=== PATIENT | female | born 1965 | race Two or more races ===

== ENCOUNTER 2019-12-04 12:29 | Emergency (ER) | payer OTHER, SELFPAY ==
[2019-12-04 13:06] VITALS: BP 134/58; PULSE 57; RESP 18; TEMP 36.9; O2SAT 98; BMI 60.6
--- NOTE | 2019-12-04 13:18 | ED_ITS ---
HPI - Female Genitourinary General Chief complaint: Urogenital-Female Stated complaint: r side pain Time Seen by Provider: 12/04/19 17:09 Source: patient Mode of arrival: ambulatory Limitations: no limitations History of Present Illness HPI Narrative: Patient presents to ED for dysuria and right-sided flank pain f or the past 2 days. Patient states some nausea, but no vomiting. Patient denies any fever or chills. Patient denies any recent trauma to the abdomen, flank, or back area. Patient denies any hematuria. Patient denies any abdominal pain, nausea, or emesis. MD elicited complaint: dysuria and flank pain Related Data Home Medications Medication Instructions Recorded Confirmed omeprazole 20 mg capsule,delayed 20 mg PO DAILY 11/23/19 release Previous Rx's Medication Instructions Recorded docusate sodium 100 mg capsule 100 mg PO BID 30 Days #60 cap 11/23/19 plecanatide 3 mg tablet 3 mg PO DAILY 30 Days #30 tab 11/23/19 oxycodone-acetaminophen [Percocet] 1 tab PO Q6H PRN #12 tab 12/04/19 Allergies Allergy/AdvReac Type Severity Reaction Status Date / Time levofloxacin [From LEVAQUIN] Allergy Unknown DIZZINESS Unverified 11/02/19 17:43 topiramate Allergy Unknown palpitation Verified 05/24/19 00:00 s BuPROPion HCl Allergy Unknown palpitation Uncoded 05/24/19 00:00 s Phentermine HCl Allergy Unknown uncontrolled Uncoded 05/24/19 00:00 hypertension Pt states she has no known Allergy Unknown Uncoded 10/19/19 00:00 ole Review of Systems Review of Systems: Yes all other systems are reviewed and are negative Constitutional: Constitutional: Reports as per HPI and Reports no additional constitutional complaints Eyes: Eyes: Reports as per HPI and Reports no additional eye complaints ENT: Reports system reviewed and no additional complaints, except as documented and Reports as per HPI Cardiovascular: Cardiovascular: Reports as per HPI and Reports no additional cardiovascular complaints Respiratory: Respiratory: Reports as per HPI and Reports no additional respiratory complaints Gastrointestinal: Gastrointestinal: Reports as per HPI and Reports no additional gastrointestinal complaints Genitourinary: Genitourinary: Reports dysuria Comments: Positive for Right flank pain. Neurologic: Reports system reviewed and no additional complaints, except as documented and Reports as per HPI Psychiatric: Psychiatric: Reports no additional psychiatric complaints and Reports as per HPI ON LICENSE OF [facility] Past Medical History Medical History (Updated 12/04/19 @ 21:43 by SUDHEER Curran) Afib Anxiety Arthritis Asthma Depression Hepatic steatosis Surgical History H/O colonoscopy History of section History of cholecystectomy History of esophagogastroduodenoscopy (EGD) Family History Family History (Updated 11/22/19 @ 17:55 by JOCELIN Rizzo) Father CVA (cerebral vascular accident) Colon cancer CAD (coronary artery disease) Mother Cancer of unknown origin Social History Social History (Updated 11/22/19 @ 17:55 by JOCELIN Rizzo) Alcohol intake: never Smoking Status: Never smoker Smoked in Last 30 Days: No Use of substances other than those prescribed or required for medical reasons: No Advance Directives: No Advance Directives Information Provided: Yes Physical Exam Vital Signs: Vital Signs: Vital Signs Temp Pulse Resp BP Pulse Ox 12/04/19 17:40 98.6 F 61 16 145/59 H 12/04/19 15:17 98.4 F 59 16 164/70 H 100 12/04/19 13:06 98.4 F 57 18 134/58 L 98 Body Mass Index 60.6 Const: General: cooperative, healthy appearing, comfortable, no acute distress and well developed Orientation/consciousness: oriented to person, oriented to place, oriented to time and patient oriented x3 HENMT: Head: Yes normal to inspection Eyes: General: appearance normal, both eyes and all related structures Neck: Neck: Yes normal visual inspection and Yes full ROM Chest: Chest palpation & inspection: normal inspection of the chest and normal palpation of entire chest wall Resp: Effort & Inspection: normal respiratory effort and able to speak in complete sentences Cardio: Jugular venous distension: no JVD Heart sounds: S1 normal heart sound present and S2 normal heart sound present GI: Inspection: Yes normal to inspection and No abdominal wall ecchymosis Palpation (GI): Soft to palpation, not firm, nontender, no guarding and not rigid : General: Yes CVA tenderness (Right) Back/Spine/Pelvis: Back: CVA tenderness (Right) and No back tenderness Skin: General skin exam: no rashes or lesions noted Neuro: General: oriented to person, oriented to place, oriented to time, patient oriented x3, gait normal and CN's II-XI intact bilaterally Cranial nerves: Yes CN's II-XII intact bilaterally Extrem: General: Yes normal to inspection and Yes full ROM Course Course Course Narrative: patient will have basic labs including urine to check for UTI and elevated white blood cell count. Patient most likely will have a abdominal CT scan to rule out kidney stones. Reevaluation(s) Reevaluation #1: Patient labs are normal. UA negative for UTI. Patient abdominal CT scan negative for kidney stones or pyelonephritis. CT scan results states possble mild pancreatitis if patient's lipase enzyme abnormal elevated. Patient's lipase came back normal and patient does not have any epigastric tenderness/abdominal tenderness to indicate pancreatitis. Pancreatitis is not a suspicion or diagnosis. Once again patient came to ED for right-sided flank pain and dysuria Time: 21:38 Reevaluation #2: during ED visit patient stated she started described chest pain described as her usual anxiety. Patient states she is waiting too long. Patient does states history of anxiety and does take anxiety medication. But due to patient risk factors of hypertension and past medical history of atrial fibrillation patient will have 2 troponins in the ED. Patient was given Ativan now is sleeping and not in any distress. Discharge papers will be prepared is signed out to MICHAEL Gomez follow-up with troponin. Time: 09:39 MDM - Female Genitourinary MDM Narrative Medical decision making narrative: Flank pain. Abdominal CT scan negative for UTI, kidney stones, pyelonephritis. History physical exam does not indicate pancreatitis. Patient does not have any abdominal tenderness Lab Data Result diagrams: 12/04/19 15:30 12/04/19 15:30 Labs: Lab Results 12/04/19 12/04/19 12/04/19 Range/Units 15:24 15:30 15:30 WBC 8.3 (4.8-10.8) X10*3/uL RBC 4.35 (4.20-5.50) X10*6/uL Hgb 13.2 (12.0-16.0) g/dl Hct 41.5 (37-47) % MCV 95.4 (80-98) fL MCH 30.3 (27.0-33.0) pg MCHC 31.8 (31.0-35.0) g/dl RDW 13.6 (11.0-16.0) % Plt Count 203 (160-400) X10*3/uL MPV 11.7 (9.4-12.3) fL Immature Gran % (Auto) 0.4 (0.0-0.4) % Neut % (Auto) 53.7 (45-73) % Lymph % (Auto) 37.0 (20-40) % [place] % (Auto) 7.2 (2-11) % Eos % (Auto) 1.5 (0-4) % Baso % (Auto) 0.2 (0-2) % Lymph # (Auto) 3.1 (1.2-4.9) X10*3/uL [place] # (Auto) 0.6 (0.1-1.2) X10*3/uL Eos # (Auto) 0.1 (0.0-0.4) X10*3/uL Baso # (Auto) 0.0 (0.0-0.2) X10*3/uL Abs Immat Gran (auto) 0.03 (0.00-0.03) X10*3/uL Absolute Neuts (auto) 4.4 (2.0-8.3) X10*3/uL Absolute Nucleated RBC 0.000 (0.0-0.012) X10*3/uL Nucleated RBC % (auto) 0.0 (0.0-0.2) /100WBC PT 12.8 (10.8-13.0) SEC INR 1.1 (0.9-1.1) APTT 36.6 (24.1-38.0) SEC Sodium (135-145) mmol/L Potassium (3.3-5.1) mmol/l Chloride (96-108) mmol/L Carbon Dioxide (22-29) mmol/L Anion Gap (12-20) BUN (9-16) mg/dL Creatinine (0.5-1.4) mg/dL Estim Creat Clear Calc Estimated GFR Random Glucose (60-115) mg/dL Calcium (8.4-10.2) mg/dL Total Bilirubin (0.0-1.0) mg/dL AST (5-31) U/L ALT (0-31) U/L Alkaline Phosphatase (39-117) U/L Troponin I High Sens (<3.5-17.0) ng/L Total Protein (6.5-8.0) g/dL Albumin (3.5-5.0) g/dL Lipase (8-78) U/L Urine Color YELLOW Urine Appearance CLEAR Urine pH 7.0 (5.0-8.0) Ur Specific [place] 1.010 (1.005-1.025) Urine Protein NEG (NEG-TRACE) MG/DL Urine Glucose (UA) NEG (NEG) MG/DL Urine Ketones NEG (NEG) MG/DL Urine Blood NEG (NEG) Urine Nitrite NEG (NEG) Ur Leukocyte Esterase NEG (NEG) 12/04/19 12/04/19 Range/Units 15:30 18:46 WBC (4.8-10.8) X10*3/uL RBC (4.20-5.50) X10*6/uL Hgb (12.0-16.0) g/dl Hct (37-47) % MCV (80-98) fL MCH (27.0-33.0) pg MCHC (31.0-35.0) g/dl RDW (11.0-16.0) % Plt Count (160-400) X10*3/uL MPV (9.4-12.3) fL Immature Gran % (Auto) (0.0-0.4) % Neut % (Auto) (45-73) % Lymph % (Auto) (20-40) % [place] % (Auto) (2-11) % Eos % (Auto) (0-4) % Baso % (Auto) (0-2) % Lymph # (Auto) (1.2-4.9) X10*3/uL [place] # (Auto) (0.1-1.2) X10*3/uL Eos # (Auto) (0.0-0.4) X10*3/uL Baso # (Auto) (0.0-0.2) X10*3/uL Abs Immat Gran (auto) (0.00-0.03) X10*3/uL Absolute Neuts (auto) (2.0-8.3) X10*3/uL Absolute Nucleated RBC (0.0-0.012) X10*3/uL Nucleated RBC % (auto) (0.0-0.2) /100WBC PT (10.8-13.0) SEC INR (0.9-1.1) APTT (24.1-38.0) SEC Sodium 139 (135-145) mmol/L Potassium 4.1 (3.3-5.1) mmol/l Chloride 106 (96-108) mmol/L Carbon Dioxide 25 (22-29) mmol/L Anion Gap 12 (12-20) BUN 15 (9-16) mg/dL Creatinine 0.73 (0.5-1.4) mg/dL Estim Creat Clear Calc 113.1 Estimated GFR > 60 Random Glucose 82 (60-115) mg/dL Calcium 8.8 (8.4-10.2) mg/dL Total Bilirubin 0.4 (0.0-1.0) mg/dL AST 16 (5-31) U/L ALT 18 (0-31) U/L Alkaline Phosphatase 110 (39-117) U/L Troponin I High Sens < 3.5 (<3.5-17.0) ng/L Total Protein 7.7 (6.5-8.0) g/dL Albumin 4.1 (3.5-5.0) g/dL Lipase 10 (8-78) U/L Urine Color Urine Appearance Urine pH (5.0-8.0) Ur Specific [place] (1.005-1.025) Urine Protein (NEG-TRACE) MG/DL Urine Glucose (UA) (NEG) MG/DL Urine Ketones (NEG) MG/DL Urine Blood (NEG) Urine Nitrite (NEG) Ur Leukocyte Esterase (NEG) ECG Data Interpretation: sinus bradycardia, ventricular rate 58. NM interval 154. Normal EKG Discharge Plan Discharge Clinical Impression: Flank pain Patient Disposition: Home, Self-Care Instructions: Flank Pain (ED) Additional Instructions: return to the ED immediately for chest pain, shortness of breath, swelling of lower extremities, hematuria, dysuria, fever, chills, abdominal pain, nausea, vomiting, or any other concerning symptoms. Please follow-up with the PCP. Prescriptions: New oxycodone-acetaminophen [Percocet] 5-325 mg tablet 1 tab PO Q6H PRN (Reason: pain) Qty: 12 RF: 0 No Action Trulance 3 mg tablet 3 mg PO DAILY 30 Days Qty: 30 RF: 3 docusate sodium [Colace] 100 mg capsule 100 mg PO BID 30 Days Qty: 60 RF: 3 omeprazole 20 mg capsule,delayed release(DR/EC) 20 mg PO DAILY RF: 0 Referrals: Eri Feldman MD [Primary Care Provider] - 2 days (FLank pain. Abdominal CT scan negative for kidney stones. UA normal) Print Language: Mexican
[2019-12-04 15:17] VITALS: BP 164/70; PULSE 59; RESP 16; TEMP 36.9; O2SAT 100
[2019-12-04] MEDS: 0.9 % Sodium Chloride 1,000 ML 999 ML IVCONT (15:32)
--- NOTE | 2019-12-04 15:33 | PC.NURSE ---
iv inserted-difficult stick, labs drawn, patient ambulated to bathroom for urine sample, ivf started per order, currently patient watching tv, will continue to monitor.
[2019-12-04 15:38] LABS: Glucose Urine UA NEG (NEG); Leukocyte Esterase Urine NEG (NEG); Nitrite Urine NEG (NEG); Urine Blood NEG (NEG); Urine Ketones NEG (NEG); Urine Protein NEG (NEG-TRACE)
[2019-12-04 15:39] LABS: Appearance Urine CLEAR; Color Urine YELLOW
[2019-12-04 15:39] LABS: MANUAL DIFF FLAG NO
[2019-12-04 15:40] LABS: Basophils Percent Auto 0.2 % (0-2); Eosinophils Absolute Auto 0.1 X10*3/uL (0.0-0.4); Eosinophils Percent Auto 1.5 % (0-4); Hematocrit 41.5 % (37-47); Hemoglobin 13.2 g/dl (12.0-16.0); Imm Gran Abs Auto 0.03 X10*3/uL (0.00-0.03); Imm Gran Pct Auto 0.4 % (0.0-0.4); Lymphocytes Absolute Auto 3.1 X10*3/uL (1.2-4.9); Mean Corpuscular HGB Conc 31.8 g/dl (31.0-35.0); Mean Corpuscular Hemoglobin 30.3 pg (27.0-33.0); Mean Corpuscular Volume 95.4 fL (80-98); Mean Platelet Volume 11.7 fL (9.4-12.3); Monocytes Absolute Auto 0.6 X10*3/uL (0.1-1.2); Monocytes Percent Auto 7.2 % (2-11); Neutrophils Absolute Auto 4.4 X10*3/uL (2.0-8.3); Neutrophils Percent Auto 53.7 % (45-73); Platelet Count 203 X10*3/uL (160-400); Red Blood Count 4.35 X10*6/uL (4.20-5.50); Red Cell Distribution Width 13.6 % (11.0-16.0); White Blood Count 8.3 X10*3/uL (4.8-10.8)
[2019-12-04 15:48] LABS: INTERNATIONAL NORM RATIO 1.1 (0.9-1.1); Prothrombin Time 12.8 SEC (10.8-13.0)
[2019-12-04 15:51] LABS: Partial Thromboplastin Time 36.6 SEC (24.1-38.0)
[2019-12-04 16:07] LABS: Alanine Aminotransferase 18 U/L (0-31); Albumin Level 4.1 g/dL (3.5-5.0); Alkaline Phosphatase 110 U/L (39-117); Anion Gap 12 (12-20); Aspartate Amino Transferase 16 U/L (5-31); Bilirubin Total 0.4 mg/dL (0.0-1.0); Blood Urea Nitrogen 15 mg/dL (9-16); Calcium 8.8 mg/dL (8.4-10.2); Carbon Dioxide 25 mmol/L (22-29); Chloride 106 mmol/L (96-108); Creatinine Clr Calc Pharmacy 113.1; Estimated Glomerular Filt Rate > 60; Glucose Random 82 mg/dL (60-115); Potassium 4.1 mmol/l (3.3-5.1); Sodium 139 mmol/L (135-145); Total Protein 7.7 g/dL (6.5-8.0)
--- NOTE | 2019-12-04 16:10 | CT_ITS ---
EXAMINATION: CT ABDOMEN AND PELVIS WITH CONTRAST CLINICAL INFORMATION: Right-sided abdominal pain COMPARISON: Ultrasound 10/24/2018 TECHNIQUE: Multidetector volumetric images were obtained from the superior aspect of the liver through the pubic symphysis following administration 85 mL of Omnipaque 350 intravenous contrast. Sagittal and coronal reformatted images were obtained on the technologist's workstation. Oral contrast: No This CT examination was performed using dose optimization techniques as appropriate, variously including the following: *Automated exposure control *Adjustment of mA and/or kV according to patient size (this includes techniques or standardized protocols for targeted exams where dose is matched to indication/reason for exam; i.e. extremities or head) *Use of iterative reconstruction technique DLP: 1281 mGy-cm FINDINGS: LUNG BASES: The visualized lung bases are unremarkable. LIVER, GALLBLADDER, AND BILIARY TREE: There is low density along the periphery of the right lobe of liver and adjacent the fissure of the falciform ligament consistent with fatty infiltration. No concerning focal liver lesion seen. Gallbladder surgically absent. No biliary ductal dilatation. PANCREAS: There is subtle fluid and fat stranding adjacent the head of the pancreas. No mass seen. The pancreas enhances normally with no necrosis. SPLEEN: Unremarkable. ADRENAL GLANDS: Unremarkable. KIDNEYS AND URETERS: The kidneys are normal in size, shape, and attenuation. No hydronephrosis, hydroureter, or calculi seen. No perinephric stranding. BLADDER: Unremarkable. GASTROINTESTINAL TRACT: Stomach and small bowel are nondilated. Normal appendix. No evidence of colitis or diverticulitis. ABDOMINAL WALL: Small fat-containing umbilical hernia. There is a transverse lower abdominal incision suggesting prior Pfannenstiel incision. LYMPH NODES: No lymphadenopathy. Normal-sized right lower quadrant lymph nodes are present. VASCULAR: Unremarkable. PELVIC VISCERA: Normal CT appearance of the uterus and ovaries. OSSEOUS STRUCTURES: Multilevel degenerative changes. No acute or suspicious osseous abnormality. There are a few scattered nonspecific sclerotic foci for example in the right iliac bone. This was present on the prior study 08/19/2015, consistent with a benign etiology. IMPRESSION: There is a suggestion of subtle fat stranding adjacent the head of the pancreas. Mild pancreatitis could give this appearance. Consider correlation with serum enzymes. No evidence of appendicitis or colitis. No evidence of obstructive uropathy. Status post cholecystectomy with no biliary ductal dilatation.
[2019-12-04] MEDS: iohexoL 350 MG/ML 100 ML INFUS..BTL IV (16:44)
[2019-12-04 17:40] VITALS: BP 145/59; PULSE 61; RESP 16; TEMP 37
--- NOTE | 2019-12-04 17:42 | PC.NURSE ---
patient a&ox3, patient asking for something to drink, will ask provider, vss, ivf still running very slowly- provider ok'd pressure bag to help fluids run faster, will continue to monitor.
[2019-12-04 17:52] LABS: Lipase 10 U/L (8-78)
--- NOTE | 2019-12-04 18:20 | PC.NURSE ---
patient sat up in bed after requesting to use the bathroom and became tearful, called for leather lacer, pt stating she does not want the morphine- will wait for leather lacer to come to assess the situation.
--- NOTE | 2019-12-04 18:33 | ECG_ITS ---
Test Reason : chest pain Blood Pressure : / mmHG Vent. Rate : 058 BPM Atrial Rate : 058 BPM P-R Int : 154 ms QRS Dur : 084 ms QT Int : 440 ms P-R-T Axes : 014 021 038 degrees QTc Int : 431 ms Sinus bradycardia RSR' or QR pattern in V1 suggests right ventricular conduction delay Otherwise normal ECG When compared with ECG of 24-MAY-2019 09:30, No significant change was found Referred By: Thai Victoria Electronically Signed By:PATRICE VALENZUELA MD
--- NOTE | 2019-12-04 18:36 | PC.NURSE ---
patient crying, funds development director states she is having mid sternal chest pain, non radiating, provider is aware, pt also states she is having problems with anxiety, it was decided to hold morphine and treat the anxiety at this time, will medicate for anxiety when order is available.
[2019-12-04] MEDS: LORazepam 1 MG TABLET 2 MG PO (18:39)
[2019-12-04 19:21] LABS: Troponin-I High Sensitivity < 3.5 ng/L (<3.5-17.0)
[2019-12-04 20:00] VITALS: BP 128/64; PULSE 70; RESP 18; O2SAT 97
--- NOTE | 2019-12-04 20:26 | XR_ITS ---
EXAMINATION: CHEST 1 VIEW CLINICAL INFORMATION: Chest pain. COMPARISON: September 16, 2018. TECHNIQUE: An AP view of the chest is provided. FINDINGS: The cardiac silhouette is stable. The mediastinal and hilar contours are unremarkable. There are neither pleural effusions nor pneumothoraces. There are no consolidations. The osseous structures are stable. IMPRESSION: No evidence for acute disease.
[2019-12-04 22:00] VITALS: BP 126/60; PULSE 72; RESP 18; O2SAT 97
[2019-12-04 23:15] LABS: Troponin-I High Sensitivity 5.8 ng/L (<3.5-17.0)
== END 2019-12-04 23:56 | disposition home or self-care (01) ==
PROVIDERS: Physician Assistant; Emergency Provider Emergency Medicine; PCP Internal Medicine
DX: R10.9 Unspecified abdominal pain (principal); R11.0 Nausea; Z79.899 Other long term (current) drug therapy
CPT/HCPCS: 36415; 71045; 74177; 80053; 81003; 83690; 84484; 85025; 85610; 85730; 93005; 96361; 96374; 99284; J2270

== ENCOUNTER 2020-01-12 11:20 | Outpatient (REF) | payer OTHER, SELFPAY ==
--- NOTE | 2020-01-12 11:25 | MM_ITS ---
EXAMINATION: MM SCREENING DIGITAL BREAST TOMOSYNTHESIS, BILATERAL CLINICAL INFORMATION: Screening. Asymptomatic. The lifetime risk of breast cancer based on the Tyrer-Cuzick Model is 9%. COMPARISON: Mammography: 06/22/2018, 06/11/2017, 06/09/2016 TECHNIQUE: Digital breast tomosynthesis is performed in both the craniocaudal and mediolateral oblique views along with computer-aided detection (CAD). Synthesized 2D images are generated from the tomosynthesis. FINDINGS: The breasts are almost entirely fatty (ACR BI-RADS breast composition Category a). There are no significant masses, abnormal calcifications, or other abnormalities. Background stromal and fibroglandular densities are stable including the oval asymmetric density central left breast on CC view. The axilla are unremarkable. MM/MM tomosynthesis screening BI IMPRESSION: No significant changes from prior studies. ASSESSMENT: BI-RADS 2: Benign RECOMMENDATION: Routine annual mammography screening. This patient's information was entered into a reminder system with a target due date for their next mammogram.
== END 2020-01-12 11:21 | disposition home or self-care (01) ==
LOC: HO.MAMMO 11:20
PROVIDERS: PCP Internal Medicine; Visit Provider Internal Medicine
DX: Z12.31 Encounter for screening mammogram for malignant neoplasm of breast (principal)
CPT/HCPCS: 77063; 77067

== ENCOUNTER → 2020-01-18 08:58 | Outpatient (BNVA) | payer OTHER, SELFPAY | PROVIDERS: PCP Internal Medicine; Referring Provider Internal Medicine; Visit Provider Physician Assistant | DX: E66.01 Morbid (severe) obesity due to excess calories (principal) | CPT/HCPCS: 99212 ==

== ENCOUNTER 2020-01-19 08:52 | Outpatient (REF) | payer OTHER, SELFPAY ==
--- NOTE | 2020-01-19 09:00 | ECG_ITS ---
Test Reason : PAF Blood Pressure : / mmHG Vent. Rate : 063 BPM Atrial Rate : 063 BPM P-R Int : 132 ms QRS Dur : 086 ms QT Int : 416 ms P-R-T Axes : 000 015 033 degrees QTc Int : 425 ms Normal sinus rhythm Normal ECG When compared with ECG of 04-DEC-2019 19:35, No significant change was found Referred By: Mari Grande Electronically Signed By:DARIN DONAHUE MD
--- NOTE | 2020-01-19 09:17 | XR_ITS ---
EXAMINATION: XR CHEST CLINICAL INFORMATION: I48.0 - Paroxysmal atrial fibrillation COMPARISON: Chest radiographs 12/04/2019, 09/16/2018, 12/02/2016 TECHNIQUE: 2 views of the chest were obtained. FINDINGS: The heart is normal in size. There is even distribution vascularity which may suggest some mild elevated pulmonary venous pressures. There is no interstitial edema or, airspace consolidation, or effusion. The costophrenic sulci are clear. The hilar and mediastinal contours are normal. There are mild degenerative changes thoracic spine. XR/XR chest 2V IMPRESSION: 1. Heart size normal. Even distribution vascularity suggesting mild elevated pulmonary venous pressures. 2. Lungs clear. No interstitial edema, airspace consolidation, or effusion.
[2020-01-19 10:14] LABS: MANUAL DIFF FLAG NO
[2020-01-19 10:27] LABS: Basophils Percent Auto 0.3 % (0-2); Eosinophils Absolute Auto 0.1 X10*3/uL (0.0-0.4); Eosinophils Percent Auto 2.1 % (0-4); Hematocrit 39.5 % (37-47); Hemoglobin 12.6 g/dl (12.0-16.0); Imm Gran Abs Auto 0.02 X10*3/uL (0.00-0.03); Imm Gran Pct Auto 0.3 % (0.0-0.4); Lymphocytes Absolute Auto 2.4 X10*3/uL (1.2-4.9); Lymphocytes Percent Auto 41.3 % (20-40); Mean Corpuscular HGB Conc 31.9 g/dl (31.0-35.0); Mean Platelet Volume 12.3 fL (9.4-12.3); Monocytes Absolute Auto 0.5 X10*3/uL (0.1-1.2); Monocytes Percent Auto 7.7 % (2-11); Neutrophils Absolute Auto 2.8 X10*3/uL (2.0-8.3); Neutrophils Percent Auto 48.3 % (45-73); Platelet Count 180 X10*3/uL (160-400); Red Cell Distribution Width 13.6 % (11.0-16.0); White Blood Count 5.8 X10*3/uL (4.8-10.8)
[2020-01-19 10:35] LABS: Estimated Average Glucose 111 mg/dL; Hemoglobin A1c % 5.5 %
[2020-01-19 10:38] LABS: Alanine Aminotransferase 19 U/L (0-31); Albumin Level 3.9 g/dL (3.5-5.0); Alkaline Phosphatase 109 U/L (39-117); Anion Gap 13 (12-20); Aspartate Amino Transferase 15 U/L (5-31); Bilirubin Total 0.5 mg/dL (0.0-1.0); Blood Urea Nitrogen 19 mg/dL (9-16); C Reactive Protein 0.64 mg/dL (< or = 0.50); Calcium 8.5 mg/dL (8.4-10.2); Carbon Dioxide 24 mmol/L (22-29); Chloride 106 mmol/L (96-108); Cholesterol 203 mg/dL; Estimated Glomerular Filt Rate > 60; Glucose Fasting 95 mg/dL (60-99); HDL Cholesterol 48 mg/dL; Iron 51 mcg/dL (30-160); LDL Cholesterol Calculated 136 mg/dl; Percent Iron Saturation 15 % (15-50); Potassium 4.1 mmol/l (3.3-5.1); Sodium 139 mmol/L (135-145); Total Iron Binding Capacity 351 mcg/dL (228-428); Total Protein 7.4 g/dL (6.5-8.0); Triglycerides 96 mg/dL; Unsaturated Iron Binding 300 ug/dL
[2020-01-19 10:58] LABS: Ferritin 25 ng/mL (10-250); Vitamin D 25-OH Total 28.8 ng/mL (>30)
[2020-01-19 11:10] LABS: Folate 5.4 ng/mL (> or = 4.0); Vitamin B12 494 pg/mL (200-900)
[2020-01-21 14:03] LABS: PTHI 37 pg/mL (14-64)
[2020-01-22 18:42] LABS: Insulin Level Total 5.2 uIU/mL
[2020-01-23 03:07] LABS: Zinc 76 mcg/dL (60-130)
[2020-01-25 11:17] LABS: Vitamin B1 12 nmol/L (8-30)
[2020-01-25 23:23] LABS: Vitamin A 40 mcg/dL (38-98)
== END 2020-01-19 08:53 | disposition home or self-care (01) ==
LOC: HO.LAB 08:52
PROVIDERS: PCP Internal Medicine; Visit Provider Physician Assistant
DX: E66.01 Morbid (severe) obesity due to excess calories (principal); I48.0 Paroxysmal atrial fibrillation; I10 Essential (primary) hypertension; R06.02 Shortness of breath
CPT/HCPCS: 36415; 71046; 80053; 80061; 82306; 82607; 82728; 82746; 83036; 83525; 83540; 83970; 84425; 84443; 84590; 84630; 85025; 86140; 93005

== ENCOUNTER 2020-02-06 10:11 | Outpatient (REF) | payer OTHER, SELFPAY ==
[2020-02-06 11:56] LABS: Glucose Urine UA NEG (NEG); Leukocyte Esterase Urine NEG (NEG); Nitrite Urine NEG (NEG); Specific Gravity - Urine 1.015 (1.005-1.025); Urine Blood TRACE (NEG); Urine Ketones NEG (NEG); Urine Protein NEG (NEG-TRACE)
[2020-02-06 12:01] LABS: Appearance Urine CLEAR; Color Urine YELLOW
[2020-02-06 12:15] LABS: Alanine Aminotransferase 18 U/L (0-31); Albumin Level 3.9 g/dL (3.5-5.0); Alkaline Phosphatase 100 U/L (39-117); Anion Gap 12 (12-20); Aspartate Amino Transferase 19 U/L (5-31); Bilirubin Total 0.5 mg/dL (0.0-1.0); Blood Urea Nitrogen 15 mg/dL (9-16); Calcium 8.6 mg/dL (8.4-10.2); Carbon Dioxide 25 mmol/L (22-29); Chloride 107 mmol/L (96-108); Cholesterol 195 mg/dL; Estimated Glomerular Filt Rate > 60; Glucose Fasting 84 mg/dL (60-99); HDL Cholesterol 49 mg/dL; LDL Cholesterol Calculated 130 mg/dl; Sodium 140 mmol/L (135-145); Total Protein 7.4 g/dL (6.5-8.0); Triglycerides 83 mg/dL
[2020-02-06 12:26] LABS: RBC Urine 0-2 /HPF (0); Squamous Epithelial Cell Urine 1+ /LPF; WBC Urine 0-2 /HPF (0-4)
[2020-02-06 12:36] LABS: Vitamin D 25-OH Total 32.6 ng/mL (>30)
[2020-02-06 12:40] LABS: TSH reflex Free T4 1.05 mIU/mL (0.32-4.0)
[2020-02-14 22:03] LABS: Thyrotropin Receptor Antibody <1.00 IU/L (<=2.00)
== END 2020-02-06 10:12 | disposition home or self-care (01) ==
LOC: HO.LAB 10:11
PROVIDERS: Nurse Practitioner; PCP Internal Medicine; Visit Provider Internal Medicine
DX: E78.00 Pure hypercholesterolemia, unspecified (principal); E55.9 Vitamin D deficiency, unspecified
CPT/HCPCS: 36415; 80053; 80061; 81001; 81003; 82306; 83520; 84443

== ENCOUNTER → 2020-02-22 14:35 | Outpatient (BNVA) | payer OTHER, SELFPAY | PROVIDERS: PCP Internal Medicine; Visit Provider Surgery | DX: E66.01 Morbid (severe) obesity due to excess calories (principal); Z68.43 Body mass index [BMI] 50.0-59.9, adult | CPT/HCPCS: 99212 ==

== ENCOUNTER → 2020-02-27 08:16 | Outpatient (BNVA) | payer OTHER, SELFPAY | PROVIDERS: PCP Internal Medicine; Visit Provider Dietitian, Registered | DX: Z76.89 Persons encountering health services in other specified circumstances (principal) ==

== ENCOUNTER → 2020-03-05 14:03 | Outpatient (BNVA) | payer OTHER, SELFPAY | PROVIDERS: PCP Internal Medicine; Visit Provider Nurse Practitioner ==

== ENCOUNTER → 2020-03-07 14:42 | Outpatient (BNVA) | payer OTHER, SELFPAY | PROVIDERS: PCP Internal Medicine; Visit Provider Physician Assistant ==

== ENCOUNTER → 2020-03-15 14:18 | Outpatient (BNVA) | payer OTHER, SELFPAY | PROVIDERS: Visit Provider Physician Assistant | DX: E66.01 Morbid (severe) obesity due to excess calories (principal) | CPT/HCPCS: 99212 ==

== ENCOUNTER → 2020-03-19 07:40 | Outpatient (BNVA) | payer OTHER, SELFPAY | PROVIDERS: Visit Provider Dietitian, Registered ==

== ENCOUNTER → 2020-03-20 09:31 | Outpatient (BNVA) | payer OTHER, SELFPAY | PROVIDERS: Visit Provider Nurse Practitioner ==

== ENCOUNTER → 2020-03-27 12:44 | Outpatient (BNVA) | payer OTHER, SELFPAY | PROVIDERS: PCP Internal Medicine; Visit Provider Dietitian, Registered ==

== ENCOUNTER → 2020-04-11 14:00 | Outpatient (BNVA) | payer OTHER, SELFPAY | PROVIDERS: PCP Internal Medicine; Visit Provider Physician Assistant | DX: E66.01 Morbid (severe) obesity due to excess calories (principal) | CPT/HCPCS: 99212 ==

== ENCOUNTER → 2020-04-22 10:37 | Outpatient (BNVA) | payer OTHER, SELFPAY | PROVIDERS: PCP Internal Medicine; Visit Provider Internal Medicine Cardiovascular Disease | DX: Z01.810 Encounter for preprocedural cardiovascular examination (principal); I48.0 Paroxysmal atrial fibrillation | CPT/HCPCS: 93005; 99212 ==

== ENCOUNTER → 2020-04-30 12:56 | Outpatient (BNVA) | payer OTHER, SELFPAY | PROVIDERS: PCP Internal Medicine; Visit Provider Dietitian, Registered ==

== ENCOUNTER 2020-06-24 11:35 | Outpatient (REF) | payer OTHER, SELFPAY ==
[2020-06-24 12:33] LABS: MANUAL DIFF FLAG NO
[2020-06-24 12:41] LABS: Basophils Percent Auto 0.4 % (0-2); Eosinophils Absolute Auto 0.1 X10*3/uL (0.0-0.4); Eosinophils Percent Auto 1.3 % (0-4); Hematocrit 41.7 % (37-47); Hemoglobin 13.3 g/dl (12.0-16.0); Imm Gran Abs Auto 0.01 X10*3/uL (0.00-0.03); Imm Gran Pct Auto 0.2 % (0.0-0.4); Lymphocytes Absolute Auto 2.4 X10*3/uL (1.2-4.9); Lymphocytes Percent Auto 46.4 % (20-40); Mean Corpuscular HGB Conc 31.9 g/dl (31.0-35.0); Mean Corpuscular Volume 93.9 fL (80-98); Mean Platelet Volume 12.1 fL (9.4-12.3); Monocytes Absolute Auto 0.4 X10*3/uL (0.1-1.2); Monocytes Percent Auto 7.5 % (2-11); Neutrophils Absolute Auto 2.3 X10*3/uL (2.0-8.3); Neutrophils Percent Auto 44.2 % (45-73); Platelet Count 166 X10*3/uL (160-400); Red Blood Count 4.44 X10*6/uL (4.20-5.50); Red Cell Distribution Width 13.6 % (11.0-16.0); White Blood Count 5.2 X10*3/uL (4.8-10.8)
[2020-06-24 13:23] LABS: Alanine Aminotransferase 18 U/L (0-31); Albumin Level 4.1 g/dL (3.5-5.0); Alkaline Phosphatase 102 U/L (39-117); Anion Gap 13 (12-20); Aspartate Amino Transferase 17 U/L (5-31); Bilirubin Total 0.6 mg/dL (0.0-1.0); Blood Urea Nitrogen 21 mg/dL (9-16); Calcium 9.2 mg/dL (8.4-10.2); Carbon Dioxide 25 mmol/L (22-29); Chloride 105 mmol/L (96-108); Cholesterol 214 mg/dL; Estimated Glomerular Filt Rate > 60; Glucose Fasting 87 mg/dL (60-99); HDL Cholesterol 53 mg/dL; LDL Cholesterol Calculated 144 mg/dl; Potassium 4.2 mmol/L (3.3-5.1); Sodium 139 mmol/L (135-145); Total Protein 7.8 g/dL (6.5-8.0); Triglycerides 85 mg/dL
[2020-06-24 13:55] LABS: Folate 10.1 ng/mL (> or = 4.0); Vitamin B12 1069 pg/mL (200-900)
[2020-06-28 13:37] LABS: Vitamin D 25-OH, D2 <4 ng/mL; Vitamin D 25-OH, D3 27 ng/mL; Vitamin D 25-OH, Total 27 ng/mL (30-100)
== END 2020-06-24 11:36 | disposition home or self-care (01) ==
LOC: HO.LAB 11:35
PROVIDERS: PCP Internal Medicine; Visit Provider Internal Medicine
DX: E78.5 Hyperlipidemia, unspecified (principal); I10 Essential (primary) hypertension; D64.9 Anemia, unspecified; I48.0 Paroxysmal atrial fibrillation; E55.9 Vitamin D deficiency, unspecified; E53.8 Deficiency of other specified B group vitamins
CPT/HCPCS: 36415; 80053; 80061; 82306; 82607; 82746; 85025

== ENCOUNTER → 2020-06-25 14:01 | Outpatient (BNVA) | payer OTHER, SELFPAY | PROVIDERS: PCP Internal Medicine; Referring Provider Internal Medicine; Visit Provider Physician Assistant | DX: E66.01 Morbid (severe) obesity due to excess calories (principal); Z68.44 Body mass index [BMI] 60.0-69.9, adult | CPT/HCPCS: 99212 ==

== ENCOUNTER → 2020-07-10 11:23 | Outpatient (BNVA) | payer OTHER, SELFPAY | PROVIDERS: PCP Internal Medicine; Referring Provider Internal Medicine; Visit Provider Dietitian, Registered | DX: E66.9 Obesity, unspecified (principal); Z68.43 Body mass index [BMI] 50.0-59.9, adult | CPT/HCPCS: 97803 ==

== ENCOUNTER → 2020-07-11 09:05 | Outpatient (BNVA) | payer OTHER, SELFPAY | PROVIDERS: PCP Internal Medicine; Visit Provider Student in an Organized Health Care Education/Training Program | DX: M79.7 Fibromyalgia (principal) | CPT/HCPCS: 99212 ==

== ENCOUNTER → 2020-08-23 12:43 | Outpatient (BNVA) | payer OTHER, SELFPAY | PROVIDERS: PCP Internal Medicine; Referring Provider Internal Medicine; Visit Provider Surgery | DX: E66.01 Morbid (severe) obesity due to excess calories (principal); Z68.44 Body mass index [BMI] 60.0-69.9, adult | CPT/HCPCS: 99212 ==

== ENCOUNTER → 2020-09-19 08:49 | Outpatient (BNVA) | payer OTHER, SELFPAY | PROVIDERS: PCP Internal Medicine; Visit Provider Nurse Practitioner | DX: K21.9 Gastro-esophageal reflux disease without esophagitis (principal); K29.50 Unspecified chronic gastritis without bleeding; K59.04 Chronic idiopathic constipation; K64.9 Unspecified hemorrhoids; E66.01 Morbid (severe) obesity due to excess calories ==

== ENCOUNTER → 2020-10-24 15:32 | Outpatient (BNVA) | payer OTHER, SELFPAY | PROVIDERS: Referring Provider Internal Medicine; Visit Provider Nurse Practitioner | DX: K21.9 Gastro-esophageal reflux disease without esophagitis (principal); K59.04 Chronic idiopathic constipation; E66.01 Morbid (severe) obesity due to excess calories; Z98.890 Other specified postprocedural states | CPT/HCPCS: 99212 ==

== ENCOUNTER → 2020-11-18 11:19 | Outpatient (BNVA) | payer OTHER, SELFPAY | PROVIDERS: Referring Provider Internal Medicine; Visit Provider Physician Assistant Surgical | DX: E66.01 Morbid (severe) obesity due to excess calories (principal); Z68.44 Body mass index [BMI] 60.0-69.9, adult | CPT/HCPCS: 99212 ==

== ENCOUNTER 2020-12-05 13:56 | Outpatient (REF) | payer OTHER, SELFPAY ==
[2020-12-05 14:42] LABS: COVID-19 Test Negative (Negative)
== END 2020-12-05 13:57 | disposition home or self-care (01) ==
LOC: HO.LAB 13:56
PROVIDERS: PCP Internal Medicine; Visit Provider Internal Medicine
DX: Z20.822 Contact with and (suspected) exposure to COVID-19 (principal)
CPT/HCPCS: 36415; 87635; C9803

== ENCOUNTER 2020-12-23 12:41 | Outpatient (REF) | payer OTHER, SELFPAY ==
[2020-12-26 01:47] LABS: HPV mRNA E6/E7 rflx Not Detected (Not Detected)
== END 2020-12-23 12:42 | disposition home or self-care (01) ==
LOC: HO.LAB 12:41
PROVIDERS: PCP Internal Medicine; Visit Provider Obstetrics & Gynecology
DX: Z01.419 Encounter for gynecological examination (general) (routine) without abnormal findings (principal); Z11.51 Encounter for screening for human papillomavirus (HPV)
CPT/HCPCS: 87624; 88142

== ENCOUNTER → 2020-12-31 13:16 | Outpatient (BNVA) | payer OTHER, SELFPAY | PROVIDERS: Referring Provider Internal Medicine; Visit Provider Nurse Practitioner | DX: K21.9 Gastro-esophageal reflux disease without esophagitis (principal); K59.04 Chronic idiopathic constipation; K64.9 Unspecified hemorrhoids; R30.0 Dysuria; Z98.890 Other specified postprocedural states | CPT/HCPCS: 99212 ==

== ENCOUNTER 2021-01-13 10:10 | Outpatient (REF) | payer OTHER, SELFPAY ==
--- NOTE | ~2021-01-13 | MM_ITS ---
EXAMINATION: MM SCREENING DIGITAL BREAST TOMOSYNTHESIS, BILATERAL CLINICAL INFORMATION: Screening. Asymptomatic. The lifetime risk of breast cancer based on the Tyrer-Cuzick Model is 6%. COMPARISON: Mammography: 01/12/2020, 06/22/2018, 06/11/2017 TECHNIQUE: Digital breast tomosynthesis is performed in both the craniocaudal and mediolateral oblique views along with computer-aided detection (CAD). Synthesized 2D images are generated from the tomosynthesis. Additional bilateral CC views are provided. FINDINGS: The breasts are almost entirely fatty (ACR BI-RADS breast composition Category a). There are no significant masses, abnormal calcifications, or other abnormalities. Background fibroglandular stromal densities are stable. No significant changes. No developing density. MM/MM tomosynthesis screening BI IMPRESSION: No mammographic evidence of malignancy. ASSESSMENT: BI-RADS 1: Negative RECOMMENDATION: Routine annual mammography screening. This patient's information was entered into a reminder system with a target due date for their next mammogram.
== END 2021-01-13 10:11 | disposition home or self-care (01) ==
LOC: HO.MAMMO 10:10
PROVIDERS: Visit Provider Internal Medicine
DX: Z12.31 Encounter for screening mammogram for malignant neoplasm of breast (principal)
CPT/HCPCS: 77063; 77067

== ENCOUNTER 2021-01-30 09:26 | Outpatient (REF) | payer OTHER, SELFPAY ==
[2021-01-30 09:48] LABS: MANUAL DIFF FLAG NO
[2021-01-30 10:20] LABS: Basophils Percent Auto 0.3 % (0-2); Eosinophils Percent Auto 0.4 % (0-4); Hematocrit 40.1 % (37.0-47.0); Hemoglobin 12.8 g/dl (12.0-16.0); Imm Gran Abs Auto 0.02 X10*3/uL (0.00-0.03); Imm Gran Pct Auto 0.3 % (0.0-0.4); Lymphocytes Absolute Auto 2.6 X10*3/uL (1.2-4.9); Lymphocytes Percent Auto 35.6 % (20-40); Mean Corpuscular HGB Conc 31.9 g/dl (31.0-35.0); Mean Corpuscular Hemoglobin 29.9 pg (27.0-33.0); Mean Corpuscular Volume 93.7 fL (80.0-98.0); Mean Platelet Volume 12.3 fL (9.4-12.3); Monocytes Absolute Auto 0.5 X10*3/uL (0.1-1.2); Monocytes Percent Auto 6.6 % (2-11); Neutrophils Absolute Auto 4.1 x10*3/uL (2.0-8.3); Neutrophils Percent Auto 56.8 % (45-73); Platelet Count 170 X10*3/uL (160-400); Red Blood Count 4.28 X10*6/uL (4.20-5.50); Red Cell Distribution Width 13.6 % (11.0-16.0); White Blood Count 7.2 X10*3/uL (4.8-10.8)
[2021-01-30 10:23] LABS: Appearance Urine CLEAR; Color Urine YELLOW; Glucose Urine UA NEG (NEG); Leukocyte Esterase Urine NEG (NEG); Nitrite Urine NEG (NEG); Urine Blood NEG (NEG); Urine Ketones NEG (NEG); Urine Protein NEG (NEG-TRACE)
[2021-01-30 10:56] LABS: Alanine Aminotransferase 16 U/L (0-31); Alkaline Phosphatase 88 U/L (39-117); Anion Gap 13 (12-20); Aspartate Amino Transferase 16 U/L (5-31); Bilirubin Total 0.5 mg/dL (0.0-1.0); Blood Urea Nitrogen 15 mg/dL (9-16); Calcium 9.3 mg/dL (8.4-10.2); Carbon Dioxide 23 mmol/L (22-29); Chloride 108 mmol/L (96-108); Cholesterol 188 mg/dL; Estimated Glomerular Filt Rate > 60; Glucose Fasting 93 mg/dL (60-99); HDL Cholesterol 42 mg/dL; LDL Cholesterol Calculated 130 mg/dl; Sodium 140 mmol/L (135-145); Total Protein 7.6 g/dL (6.5-8.0); Triglycerides 83 mg/dL
[2021-01-30 11:18] LABS: Thyroid Stimulating Hormone 1.47 uIU/mL (0.32-4.0)
[2021-02-03 14:06] LABS: Vitamin D 25-OH, D2 <4 ng/mL; Vitamin D 25-OH, D3 36 ng/mL; Vitamin D 25-OH, Total 36 ng/mL (30-100)
== END 2021-01-30 09:27 | disposition home or self-care (01) ==
LOC: HO.LAB 09:26
PROVIDERS: Referring Provider Nurse Practitioner; Visit Provider Internal Medicine
DX: R30.0 Dysuria (principal); E78.5 Hyperlipidemia, unspecified; E55.9 Vitamin D deficiency, unspecified; E66.01 Morbid (severe) obesity due to excess calories; D64.9 Anemia, unspecified
CPT/HCPCS: 36415; 80053; 80061; 81003; 82306; 84443; 85025

== ENCOUNTER 2021-02-14 13:43 | Emergency (ER) | payer OTHER, SELFPAY ==
--- NOTE | ~2021-02-14 | US_ITS ---
EXAMINATION: US PELVIS CLINICAL INFORMATION: Postmenopausal bleeding COMPARISON: CT abdomen pelvis 12/04/2019 TECHNIQUE: Ultrasound of the pelvis is performed using both transabdominal and transvaginal transducers along with Doppler. Transvaginal imaging is performed due to inadequate visualization transabdominally. FINDINGS: Uterus: The uterus is anteverted and measures 7.9 x 3.6 x 4.9 cm. Cervix not visualized. The double wall endometrial thickness is 2 mm. The uterus is smooth in contour and has normal myometrial echogenicity. No visible fibroid. Adnexa: Both ovaries are visualized. There is normal color flow to the adnexa. There is no ovarian torsion. There is no pelvic ascites or fluid collection. Right ovary measures 2.2 x 1.5 x 1.7 cm. 2.9 mL volume. Left ovary measures 2.7 x 1.7 x 2.0 cm. 4.8 mL volume. US/US pelvic and transvaginal IMPRESSION: Thin 2 mm endometrial stripe.
--- NOTE | ~2021-02-14 | CT_ITS ---
EXAMINATION: CT ABDOMEN AND PELVIS WITH CONTRAST CLINICAL INFORMATION: General abdominal pain. COMPARISON: Ultrasound earlier today. Prior CT abdomen pelvis 12/04/2019 TECHNIQUE: Multidetector volumetric images were obtained from the superior aspect of the liver through the pubic symphysis following administration 85 mL of Omnipaque 350 intravenous contrast. Sagittal and coronal reformatted images were obtained on the technologist's workstation. Oral contrast: No This CT examination was performed using dose optimization techniques as appropriate, variously including the following: *Automated exposure control *Adjustment of mA and/or kV according to patient size (this includes techniques or standardized protocols for targeted exams where dose is matched to indication/reason for exam; i.e. extremities or head) *Use of iterative reconstruction technique FINDINGS: LUNG BASES: The visualized lung bases are unremarkable. LIVER, GALLBLADDER, AND BILIARY TREE: The liver is normal in size, shape, and attenuation. No focal hepatic lesion or biliary ductal dilatation is present. Status post cholecystectomy. PANCREAS: There is subtle fat stranding in the region of the head of the pancreas. No mass seen.. SPLEEN: Unremarkable. ADRENAL GLANDS: Unremarkable. KIDNEYS AND URETERS: The kidneys are normal in size, shape, and attenuation. No hydronephrosis, hydroureter, or calculi seen. No perinephric stranding. BLADDER: Unremarkable. GASTROINTESTINAL TRACT: Stomach is collapsed with wall thickening likely due to underdistention. Small bowel nondilated. No right lower quadrant inflammatory changes to suggest appendicitis. No evidence of colitis or diverticulitis. ABDOMINAL WALL: Small fat-containing umbilical hernia. LYMPH NODES: Normal. VASCULAR: Unremarkable. PELVIC VISCERA: The uterus and adnexa are unremarkable. OSSEOUS STRUCTURES: Multilevel degenerative changes. No acute or suspicious osseous abnormality. Scattered sclerotic foci again seen, stable for many years consistent with a benign etiology. CT/CT abdomen pelvis w con IMPRESSION: There is suggestion of subtle fat stranding adjacent the head of the pancreas. Mild pancreatitis could give this appearance. Consider correlation with serum enzymes. Fleischner guidelines were followed.
[2021-02-14 14:49] VITALS: BP 151/66; PULSE 63; RESP 16; TEMP 36.9; O2SAT 100; BMI 58.6
[2021-02-14 15:28] LABS: Appearance Urine HAZY; Color Urine YELLOW; Glucose Urine UA NEG (NEG); Leukocyte Esterase Urine NEG (NEG); Nitrite Urine NEG (NEG); UACC Culture Trigger NO; Urine Blood 3+ (NEG); Urine Ketones NEG (NEG); Urine Protein NEG (NEG-TRACE)
[2021-02-14 15:37] LABS: Bacteria Urine TRACE /LPF; Hyaline Casts Urine 0-2 /LPF; Mucus Urine TRACE /LPF; Squamous Epithelial Cell Urine 1+ /LPF; WBC Urine 0 /HPF (0-4)
--- NOTE | 2021-02-14 19:42 | ED.ABDPAIN ---
HPI - Abdominal Pain General Chief Complaint: Back Pain/Injury <Kyara Ho NP - Last Filed: 02/15/21 01:11> Stated Complaint: lower back pain, vaginal bleeding <Kyara Ho NP - Last Filed: 02/15/21 01:11> Time Seen by Provider: 02/14/21 14:13 <Kyara Ho NP - Last Filed: 02/15/21 01:11> Source: patient <Kyara Ho NP - Last Filed: 02/15/21 01:11> Mode of arrival: ambulatory <Kyara Ho NP - Last Filed: 02/15/21 01:11> Limitations: no limitations <Kyara Ho NP - Last Filed: 02/15/21 01:11> History of Present Illness HPI narrative: 55-year-old female presents with postmenopausal bleeding, left-sided flank pain and suprapubic pain. Patient was menopausal approximately 3 years ago and has not had any vaginal bleeding since. Does have a family history of cervical cancer. Prior abdominal surgeries include 3 C sections, tubal ligation, and a cholecystectomy. <Kyara Ho NP - Last Filed: 02/15/21 01:11> MD elicited complaint: abdominal pain and flank pain <Kyara Ho NP - Last Filed: 02/15/21 01:11> Pertinent past history: none <Kyara Ho NP - Last Filed: 02/15/21 01:11> Onset (ago): week(s) (1) <Kyara Ho NP - Last Filed: 02/15/21 01:11> Pain Consistency: intermittent <Kyara Ho NP - Last Filed: 02/15/21 01:11> Location: LLQ and suprapubic <Kyara Ho NP - Last Filed: 02/15/21 01:11> Severity: moderate <Kyara Ho NP - Last Filed: 02/15/21 01:11> Pain scale (0-10): 6 <Kyara Ho NP - Last Filed: 02/15/21 01:11> Quality: cramping and aching <Kyara Ho NP - Last Filed: 02/15/21 01:11> Radiation: L flank <Kyara Ho NP - Last Filed: 02/15/21 01:11> Migration to: no migration <Kyara Ho NP - Last Filed: 02/15/21 01:11> Exacerbating factors: movement <Kyara Ho NP - Last Filed: 02/15/21 01:11> Relieving factors: nothing <Kyara Ho NP - Last Filed: 02/15/21 01:11> Associated symptoms: denies other symptoms <Kyara Ho NP - Last Filed: 02/15/21 01:11> Related Data Home Medications: Home Medications Medication Instructions Recorded Confirmed montelukast 10 mg tablet 10 mg PO DAILY 01/18/20 12/24/20 buspirone 5 mg tablet 5 mg PO BID 02/14/20 12/24/20 cyanocobalamin (vitamin B-12) 1,000 mcg PO DAILY 03/14/20 12/24/20 1,000 mcg tablet albuterol sulfate 90 mcg/actuation 2 inh INHALATION Q4-6H PRN g 08/23/20 12/24/20 aerosol inhaler omega-3 fatty acids 1,000 mg 1,000 mg PO DAILY 08/23/20 12/24/20 capsule (Fish Oil Concentrate) albuterol sulfate mg INHALATION 09/19/20 12/24/20 fluticasone propionate 110 2 puff INHALATION BID 12/24/20 12/24/20 mcg/actuation HFA aerosol inhaler (Flovent HFA) Previous Rx's Medication Instructions Recorded rivaroxaban 20 mg tablet 20 mg PO DAILY #90 tab 04/17/20 atorvastatin 20 mg tablet 20 mg PO DAILY #90 tab 07/09/20 atenolol 100 mg tablet 100 mg PO DAILY 90 Days #90 tab 07/22/20 adult diapers #120 ea 08/05/20 incontinence pad, liner, disp #240 ea 08/15/20 (Pads For Women) docusate sodium 100 mg capsule 100 mg PO BID #60 cap 08/21/20 cholecalciferol (vitamin D3) 50 50 mcg PO DAILY #30 cap 08/26/20 mcg (2,000 unit) capsule losartan 50 mg tablet 50 mg PO DAILY 90 Days #90 tab 10/07/20 omeprazole 20 mg capsule,delayed 20 mg PO DAILY #30 cap 10/10/20 release bisacodyl 5 mg tablet,delayed 10 mg PO BEDTIME 30 Days #60 tab 10/24/20 release (Dulcolax (bisacodyl)) linaclotide 290 mcg capsule 290 mcg PO QAM 30 Days #30 cap 10/24/20 (Linzess) calcium carbonate 500 mg-vitamin 1 tab PO DAILY #90 tab 12/12/20 D3 10 mcg (400 unit) tablet (Calcium 500 With D) tramadol 50 mg tablet 50 mg PO Q6H #120 tab 12/18/20 metronidazole 500 mg tablet 500 mg PO Q12H 7 Days #14 tab 02/14/21 <MICHAEL Spence Last Filed: 02/15/21 01:11> Allergies/Adverse Reactions: Allergies Allergy/AdvReac Type Severity Reaction Status Date / Time levofloxacin [From LEVAQUIN] Allergy Intermediate DIZZINESS Verified 12/31/20 13:26 topiramate Allergy Intermediate palpitation Verified 12/31/20 13:26 s BuPROPion HCl Allergy Intermediate palpitation Uncoded 12/24/20 11:29 s Phentermine HCl Allergy Intermediate uncontrolled Uncoded 12/24/20 11:29 hypertension <MICHAEL Spence Last Filed: 02/15/21 01:11> Review of Systems Review of Systems Constitutional: No Fever, No Chills ENT/Mouth: No sore throat, No Rhinorrhea Eyes: No Eye Pain, No Redness Cardiovascular: No Chest Pain, No SOB Respiratory: No Cough, No Sputum, No Wheezing Gastrointestinal: positive Nausea, No Vomiting, No Diarrhea, positive abdominal pain, Genitourinary: positive irregular bleeding, No Dysuria, No Urinary Frequency, positive pelvic pain Musculoskeletal: No Myalgias Skin: No rash Neuro: No Weakness, No Headache Psych: No Anxiety/Panic, No Depression Heme/Lymph: No bruising, No Lymphadenopathy Endocrine: No Polyuria, No Polydipsia <MICHAEL Spence Last Filed: 02/15/21 01:11> Yes all other systems are reviewed and are negative <MICHAEL Spence Last Filed: 02/15/21 01:11> Physical Exam Vital Signs: Vital Signs: Last Vital Signs Temp 99.2 F 02/14/21 20:02 Pulse 60 02/14/21 23:42 Resp 18 02/14/21 23:42 BP 129/68 02/14/21 23:42 Pulse Ox 97 02/14/21 22:00 BMI result Body Mass Index 58.6 <Kyara Ho NP - Last Filed: 02/15/21 01:11> Vital Signs: Last Vital Signs Temp 99.2 F 02/14/21 20:02 Pulse 60 02/14/21 23:42 Resp 18 02/14/21 23:42 BP 129/68 02/14/21 23:42 Pulse Ox 97 02/14/21 22:00 BMI result Body Mass Index 58.6 <Archie Youngblood MD - Last Filed: 02/15/21 01:26> Appearance: Alert. Oriented X3. No acute distress. Eyes: Pupils equal, round and reactive to light. ENT: Pharynx normal. Neck: Normal inspection. Neck supple. CVS: Normal heart rate and rhythm. Pulses normal. Respiratory: No respiratory distress. Breath sounds normal. Abdomen: Soft and left lower quadrant and suprapubic tenderness to palpation. Morbidly obese. Skin: Skin warm and dry. Normal skin color. Normal skin turgor. Extremities: No lower extremity edema. Gait well-balanced well coordinated. Neuro: No motor deficit. No sensory deficit. Cranial nerves 2-12 intact. <Kyara Ho NP - Last Filed: 02/15/21 01:11> : External Female Exam: normal external appearance <Kyara Ho NP - Last Filed: 02/15/21 01:11> Speculum Exam - Vagina: normal appearance of the vagina, normal palpation and vaginal bleeding (Scant, dark brown) <Kyara Ho NP - Last Filed: 02/15/21 01:11> Speculum Exam - Cervix: normal appearance of the cervix <Kyara Ho NP - Last Filed: 02/15/21 01:11> Bimanual exam- vagina & uterus: normal palpation <Kyara Ho NP - Last Filed: 02/15/21 01:11> Bimanual Exam- Adnexa, other: normal adnexae <Kyara Ho NP - Last Filed: 02/15/21 01:11> OB/external & speculum: vaginal bleeding (Scant, dark brown) <Kyara Ho NP - Last Filed: 02/15/21 01:11> Course Course Course Narrative: 55-year-old female presents with suprapubic pain, postmenopausal vaginal bleeding and flank pain. Have family history of cervical cancer. Has not had any vaginal bleeding since her last menstrual cycle approximately 3 years ago. States that she is going through approximately 2 pads per day with dysuria and malodorous drainage. Patient is not sexually active. Will order pelvic ultrasound, and lab values. 9:30 p.m. pelvic exam completed, scant amount of dark red blood noted from cervical os and in the vault. Trichomonas, candidiasis BV cultures obtained. ED safe technician Ana as strong nitric operator. Patient tolerated procedure well. 10:05 p.m. transvaginal ultrasound is negative for acute findings requiring emergent intervention. Will have patient follow-up with OBGYN for postmenopausal bleeding. Will treat for BV with Flagyl. 11:[address] scan indicates findings consistent with pancreatitis. Will order labs for LFTs and lipase. 11:52 p.m. patient does not meet criteria for acute pancreatitis because she does not have epigastric abdominal pain, elevated LFTs or lipase. Patient does not meet [place] criteria for pancreatitis. Patient verbalized understanding of and agrees plan of care discharge home. Google translate utilized for discharge instructions. Urdu interpreterUtilized for all corresponded <Kyara Ho NP - Last Filed: 02/15/21 01:11> MDM - Abdominal Pain Differential Diagnosis Differential diagnosis: Likely abdominal pain, calculus of kidney, endometriosis, ovarian cyst and pancreatitis <Kyara Ho NP - Last Filed: 02/15/21 01:11> Medical Records Attestation: I reviewed the patient's medical records. <Kyara Ho NP - Last Filed: 02/15/21 01:11> Lab Data Attestation: I reviewed the patient's lab results. <MICHAEL Spence Last Filed: 02/15/21 01:11> Result diagrams: : 02/14/21 20:30 02/14/21 20:30 <Kyara Ho NP - Last Filed: 02/15/21 01:11> Labs: Lab Results 02/14/21 02/14/21 02/14/21 Range/Units 15:13 20:15 20:30 WBC 10.7 (4.8-10.8) X10*3/uL RBC 4.29 (4.20-5.50) X10*6/uL Hgb 13.0 (12.0-16.0) g/dl Hct 40.4 (37.0-47.0) % MCV 94.2 (80.0-98.0) fL MCH 30.3 (27.0-33.0) pg MCHC 32.2 (31.0-35.0) g/dl RDW 13.9 (11.0-16.0) % Plt Count 201 (160-400) X10*3/uL MPV 10.7 (9.4-12.3) fL Immature Gran % (Auto) 0.3 (0.0-0.4) % Neut % (Auto) 61.9 (45-73) % Lymph % (Auto) 31.0 (20-40) % [place] % (Auto) 6.0 (2-11) % Eos % (Auto) 0.6 (0-4) % Baso % (Auto) 0.2 (0-2) % Lymph # (Auto) 3.3 (1.2-4.9) X10*3/uL [place] # (Auto) 0.6 (0.1-1.2) X10*3/uL Eos # (Auto) 0.1 (0.0-0.4) X10*3/uL Baso # (Auto) 0.0 (0.0-0.2) X10*3/uL Abs Immat Gran (auto) 0.03 (0.00-0.03) X10*3/uL Absolute Neuts (auto) 6.6 (2.0-8.3) x10*3/uL Absolute Nucleated RBC 0.000 (0.0-0.012) X10*3/uL Nucleated RBC % (auto) 0.0 (0.0-0.2) /100WBC Sodium (135-145) mmol/L Potassium (3.3-5.1) mmol/L Chloride (96-108) mmol/L Carbon Dioxide (22-29) mmol/L Anion Gap (12-20) BUN (9-16) mg/dL Creatinine (0.5-1.4) mg/dL Estim Creat Clear Calc Estimated GFR Random Glucose (60-115) mg/dL Calcium (8.4-10.2) mg/dL Total Bilirubin (0.0-1.0) mg/dL Direct Bilirubin (0.0-0.5) mg/dL AST (5-31) U/L ALT (0-31) U/L Alkaline Phosphatase (39-117) U/L Total Protein (6.5-8.0) g/dL Albumin (3.5-5.0) g/dL Lipase (8-78) U/L Urine Color YELLOW Urine Appearance HAZY Urine pH 6.0 (5.0-8.0) Ur Specific [place] 1.020 (1.005-1.025) Urine Protein NEG (NEG-TRACE) MG/DL Urine Glucose (UA) NEG (NEG) MG/DL Urine Ketones NEG (NEG) MG/DL Urine Blood 3+ H (NEG) Urine Nitrite NEG (NEG) Ur Leukocyte Esterase NEG (NEG) Urine RBC 15-29 H (0) /HPF Urine WBC 0 (0-4) /HPF Ur Squamous Epith Cells 1+ /LPF Urine Bacteria TRACE /LPF Hyaline Casts 0-2 /LPF Urine Mucus TRACE /LPF COVID-19 ([facility]) Negative (Negative) COVID-19 Clin Com See Note 02/14/21 Range/Units 20:30 WBC (4.8-10.8) X10*3/uL RBC (4.20-5.50) X10*6/uL Hgb (12.0-16.0) g/dl Hct (37.0-47.0) % MCV (80.0-98.0) fL MCH (27.0-33.0) pg MCHC (31.0-35.0) g/dl RDW (11.0-16.0) % Plt Count (160-400) X10*3/uL MPV (9.4-12.3) fL Immature Gran % (Auto) (0.0-0.4) % Neut % (Auto) (45-73) % Lymph % (Auto) (20-40) % [place] % (Auto) (2-11) % Eos % (Auto) (0-4) % Baso % (Auto) (0-2) % Lymph # (Auto) (1.2-4.9) X10*3/uL [place] # (Auto) (0.1-1.2) X10*3/uL Eos # (Auto) (0.0-0.4) X10*3/uL Baso # (Auto) (0.0-0.2) X10*3/uL Abs Immat Gran (auto) (0.00-0.03) X10*3/uL Absolute Neuts (auto) (2.0-8.3) x10*3/uL Absolute Nucleated RBC (0.0-0.012) X10*3/uL Nucleated RBC % (auto) (0.0-0.2) /100WBC Sodium 139 (135-145) mmol/L Potassium 4.0 (3.3-5.1) mmol/L Chloride 106 (96-108) mmol/L Carbon Dioxide 25 (22-29) mmol/L Anion Gap 12 (12-20) BUN 18 H (9-16) mg/dL Creatinine 0.79 (0.5-1.4) mg/dL Estim Creat Clear Calc 105.0 Estimated GFR > 60 Random Glucose 103 (60-115) mg/dL Calcium 9.3 (8.4-10.2) mg/dL Total Bilirubin 0.4 (0.0-1.0) mg/dL Direct Bilirubin < 0.2 (0.0-0.5) mg/dL AST 16 (5-31) U/L ALT 22 (0-31) U/L Alkaline Phosphatase 102 (39-117) U/L Total Protein 7.7 (6.5-8.0) g/dL Albumin 4.0 (3.5-5.0) g/dL Lipase 14 (8-78) U/L Urine Color Urine Appearance Urine pH (5.0-8.0) Ur Specific [place] (1.005-1.025) Urine Protein (NEG-TRACE) MG/DL Urine Glucose (UA) (NEG) MG/DL Urine Ketones (NEG) MG/DL Urine Blood (NEG) Urine Nitrite (NEG) Ur Leukocyte Esterase (NEG) Urine RBC (0) /HPF Urine WBC (0-4) /HPF Ur Squamous Epith Cells /LPF Urine Bacteria /LPF Hyaline Casts /LPF Urine Mucus /LPF COVID-19 ([facility]) (Negative) COVID-19 Clin Com <Kyara AlvarezMICHAEL rodriguez - Last Filed: 02/15/21 01:11> Lab Results 02/14/21 02/14/21 02/14/21 Range/Units 15:13 20:15 20:30 WBC 10.7 (4.8-10.8) X10*3/uL RBC 4.29 (4.20-5.50) X10*6/uL Hgb 13.0 (12.0-16.0) g/dl Hct 40.4 (37.0-47.0) % MCV 94.2 (80.0-98.0) fL MCH 30.3 (27.0-33.0) pg MCHC 32.2 (31.0-35.0) g/dl RDW 13.9 (11.0-16.0) % Plt Count 201 (160-400) X10*3/uL MPV 10.7 (9.4-12.3) fL Immature Gran % (Auto) 0.3 (0.0-0.4) % Neut % (Auto) 61.9 (45-73) % Lymph % (Auto) 31.0 (20-40) % [place] % (Auto) 6.0 (2-11) % Eos % (Auto) 0.6 (0-4) % Baso % (Auto) 0.2 (0-2) % Lymph # (Auto) 3.3 (1.2-4.9) X10*3/uL [place] # (Auto) 0.6 (0.1-1.2) X10*3/uL Eos # (Auto) 0.1 (0.0-0.4) X10*3/uL Baso # (Auto) 0.0 (0.0-0.2) X10*3/uL Abs Immat Gran (auto) 0.03 (0.00-0.03) X10*3/uL Absolute Neuts (auto) 6.6 (2.0-8.3) x10*3/uL Absolute Nucleated RBC 0.000 (0.0-0.012) X10*3/uL Nucleated RBC % (auto) 0.0 (0.0-0.2) /100WBC Sodium (135-145) mmol/L Potassium (3.3-5.1) mmol/L Chloride (96-108) mmol/L Carbon Dioxide (22-29) mmol/L Anion Gap (12-20) BUN (9-16) mg/dL Creatinine (0.5-1.4) mg/dL Estim Creat Clear Calc Estimated GFR Random Glucose (60-115) mg/dL Calcium (8.4-10.2) mg/dL Total Bilirubin (0.0-1.0) mg/dL Direct Bilirubin (0.0-0.5) mg/dL AST (5-31) U/L ALT (0-31) U/L Alkaline Phosphatase (39-117) U/L Total Protein (6.5-8.0) g/dL Albumin (3.5-5.0) g/dL Lipase (8-78) U/L Urine Color YELLOW Urine Appearance HAZY Urine pH 6.0 (5.0-8.0) Ur Specific [place] 1.020 (1.005-1.025) Urine Protein NEG (NEG-TRACE) MG/DL Urine Glucose (UA) NEG (NEG) MG/DL Urine Ketones NEG (NEG) MG/DL Urine Blood 3+ H (NEG) Urine Nitrite NEG (NEG) Ur Leukocyte Esterase NEG (NEG) Urine RBC 15-29 H (0) /HPF Urine WBC 0 (0-4) /HPF Ur Squamous Epith Cells 1+ /LPF Urine Bacteria TRACE /LPF Hyaline Casts 0-2 /LPF Urine Mucus TRACE /LPF COVID-19 ([facility]) Negative (Negative) COVID-19 Clin Com See Note 02/14/21 Range/Units 20:30 WBC (4.8-10.8) X10*3/uL RBC (4.20-5.50) X10*6/uL Hgb (12.0-16.0) g/dl Hct (37.0-47.0) % MCV (80.0-98.0) fL MCH (27.0-33.0) pg MCHC (31.0-35.0) g/dl RDW (11.0-16.0) % Plt Count (160-400) X10*3/uL MPV (9.4-12.3) fL Immature Gran % (Auto) (0.0-0.4) % Neut % (Auto) (45-73) % Lymph % (Auto) (20-40) % [place] % (Auto) (2-11) % Eos % (Auto) (0-4) % Baso % (Auto) (0-2) % Lymph # (Auto) (1.2-4.9) X10*3/uL [place] # (Auto) (0.1-1.2) X10*3/uL Eos # (Auto) (0.0-0.4) X10*3/uL Baso # (Auto) (0.0-0.2) X10*3/uL Abs Immat Gran (auto) (0.00-0.03) X10*3/uL Absolute Neuts (auto) (2.0-8.3) x10*3/uL Absolute Nucleated RBC (0.0-0.012) X10*3/uL Nucleated RBC % (auto) (0.0-0.2) /100WBC Sodium 139 (135-145) mmol/L Potassium 4.0 (3.3-5.1) mmol/L Chloride 106 (96-108) mmol/L Carbon Dioxide 25 (22-29) mmol/L Anion Gap 12 (12-20) BUN 18 H (9-16) mg/dL Creatinine 0.79 (0.5-1.4) mg/dL Estim Creat Clear Calc 105.0 Estimated GFR > 60 Random Glucose 103 (60-115) mg/dL Calcium 9.3 (8.4-10.2) mg/dL Total Bilirubin 0.4 (0.0-1.0) mg/dL Direct Bilirubin < 0.2 (0.0-0.5) mg/dL AST 16 (5-31) U/L ALT 22 (0-31) U/L Alkaline Phosphatase 102 (39-117) U/L Total Protein 7.7 (6.5-8.0) g/dL Albumin 4.0 (3.5-5.0) g/dL Lipase 14 (8-78) U/L Urine Color Urine Appearance Urine pH (5.0-8.0) Ur Specific [place] (1.005-1.025) Urine Protein (NEG-TRACE) MG/DL Urine Glucose (UA) (NEG) MG/DL Urine Ketones (NEG) MG/DL Urine Blood (NEG) Urine Nitrite (NEG) Ur Leukocyte Esterase (NEG) Urine RBC (0) /HPF Urine WBC (0-4) /HPF Ur Squamous Epith Cells /LPF Urine Bacteria /LPF Hyaline Casts /LPF Urine Mucus /LPF COVID-19 ([facility]) (Negative) COVID-19 Clin Com <Archie Youngblood MD - Last Filed: 02/15/21 01:26> Imaging Data Transvaginal ultrasound: Attestation: I personally reviewed and interpreted this imaging study as follows: <Kyara Ho NP - Last Filed: 02/15/21 01:11> Radiologist's impression: COMPARISON: CT abdomen pelvis 12/04/2019 TECHNIQUE: Ultrasound of the pelvis is performed using both transabdominal and transvaginal transducers along with Doppler. Transvaginal imaging is performed due to inadequate visualization transabdominally. FINDINGS: Uterus: The uterus is anteverted and measures 7.9 x 3.6 x 4.9 cm.? Cervix not visualized. The double wall endometrial thickness is 2 mm.? The uterus is smooth in contour and has normal myometrial echogenicity. ? No visible fibroid. Adnexa: Both ovaries are visualized. There is normal color flow to the adnexa. There is no ovarian torsion.? There is no pelvic ascites or fluid collection. Right ovary measures 2.2 x 1.5 x 1.7 cm. 2.9 mL volume. Left ovary measures 2.7 x 1.7 x 2.0 cm. 4.8 mL volume. US/US pelvic and transvaginal IMPRESSION: Thin 2 mm endometrial stripe. <Kyara Ho NP - Last Filed: 02/15/21 01:11> Discharge Plan Discharge Clinical Impression: Bacterial vaginosis, Abnormal vaginal bleeding in postmenopausal patient <Kyara Ho NP - Last Filed: 02/15/21 01:11> Patient Disposition: Home, Self-Care <Kyaar Ho NP - Last Filed: 02/15/21 01:11> Instructions: Bacterial Vaginosis (ED), Dysfunctional Uterine Bleeding (ED) <MICHAEL Spence Last Filed: 02/15/21 01:11> Additional Instructions: You were evaluated for suprapubic pain and postmenopausal vaginal bleeding. Please follow-up with Dr Shrestha or your OBGYN. We are treating you for bacterial vaginosis. Please take the Flagyl 500 mg every 12 hours for the next 7 days. Do not drink alcohol with this medication. CT scan indicates pancreatitis however your lab values and physical exam do not support this finding. If abdominal pain persists, or you have nausea, vomiting, or any other concerning symptoms please return to the emergency department for evaluation. Thank you for choosing this emergency department for evaluation. Please follow-up with primary care physician as needed. Return to the emergency department for any new, concerning, or worsening symptoms. <Kyara Ho NP - Last Filed: 02/15/21 01:11> Prescriptions: New metronidazole 500 mg tablet 500 mg PO Q12H 7 Days Qty: 14 RF: 0 No Action rivaroxaban 20 mg tablet 20 mg PO DAILY Qty: 90 RF: 3 atorvastatin 20 mg tablet 20 mg PO DAILY Qty: 90 RF: 3 atenolol 100 mg tablet 100 mg PO DAILY 90 Days Qty: 90 RF: 3 (DME) adult diapers XXL See Rx Instructions .Route .MEDSUPPLY Qty: 120 RF: 11 (DME) Pads For Women Pad See Rx Instructions .ROUTE .MEDSUPPLY Qty: 240 RF: 11 docusate sodium 100 mg capsule 100 mg PO BID Qty: 60 RF: 3 cholecalciferol (vitamin D3) 50 mcg (2,000 unit) capsule 50 mcg PO DAILY Qty: 30 RF: 5 losartan 50 mg tablet 50 mg PO DAILY 90 Days Qty: 90 RF: 2 omeprazole 20 mg capsule,delayed release(DR/EC) 20 mg PO DAILY Qty: 30 RF: 6 calcium carbonate-vitamin D3 [Calcium 500 With D] 500 mg(1,250mg) -400 unit tablet 1 tab PO DAILY Qty: 90 RF: 1 tramadol 50 mg tablet 50 mg PO Q6H Qty: 120 RF: 3 buspirone 5 mg tablet 5 mg PO BID RF: 0 cyanocobalamin (vitamin B-12) 1,000 mcg tablet 1,000 mcg PO DAILY RF: 0 Flovent HFA 110 mcg/actuation HFA aerosol inhaler 2 puff inhalation BID RF: 0 montelukast 10 mg tablet 10 mg PO DAILY RF: 0 albuterol sulfate 90 mcg/actuation HFA aerosol inhaler 2 inh inhalation Q4-6H PRN (Reason: bronchospasm) RF: 0 albuterol sulfate 2.5 mg /3 mL (0.083 %) solution for nebulization inhalation RF: 0 bisacodyl [Dulcolax (bisacodyl)] 5 mg tablet,delayed release (DR/EC) 10 mg PO BEDTIME 30 Days Qty: 60 RF: 6 Linzess 290 mcg capsule 290 mcg PO QAM 30 Days Qty: 30 RF: 3 omega-3 fatty acids [Fish Oil Concentrate] 1,000 mg capsule 1,000 mg PO DAILY RF: 0 <Kyara Ho NP - Last Filed: 02/15/21 01:11> Referrals: Usman Shrestha MD [Physician] - 2 days (Postmenopausal bleeding) <Kyara Ho NP - Last Filed: 02/15/21 01:11> Interventions: ED Discharge Assessment Last Done: 02/15/21 00:25 <Kyara Ho NP - Last Filed: 02/15/21 01:11> Discharge Date/Time: 02/15/21 00:27 <Kyara Ho NP - Last Filed: 02/15/21 01:11> [facility] Past Medical History Attestation statement: The following information was validated with the patient. <Kyara Ho NP - Last Filed: 02/15/21 01:11> Source: old records reviewed <yKara Ho NP - Last Filed: 02/15/21 01:11> Medical History: Medical History Afib Anxiety Arthritis Asthma B12 deficiency Bilateral knee pain Depression Essential (primary) hypertension Hepatic steatosis Panic attacks Sleep apnea with use of continuous positive airway pressure (CPAP) Urge urinary incontinence <Kyara Ho NP - Last Filed: 02/15/21 01:11> Surgical History: Surgical History H/O colonoscopy History of section History of cholecystectomy History of esophagogastroduodenoscopy (EGD) Tubal ligation status <Kyara Ho NP - Last Filed: 02/15/21 01:11> Family History Family History: Family History Father CVA (cerebral vascular accident) Colon cancer CAD (coronary artery disease) Mother Cancer of unknown origin <Kyara Ho NP - Last Filed: 02/15/21 01:11> Social History Social History: Social History Household Members: None Housing: Apartment Alcohol intake: never Patient Tobacco Use Status: Never used Tobacco e-Cigarette/Vaping Use: Never Used Second Hand Smoke Exposure: No Advance Directives: No Advance Directives Information Provided: No Current occupational status: disabled <Kyara Ho NP - Last Filed: 02/15/21 01:11>
[2021-02-14 20:02] VITALS: BP 162/67; PULSE 60; RESP 18; TEMP 37.3; O2SAT 97
[2021-02-14 20:34] LABS: MANUAL DIFF FLAG NO
[2021-02-14 20:35] LABS: Basophils Percent Auto 0.2 % (0-2); Eosinophils Absolute Auto 0.1 X10*3/uL (0.0-0.4); Eosinophils Percent Auto 0.6 % (0-4); Hematocrit 40.4 % (37.0-47.0); Imm Gran Abs Auto 0.03 X10*3/uL (0.00-0.03); Imm Gran Pct Auto 0.3 % (0.0-0.4); Lymphocytes Absolute Auto 3.3 X10*3/uL (1.2-4.9); Mean Corpuscular HGB Conc 32.2 g/dl (31.0-35.0); Mean Corpuscular Hemoglobin 30.3 pg (27.0-33.0); Mean Corpuscular Volume 94.2 fL (80.0-98.0); Mean Platelet Volume 10.7 fL (9.4-12.3); Monocytes Absolute Auto 0.6 X10*3/uL (0.1-1.2); Neutrophils Absolute Auto 6.6 x10*3/uL (2.0-8.3); Neutrophils Percent Auto 61.9 % (45-73); Platelet Count 201 X10*3/uL (160-400); Red Blood Count 4.29 X10*6/uL (4.20-5.50); Red Cell Distribution Width 13.9 % (11.0-16.0); White Blood Count 10.7 X10*3/uL (4.8-10.8)
[2021-02-14 20:39] LABS: COVID-19 Test Negative (Negative)
[2021-02-14 21:19] LABS: Anion Gap 12 (12-20); Blood Urea Nitrogen 18 mg/dL (9-16); Calcium 9.3 mg/dL (8.4-10.2); Carbon Dioxide 25 mmol/L (22-29); Chloride 106 mmol/L (96-108); Estimated Glomerular Filt Rate > 60; Glucose Random 103 mg/dL (60-115); Sodium 139 mmol/L (135-145)
[2021-02-14 22:00] VITALS: BP 150/68; PULSE 78; RESP 18; O2SAT 97
[2021-02-14] MEDS: metroNIDAZOLE 500 MG TABLET PO (22:18)
[2021-02-14] MEDS: iohexoL 350 MG/ML 100 ML INFUS..BTL IV (22:29)
--- NOTE | 2021-02-14 22:50 | PC.NURSE ---
IV PLACED FOR CT. PT TO CT AND RETURNS TO ROOM IN NAD. PT MEDICATED PER EMAR.
--- NOTE | 2021-02-14 23:22 | PC.NURSE ---
PT UP TO RESTROOM WITH STEADY EVEN GAIT AND RETURNS TO STRETCHER W/O DIFFIUCLTY.
[2021-02-14 23:35] LABS: Alanine Aminotransferase 22 U/L (0-31); Alkaline Phosphatase 102 U/L (39-117); Aspartate Amino Transferase 16 U/L (5-31); Bilirubin Direct < 0.2 mg/dL (0.0-0.5); Bilirubin Total 0.4 mg/dL (0.0-1.0); Lipase 14 U/L (8-78); Total Protein 7.7 g/dL (6.5-8.0)
[2021-02-14 23:42] VITALS: BP 129/68; PULSE 60; RESP 18
== END 2021-02-15 00:27 | disposition home or self-care (01) ==
PROVIDERS: Nurse Practitioner Family; Physician Assistant; Emergency Provider Internal Medicine; PCP Internal Medicine
DX: N76.0 Acute vaginitis (principal); N95.0 Postmenopausal bleeding; Z20.822 Contact with and (suspected) exposure to COVID-19
CPT/HCPCS: 36415; 74177; 76830; 76856; 80048; 80076; 81001; 83690; 85025; 87635; 99284; Q9967

== ENCOUNTER → 2021-02-20 11:32 | Outpatient (BNVA) | payer OTHER, SELFPAY | PROVIDERS: PCP Internal Medicine; Visit Provider Nurse Practitioner | DX: K21.9 Gastro-esophageal reflux disease without esophagitis (principal); R11.0 Nausea; R30.0 Dysuria; R10.13 Epigastric pain; R19.7 Diarrhea, unspecified | CPT/HCPCS: 99212 ==

== ENCOUNTER 2021-02-21 14:22 | Outpatient (REF) | payer OTHER, SELFPAY ==
[2021-02-21 15:03] LABS: Amylase 31 U/L (28-100)
[2021-02-21 15:06] LABS: C Reactive Protein 0.57 mg/dL (< or = 0.50); Lactate Dehydrogenase 257 U/L (122-220); Lipase 21 U/L (8-78)
[2021-02-21 15:14] LABS: Appearance Urine HAZY; Color Urine YELLOW; Glucose Urine UA NEG (NEG); Leukocyte Esterase Urine TRACE (NEG); Nitrite Urine NEG (NEG); Specific Gravity - Urine <= 1.005 (1.005-1.025); UACC Culture Trigger YES; Urine Blood 3+ (NEG); Urine Ketones NEG (NEG); Urine Protein NEG (NEG-TRACE)
[2021-02-21 15:23] LABS: Bacteria Urine 1+ /LPF; Mucus Urine 1+ /LPF; RBC Urine 0-2 /HPF (0); Squamous Epithelial Cell Urine 2+ /LPF
== END 2021-02-21 14:23 | disposition home or self-care (01) ==
LOC: HO.LAB 14:22
PROVIDERS: PCP Student in an Organized Health Care Education/Training Program; Visit Provider Nurse Practitioner
DX: R10.13 Epigastric pain (principal); R11.0 Nausea
CPT/HCPCS: 36415; 81001; 82150; 83615; 83690; 86140; 87086

== ENCOUNTER → 2021-02-24 13:52 | Outpatient (BNVA) | payer OTHER, SELFPAY | PROVIDERS: PCP Internal Medicine; Visit Provider Obstetrics & Gynecology | DX: N95.0 Postmenopausal bleeding (principal) | CPT/HCPCS: 99212 ==

== ENCOUNTER 2021-02-27 14:19 | Outpatient (REF) | payer OTHER, SELFPAY | END 2021-02-27 14:20 | disposition home or self-care (01) | LOC: HO.LNP 14:19 | PROVIDERS: Visit Provider Nurse Practitioner | DX: R10.13 Epigastric pain (principal); R11.0 Nausea | CPT/HCPCS: 87045; 87046; 87077 ==

== ENCOUNTER 2021-03-12 10:15 | Outpatient (REF) | payer OTHER, SELFPAY | END 2021-03-12 10:16 | disposition home or self-care (01) | LOC: HO.LAB 10:15 | PROVIDERS: PCP Internal Medicine; Visit Provider Obstetrics & Gynecology | DX: N95.0 Postmenopausal bleeding (principal) | CPT/HCPCS: 58100; 88305 ==

== ENCOUNTER 2021-03-14 13:00 | Outpatient (RCR) | payer OTHER, SELFPAY | END 2021-03-31 14:22 | disposition home or self-care (01) | LOC: HO.PT 13:00 | PROVIDERS: PCP Internal Medicine; Visit Provider Physician Assistant | DX: M25.812 Other specified joint disorders, left shoulder (principal); M25.811 Other specified joint disorders, right shoulder | CPT/HCPCS: 97110; 97162 ==

== ENCOUNTER → 2021-03-26 11:52 | Outpatient (BNVA) | payer OTHER, SELFPAY | PROVIDERS: PCP Internal Medicine; Visit Provider Obstetrics & Gynecology ==

== ENCOUNTER 2021-04-14 09:32 | Outpatient (REF) | payer OTHER, SELFPAY ==
--- NOTE | ~2021-04-14 | XR_ITS ---
EXAMINATION: XR ELBOW, RIGHT CLINICAL INFORMATION: Pain COMPARISON: X-ray 12/24/2017 TECHNIQUE: 5 views of the right elbow. FINDINGS: Mild spurring of the lateral humeral epicondyle. Lucency projected over the proximal ulna, suspected to represent degenerative changes. No visible acute fracture or dislocation. No effusion.. XR/XR elbow RT min 3V IMPRESSION: Mild degenerative changes as above. No visible acute fracture.
--- NOTE | ~2021-04-14 | XR_ITS ---
EXAMINATION: X-RAY BILATERAL KNEES CLINICAL INFORMATION: Pain COMPARISON: X-ray left knee 12/01/2017 TECHNIQUE: Right knee 3 views. Left knee 4 views. FINDINGS: Right knee: Severe medial compartment arthritis, marked joint space loss, osteophytes, sclerosis. Moderate lateral and patellofemoral arthritis. No acute fracture dislocation. Small effusion.. Left knee: Marginal spurring in 3 compartments. No fracture or dislocation. Small effusion. XR/XR knee LT 3V IMPRESSION: Right knee: Tricompartment osteoarthritis. Severe medial compartment arthritis. Small effusion. Left knee: Mild tricompartment osteoarthritis.
--- NOTE | ~2021-04-14 | XR_ITS ---
EXAMINATION: X-RAY BILATERAL KNEES CLINICAL INFORMATION: Pain COMPARISON: X-ray left knee 12/01/2017 TECHNIQUE: Right knee 3 views. Left knee 4 views. FINDINGS: Right knee: Severe medial compartment arthritis, marked joint space loss, osteophytes, sclerosis. Moderate lateral and patellofemoral arthritis. No acute fracture dislocation. Small effusion.. Left knee: Marginal spurring in 3 compartments. No fracture or dislocation. Small effusion. XR/XR knee RT 3V IMPRESSION: Right knee: Tricompartment osteoarthritis. Severe medial compartment arthritis. Small effusion. Left knee: Mild tricompartment osteoarthritis.
[2021-04-14 10:08] LABS: MANUAL DIFF FLAG NO
[2021-04-14 10:23] LABS: Basophils Percent Auto 0.2 % (0-2); Eosinophils Absolute Auto 0.1 X10*3/uL (0.0-0.4); Eosinophils Percent Auto 1.8 % (0-4); Hematocrit 37.8 % (37.0-47.0); Hemoglobin 12.1 g/dl (12.0-16.0); Imm Gran Abs Auto 0.03 X10*3/uL (0.00-0.03); Imm Gran Pct Auto 0.5 % (0.0-0.4); Lymphocytes Absolute Auto 2.3 X10*3/uL (1.2-4.9); Mean Corpuscular Hemoglobin 30.6 pg (27.0-33.0); Mean Corpuscular Volume 95.7 fL (80.0-98.0); Mean Platelet Volume 11.3 fL (9.4-12.3); Monocytes Absolute Auto 0.4 X10*3/uL (0.1-1.2); Monocytes Percent Auto 7.1 % (2-11); Neutrophils Absolute Auto 3.2 x10*3/uL (2.0-8.3); Neutrophils Percent Auto 52.4 % (45-73); Platelet Count 181 X10*3/uL (160-400); Red Blood Count 3.95 X10*6/uL (4.20-5.50); Red Cell Distribution Width 14.6 % (11.0-16.0)
[2021-04-14 11:14] LABS: Alanine Aminotransferase 13 U/L (0-31); Albumin Level 3.8 g/dL (3.5-5.0); Alkaline Phosphatase 91 U/L (39-117); Anion Gap 12 (12-20); Aspartate Amino Transferase 16 U/L (5-31); Bilirubin Total 0.3 mg/dL (0.0-1.0); Blood Urea Nitrogen 13 mg/dL (9-16); Calcium 8.8 mg/dL (8.4-10.2); Carbon Dioxide 26 mmol/L (22-29); Chloride 108 mmol/L (96-108); Cholesterol 183 mg/dL; Estimated Glomerular Filt Rate > 60; Glucose Fasting 83 mg/dL (60-99); HDL Cholesterol 47 mg/dL; LDL Cholesterol Calculated 122 mg/dl; Potassium 3.9 mmol/L (3.3-5.1); Sodium 142 mmol/L (135-145); Total Protein 6.9 g/dL (6.5-8.0); Triglycerides 73 mg/dL
[2021-04-14 12:06] LABS: Folate 8.6 ng/mL (> or = 4.0); Vitamin B12 746 pg/mL (200-900)
[2021-04-18 16:31] LABS: Vitamin D 25-OH, D2 <4 ng/mL; Vitamin D 25-OH, D3 30 ng/mL; Vitamin D 25-OH, Total 30 ng/mL (30-100)
== END 2021-04-14 09:33 | disposition home or self-care (01) ==
LOC: HO.XRAY 09:32
PROVIDERS: PCP Internal Medicine; Visit Provider Internal Medicine
DX: E55.9 Vitamin D deficiency, unspecified (principal); E53.8 Deficiency of other specified B group vitamins; N39.41 Urge incontinence; E78.5 Hyperlipidemia, unspecified; D64.9 Anemia, unspecified; M25.562 Pain in left knee; M25.521 Pain in right elbow; M25.561 Pain in right knee
CPT/HCPCS: 36415; 73080; 73562; 80053; 80061; 82306; 82607; 82746; 85025

== ENCOUNTER → 2021-04-16 14:52 | Outpatient (BNVA) | payer OTHER, SELFPAY | PROVIDERS: PCP Internal Medicine; Visit Provider Obstetrics & Gynecology | DX: N95.0 Postmenopausal bleeding (principal) | CPT/HCPCS: 99212 ==

== ENCOUNTER 2021-04-19 07:37 | Emergency (ER) | payer OTHER, SELFPAY ==
--- NOTE | ~2021-04-19 | XR_ITS ---
EXAMINATION: XR CHEST CLINICAL INFORMATION: Epigastric pain. COMPARISON: Chest radiograph dated 01/19/2020. TECHNIQUE: 2 views of the chest were obtained. FINDINGS: No focal airspace consolidation. No pleural effusion or pneumothorax. Stable cardiomediastinal silhouette. XR/XR chest 2V IMPRESSION: No acute cardiopulmonary findings.
--- NOTE | ~2021-04-19 | US_ITS ---
EXAMINATION: US VENOUS WITH DOPPLER LOWER EXTREMITY, BILATERAL CLINICAL INFORMATION: Bilateral calf pain. Evaluate for deep vein thrombosis. COMPARISON: None TECHNIQUE: Ultrasound of the deep veins is performed from the hip to the calf with compression sonography and color and pulse Doppler assessment. Spectral analysis with color-flow imaging is performed. FINDINGS: RIGHT: There is normal venous compression and respiratory variation and augmented flow. The visualized common femoral vein, superficial femoral vein, profunda femoral vein, popliteal vein, and the trifurcation region shows no evidence of deep venous thrombosis. There is no significant popliteal fossa cyst. The peroneal veins are not well seen. LEFT: There is normal venous compression and respiratory variation and augmented flow. The visualized common femoral vein, superficial femoral vein, profunda femoral vein, popliteal vein, and the trifurcation region shows no evidence of deep venous thrombosis. There is no significant popliteal fossa cyst. The peroneal and posterior tibial veins are not well seen. If the patient's symptoms persist, followup ultrasound in 5 days 7 days might be of value to exclude proximal propagation from a non-visualized calf vein. US/US venous duplex LE BI IMPRESSION: No DVT demonstrated in the bilateral lower extremity.
[2021-04-19 07:42] VITALS: BP 163/83; PULSE 67; RESP 20; TEMP 37.3; O2SAT 100; BMI 60.5
[2021-04-19 08:19] VITALS: BP 144/65; PULSE 65; RESP 16; O2SAT 99
--- NOTE | 2021-04-19 09:09 | ECG_ITS ---
Test Reason : epigastric pain Blood Pressure : / mmHG Vent. Rate : 060 BPM Atrial Rate : 000 BPM P-R Int : 000 ms QRS Dur : 086 ms QT Int : 452 ms P-R-T Axes : 000 016 029 degrees QTc Int : 452 ms Junctional rhythm Abnormal ECG When compared with ECG of 19-JAN-2020 09:02, Junctional rhythm has replaced Sinus rhythm Referred By: Jyotsna Dillon Electronically Signed By:Akil Wang
[2021-04-19 09:18] LABS: Appearance Urine CLEAR; Color Urine YELLOW; Glucose Urine UA NEG (NEG); Leukocyte Esterase Urine NEG (NEG); Nitrite Urine NEG (NEG); UACC Culture Trigger NO; Urine Blood TRACE (NEG); Urine Ketones NEG (NEG); Urine Protein NEG (NEG-TRACE)
[2021-04-19] MEDS: Lidocaine HCl Viscous 2 % 15 ML SOLUTION MUCOUS MEM (09:26)
[2021-04-19] MEDS: ondansetron HCL 4 MG/2 ML VIAL IVPUSH (09:26)
[2021-04-19] MEDS: Magnesium Hydrox/Alum Hydrox 30 ML ORAL.SUSP PO (09:26)
[2021-04-19] MEDS: Famotidine/PF 20 MG/2 ML VIAL IVPUSH (09:26)
[2021-04-19 09:27] LABS: Squamous Epithelial Cell Urine TRACE /LPF; WBC Urine 0 /HPF (0-4)
[2021-04-19 09:58] LABS: MANUAL DIFF FLAG NO
[2021-04-19 10:01] LABS: Basophils Percent Auto 0.2 % (0-2); Eosinophils Absolute Auto 0.1 X10*3/uL (0.0-0.4); Eosinophils Percent Auto 0.9 % (0-4); Hematocrit 38.9 % (37.0-47.0); Hemoglobin 12.4 g/dl (12.0-16.0); Imm Gran Abs Auto 0.03 X10*3/uL (0.00-0.03); Imm Gran Pct Auto 0.3 % (0.0-0.4); Lymphocytes Absolute Auto 2.4 X10*3/uL (1.2-4.9); Lymphocytes Percent Auto 26.9 % (20-40); Mean Corpuscular HGB Conc 31.9 g/dl (31.0-35.0); Mean Corpuscular Hemoglobin 30.4 pg (27.0-33.0); Mean Corpuscular Volume 95.3 fL (80.0-98.0); Mean Platelet Volume 11.2 fL (9.4-12.3); Monocytes Absolute Auto 0.6 X10*3/uL (0.1-1.2); Monocytes Percent Auto 6.8 % (2-11); Neutrophils Absolute Auto 5.7 x10*3/uL (2.0-8.3); Neutrophils Percent Auto 64.9 % (45-73); Platelet Count 186 X10*3/uL (160-400); Red Blood Count 4.08 X10*6/uL (4.20-5.50); Red Cell Distribution Width 14.4 % (11.0-16.0); White Blood Count 8.8 X10*3/uL (4.8-10.8)
[2021-04-19 10:06] LABS: INTERNATIONAL NORM RATIO 1.3 (0.9-1.1); Prothrombin Time 14.5 SEC (9.9-13.0)
[2021-04-19 10:09] LABS: Partial Thromboplastin Time 38.8 SEC (24.1-38.0)
[2021-04-19 10:17] LABS: COVID-19 Test Negative (Negative); IDNOW Serial# 16C4AD1C
[2021-04-19 10:18] LABS: Alanine Aminotransferase 16 U/L (0-31); Albumin Level 3.9 g/dL (3.5-5.0); Alkaline Phosphatase 98 U/L (39-117); Anion Gap 11 (12-20); Aspartate Amino Transferase 16 U/L (5-31); Bilirubin Direct 0.2 mg/dL (0.0-0.5); Bilirubin Total 0.5 mg/dL (0.0-1.0); Blood Urea Nitrogen 10 mg/dL (9-16); Calcium 9.2 mg/dL (8.4-10.2); Carbon Dioxide 29 mmol/L (22-29); Chloride 106 mmol/L (96-108); Creatinine Clr Calc Pharmacy 122.9; Estimated Glomerular Filt Rate > 60; Glucose Random 91 mg/dL (60-115); Lipase 6 U/L (8-78); Magnesium 1.8 mg/dL (1.6-2.6); Potassium 3.9 mmol/L (3.3-5.1); Sodium 142 mmol/L (135-145); Total Protein 7.4 g/dL (6.5-8.0)
[2021-04-19 10:21] LABS: B Type Natriuretic Peptide 69 pg/mL (<100); Troponin-I High Sensitivity < 3.5 ng/L (<3.5-17.0)
--- NOTE | 2021-04-19 10:27 | ED_ITS ---
HPI - Abdominal Pain General Chief Complaint: Abdominal Pain <SUDHEER Thorpe - Last Filed: 04/19/21 12:42> Stated Complaint: abd and back pain <SUDHEER Thorpe Last Filed: 04/19/21 12:42> Time Seen by Provider: 04/19/21 08:45 <SUDHEER Thorpe - Last Filed: 04/19/21 12:42> Source: patient and family <SUDHEER Thorpe Last Filed: 04/19/21 12:42> History of Present Illness HPI narrative: 55-year-old female with a past medical history of AFib on Xarelto, anxiety, asthma, depression, HTN, GERD, gastritis, chronic idiopathic constipation sleep apnea on CPAP, obesity, presenting to the ED complaining of mid back and epigastric abdominal pain since yesterday with associated nausea. Also reports bilateral calf tenderness x few weeks. Admits symptoms are similar to prior gastritis episodes, worse with eating. 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 Denies lightheadedness/dizziness vomiting, diarrhea/constipation, new or worsening SOB, dysuria/hematuria, history of clots <SUDHEER Thorpe - Last Filed: 04/19/21 12:42> MD elicited complaint: abdominal pain <SUDHEER Thorpe Last Filed: 04/19/21 12:42> Onset (ago): day(s) <SUDHEER Thorpe - Last Filed: 04/19/21 12:42> Related Data Home Medications: Home Medications Medication Instructions Recorded Confirmed montelukast 10 mg tablet 10 mg PO DAILY 01/18/20 04/10/21 buspirone 5 mg tablet 5 mg PO BID 02/14/20 04/10/21 cyanocobalamin (vitamin B-12) 1,000 mcg PO DAILY 03/14/20 04/10/21 1,000 mcg tablet albuterol sulfate 90 mcg/actuation 2 inh INHALATION Q4-6H PRN g 08/23/20 aerosol inhaler omega-3 fatty acids 1,000 mg 1,000 mg PO DAILY 08/23/20 04/10/21 capsule (Fish Oil Concentrate) albuterol sulfate mg INHALATION 09/19/20 04/10/21 fluticasone propionate 110 2 puff INHALATION BID 12/24/20 04/10/21 mcg/actuation HFA aerosol inhaler (Flovent HFA) cyclobenzaprine 10 mg tablet 10 mg PO TID 04/10/21 04/10/21 ipratropium bromide 21 mcg (0.03 1 spray INTRANASAL BEDTIME 04/24/21 %) nasal spray lidocaine 5 % topical patch 2 patch TOPICAL DAILY 04/24/21 Previous Rx's Medication Instructions Recorded atenolol 100 mg tablet 100 mg PO DAILY 90 Days #90 tab 07/22/20 adult diapers #120 ea 08/05/20 incontinence pad, liner, disp #240 ea 08/15/20 (Pads For Women) cholecalciferol (vitamin D3) 50 50 mcg PO DAILY #30 cap 08/26/20 mcg (2,000 unit) capsule bisacodyl 5 mg tablet,delayed 10 mg PO BEDTIME 30 Days #60 tab 10/24/20 release (Dulcolax (bisacodyl)) calcium carbonate 500 mg-vitamin 1 tab PO DAILY #90 tab 12/12/20 D3 10 mcg (400 unit) tablet (Calcium 500 With D) tramadol 50 mg tablet 50 mg PO Q6H #120 tab 12/18/20 omeprazole 20 mg capsule,delayed 20 mg PO BID #30 cap 02/20/21 release ondansetron HCl 4 mg tablet 4 mg PO Q12H 30 Days #60 tab 02/20/21 losartan 50 mg tablet 50 mg PO DAILY 90 Days #90 tab 03/10/21 rivaroxaban 20 mg tablet 20 mg PO DAILY #90 tab 03/27/21 aluminum-mag hydroxide-simethicone 5 ml PO 5XD PRN #30 ml 04/19/21 200 mg-200 mg-20 mg/5 mL oral susp (Maalox Advanced) lidocaine HCl 2 % mucosal solution 5 ml MUCOUS MEMBRANE BID PRN #100 04/19/21 (Lidocaine Viscous) ml famotidine 40 mg tablet (Pepcid) 40 mg PO BEDTIME #30 tab 04/24/21 linaclotide 72 mcg capsule 72 mcg PO QAM #30 cap 04/24/21 (Linzess) <SUDHEER Thorpe - Last Filed: 04/19/21 12:42> Allergies/Adverse Reactions: Allergies Allergy/AdvReac Type Severity Reaction Status Date / Time levofloxacin [From LEVAQUIN] Allergy Intermediate DIZZINESS Verified 04/24/21 13:14 topiramate Allergy Intermediate palpitation Verified 04/24/21 13:14 s BuPROPion HCl Allergy Intermediate palpitation Uncoded 04/24/21 13:14 s Phentermine HCl Allergy Intermediate uncontrolled Uncoded 04/24/21 13:14 hypertension <SUDHEER Thorpe - Last Filed: 04/19/21 12:42> Review of Systems Review of Systems Constitutional: No Fever, No Chills, No Fatigue, No Malaise ENT/Mouth: No Hearing loss, No Ear Pain, No Nasal Congestion, No sore throat, No Rhinorrhea Eyes: No Eye Pain, No Swelling, No Redness Cardiovascular: + Chest Pain, +chronic SOB, No Dyspnea on Exertion, No Orthopnea, No Edema, No Palpitations Respiratory: No Cough, No Sputum, No Wheezing, No Dyspnea Gastrointestinal: No Nausea, No Vomiting, No Diarrhea, No Constipation, + Abdominal pain Genitourinary: No Dysuria, No Urinary Frequency, No Hematuria, No Urinary Incontinence, No Flank Pain Musculoskeletal: +back pain, No Myalgias, No Joint Swelling, +calf pain Skin: No Skin Lesions, No rash Neuro: No Weakness, No Numbness, No Paresthesias, No Dizziness, No Headache <SUDHEER Thorpe Last Filed: 04/19/21 12:42> Yes all other systems are reviewed and are negative <SUDHEER Thorpe Last Filed: 04/19/21 12:42> [facility] Past Medical History Attestation statement: The following information was validated with the patient. <SUDHEER Thorpe - Last Filed: 04/19/21 12:42> Medical History: Medical History Afib Anxiety Arthritis Asthma B12 deficiency Bilateral knee pain Depression Essential (primary) hypertension Hepatic steatosis Left knee pain Panic attacks Physical exam Right elbow pain Right knee pain Sleep apnea with use of continuous positive airway pressure (CPAP) Urge urinary incontinence <SUDHEER Thorpe Last Filed: 04/19/21 12:42> Surgical History: Surgical History H/O colonoscopy History of section History of cholecystectomy History of esophagogastroduodenoscopy (EGD) Tubal ligation status <SUDHEER Thorpe Last Filed: 04/19/21 12:42> Family History Family History: Family History Father CVA (cerebral vascular accident) Colon cancer CAD (coronary artery disease) Mother Cancer of unknown origin <SUDHEER Thorpe Last Filed: 04/19/21 12:42> Social History Social History: Social History Household Members: None Housing: Apartment Alcohol intake: never Patient Tobacco Use Status: Never used Tobacco e-Cigarette/Vaping Use: Never Used Second Hand Smoke Exposure: No service: No Current occupational status: disabled Cognitive needs: Yes (cane) Hearing needs: No Vision needs: Yes (glasses) <SUDHEER Thorpe Last Filed: 04/19/21 12:42> Physical Exam ED Vital Signs: Vital Signs - 24 hr 04/19/21 07:42 04/19/21 08:19 04/19/21 11:55 Temperature 99.1 F Pulse Rate 67 65 62 Respiratory Rate 20 16 14 Blood Pressure 163/83 H 144/65 H 155/75 H Pulse Oximetry 100 99 96 BMI result Body Mass Index 60.5 <SUDHEER Thorpe Last Filed: 04/19/21 12:42> Const General: cooperative and healthy appearing <SUDHEER Thorpe Last Filed: 04/19/21 12:42> Orientation/consciousness: patient oriented x3 <SUDHEER Thorpe Last Filed: 04/19/21 12:42> Limitations: no limitations <SUDHEER Thorpe Last Filed: 04/19/21 12:42> HENMT Head: Yes normal to inspection <SUDHEER Thorpe Last Filed: 04/19/21 12:42> Ears: hearing grossly normal bilaterally <SUDHEER Thorpe Last Filed: 04/19/21 12:42> General nose exam: Normal external nose present <SUDHEER Thorpe Last Filed: 04/19/21 12:42> Face and sinus: Yes normal facial exam <Jyotsna Dillon PA - Last Filed: 04/19/21 12:42> Eyes General: appearance normal, both eyes and all related structures <Jyotsna Dillon PA - Last Filed: 04/19/21 12:42> EOM: EOMs intact bilaterally <Jyotsna Dillon PA - Last Filed: 04/19/21 12:42> Neck Neck: Yes normal visual inspection and Yes no meningeal signs <Jyotsna Dillon PA - Last Filed: 04/19/21 12:42> Resp Effort & Inspection: normal respiratory effort and no respiratory distress <Jyotsna Dillon PA - Last Filed: 04/19/21 12:42> Auscultation: clear to auscultation bilaterally, no rales, no rhonchi and no wheezes <Jyotsna Dillon PA - Last Filed: 04/19/21 12:42> Cardio Rate: regular rate <Jyotsna Dillon PA - Last Filed: 04/19/21 12:42> Heart sounds: S1 normal heart sound present and S2 normal heart sound present <Jyotsna wayne PA - Last Filed: 04/19/21 12:42> GI Inspection: Yes normal to inspection <Jyotsna Dillon PA - Last Filed: 04/19/21 12:42> Palpation (GI): Soft to palpation, Tenderness to palpation present (GI) in the epigastrum, no guarding and not rigid <Jyotsna Dillon PA - Last Filed: 04/19/21 12:42> General: Yes no CVA tenderness <Jyotsna Dillon PA - Last Filed: 04/19/21 12:42> Back/Spine/Pelvis Other: No midline thoracic/lumbar spinous tenderness/step-off or deformity <Jyotsna Dillon PA - Last Filed: 04/19/21 12:42> Back: no CVA tenderness <Jyotsna Dillon PA - Last Filed: 04/19/21 12:42> Skin Rashes: no rashes <Jyotsna Dillon PA - Last Filed: 04/19/21 12:42> Wounds: no wounds <SUDHEER Thorpe - Last Filed: 04/19/21 12:42> Neuro General: patient oriented x3, tone normal, moves all extremities and no meningeal signs <SUDHEER Thorpe Last Filed: 04/19/21 12:42> Gait exam (Neuro): Normal gait present <SUDHEER Thorpe Last Filed: 04/19/21 12:42> Extrem Other: +bilateral calf ttp <SUDHEER Thorpe - Last Filed: 04/19/21 12:42> General: Yes normal to inspection and Yes no pedal edema <SUDHEER Thorpe Last Filed: 04/19/21 12:42> Course Course Course Narrative: -1039--no leukocytosis. H&H stable. Troponin negative. Labs otherwise unremarkable. UA negative. -COVID-19 negative XR chest 2V IMPRESSION: No acute cardiopulmonary findings. US venous duplex LE BI IMPRESSION: No DVT demonstrated in the bilateral lower extremity US venous duplex LE BI IMPRESSION: No DVT demonstrated in the bilateral lower extremity -1239--on re-evaluation patient reports symptomatic improvement after PO Flexeril and other medications given, is lying comfortably in stretcher playing on phone. Feels safe for discharge home at this time >> results discussed with patient with health counselor including worrisome signs and symptoms and strict return precautions and needed close follow-up with PCP and GI. Patient verbalized understanding and feels safe for discharge home at this time <SUDHEER Thorpe - Last Filed: 04/19/21 12:42> MDM - Abdominal Pain MDM Narrative Medical decision making narrative: 55-year-old female with a past medical history of AFib on Xarelto, anxiety, asthma, depression, HTN, GERD, gastritis, chronic idiopathic constipation sleep apnea on CPAP, obesity, presenting to the ED complaining of mid back and epigastric abdominal pain since yesterday with associated nausea. Also reports bilateral calf tenderness x few weeks. On exam vital signs stable, NAD, abdomen soft with epigastric tenderness, no rebound guarding, bilateral calf tenderness noted on exam, no pitting edema. Lungs CTA. Concern for gastritis/GERD vs PUD vs pancreatitis vs atypical ACS. Lower concern for appendicitis/diverticulitis. Unlikely AAA/dissection. R/o DVT although patient anticoagulated. Unlikely PE Plan: EKG, labs, CXR, UA, bilateral venous duplex ultrasound, symptomatic remedies, re-evaluation <SUDHEER Thorpe - Last Filed: 04/19/21 12:42> Differential Diagnosis Differential diagnosis: Likely abdominal pain, gastritis and pancreatitis <SUDHEER Thorpe - Last Filed: 04/19/21 12:42> Medical Records Attestation: I reviewed the patient's medical records. <SUDHEER Thorpe - Last Filed: 04/19/21 12:42> Lab Data Attestation: I reviewed the patient's lab results. <SUDHEER Thorpe - Last Filed: 04/19/21 12:42> Result diagrams: : 04/19/21 09:54 04/19/21 09:54 <SUDHEER Thorpe - Last Filed: 04/19/21 12:42> Labs: Lab Results 04/19/21 04/19/21 04/19/21 Range/Units 09:13 09:29 09:54 WBC 8.8 (4.8-10.8) X10*3/uL RBC 4.08 L (4.20-5.50) X10*6/uL Hgb 12.4 (12.0-16.0) g/dl Hct 38.9 (37.0-47.0) % MCV 95.3 (80.0-98.0) fL MCH 30.4 (27.0-33.0) pg MCHC 31.9 (31.0-35.0) g/dl RDW 14.4 (11.0-16.0) % Plt Count 186 (160-400) X10*3/uL MPV 11.2 (9.4-12.3) fL Immature Gran % (Auto) 0.3 (0.0-0.4) % Neut % (Auto) 64.9 (45-73) % Lymph % (Auto) 26.9 (20-40) % [place] % (Auto) 6.8 (2-11) % Eos % (Auto) 0.9 (0-4) % Baso % (Auto) 0.2 (0-2) % Lymph # (Auto) 2.4 (1.2-4.9) X10*3/uL [place] # (Auto) 0.6 (0.1-1.2) X10*3/uL Eos # (Auto) 0.1 (0.0-0.4) X10*3/uL Baso # (Auto) 0.0 (0.0-0.2) X10*3/uL Abs Immat Gran (auto) 0.03 (0.00-0.03) X10*3/uL Absolute Neuts (auto) 5.7 (2.0-8.3) x10*3/uL Absolute Nucleated RBC 0.000 (0.0-0.012) X10*3/uL Nucleated RBC % (auto) 0.0 (0.0-0.2) /100WBC PT (9.9-13.0) SEC INR (0.9-1.1) APTT (24.1-38.0) SEC Sodium (135-145) mmol/L Potassium (3.3-5.1) mmol/L Chloride (96-108) mmol/L Carbon Dioxide (22-29) mmol/L Anion Gap (12-20) BUN (9-16) mg/dL Creatinine (0.5-1.4) mg/dL Estim Creat Clear Calc Estimated GFR Random Glucose (60-115) mg/dL Calcium (8.4-10.2) mg/dL Magnesium (1.6-2.6) mg/dL Total Bilirubin (0.0-1.0) mg/dL Direct Bilirubin (0.0-0.5) mg/dL AST (5-31) U/L ALT (0-31) U/L Alkaline Phosphatase (39-117) U/L Troponin I High Sens (<3.5-17.0) ng/L B-Natriuretic Peptide (<100) pg/mL Total Protein (6.5-8.0) g/dL Albumin (3.5-5.0) g/dL Lipase (8-78) U/L Urine Color YELLOW Urine Appearance CLEAR Urine pH 6.0 (5.0-8.0) Ur Specific [place] 1.020 (1.005-1.025) Urine Protein NEG (NEG-TRACE) MG/DL Urine Glucose (UA) NEG (NEG) MG/DL Urine Ketones NEG (NEG) MG/DL Urine Blood TRACE (NEG) Urine Nitrite NEG (NEG) Ur Leukocyte Esterase NEG (NEG) Urine RBC 1-4 (0) /HPF Urine WBC 0 (0-4) /HPF Ur Squamous Epith Cells TRACE /LPF Urine Bacteria NONE /LPF COVID-19 ([facility]) Negative (Negative) COVID-19 Clin Com See Note 04/19/21 04/19/21 04/19/21 Range/Units 09:54 09:54 09:54 WBC (4.8-10.8) X10*3/uL RBC (4.20-5.50) X10*6/uL Hgb (12.0-16.0) g/dl Hct (37.0-47.0) % MCV (80.0-98.0) fL MCH (27.0-33.0) pg MCHC (31.0-35.0) g/dl RDW (11.0-16.0) % Plt Count (160-400) X10*3/uL MPV (9.4-12.3) fL Immature Gran % (Auto) (0.0-0.4) % Neut % (Auto) (45-73) % Lymph % (Auto) (20-40) % [place] % (Auto) (2-11) % Eos % (Auto) (0-4) % Baso % (Auto) (0-2) % Lymph # (Auto) (1.2-4.9) X10*3/uL [place] # (Auto) (0.1-1.2) X10*3/uL Eos # (Auto) (0.0-0.4) X10*3/uL Baso # (Auto) (0.0-0.2) X10*3/uL Abs Immat Gran (auto) (0.00-0.03) X10*3/uL Absolute Neuts (auto) (2.0-8.3) x10*3/uL Absolute Nucleated RBC (0.0-0.012) X10*3/uL Nucleated RBC % (auto) (0.0-0.2) /100WBC PT 14.5 H (9.9-13.0) SEC INR 1.3 H (0.9-1.1) APTT 38.8 H (24.1-38.0) SEC Sodium 142 (135-145) mmol/L Potassium 3.9 (3.3-5.1) mmol/L Chloride 106 (96-108) mmol/L Carbon Dioxide 29 (22-29) mmol/L Anion Gap 11 L (12-20) BUN 10 (9-16) mg/dL Creatinine 0.69 (0.5-1.4) mg/dL Estim Creat Clear Calc 122.9 Estimated GFR > 60 Random Glucose 91 (60-115) mg/dL Calcium 9.2 (8.4-10.2) mg/dL Magnesium 1.8 (1.6-2.6) mg/dL Total Bilirubin 0.5 (0.0-1.0) mg/dL Direct Bilirubin 0.2 (0.0-0.5) mg/dL AST 16 (5-31) U/L ALT 16 (0-31) U/L Alkaline Phosphatase 98 (39-117) U/L Troponin I High Sens < 3.5 (<3.5-17.0) ng/L B-Natriuretic Peptide 69 (<100) pg/mL Total Protein 7.4 (6.5-8.0) g/dL Albumin 3.9 (3.5-5.0) g/dL Lipase 6 L (8-78) U/L Urine Color Urine Appearance Urine pH (5.0-8.0) Ur Specific [place] (1.005-1.025) Urine Protein (NEG-TRACE) MG/DL Urine Glucose (UA) (NEG) MG/DL Urine Ketones (NEG) MG/DL Urine Blood (NEG) Urine Nitrite (NEG) Ur Leukocyte Esterase (NEG) Urine RBC (0) /HPF Urine WBC (0-4) /HPF Ur Squamous Epith Cells /LPF Urine Bacteria /LPF COVID-19 ([facility]) (Negative) COVID-19 Clin Com <SUDHEER Thorpe - Last Filed: 04/19/21 12:42> ECG Data Attestation: I personally reviewed and interpreted this ECG as follows: <SUDHEER Thorpe - Last Filed: 04/19/21 12:42> ECG interpretation date: 04/19/21 <SUDHEER Thorpe - Last Filed: 04/19/21 12:42> ECG interpretation time: 09:17 <SUDHEER Tohrpe Last Filed: 04/19/21 12:42> Interpretation: EKG with junctional rhythm at a rate of 60. Curious 86. QTC 452. No STEMI <SUDHEER Thorpe Last Filed: 04/19/21 12:42> Discharge Plan Discharge Clinical Impression: Abdominal pain, epigastric <SUDHEER Thorpe Last Filed: 04/19/21 12:42> Patient Disposition: Home, Self-Care <SUDHEER Thorpe Last Filed: 04/19/21 12:42> Instructions: Epigastric Pain (ED) <SUDHEER Thorpe Last Filed: 04/19/21 12:42> Additional Instructions: Your blood work and imaging studies were reassuring/negative today in the ED. Please follow-up with her primary care doctor and her GI doctor. If her symptoms persist or worsen, constant or worsening pain, nausea/vomiting, develop weakness or are unable to eat or drink please return to the ED Maalox and viscous lidocaine will help with your epigastric abdominal pain Please continue home prescribed medications Marlene an?lisis de amalia y estudios de im?genes fueron tranquilizadores/negativos hoy en el servicio de urgencias. Bev un seguimiento con rogers m?dico de atenci?n primaria y rogers m?dico GI. Si marlene s?ntomas persisten o empeoran, dolor norah o que empeora, n?useas/v?mitos, desarrolla debilidad o no puede comer o beber, regrese al servicio de urgencias. Maalox y la lidoca?na viscosa le ayudar?n con rogers dolor abdominal epig?strico Contin?e con los medicamentos recetados en casa. <SUDHEER Thorpe Last Filed: 04/19/21 12:42> Prescriptions: New alum-mag hydroxide-simeth [Maalox Advanced] 200-200-20 mg/5 mL suspension 5 ml PO 5XD PRN (Reason: dyspepsia) Qty: 30 0RF Rx Instructions: administer between meals and at bedtime lidocaine HCl [Lidocaine Viscous] 2 % solution 5 ml mucous membrane BID PRN (Reason: pain) Qty: 100 0RF No Action atenolol 100 mg tablet 100 mg PO DAILY 90 Days Qty: 90 3RF (DME) adult diapers XXL See Rx Instructions .Route .MEDSUPPLY Qty: 120 11RF Rx Instructions: As directed (DME) Pads For Women Pad See Rx Instructions .ROUTE .MEDSUPPLY Qty: 240 11RF Rx Instructions: Use 8 pad daily cholecalciferol (vitamin D3) 50 mcg (2,000 unit) capsule 50 mcg PO DAILY Qty: 30 5RF calcium carbonate-vitamin D3 [Calcium 500 With D] 500 mg(1,250mg) -400 unit tablet 1 tab PO DAILY Qty: 90 1RF tramadol 50 mg tablet 50 mg PO Q6H Qty: 120 3RF losartan 50 mg tablet 50 mg PO DAILY 90 Days Qty: 90 3RF rivaroxaban 20 mg tablet 20 mg PO DAILY Qty: 90 3RF buspirone 5 mg tablet 5 mg PO BID 0RF cyanocobalamin (vitamin B-12) 1,000 mcg tablet 1,000 mcg PO DAILY 0RF Flovent HFA 110 mcg/actuation HFA aerosol inhaler 2 puff inhalation BID 0RF cyclobenzaprine 10 mg tablet 10 mg PO TID 0RF montelukast 10 mg tablet 10 mg PO DAILY 0RF albuterol sulfate 90 mcg/actuation HFA aerosol inhaler 2 inh inhalation Q4-6H PRN (Reason: bronchospasm) 0RF albuterol sulfate 2.5 mg /3 mL (0.083 %) solution for nebulization inhalation 0RF bisacodyl [Dulcolax (bisacodyl)] 5 mg tablet,delayed release (DR/EC) 10 mg PO BEDTIME 30 Days Qty: 60 6RF Hold Instructions: Doctor's Order omega-3 fatty acids [Fish Oil Concentrate] 1,000 mg capsule 1,000 mg PO DAILY 0RF ondansetron HCl 4 mg tablet 4 mg PO Q12H 30 Days Qty: 60 3RF omeprazole 20 mg capsule,delayed release(DR/EC) 20 mg PO BID Qty: 30 6RF ipratropium bromide 21 mcg (0.03 %) spray,non-aerosol 1 spray intranasal BEDTIME 0RF lidocaine 5 % adhesive patch,medicated 2 patch topical DAILY 0RF famotidine [Pepcid] 40 mg tablet 40 mg PO BEDTIME Qty: 30 6RF Linzess 72 mcg capsule 72 mcg PO QAM Qty: 30 6RF <SUDHEER Thorpe - Last Filed: 04/19/21 12:42> Referrals: Radha Escalona ANP-C [Nurse Practitioner] - 2 days Eri Feldman MD [Primary Care Provider] - 2 days <SUDHEER Thorpe - Last Filed: 04/19/21 12:42> Interventions: ED Discharge Assessment Last Done: 04/19/21 13:08 <SUDHEER Thorpe - Last Filed: 04/19/21 12:42> Discharge Date/Time: 04/19/21 13:09 <SUDHEER Thorpe - Last Filed: 04/19/21 12:42> Print Language: Thai <SUDHEER Thorpe - Last Filed: 04/19/21 12:42>
[2021-04-19 11:55] VITALS: BP 155/75; PULSE 62; RESP 14; O2SAT 96
[2021-04-19] MEDS: Cyclobenzaprine HCl 10 MG TABLET PO (11:56)
[2021-04-19] MEDS: Losartan Potassium 50 MG TABLET PO (11:56)
[2021-04-19] MEDS: Lidocaine 4 % Patch ADH..PATCH 1 PATCH TRANSDERMA (11:56)
== END 2021-04-19 13:09 | disposition home or self-care (01) ==
PROVIDERS: Physician Assistant; Emergency Provider Emergency Medicine; PCP Internal Medicine
DX: R10.13 Epigastric pain (principal); M79.662 Pain in left lower leg; M79.661 Pain in right lower leg; R06.02 Shortness of breath; Z20.822 Contact with and (suspected) exposure to COVID-19; I48.91 Unspecified atrial fibrillation; I10 Essential (primary) hypertension; Z79.01 Long term (current) use of anticoagulants
CPT/HCPCS: 36415; 71046; 80048; 80076; 81001; 83690; 83735; 83880; 84484; 85025; 85610; 85730; 87635; 93005; 93970; 96374; 96375; 99284; J2405

== ENCOUNTER → 2021-04-24 12:27 | Outpatient (BNVA) | payer OTHER, SELFPAY | PROVIDERS: PCP Internal Medicine; Referring Provider Internal Medicine; Visit Provider Nurse Practitioner | DX: K59.04 Chronic idiopathic constipation (principal); K21.9 Gastro-esophageal reflux disease without esophagitis | CPT/HCPCS: 99212 ==

== ENCOUNTER → 2021-04-28 10:09 | Outpatient (BNVA) | payer OTHER, SELFPAY | PROVIDERS: PCP Internal Medicine; Referring Provider Internal Medicine; Visit Provider Internal Medicine Cardiovascular Disease | DX: I48.0 Paroxysmal atrial fibrillation (principal); I10 Essential (primary) hypertension | CPT/HCPCS: 93005; 99212 ==

== ENCOUNTER 2021-05-05 01:36 | Emergency (ER) | payer OTHER, SELFPAY ==
--- NOTE | ~2021-05-05 | XR_ITS ---
EXAMINATION: XR CHEST CLINICAL INFORMATION: Shortness of breath COMPARISON: 04/19/2021 TECHNIQUE: Frontal view of the chest was obtained. FINDINGS: Cardiac leads overlie the chest. Bronchial wall thickening noted. No dense consolidation. No edema or effusion. No pneumothorax. The cardiomediastinal silhouette is within normal limits. XR/XR chest 1V IMPRESSION: No dense consolidation. Bronchial wall thickening can be seen with a small airways process such as asthma or atypical/viral infection.
[2021-05-05 01:54] VITALS: BP 153/108; PULSE 140; RESP 22; TEMP 36.7; O2SAT 99; BMI 59.8
--- NOTE | 2021-05-05 02:07 | ED_ITS ---
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 She denies any fever, chills, new cough, new medications, or change in medications. She states that she has been off of the Xarelto since Wednesday in preparation for her procedure this morning. Related Data Home Medications Medication Instructions Recorded Confirmed montelukast 10 mg tablet 10 mg PO DAILY 01/18/20 04/28/21 buspirone 5 mg tablet 5 mg PO BID 02/14/20 04/28/21 cyanocobalamin (vitamin B-12) 1,000 mcg PO DAILY 03/14/20 04/28/21 1,000 mcg tablet albuterol sulfate 90 mcg/actuation 2 inh INHALATION Q4-6H PRN g 08/23/20 aerosol inhaler omega-3 fatty acids 1,000 mg 1,000 mg PO DAILY 08/23/20 04/28/21 capsule (Fish Oil Concentrate) albuterol sulfate mg INHALATION 09/19/20 04/28/21 fluticasone propionate 110 2 puff INHALATION BID 12/24/20 04/28/21 mcg/actuation HFA aerosol inhaler (Flovent HFA) cyclobenzaprine 10 mg tablet 10 mg PO TID 04/10/21 04/28/21 ipratropium bromide 21 mcg (0.03 1 spray INTRANASAL BEDTIME 04/24/21 04/28/21 %) nasal spray lidocaine 5 % topical patch 2 patch TOPICAL DAILY 04/24/21 04/28/21 Previous Rx's Medication Instructions Recorded adult diapers #120 ea 08/05/20 incontinence pad, liner, disp #240 ea 08/15/20 (Pads For Women) cholecalciferol (vitamin D3) 50 50 mcg PO DAILY #30 cap 08/26/20 mcg (2,000 unit) capsule omeprazole 20 mg capsule,delayed 20 mg PO BID #30 cap 02/20/21 release ondansetron HCl 4 mg tablet 4 mg PO Q12H 30 Days #60 tab 02/20/21 aluminum-mag hydroxide-simethicone 5 ml PO 5XD PRN #30 ml 04/19/21 200 mg-200 mg-20 mg/5 mL oral susp (Maalox Advanced) lidocaine HCl 2 % mucosal solution 5 ml MUCOUS MEMBRANE BID PRN #100 04/19/21 (Lidocaine Viscous) ml famotidine 40 mg tablet (Pepcid) 40 mg PO BEDTIME #30 tab 04/24/21 atenolol 100 mg tablet 100 mg PO DAILY 90 Days #90 tab 04/28/21 losartan 50 mg tablet 50 mg PO DAILY 90 Days #90 tab 04/28/21 rivaroxaban 20 mg tablet 20 mg PO DAILY #90 tab 04/28/21 tramadol 50 mg tablet 50 mg PO Q6H #120 tab 04/29/21 calcium carbonate 500 mg-vitamin 1 tab PO DAILY #90 tab 05/01/21 D3 10 mcg (400 unit) tablet (Calcium 500 With D) Allergies Allergy/AdvReac Type Severity Reaction Status Date / Time levofloxacin [From LEVAQUIN] Allergy Intermediate DIZZINESS Verified 04/28/21 14:40 topiramate Allergy Intermediate palpitation Verified 04/28/21 14:40 s BuPROPion HCl Allergy Intermediate palpitation Uncoded 04/28/21 14:40 s Phentermine HCl Allergy Intermediate uncontrolled Uncoded 04/28/21 14:40 hypertension Review of Systems Review of Systems: Pertinent positives and negatives as stated in HPI 10 point review of symptoms is otherwise negative. [facility] Past Medical History Source: nursing notes reviewed Medical History Afib Anxiety Arthritis Asthma B12 deficiency Bilateral knee pain Depression Essential (primary) hypertension Hepatic steatosis Left knee pain Panic attacks Physical exam Right elbow pain Right knee pain Sleep apnea with use of continuous positive airway pressure (CPAP) Urge urinary incontinence Surgical History H/O colonoscopy History of section History of cholecystectomy History of esophagogastroduodenoscopy (EGD) Tubal ligation status Family History Family History Father CVA (cerebral vascular accident) Colon cancer CAD (coronary artery disease) Mother Cancer of unknown origin Social History Social History Household Members: None Housing: Apartment Alcohol intake: never Patient Tobacco Use Status: Never used Tobacco e-Cigarette/Vaping Use: Never Used Second Hand Smoke Exposure: No Advance Directives: No service: No Current occupational status: disabled Cognitive needs: Yes (cane) Hearing needs: No Vision needs: Yes (glasses) Physical Exam ED Vital Signs: Vital Signs - 24 hr 05/05/21 01:54 05/05/21 02:43 05/05/21 03:53 Temperature 98.1 F 98.0 F Pulse Rate 140 H 146 H 70 Respiratory Rate 22 H 20 19 Blood Pressure 153/108 H 142/79 H 137/78 Pulse Oximetry 99 96 97 05/05/21 04:25 Temperature Pulse Rate 62 Respiratory Rate 18 Blood Pressure 128/52 L Pulse Oximetry 96 BMI result Body Mass Index 59.8 VITAL SIGNS: Reviewed. GENERAL: Elevated BMI, well nourished, in mild distress. HEAD: Normocephalic/atraumatic EYES: PERRLA, EOMI EARS: Ext canals without abnormality OROPHARYNX: no oral lesions noted, posterior pharynx clear LUNGS: Normal breath sounds. No adventitious sounds or accessory muscle use. SpO2<99> CARDIOVASCULAR: Regular rate and rhythm without noted murmurs ABDOMEN: Soft, non-tender, non-distended with bowel sounds. MUSCULOSKELETAL: No tenderness, deformities, or effusions noted on gross inspection. EXTREMITIES: No cyanosis, clubbing or edema. SKIN: Inspection of the skin reveals no rashes NEUROLOGIC: Alert and oriented x 4. Strength and sensation to light touch were grossly intact x 4. Course Course Course Narrative: 55-year-old female with history and clinical presentation consistent with atrial fibrillation with RVR without evidence of use of decongestants, medication changes, or recent antibiotic use. Review of all investigations negative for acute findings and on receipt of 5 mg of Lopressor patient had complete resolution of her AFib with RVR and is now currently in sinus rhythm with rate of 70s to 80s. She has had complete resolution of her discomfort and there is no evidence of other etiologies for patient's onset of RVR. She is otherwise discharged home in stable condition and was informed of all results via the stock preparation supervisor and also instructed to inform the GI physicians about her visit this evening. Medical Decision Making Lab Data Result diagrams: 05/05/21 02:47 05/05/21 02:47 Labs: Lab Results 05/05/21 05/05/21 05/05/21 Range/Units 02:37 02:47 02:47 WBC 9.0 (4.8-10.8) X10*3/uL RBC 4.14 L (4.20-5.50) X10*6/uL Hgb 12.7 (12.0-16.0) g/dl Hct 39.4 (37.0-47.0) % MCV 95.2 (80.0-98.0) fL MCH 30.7 (27.0-33.0) pg MCHC 32.2 (31.0-35.0) g/dl RDW 14.1 (11.0-16.0) % Plt Count 201 (160-400) X10*3/uL MPV 11.2 (9.4-12.3) fL Immature Gran % (Auto) 0.2 (0.0-0.4) % Neut % (Auto) 63.2 (45-73) % Lymph % (Auto) 26.8 (20-40) % [place] % (Auto) 8.3 (2-11) % Eos % (Auto) 1.2 (0-4) % Baso % (Auto) 0.3 (0-2) % Lymph # (Auto) 2.4 (1.2-4.9) X10*3/uL [place] # (Auto) 0.8 (0.1-1.2) X10*3/uL Eos # (Auto) 0.1 (0.0-0.4) X10*3/uL Baso # (Auto) 0.0 (0.0-0.2) X10*3/uL Abs Immat Gran (auto) 0.02 (0.00-0.03) X10*3/uL Absolute Neuts (auto) 5.7 (2.0-8.3) x10*3/uL Absolute Nucleated RBC 0.000 (0.0-0.012) X10*3/uL Nucleated RBC % (auto) 0.0 (0.0-0.2) /100WBC PT (9.9-13.0) SEC INR (0.9-1.1) Sodium 143 (135-145) mmol/L Potassium 3.6 (3.3-5.1) mmol/L Chloride 109 H (96-108) mmol/L Carbon Dioxide 20 L (22-29) mmol/L Anion Gap 18 (12-20) BUN 16 D (9-16) mg/dL Creatinine 0.71 (0.5-1.4) mg/dL Estim Creat Clear Calc 118.5 Estimated GFR > 60 Random Glucose 106 (60-115) mg/dL Calcium 9.3 (8.4-10.2) mg/dL Total Bilirubin 0.5 (0.0-1.0) mg/dL AST 15 (5-31) U/L ALT 18 (0-31) U/L Alkaline Phosphatase 96 (39-117) U/L Total Protein 7.1 (6.5-8.0) g/dL Albumin 3.8 (3.5-5.0) g/dL Urine Color STRAW Urine Appearance CLEAR Urine pH 6.0 (5.0-8.0) Ur Specific [place] <= 1.005 (1.005-1.025) Urine Protein NEG (NEG-TRACE) MG/DL Urine Glucose (UA) NEG (NEG) MG/DL Urine Ketones NEG (NEG) MG/DL Urine Blood NEG (NEG) Urine Nitrite NEG (NEG) Ur Leukocyte Esterase NEG (NEG) 05/05/21 Range/Units 03:41 WBC (4.8-10.8) X10*3/uL RBC (4.20-5.50) X10*6/uL Hgb (12.0-16.0) g/dl Hct (37.0-47.0) % MCV (80.0-98.0) fL MCH (27.0-33.0) pg MCHC (31.0-35.0) g/dl RDW (11.0-16.0) % Plt Count (160-400) X10*3/uL MPV (9.4-12.3) fL Immature Gran % (Auto) (0.0-0.4) % Neut % (Auto) (45-73) % Lymph % (Auto) (20-40) % [place] % (Auto) (2-11) % Eos % (Auto) (0-4) % Baso % (Auto) (0-2) % Lymph # (Auto) (1.2-4.9) X10*3/uL [place] # (Auto) (0.1-1.2) X10*3/uL Eos # (Auto) (0.0-0.4) X10*3/uL Baso # (Auto) (0.0-0.2) X10*3/uL Abs Immat Gran (auto) (0.00-0.03) X10*3/uL Absolute Neuts (auto) (2.0-8.3) x10*3/uL Absolute Nucleated RBC (0.0-0.012) X10*3/uL Nucleated RBC % (auto) (0.0-0.2) /100WBC PT 11.8 (9.9-13.0) SEC INR 1.0 (0.9-1.1) Sodium (135-145) mmol/L Potassium (3.3-5.1) mmol/L Chloride (96-108) mmol/L Carbon Dioxide (22-29) mmol/L Anion Gap (12-20) BUN (9-16) mg/dL Creatinine (0.5-1.4) mg/dL Estim Creat Clear Calc Estimated GFR Random Glucose (60-115) mg/dL Calcium (8.4-10.2) mg/dL Total Bilirubin (0.0-1.0) mg/dL AST (5-31) U/L ALT (0-31) U/L Alkaline Phosphatase (39-117) U/L Total Protein (6.5-8.0) g/dL Albumin (3.5-5.0) g/dL Urine Color Urine Appearance Urine pH (5.0-8.0) Ur Specific [place] (1.005-1.025) Urine Protein (NEG-TRACE) MG/DL Urine Glucose (UA) (NEG) MG/DL Urine Ketones (NEG) MG/DL Urine Blood (NEG) Urine Nitrite (NEG) Ur Leukocyte Esterase (NEG) ECG Data Attestation: I personally reviewed and interpreted this ECG as follows: Prior ECG tracings: available for review Interpretation: 0137: Atrial fibrillation, HR-137, no STEMI, QRS/QTC are within normal limits. 0259: Normal sinus rhythm, HR-73, no STEMI, MD/QRS/QTC are within normal limits. Discharge Plan Discharge Clinical Impression: Atrial fibrillation with RVR, NINI on CPAP Patient Disposition: Home, Self-Care Instructions: A-fib (Atrial Fibrillation) (ED) Additional Instructions: 1. Reanudar todos los medicamentos en el hogar seg?n lo prescrito a menos que Gastroenterolog?a indique lo contrario. 2. Por favor llame a Gastroenterolog?a esta ma?shashi e inf?rmeles de rogers visita a la orlando de emergencias y preg?nteles si no quieren continuar con el procedimiento. Regrese a la orlando de emergencias si los s?ntomas empeoran. Prescriptions: No Action (DME) adult diapers XXL See Rx Instructions .Route .MEDSUPPLY Qty: 120 11RF Rx Instructions: As directed (DME) Pads For Women Pad See Rx Instructions .ROUTE .MEDSUPPLY Qty: 240 11RF Rx Instructions: Use 8 pad daily cholecalciferol (vitamin D3) 50 mcg (2,000 unit) capsule 50 mcg PO DAILY Qty: 30 5RF tramadol 50 mg tablet 50 mg PO Q6H Qty: 120 3RF calcium carbonate-vitamin D3 [Calcium 500 With D] 500 mg-10 mcg (400 unit) tablet 1 tab PO DAILY Qty: 90 1RF alum-mag hydroxide-simeth [Maalox Advanced] 200-200-20 mg/5 mL suspension 5 ml PO 5XD PRN (Reason: dyspepsia) Qty: 30 0RF Rx Instructions: administer between meals and at bedtime lidocaine HCl [Lidocaine Viscous] 2 % solution 5 ml mucous membrane BID PRN (Reason: pain) Qty: 100 0RF buspirone 5 mg tablet 5 mg PO BID 0RF cyanocobalamin (vitamin B-12) 1,000 mcg tablet 1,000 mcg PO DAILY 0RF Flovent HFA 110 mcg/actuation HFA aerosol inhaler 2 puff inhalation BID 0RF cyclobenzaprine 10 mg tablet 10 mg PO TID 0RF montelukast 10 mg tablet 10 mg PO DAILY 0RF albuterol sulfate 90 mcg/actuation HFA aerosol inhaler 2 inh inhalation Q4-6H PRN (Reason: bronchospasm) 0RF albuterol sulfate 2.5 mg /3 mL (0.083 %) solution for nebulization inhalation 0RF atenolol 100 mg tablet 100 mg PO DAILY 90 Days Qty: 90 3RF losartan 50 mg tablet 50 mg PO DAILY 90 Days Qty: 90 3RF rivaroxaban 20 mg tablet 20 mg PO DAILY Qty: 90 3RF omega-3 fatty acids [Fish Oil Concentrate] 1,000 mg capsule 1,000 mg PO DAILY 0RF ondansetron HCl 4 mg tablet 4 mg PO Q12H 30 Days Qty: 60 3RF omeprazole 20 mg capsule,delayed release(DR/EC) 20 mg PO BID Qty: 30 6RF ipratropium bromide 21 mcg (0.03 %) spray,non-aerosol 1 spray intranasal BEDTIME 0RF lidocaine 5 % adhesive patch,medicated 2 patch topical DAILY 0RF famotidine [Pepcid] 40 mg tablet 40 mg PO BEDTIME Qty: 30 6RF Print Language: Monegasque
[2021-05-05 02:43] VITALS: BP 142/79; PULSE 146; RESP 20; O2SAT 96
[2021-05-05] MEDS: Metoprolol Tartrate 5 MG/5 ML VIAL IVPUSH (02:43)
[2021-05-05 02:51] LABS: Appearance Urine CLEAR; Color Urine STRAW; Glucose Urine UA NEG (NEG); Leukocyte Esterase Urine NEG (NEG); Nitrite Urine NEG (NEG); Specific Gravity - Urine <= 1.005 (1.005-1.025); Urine Blood NEG (NEG); Urine Ketones NEG (NEG); Urine Protein NEG (NEG-TRACE)
[2021-05-05 02:52] LABS: MANUAL DIFF FLAG NO
[2021-05-05 02:53] LABS: Basophils Percent Auto 0.3 % (0-2); Eosinophils Absolute Auto 0.1 X10*3/uL (0.0-0.4); Eosinophils Percent Auto 1.2 % (0-4); Hematocrit 39.4 % (37.0-47.0); Hemoglobin 12.7 g/dl (12.0-16.0); Imm Gran Abs Auto 0.02 X10*3/uL (0.00-0.03); Imm Gran Pct Auto 0.2 % (0.0-0.4); Lymphocytes Absolute Auto 2.4 X10*3/uL (1.2-4.9); Lymphocytes Percent Auto 26.8 % (20-40); Mean Corpuscular HGB Conc 32.2 g/dl (31.0-35.0); Mean Corpuscular Hemoglobin 30.7 pg (27.0-33.0); Mean Corpuscular Volume 95.2 fL (80.0-98.0); Mean Platelet Volume 11.2 fL (9.4-12.3); Monocytes Absolute Auto 0.8 X10*3/uL (0.1-1.2); Monocytes Percent Auto 8.3 % (2-11); Neutrophils Absolute Auto 5.7 x10*3/uL (2.0-8.3); Neutrophils Percent Auto 63.2 % (45-73); Platelet Count 201 X10*3/uL (160-400); Red Blood Count 4.14 X10*6/uL (4.20-5.50); Red Cell Distribution Width 14.1 % (11.0-16.0)
--- NOTE | 2021-05-05 02:57 | ECG_ITS ---
Test Reason : REPEAT Blood Pressure : / mmHG Vent. Rate : 073 BPM Atrial Rate : 073 BPM P-R Int : 134 ms QRS Dur : 086 ms QT Int : 396 ms P-R-T Axes : 014 000 028 degrees QTc Int : 436 ms Normal sinus rhythm Normal ECG When compared with ECG of 19-APR-2021 09:17, No significant change was found Referred By: Asha Merchant Electronically Signed By:Akil Wang
[2021-05-05 03:17] LABS: Alanine Aminotransferase 18 U/L (0-31); Albumin Level 3.8 g/dL (3.5-5.0); Alkaline Phosphatase 96 U/L (39-117); Anion Gap 18 (12-20); Aspartate Amino Transferase 15 U/L (5-31); Bilirubin Total 0.5 mg/dL (0.0-1.0); Blood Urea Nitrogen 16 mg/dL (9-16); Calcium 9.3 mg/dL (8.4-10.2); Carbon Dioxide 20 mmol/L (22-29); Chloride 109 mmol/L (96-108); Creatinine Clr Calc Pharmacy 118.5; Estimated Glomerular Filt Rate > 60; Glucose Random 106 mg/dL (60-115); Potassium 3.6 mmol/L (3.3-5.1); Sodium 143 mmol/L (135-145); Total Protein 7.1 g/dL (6.5-8.0)
[2021-05-05 03:53] VITALS: BP 137/78; PULSE 70; RESP 19; TEMP 36.7; O2SAT 97
[2021-05-05 03:53] LABS: Prothrombin Time 11.8 SEC (9.9-13.0)
[2021-05-05 04:25] VITALS: BP 128/52; PULSE 62; RESP 18; O2SAT 96
--- NOTE | 2021-05-05 04:36 | PC.NURSE ---
Patient alert and oriented x 3. Came in in Rapid afib 150's. Patient wears cpap at night for sleep. Patient had burning in throat and chest pain 10/10, and palpitations, and hypertension. Medicated with 5mg of metoprolol iv push for afib 120-150's now is sinus rythym 70's. Patient denies chest pain, palpitations and dizziness. Will continue to monitor.
--- NOTE | 2021-05-06 | ECG_ITS ---
Test Reason : DYSPENIA Blood Pressure : / mmHG Vent. Rate : 137 BPM Atrial Rate : 000 BPM P-R Int : 000 ms QRS Dur : 074 ms QT Int : 282 ms P-R-T Axes : 000 012 035 degrees QTc Int : 425 ms Atrial fibrillation with rapid ventricular response Nonspecific ST abnormality Abnormal ECG When compared to the previous EKG of Atrial fibrillation Present Referred By: Asha Merchant Electronically Signed By:Akil Wang
== END 2021-05-05 04:48 | disposition home or self-care (01) ==
PROVIDERS: Emergency Provider Student in an Organized Health Care Education/Training Program
DX: I48.20 Chronic atrial fibrillation, unspecified (principal); R06.02 Shortness of breath; G47.33 Obstructive sleep apnea (adult) (pediatric); I10 Essential (primary) hypertension; Z79.899 Other long term (current) drug therapy; Z79.01 Long term (current) use of anticoagulants; Z99.89 Dependence on other enabling machines and devices
CPT/HCPCS: 36415; 71045; 80053; 81003; 85025; 85610; 93005; 96374; 99284

== ENCOUNTER 2021-05-12 14:00 | Outpatient (RCR) | payer OTHER, SELFPAY | END 2021-06-30 09:21 | disposition home or self-care (01) | LOC: HO.PT 14:00 | PROVIDERS: PCP Internal Medicine; Visit Provider Physician Assistant | DX: M25.812 Other specified joint disorders, left shoulder (principal); M25.811 Other specified joint disorders, right shoulder | CPT/HCPCS: 97110; 97161 ==

== ENCOUNTER 2021-05-29 09:58 | Outpatient (REF) | payer OTHER, SELFPAY ==
[2021-05-29 10:32] LABS: COVID-19 Test Negative (Negative); IDNOW Serial# 16C4AD1C
== END 2021-05-29 09:59 | disposition home or self-care (01) ==
LOC: HO.LAB 09:58
PROVIDERS: Visit Provider Internal Medicine
DX: Z20.822 Contact with and (suspected) exposure to COVID-19 (principal)
CPT/HCPCS: 87635; C9803

== ENCOUNTER → 2021-07-16 09:49 | Outpatient (BNVA) | payer OTHER, SELFPAY | PROVIDERS: PCP Internal Medicine; Visit Provider Nurse Practitioner Family | DX: M79.7 Fibromyalgia (principal); M25.561 Pain in right knee; M25.562 Pain in left knee; Z79.891 Long term (current) use of opiate analgesic | CPT/HCPCS: 99212 ==

== ENCOUNTER 2021-08-11 13:14 | Outpatient (REF) | payer OTHER, SELFPAY ==
[2021-08-11 13:24] LABS: MANUAL DIFF FLAG NO
[2021-08-11 13:40] LABS: Basophils Percent Auto 0.3 % (0-2); Eosinophils Absolute Auto 0.1 X10*3/uL (0.0-0.4); Eosinophils Percent Auto 0.8 % (0-4); Hematocrit 40.6 % (37.0-47.0); Hemoglobin 13.3 g/dl (12.0-16.0); Imm Gran Abs Auto 0.04 X10*3/uL (0.00-0.03); Imm Gran Pct Auto 0.4 % (0.0-0.4); Lymphocytes Absolute Auto 2.8 X10*3/uL (1.2-4.9); Lymphocytes Percent Auto 30.1 % (20-40); Mean Corpuscular HGB Conc 32.8 g/dl (31.0-35.0); Mean Corpuscular Hemoglobin 30.2 pg (27.0-33.0); Mean Corpuscular Volume 92.1 fL (80.0-98.0); Monocytes Absolute Auto 0.7 X10*3/uL (0.1-1.2); Monocytes Percent Auto 7.5 % (2-11); Neutrophils Absolute Auto 5.6 x10*3/uL (2.0-8.3); Neutrophils Percent Auto 60.9 % (45-73); Platelet Count 211 X10*3/uL (160-400); Red Blood Count 4.41 X10*6/uL (4.20-5.50); Red Cell Distribution Width 14.1 % (11.0-16.0); White Blood Count 9.2 X10*3/uL (4.8-10.8)
[2021-08-11 13:55] LABS: Appearance Urine HAZY; Color Urine YELLOW; Glucose Urine UA NEG (NEG); Leukocyte Esterase Urine NEG (NEG); Nitrite Urine NEG (NEG); PH 5.5 (5.0-8.0); UACC Culture Trigger NO; Urine Blood 3+ (NEG); Urine Ketones NEG (NEG); Urine Protein NEG (NEG-TRACE)
[2021-08-11 14:42] LABS: UACC CULT YES; WBC Urine 0 /HPF (0-4)
[2021-08-11 14:43] LABS: Squamous Epithelial Cell Urine 1+ /LPF
== END 2021-08-11 13:15 | disposition home or self-care (01) ==
LOC: HO.LAB 13:14
PROVIDERS: PCP Internal Medicine; Visit Provider Internal Medicine
DX: D64.9 Anemia, unspecified (principal)
CPT/HCPCS: 36415; 81001; 81003; 85025; 87086

== ENCOUNTER 2021-09-08 11:29 | Outpatient (REF) | payer OTHER, SELFPAY | END 2021-09-08 11:30 | disposition home or self-care (01) | LOC: HO.LAB 11:29 | PROVIDERS: Visit Provider Obstetrics & Gynecology | DX: N95.0 Postmenopausal bleeding (principal); N93.8 Other specified abnormal uterine and vaginal bleeding | CPT/HCPCS: 58100; 88305; 99212 ==

== ENCOUNTER 2021-09-12 12:33 | Day surgery (SDC) | payer OTHER, SELFPAY ==
--- NOTE | 2021-05-01 15:01 | HO.ANESPROP2 ---
HPI - Anesthesia Eval Consult details Narrative: 55yo F for Upper Endoscopy Xarelto for afib Stable at yearly cardiac visit 04/28/21. OK for yearly f/u. FORMERLY [facility], 1928–1983 Active Problems Active Problems: All Active Problems (Updated 04/20/21 @ 00:02 by Constance Maldonado) Postmenopausal bleeding (Acute) Physical exam (Acute) Right knee pain (Acute) Left knee pain (Acute) Right elbow pain (Acute) Postmenopausal bleeding (Acute) Diarrhea (Acute) Epigastric pain (Acute) Nausea (Acute) Dysuria (Acute) Well woman exam (Acute) H/O colonoscopy (Acute) Mild episode of recurrent major depressive disorder (Acute) Morbid obesity (Acute) BMI 60.0-69.9, adult (Acute) Urge urinary incontinence (Acute) Bilateral knee pain (Acute) B12 deficiency (Acute) Preoperative cardiovascular examination (Acute) BMI 50.0-59.9, adult (Acute) Hiatal hernia (Acute) Hypertension (Acute) NINI (obstructive sleep apnea) (Acute) Fibromyalgia (Acute) Paroxysmal atrial fibrillation (Acute) Asthma (Acute) Allergic rhinitis (Acute) Insomnia (Acute) GERD (gastroesophageal reflux disease) (Acute) Chronic idiopathic constipation (Acute) Hemorrhoids (Acute) Chronic gastritis (Acute) Past Medical History Medical History Afib Anxiety Arthritis Asthma B12 deficiency Bilateral knee pain Depression Essential (primary) hypertension Hepatic steatosis Left knee pain Panic attacks Physical exam Right elbow pain Right knee pain Sleep apnea with use of continuous positive airway pressure (CPAP) Urge urinary incontinence Family History Family History Father CVA (cerebral vascular accident) Colon cancer CAD (coronary artery disease) Mother Cancer of unknown origin Surgical History Surgical History H/O colonoscopy History of section History of cholecystectomy History of esophagogastroduodenoscopy (EGD) Tubal ligation status Social History Social History Household Members: None Housing: Apartment Alcohol intake: never Patient Tobacco Use Status: Never used Tobacco e-Cigarette/Vaping Use: Never Used Second Hand Smoke Exposure: No service: No Current occupational status: disabled Cognitive needs: Yes (cane) Hearing needs: No Vision needs: Yes (glasses) Meds Allergies Allergy/AdvReac Type Severity Reaction Status Date / Time levofloxacin [From LEVAQUIN] Allergy Intermediate DIZZINESS Verified 04/28/21 14:40 topiramate Allergy Intermediate palpitation Verified 04/28/21 14:40 s BuPROPion HCl Allergy Intermediate palpitation Uncoded 04/28/21 14:40 s Phentermine HCl Allergy Intermediate uncontrolled Uncoded 04/28/21 14:40 hypertension Home Medications Medication Instructions Recorded Confirmed Last Taken Type montelukast 10 mg tablet 10 mg PO DAILY 01/18/20 04/28/21 Unknown History buspirone 5 mg tablet 5 mg PO BID 02/14/20 04/28/21 Unknown History cyanocobalamin (vitamin B-12) 1,000 mcg PO DAILY 03/14/20 04/28/21 Unknown History 1,000 mcg tablet albuterol sulfate 90 mcg/actuation 2 inh INHALATION Q4-6H PRN g 08/23/20 04/28/21 Unknown History aerosol inhaler omega-3 fatty acids 1,000 mg 1,000 mg PO DAILY 08/23/20 04/28/21 Unknown History capsule (Fish Oil Concentrate) albuterol sulfate mg INHALATION 09/19/20 04/28/21 Unknown History fluticasone propionate 110 2 puff INHALATION BID 12/24/20 04/28/21 Unknown History mcg/actuation HFA aerosol inhaler (Flovent HFA) cyclobenzaprine 10 mg tablet 10 mg PO TID 04/10/21 04/28/21 Unknown History ipratropium bromide 21 mcg (0.03 1 spray INTRANASAL BEDTIME 04/24/21 04/28/21 Unknown History %) nasal spray lidocaine 5 % topical patch 2 patch TOPICAL DAILY 04/24/21 04/28/21 Unknown History Exam Exam Date and Time: May 01, 2021 1501 Pertinent Lab Results Pertinent Lab Results: Laboratory Tests 04/19/21 04/19/21 09:54 09:54 WBC 8.8 Hgb 12.4 Hct 38.9 Plt Count 186 Sodium 142 Potassium 3.9 Chloride 106 Carbon Dioxide 29 BUN 10 Creatinine 0.69 Narrative Narrative: EKG 04/28/2021 normal sinus rhythm at 59 beats per minute with normal axis and normal intervals Assessment and Plan Assessment Anesthesia Assessment: Chart Reviewed
[2021-06-25 10:47] VITALS: BMI 60.1
--- NOTE | 2021-06-27 13:00 | HO.ANESPROP2 ---
HPI - Anesthesia Eval Consult details Narrative: 55yo F for Upper Endoscopy Xarelto for afib Stable at yearly cardiac visit 04/28/21. OK for yearly f/u. [facility] Active Problems Active Problems: All Active Problems (Updated 05/08/21 @ 09:58 by THERESE Humphries) Otitis media (Acute) NINI on CPAP (Acute) Postmenopausal bleeding (Acute) Physical exam (Acute) Right knee pain (Acute) Left knee pain (Acute) Right elbow pain (Acute) Postmenopausal bleeding (Acute) Diarrhea (Acute) Epigastric pain (Acute) Nausea (Acute) Dysuria (Acute) Well woman exam (Acute) H/O colonoscopy (Acute) Mild episode of recurrent major depressive disorder (Acute) Morbid obesity (Acute) BMI 60.0-69.9, adult (Acute) Urge urinary incontinence (Acute) Bilateral knee pain (Acute) B12 deficiency (Acute) Preoperative cardiovascular examination (Acute) BMI 50.0-59.9, adult (Acute) Hiatal hernia (Acute) Hypertension (Acute) NINI (obstructive sleep apnea) (Acute) Fibromyalgia (Acute) Paroxysmal atrial fibrillation (Acute) Asthma (Acute) Allergic rhinitis (Acute) Insomnia (Acute) GERD (gastroesophageal reflux disease) (Acute) Chronic idiopathic constipation (Acute) Hemorrhoids (Acute) Chronic gastritis (Acute) Past Medical History Medical History Afib Anxiety Arthritis Asthma B12 deficiency Bilateral knee pain Depression Essential (primary) hypertension Hepatic steatosis Left knee pain Panic attacks Physical exam Right elbow pain Right knee pain Sleep apnea with use of continuous positive airway pressure (CPAP) Urge urinary incontinence Family History Family History Father CVA (cerebral vascular accident) Colon cancer CAD (coronary artery disease) Mother Cancer of unknown origin Surgical History Surgical History H/O colonoscopy History of section History of cholecystectomy History of esophagogastroduodenoscopy (EGD) Tubal ligation status Social History Social History Household Members: None Housing: Apartment Alcohol intake: never Patient Tobacco Use Status: Never used Tobacco e-Cigarette/Vaping Use: Never Used Second Hand Smoke Exposure: No service: No Current occupational status: disabled Cognitive needs: Yes (cane) Hearing needs: No Vision needs: Yes (glasses) Meds Allergies Allergy/AdvReac Type Severity Reaction Status Date / Time levofloxacin [From LEVAQUIN] Allergy Intermediate DIZZINESS Verified 05/08/21 09:48 topiramate Allergy Intermediate palpitation Verified 05/08/21 09:48 s BuPROPion HCl Allergy Intermediate palpitation Uncoded 05/08/21 09:48 s Phentermine HCl Allergy Intermediate uncontrolled Uncoded 05/08/21 09:48 hypertension Home Medications Medication Instructions Recorded Confirmed Last Taken Type montelukast 10 mg tablet 10 mg PO DAILY 01/18/20 06/25/21 Unknown History buspirone 5 mg tablet 5 mg PO BID 02/14/20 06/25/21 Unknown History cyanocobalamin (vitamin B-12) 1,000 mcg PO DAILY 03/14/20 06/25/21 Unknown History 1,000 mcg tablet albuterol sulfate 90 mcg/actuation 2 inh INHALATION Q4-6H PRN g 08/23/20 06/25/21 Unknown History aerosol inhaler omega-3 fatty acids 1,000 mg 1,000 mg PO DAILY 08/23/20 06/25/21 Unknown History capsule (Fish Oil Concentrate) albuterol sulfate mg INHALATION 09/19/20 05/08/21 Unknown History fluticasone propionate 110 2 puff INHALATION BID 12/24/20 06/25/21 Unknown History mcg/actuation HFA aerosol inhaler (Flovent HFA) cyclobenzaprine 10 mg tablet 10 mg PO TID 04/10/21 06/25/21 Unknown History ipratropium bromide 21 mcg (0.03 1 spray INTRANASAL BEDTIME 04/24/21 06/25/21 Unknown History %) nasal spray lidocaine 5 % topical patch 2 patch TOPICAL DAILY 04/24/21 05/08/21 Unknown History Exam Exam Date and Time: June 27, 2021 1300 Height,Weight and Vital Signs: Height 5 ft Weight 139.706 kg Pertinent Lab Results Pertinent Lab Results: Laboratory Tests ? 04/19/21 04/19/21 ? 09:54 09:54 WBC ?8.8 ? Hgb ?12.4 ? Hct ?38.9 ? Plt Count ?186 ? Sodium ? ?142 Potassium ? ?3.9 Chloride ? ?106 Carbon Dioxide ? ?29 BUN ? ?10 Creatinine ? ?0.69 Narrative Narrative: EKG 04/28/2021 normal sinus rhythm at 59 beats per minute with normal axis and normal intervals Assessment and Plan Assessment Anesthesia Assessment: Chart Reviewed
--- NOTE | 2021-09-11 10:17 | HO.ANESPROP2 ---
Documented by User: Sandra Diaz NP 09/11/21 10:18 HPI - Anesthesia Eval Consult details Narrative: 55yo F for Upper Endoscopy Xarelto for afib Stable at yearly cardiac visit 04/2021 [facility] / [facility] Active Problems Active Problems: All Active Problems (Updated 09/08/21 @ 11:09 by Usman Shrestha MD) DUB (dysfunctional uterine bleeding) (Acute) Otitis media (Acute) NINI on CPAP (Acute) Postmenopausal bleeding (Acute) Physical exam (Acute) Right knee pain (Acute) Left knee pain (Acute) Right elbow pain (Acute) Postmenopausal bleeding (Acute) Diarrhea (Acute) Epigastric pain (Acute) Nausea (Acute) Dysuria (Acute) Well woman exam (Acute) H/O colonoscopy (Acute) Mild episode of recurrent major depressive disorder (Acute) Morbid obesity (Acute) BMI 60.0-69.9, adult (Acute) Urge urinary incontinence (Acute) Bilateral knee pain (Acute) B12 deficiency (Acute) Preoperative cardiovascular examination (Acute) BMI 50.0-59.9, adult (Acute) Hiatal hernia (Acute) Hypertension (Acute) NINI (obstructive sleep apnea) (Acute) Fibromyalgia (Acute) Paroxysmal atrial fibrillation (Acute) Asthma (Acute) Allergic rhinitis (Acute) Insomnia (Acute) GERD (gastroesophageal reflux disease) (Acute) Chronic idiopathic constipation (Acute) Hemorrhoids (Acute) Chronic gastritis (Acute) Past Medical History Medical History Afib Anxiety Arthritis Asthma B12 deficiency Bilateral knee pain Depression Essential (primary) hypertension Hepatic steatosis Left knee pain Panic attacks Physical exam Right elbow pain Right knee pain Sleep apnea with use of continuous positive airway pressure (CPAP) Urge urinary incontinence Family History Family History Father CVA (cerebral vascular accident) Colon cancer CAD (coronary artery disease) Mother Cancer of unknown origin Surgical History Surgical History H/O colonoscopy History of section History of cholecystectomy History of esophagogastroduodenoscopy (EGD) Tubal ligation status Social History Social History Household Members: None Housing: Apartment Alcohol intake: never Patient Tobacco Use Status: Never used Tobacco e-Cigarette/Vaping Use: Never Used Second Hand Smoke Exposure: No Use of substances other than those prescribed or required for medical reasons: No Are you DNR?: No Advance Directives: No Advance Directives Information Provided: Yes service: No Current occupational status: disabled Cognitive needs: Yes (cane) Hearing needs: No Vision needs: Yes (glasses) Meds Allergies Allergy/AdvReac Type Severity Reaction Status Date / Time levofloxacin [From LEVAQUIN] Allergy Intermediate DIZZINESS Verified 07/16/21 10:25 topiramate Allergy Intermediate palpitation Verified 07/16/21 10:25 s BuPROPion HCl Allergy Intermediate palpitation Uncoded 07/16/21 10:25 s Phentermine HCl Allergy Intermediate uncontrolled Uncoded 07/16/21 10:25 hypertension Home Medications Medication Instructions Recorded Confirmed Last Taken Type montelukast 10 mg tablet 10 mg PO DAILY 01/18/20 07/16/21 Unknown History cyanocobalamin (vitamin B-12) 1,000 mcg PO DAILY 03/14/20 07/16/21 Unknown History 1,000 mcg tablet albuterol sulfate 90 mcg/actuation 2 inh inhalation Q4-6H PRN 08/23/20 07/16/21 Unknown History aerosol inhaler bronchospasm omega-3 fatty acids 1,000 mg 1,000 mg PO DAILY 08/23/20 07/16/21 Unknown History capsule (Fish Oil Concentrate) albuterol sulfate 2.5 mg/3 mL mg inhalation 09/19/20 07/16/21 Unknown History (0.083 %) solution for nebulization fluticasone propionate 110 2 puff inhalation BID 12/24/20 07/16/21 Unknown History mcg/actuation HFA aerosol inhaler (Flovent HFA) ipratropium bromide 21 mcg (0.03 1 spray intranasal BEDTIME 04/24/21 07/16/21 Unknown History %) nasal spray lidocaine 5 % topical patch 2 patch topical DAILY 04/24/21 07/16/21 Unknown History buspirone 5 mg tablet 5 mg PO DAILY 07/16/21 07/16/21 Unknown History Exam Exam Date and Time: September 11, 2021 1017 Height,Weight and Vital Signs: Height 5 ft Weight 139.706 kg Pertinent Lab Results Pertinent Lab Results: Laboratory Tests 04/19/21 04/19/21 09:54 09:54 WBC 8.8 Hgb 12.4 Hct 38.9 Plt Count 186 Sodium 142 Potassium 3.9 Chloride 106 Carbon Dioxide 29 BUN 10 Creatinine 0.69 Narrative Narrative: EKG 04/28/2021 normal sinus rhythm at 59 beats per minute with normal axis and normal intervals Assessment and Plan Assessment Anesthesia Assessment: Chart Reviewed Documented by User: Asha Mercedes MD 09/12/21 13:59 PMFSH Past Medical History Medical History Afib Anxiety Arthritis Asthma B12 deficiency Bilateral knee pain Depression Essential (primary) hypertension Hepatic steatosis Left knee pain Panic attacks Physical exam Right elbow pain Right knee pain Sleep apnea with use of continuous positive airway pressure (CPAP) Urge urinary incontinence Family History Family History Father CVA (cerebral vascular accident) Colon cancer CAD (coronary artery disease) Mother Cancer of unknown origin Surgical History Surgical History H/O colonoscopy History of section History of cholecystectomy History of esophagogastroduodenoscopy (EGD) Tubal ligation status History of Problems with Anesthesia: No Social History Social History Household Members: None Housing: Apartment Alcohol intake: never Patient Tobacco Use Status: Never used Tobacco e-Cigarette/Vaping Use: Never Used Second Hand Smoke Exposure: No Use of substances other than those prescribed or required for medical reasons: No Are you DNR?: No Advance Directives: No Advance Directives Information Provided: Yes service: No Current occupational status: disabled Cognitive needs: Yes (cane) Hearing needs: No Vision needs: Yes (glasses) Meds Allergies Allergy/AdvReac Type Severity Reaction Status Date / Time levofloxacin [From LEVAQUIN] Allergy Intermediate DIZZINESS Verified 07/16/21 10:25 topiramate Allergy Intermediate palpitation Verified 07/16/21 10:25 s BuPROPion HCl Allergy Intermediate palpitation Uncoded 07/16/21 10:25 s Phentermine HCl Allergy Intermediate uncontrolled Uncoded 07/16/21 10:25 hypertension Home Medications Medication Instructions Recorded Confirmed Last Taken Type montelukast 10 mg tablet 10 mg PO DAILY 01/18/20 07/16/21 Unknown History cyanocobalamin (vitamin B-12) 1,000 mcg PO DAILY 03/14/20 07/16/21 Unknown History 1,000 mcg tablet albuterol sulfate 90 mcg/actuation 2 inh inhalation Q4-6H PRN 08/23/20 07/16/21 Unknown History aerosol inhaler bronchospasm omega-3 fatty acids 1,000 mg 1,000 mg PO DAILY 08/23/20 07/16/21 Unknown History capsule (Fish Oil Concentrate) albuterol sulfate 2.5 mg/3 mL mg inhalation 09/19/20 07/16/21 Unknown History (0.083 %) solution for nebulization fluticasone propionate 110 2 puff inhalation BID 12/24/20 07/16/21 Unknown History mcg/actuation HFA aerosol inhaler (Flovent HFA) ipratropium bromide 21 mcg (0.03 1 spray intranasal BEDTIME 04/24/21 07/16/21 Unknown History %) nasal spray lidocaine 5 % topical patch 2 patch topical DAILY 04/24/21 07/16/21 Unknown History buspirone 5 mg tablet 5 mg PO DAILY 07/16/21 07/16/21 Unknown History Exam Airway Mallampati Class: III TM Dist: >3cm Neck ROM: Limited Loose/Missing/Broken Teeth: No Heart: RRR Lungs: CTA Assessment and Plan Assessment Anesthesia Assessment: Anesthesia Plan Discussed Final Anesthetic Review History of Problems with Anesthesia: No NPO: Yes ASA Class: III Final Preanesthetic Review: Meds/Allgs Chart Reviewed, Consent Obtained/Reviewed and Anes Risks/Benef Reviewed Patient Risk: High Procedure Risk: Intermediate Anesthetic Plan Anesthetic Plan: GA Disposition: Standard PACU
[2021-09-12 13:33] VITALS: BP 138/58; PULSE 56; RESP 18; TEMP 36.4; O2SAT 95
--- NOTE | 2021-09-12 13:49 | MHC.SHP ---
Pre-Procedural Eval Section A Date of Service: 09/12/21 The patient is an INPATIENT: No The History & Physical has been completed within 30 days and I have reviewed it.: No Section B Chief Complaint: epigastric pain Details of Present Illness: GERD, abdominal pain Relevant Family History (Specify if Yes): Yes Relevant Social History: None Present Medications: see Short Stay Collaborative assessment Medical History: Significant History (Afib Anxiety Arthritis Asthma B12 deficiency Bilateral knee pain Depression Essential (primary) hypertension Hepatic steatosis Left knee pain Panic attacks Physical exam Right elbow pain Right knee pain Sleep apnea with use of continuous positive airway pressure (CPAP) Urge urinary incontinence) History of Previous Operations: Relevant previous surgery/procedure and date(s) (H/O colonoscopy History of section History of cholecystectomy History of esophagogastroduodenoscopy (EGD) Tubal ligation status) Allergies: Allergies Allergy/AdvReac Type Severity Reaction Status Date / Time levofloxacin [From LEVAQUIN] Allergy Intermediate DIZZINESS Verified 07/16/21 10:25 topiramate Allergy Intermediate palpitation Verified 07/16/21 10:25 s BuPROPion HCl Allergy Intermediate palpitation Uncoded 07/16/21 10:25 s Phentermine HCl Allergy Intermediate uncontrolled Uncoded 07/16/21 10:25 hypertension Review of Systems Sugical H&P ROS: Negative: Constitution, Cardiovascular and Respiratory and Yes, Specify: Gastrointestinal (GERD,adbominal pain) Exam Surgical H&P Exam: Normal: Heart, Normal: Lungs, Normal: Extremities and Normal: Abdomen Plan Diagnosis/Plan: Unchanged I have reviewed the history and physical and performed a pertinent physical examination on my patient. No changes have occurred unless specified.
--- NOTE | 2021-09-12 14:41 | PM.OP ---
Brief Operative Note Date of Service: 09/12/21 Pre-op diagnosis: GERD, upper abdominal pain Post-op diagnosis: other (Gastritis, Gastric polyps) Procedure: FLEXIBLE TRANSORAL UPPER GASTROINTESTINAL ENDOSCOPY WITH BIOPSIES Consent: Indications for the procedure and potential complications of bleeding, perforation, reaction to medications and missed diagnosis were discussed with the patient and informed consent was obtained. Instrument: Olympus GIF H 190 mid size upper endoscope Monitoring: Vital signs and clinical assessment, continuous EKG monitoring, Pulse oximetry, Carbon Dioxide monitoring and blood pressure monitoring were done throughout the procedure. Procedure: The patient was placed in the left lateral decubitis position and pre-procedure medications were administered and a bite block was placed. The endoscope was inserted into the mouth and advanced under direct vision to the third part of duodenum. A careful inspection was made as the upper endoscope was withdrawn including a retroflexed examination of the proximal stomach; Findings and interventions are described below. Findings: Larynx: Normal, ET tube in place Esophagus: GE junction at 40 cms. No esophagitis or Vizcarra's. Stomach: Multiple 1-2 cms benign appearing polyps in the gastric body and fundus - biopsied. Moderate gastric erythema. Biopsies were obtained. Grade 2 flap valve on retroflexed examination of the cardia. Duodenum: Normal bulb and descending duodenum Intervention: Biopsies as noted above Impression and Post Procedure Diagnosis: Endoscopy Findings: STOMACH: Multiple 1-2 cms benign appearing polyps in the gastric body and fundus - biopsied. Moderate gastric erythema. Biopsies were obtained. DUODENUM: Normal - biopsied to check for celiac sprue Plan: Await pathology results Patient has an appointment on 09/26/21 in the GI Clinic with Radha Escalona NP. Above findings were reviewed with the patient and handout on Gastric Polyps was given in the discharge area Surgeon: Kaushik Acosta MD Anesthesia: GETA Was an Nuclear Fuels Research Engineer used for this Procedure?: Yes Nuclear Fuels Research Engineer: Marc Rader Estimated blood loss (mL): 0 Pathology: other (A) BX Small Bowel R/O Celiacs Disease B) BX Gastric Antrum R/O H. Pylori C) Gastric Polyp) Condition: stable Disposition: PACU
--- NOTE | 2021-09-12 14:42 | P.OP_ITS ---
Operative Note Operative Note Date of Service: 09/12/21 Narrative: Pre-op diagnosis:GERD, upper abdominal pain Post-op diagnosis:?other (Gastritis, Gastric polyps) Procedure: FLEXIBLE TRANSORAL UPPER GASTROINTESTINAL ENDOSCOPY WITH BIOPSIES Consent:?Indications for the procedure and potential complications of bleeding, perforation, reaction to medications and missed diagnosis were discussed with the patient and informed consent was obtained. Instrument:?Olympus GIF H 190 mid size upper endoscope Monitoring: Vital signs and clinical assessment, continuous EKG monitoring, Pulse oximetry, Carbon Dioxide monitoring and blood pressure monitoring were done throughout the procedure. Procedure:?The patient was placed in the left lateral decubitis position and pre-procedure medications were administered and a bite block was placed. The endoscope was inserted into the mouth and advanced under direct vision to the third part of duodenum. A careful inspection was made as the upper endoscope was withdrawn including a retroflexed examination of the proximal stomach; Findings and interventions are described below. Findings: Larynx:? Normal, ET tube in place Esophagus: GE junction at 40 cms. No esophagitis or Vizcarra's. Stomach: Multiple 1-2 cms benign appearing polyps in the gastric body and fundus - biopsied.? Moderate gastric erythema. Biopsies were obtained. Grade 2 flap valve on retroflexed examination of the cardia. Duodenum: Normal bulb and descending duodenum Intervention: Biopsies as noted above Impression and Post Procedure Diagnosis: Endoscopy Findings: STOMACH: Multiple 1-2 cms benign appearing polyps in the gastric body and fundus - biopsied.? Moderate gastric erythema. Biopsies were obtained. DUODENUM: Normal - biopsied to check for celiac sprue Plan: Await pathology results Patient has an appointment on 09/26/21 in the GI Clinic with? Radha Escalona NP. Above findings were reviewed with the patient and handout on Gastric Polyps was given in the discharge area Surgeon: Kaushik Acosta MD Anesthesia:?GETA Was an Television Announcer used for this Procedure?:?Yes Television Announcer:?Marc Rader Estimated blood loss (mL):?0 Pathology:?other (A) BX Small Bowel ? ? ? R/O Celiacs Disease? B) BX Gastric Antrum ? R/O H. Pylori? C) Gastric Polyp) Condition:?stable Disposition:?PACU
[2021-09-12 15:23] VITALS: BP 159/74; PULSE 53; RESP 20; TEMP 36.1; O2SAT 100
[2021-09-12 15:28] VITALS: BP 156/77; PULSE 58; RESP 18; O2SAT 94
[2021-09-12 15:33] VITALS: BP 155/77; PULSE 55; RESP 16; O2SAT 95
[2021-09-12 15:38] VITALS: BP 155/79; PULSE 54; RESP 18; O2SAT 97
[2021-09-12 15:53] VITALS: BP 151/70; PULSE 55; RESP 18; TEMP 36.2; O2SAT 95
== END 2021-09-12 16:11 | disposition home or self-care (01) ==
PROVIDERS: PCP Internal Medicine; Visit Provider Internal Medicine Gastroenterology
PROC: 0DJ08ZZ Inspection of Upper Intestinal Tract, Via Natural or Artificial Opening Endoscopic (ICD-10-PCS; CPT 43235; principal; 2021-09-12 14:10)
DX: K29.50 Unspecified chronic gastritis without bleeding (principal); K31.7 Polyp of stomach and duodenum; K21.9 Gastro-esophageal reflux disease without esophagitis; K76.0 Fatty (change of) liver, not elsewhere classified; I10 Essential (primary) hypertension; G47.33 Obstructive sleep apnea (adult) (pediatric); K59.04 Chronic idiopathic constipation; I48.91 Unspecified atrial fibrillation; E53.8 Deficiency of other specified B group vitamins; J45.909 Unspecified asthma, uncomplicated; F32.A Depression, unspecified; Z79.51 Long term (current) use of inhaled steroids; Z79.899 Other long term (current) drug therapy; Z99.89 Dependence on other enabling machines and devices; Z88.8 Allergy status to other drugs, medicaments and biological substances; Z88.1 Allergy status to other antibiotic agents; Z90.49 Acquired absence of other specified parts of digestive tract; Z98.51 Tubal ligation status
CPT/HCPCS: 43239; 88305; 88342; J3010

== ENCOUNTER → 2021-09-26 11:12 | Outpatient (BNVA) | payer OTHER, SELFPAY | PROVIDERS: PCP Internal Medicine; Visit Provider Nurse Practitioner | DX: K59.04 Chronic idiopathic constipation (principal); K21.9 Gastro-esophageal reflux disease without esophagitis; K29.50 Unspecified chronic gastritis without bleeding; Z98.890 Other specified postprocedural states | CPT/HCPCS: 99212 ==

== ENCOUNTER → 2021-09-30 10:10 | Outpatient (BNVA) | payer OTHER, SELFPAY | PROVIDERS: PCP Internal Medicine; Visit Provider Obstetrics & Gynecology | DX: N95.0 Postmenopausal bleeding (principal); Z98.890 Other specified postprocedural states | CPT/HCPCS: 99212 ==

== ENCOUNTER 2021-10-17 09:06 | Outpatient (REF) | payer OTHER, SELFPAY ==
[2021-10-17 09:33] LABS: MANUAL DIFF FLAG NO
[2021-10-17 10:01] LABS: Basophils Percent Auto 0.3 % (0-2); Eosinophils Absolute Auto 0.1 X10*3/uL (0.0-0.4); Eosinophils Percent Auto 1.8 % (0-4); Hematocrit 39.3 % (37.0-47.0); Hemoglobin 12.7 g/dl (12.0-16.0); Imm Gran Abs Auto 0.04 X10*3/uL (0.00-0.03); Imm Gran Pct Auto 0.6 % (0.0-0.4); Lymphocytes Absolute Auto 2.3 X10*3/uL (1.2-4.9); Lymphocytes Percent Auto 33.7 % (20-40); Mean Corpuscular HGB Conc 32.3 g/dl (31.0-35.0); Mean Corpuscular Volume 92.7 fL (80.0-98.0); Mean Platelet Volume 11.5 fL (9.4-12.3); Monocytes Absolute Auto 0.5 X10*3/uL (0.1-1.2); Monocytes Percent Auto 7.4 % (2-11); Neutrophils Absolute Auto 3.8 x10*3/uL (2.0-8.3); Neutrophils Percent Auto 56.2 % (45-73); Platelet Count 202 X10*3/uL (160-400); Red Blood Count 4.24 X10*6/uL (4.20-5.50); Red Cell Distribution Width 14.6 % (11.0-16.0); White Blood Count 6.8 X10*3/uL (4.8-10.8)
[2021-10-17 10:19] LABS: Alanine Aminotransferase 15 U/L (0-31); Albumin Level 3.8 g/dL (3.5-5.0); Alkaline Phosphatase 97 U/L (39-117); Anion Gap 14 (12-20); Aspartate Amino Transferase 14 U/L (5-31); Bilirubin Total 0.3 mg/dL (0.0-1.0); Blood Urea Nitrogen 17 mg/dL (9-16); Calcium 8.6 mg/dL (8.4-10.2); Carbon Dioxide 23 mmol/L (22-29); Chloride 107 mmol/L (96-108); Cholesterol 203 mg/dL; Estimated Glomerular Filt Rate > 60; Glucose Fasting 96 mg/dL (60-99); HDL Cholesterol 54 mg/dL; LDL Cholesterol Calculated 134 mg/dl; Sodium 140 mmol/L (135-145); Total Protein 7.1 g/dL (6.5-8.0); Triglycerides 79 mg/dL
[2021-10-17 10:57] LABS: Appearance Urine Clear; Color Urine Yellow; Glucose Urine UA Negative (Negative); Leukocyte Esterase Urine Negative (Negative); Nitrite Urine Negative (Negative); PH 5.5 (5.0-9.0); Urine Blood Negative (Negative); Urine Ketones Negative (Negative); Urine Protein Negative (Neg-Trace)
[2021-10-17 11:10] LABS: Folate 9.8 ng/mL (> or = 4.0); Vitamin B12 762 pg/mL (200-900)
== END 2021-10-17 09:07 | disposition home or self-care (01) ==
LOC: HO.LAB 09:06
PROVIDERS: PCP Internal Medicine; Visit Provider Internal Medicine
DX: R30.0 Dysuria (principal); D64.9 Anemia, unspecified; E66.01 Morbid (severe) obesity due to excess calories; E53.8 Deficiency of other specified B group vitamins; E78.5 Hyperlipidemia, unspecified
CPT/HCPCS: 36415; 80053; 80061; 81003; 82607; 82746; 85025

== ENCOUNTER 2021-10-25 02:28 | Inpatient (IN) | payer OTHER, SELFPAY ==
[2021-10-25] VITALS (15 sets, daily range): BP systolic 132–166; BP diastolic 77–102; PULSE 65–141; RESP 14–24; TEMP 36.6–36.7; O2SAT 95–99; BMI 65.6
--- NOTE | ~2021-10-25 | XR_ITS ---
EXAMINATION: XR CHEST CLINICAL INFORMATION: Palpitations COMPARISON: 05/05/2021 TECHNIQUE: Frontal view of the chest was obtained. FINDINGS: Lung volumes are symmetric. No focal consolidation is seen. No evidence of pneumothorax, pleural effusion, or pulmonary edema. The cardiomediastinal contour is unremarkable. No acute osseous findings are seen. XR/XR chest 1V IMPRESSION: No acute cardiopulmonary findings.
--- NOTE | 2021-10-25 02:48 | ED_ITS ---
HPI - Arrhythmia/Palpitations General Chief Complaint: Arrhythmia/Palpitations Stated Complaint: heart palpations Time Seen by Provider: 10/25/21 02:48 Source: patient, old records reviewed and sample worker Mode of arrival: ambulatory Limitations: no limitations History of Present Illness HPI narrative: 55 yo female with hx of PAF on xarelto, GERD, bronchitis, here with c/o eating well tonight including red meat she notes she developed some acid reflux and felt her heart racing. She became very anxious. She does not have CP or SOB. She is compliant with all medications including her DOAC. MD complaint: heart racing , palpitations and atrial fibrillation Onset (ago): hour(s) (2) Duration: constant Severity: moderate Context: occurred during rest Arrhythmia history: atrial fibrillation Associated symptoms: nausea, anxiety and other (feels acid in her throat) Related Data Home Medications Medication Instructions Recorded Confirmed montelukast 10 mg tablet 10 mg PO DAILY 01/18/20 07/16/21 albuterol sulfate 90 mcg/actuation 2 inh inhalation Q4-6H PRN 08/23/20 07/16/21 aerosol inhaler bronchospasm omega-3 fatty acids 1,000 mg 1,000 mg PO DAILY 08/23/20 07/16/21 capsule (Fish Oil Concentrate) albuterol sulfate 2.5 mg/3 mL mg inhalation 09/19/20 07/16/21 (0.083 %) solution for nebulization fluticasone propionate 110 2 puff inhalation BID 12/24/20 07/16/21 mcg/actuation HFA aerosol inhaler (Flovent HFA) ipratropium bromide 21 mcg (0.03 1 spray intranasal BEDTIME 04/24/21 07/16/21 %) nasal spray lidocaine 5 % topical patch 2 patch topical DAILY 04/24/21 07/16/21 buspirone 5 mg tablet 5 mg PO DAILY 07/16/21 07/16/21 rivaroxaban 20 mg tablet (Xarelto) 20 mg PO DAILY 09/26/21 Previous Rx's Medication Instructions Recorded incontinence pad, liner, disp #240 ea 08/15/20 (Pads For Women) ondansetron HCl 4 mg tablet 4 mg PO Q12H nausea and vomiting 02/20/21 30 days #60 tabs lidocaine HCl 2 % mucosal solution 5 ml mucous membrane BID PRN pain 04/19/21 (Lidocaine Viscous) #100 mL atenolol 100 mg tablet 100 mg PO DAILY 90 days #90 tabs 04/28/21 losartan 50 mg tablet 50 mg PO DAILY 90 days #90 tabs 04/28/21 rivaroxaban 20 mg tablet 20 mg PO DAILY #90 tabs 04/28/21 tramadol 50 mg tablet 50 mg PO Q6H #120 tabs 04/29/21 fluticasone propionate 50 1 spray intranasal DAILY 14 days 09/15/21 mcg/actuation nasal #100 mL spray,suspension (Flonase Allergy Relief) famotidine 40 mg tablet (Pepcid) 40 mg PO BEDTIME #30 tabs 09/26/21 linaclotide 72 mcg capsule 72 mcg PO QAM #30 caps 09/26/21 (Linzess) omeprazole 20 mg capsule,delayed 20 mg PO DAILY #30 caps 09/26/21 release calcium carbonate 500 mg-vitamin 1 tab PO DAILY #90 tabs 10/23/21 D3 10 mcg (400 unit) tablet (Calcium 500 With D) Allergies Allergy/AdvReac Type Severity Reaction Status Date / Time levofloxacin [From LEVAQUIN] Allergy Intermediate DIZZINESS Verified 09/26/21 11:19 topiramate Allergy Intermediate palpitation Verified 09/26/21 11:19 s BuPROPion HCl Allergy Intermediate palpitation Uncoded 07/16/21 10:25 s Phentermine HCl Allergy Intermediate uncontrolled Uncoded 07/16/21 10:25 hypertension Review of Systems Review of Systems: Constitutional : No Fever, No Chills ENT/Mouth : No sore throat, No Rhinorrhea, No Swallowing Difficulty Eyes: No Eye Pain, No Swelling, No Redness Cardiovascular : No Chest Pain, no SOB, No Orthopnea, no Edema, pos palpitations Respiratory : No Cough, No Sputum, No Wheezing, no dyspnea Gastrointestinal : pos Nausea, No Vomiting, No Diarrhea, No abdominal Pain, No Hematochezia, No Melena, pos acid reflux Genitourinary : No Dysuria, No Urinary Frequency, No Hematuria Musculoskeletal : No joint pain, No Myalgias Skin : No Skin Lesions, No rash Neuro : No Weakness, No Numbness, No Dizziness, No Headache Psych : No Anxiety/Panic, No Depression Heme/Lymph: No Bruising, No Lymphadenopathy Endocrine : No Polyuria, No Polydipsia All other systems reviewed and are negative PMFSH Past Medical History Attestation statement: The following information was validated with the patient. Medical History Afib Anxiety Arthritis Asthma B12 deficiency Bilateral knee pain Depression Essential (primary) hypertension Hepatic steatosis Left knee pain Panic attacks Physical exam Right elbow pain Right knee pain Sleep apnea with use of continuous positive airway pressure (CPAP) Urge urinary incontinence Surgical History H/O colonoscopy History of section History of cholecystectomy History of esophagogastroduodenoscopy (EGD) Tubal ligation status Family History Family History Father CVA (cerebral vascular accident) Colon cancer CAD (coronary artery disease) Mother Cancer of unknown origin Social History Social History Household Members: None Housing: Apartment Alcohol intake: never Patient Tobacco Use Status: Never used Tobacco e-Cigarette/Vaping Use: Never Used Second Hand Smoke Exposure: No Advance Directives: No Advance Directives Information Provided: No service: No Current occupational status: disabled Cognitive needs: Yes (cane) Hearing needs: No Vision needs: Yes (glasses) Physical Exam Vital Signs: Vital Signs: Last Vital Signs Temp 98.1 F 10/25/21 02:44 Pulse 89 10/25/21 07:05 Resp 15 10/25/21 07:05 BP 144/84 H 10/25/21 07:05 Pulse Ox 97 10/25/21 07:05 O2 Del Method 10/25/21 07:05 BMI result Body Mass Index 65.6 Appearance: Alert. Oriented X3. No acute distress. Anxious Eyes: Pupils equal, round and reactive to light. ENT: Pharynx normal. Neck: Normal inspection. Neck supple. CVS: tachycardic irregular heart rate and rhythm. Pulses normal. Respiratory: No respiratory distress. Breath sounds normal. Abdomen: Soft and nontender. Skin: Skin warm and dry. Normal skin color. Normal skin turgor. Extremities: No lower extremity edema. No calf ttp Neuro: Oriented X 3. No motor deficit. No sensory deficit. Course Course Course Narrative: no response to lopressor will switch to dilt HR down 70s to 80s after dilt bolus will continue to observe repeat trop ordered 6pm repeat trop flat HR back up to 120s patient is not usually in afib very symptomatic feels short of breath, anxious dilt gtt ordered will notify hospitalists about potential admission if patient doesn't break on gtt by 830 - Dr. Schultz aware MDM - Arrhythmia/Palpitations MDM Narrative Medical decision making narrative: 55 yo female with hx of PAF on xarelto, GERD, bronchitis here with what she describes as GERD, anxiety, found to be in rapid afib - she takes atenolol and xarelto at home. Will treat GERD with GI cocktail. Slow her HR down with lopressor - BP is stable. Doubt ACS/PE. Will repeat troponin x 2. Dispo per results and findings. Can go home if she is rate controlled. Lab Data Result diagrams: 10/25/21 03:37 10/25/21 03:38 Labs: Lab Results 10/25/21 10/25/21 10/25/21 Range/Units 03:37 03:37 03:37 WBC 9.5 (4.8-10.8) X10*3/uL RBC 4.51 (4.20-5.50) X10*6/uL Hgb 13.3 (12.0-16.0) g/dl Hct 40.9 (37.0-47.0) % MCV 90.7 (80.0-98.0) fL MCH 29.5 (27.0-33.0) pg MCHC 32.5 (31.0-35.0) g/dl RDW 14.3 (11.0-16.0) % Plt Count 208 (160-400) X10*3/uL MPV 11.5 (9.4-12.3) fL Immature Gran % (Auto) 0.3 (0.0-0.4) % Neut % (Auto) 45.4 (45-73) % Lymph % (Auto) 44.8 H (20-40) % [place] % (Auto) 7.7 (2-11) % Eos % (Auto) 1.4 (0-4) % Baso % (Auto) 0.4 (0-2) % Lymph # (Auto) 4.2 (1.2-4.9) X10*3/uL [place] # (Auto) 0.7 (0.1-1.2) X10*3/uL Eos # (Auto) 0.1 (0.0-0.4) X10*3/uL Baso # (Auto) 0.0 (0.0-0.2) X10*3/uL Abs Immat Gran (auto) 0.03 (0.00-0.03) X10*3/uL Absolute Neuts (auto) 4.3 (2.0-8.3) x10*3/uL Absolute Nucleated RBC 0.000 (0.0-0.012) X10*3/uL Nucleated RBC % (auto) 0.0 (0.0-0.2) /100WBC PT 14.6 H (10.0-13.1) SEC INR 1.3 H (0.9-1.1) Sodium (135-145) mmol/L Potassium (3.3-5.1) mmol/L Chloride (96-108) mmol/L Carbon Dioxide (22-29) mmol/L Anion Gap (12-20) BUN (9-16) mg/dL Creatinine (0.5-1.4) mg/dL Estim Creat Clear Calc Estimated GFR Random Glucose (60-115) mg/dL Calcium (8.4-10.2) mg/dL Magnesium (1.6-2.6) mg/dL Total Bilirubin (0.0-1.0) mg/dL Direct Bilirubin (0.0-0.5) mg/dL AST (5-31) U/L ALT (0-31) U/L Alkaline Phosphatase (39-117) U/L Troponin I High Sens 3.6 (<3.5-17.0) ng/L B-Natriuretic Peptide 69 (<100) pg/mL Total Protein (6.5-8.0) g/dL Albumin (3.5-5.0) g/dL Lipase (8-78) U/L Urine Color Urine Appearance Urine pH (5.0-9.0) Ur Specific [place] (1.005-1.025) Urine Protein (Neg-Trace) mg/dL Urine Glucose (UA) (Negative) mg/dL Urine Ketones (Negative) mg/dL Urine Blood (Negative) Urine Nitrite (Negative) Ur Leukocyte Esterase (Negative) COVID-19 ([facility]) (Negative) COVID-19 Clin Com 10/25/21 10/25/21 10/25/21 Range/Units 03:38 03:38 05:22 WBC (4.8-10.8) X10*3/uL RBC (4.20-5.50) X10*6/uL Hgb (12.0-16.0) g/dl Hct (37.0-47.0) % MCV (80.0-98.0) fL MCH (27.0-33.0) pg MCHC (31.0-35.0) g/dl RDW (11.0-16.0) % Plt Count (160-400) X10*3/uL MPV (9.4-12.3) fL Immature Gran % (Auto) (0.0-0.4) % Neut % (Auto) (45-73) % Lymph % (Auto) (20-40) % [place] % (Auto) (2-11) % Eos % (Auto) (0-4) % Baso % (Auto) (0-2) % Lymph # (Auto) (1.2-4.9) X10*3/uL [place] # (Auto) (0.1-1.2) X10*3/uL Eos # (Auto) (0.0-0.4) X10*3/uL Baso # (Auto) (0.0-0.2) X10*3/uL Abs Immat Gran (auto) (0.00-0.03) X10*3/uL Absolute Neuts (auto) (2.0-8.3) x10*3/uL Absolute Nucleated RBC (0.0-0.012) X10*3/uL Nucleated RBC % (auto) (0.0-0.2) /100WBC PT (10.0-13.1) SEC INR (0.9-1.1) Sodium 142 (135-145) mmol/L Potassium 4.2 (3.3-5.1) mmol/L Chloride 106 (96-108) mmol/L Carbon Dioxide 22 (22-29) mmol/L Anion Gap 18 (12-20) BUN 15 (9-16) mg/dL Creatinine 0.81 (0.5-1.4) mg/dL Estim Creat Clear Calc 106.3 Estimated GFR > 60 Random Glucose 107 (60-115) mg/dL Calcium 9.1 (8.4-10.2) mg/dL Magnesium 1.7 (1.6-2.6) mg/dL Total Bilirubin 0.5 (0.0-1.0) mg/dL Direct Bilirubin 0.2 (0.0-0.5) mg/dL AST 19 (5-31) U/L ALT 17 (0-31) U/L Alkaline Phosphatase 96 (39-117) U/L Troponin I High Sens (<3.5-17.0) ng/L B-Natriuretic Peptide (<100) pg/mL Total Protein 7.7 (6.5-8.0) g/dL Albumin 3.9 (3.5-5.0) g/dL Lipase 10 (8-78) U/L Urine Color Yellow Urine Appearance Clear Urine pH 7.0 (5.0-9.0) Ur Specific [place] <= 1.005 (1.005-1.025) Urine Protein Negative (Neg-Trace) mg/dL Urine Glucose (UA) Negative (Negative) mg/dL Urine Ketones Negative (Negative) mg/dL Urine Blood Negative (Negative) Urine Nitrite Negative (Negative) Ur Leukocyte Esterase Negative (Negative) COVID-19 ([facility]) Negative (Negative) COVID-19 Clin Com See Note 10/25/21 Range/Units 06:03 WBC (4.8-10.8) X10*3/uL RBC (4.20-5.50) X10*6/uL Hgb (12.0-16.0) g/dl Hct (37.0-47.0) % MCV (80.0-98.0) fL MCH (27.0-33.0) pg MCHC (31.0-35.0) g/dl RDW (11.0-16.0) % Plt Count (160-400) X10*3/uL MPV (9.4-12.3) fL Immature Gran % (Auto) (0.0-0.4) % Neut % (Auto) (45-73) % Lymph % (Auto) (20-40) % [place] % (Auto) (2-11) % Eos % (Auto) (0-4) % Baso % (Auto) (0-2) % Lymph # (Auto) (1.2-4.9) X10*3/uL [place] # (Auto) (0.1-1.2) X10*3/uL Eos # (Auto) (0.0-0.4) X10*3/uL Baso # (Auto) (0.0-0.2) X10*3/uL Abs Immat Gran (auto) (0.00-0.03) X10*3/uL Absolute Neuts (auto) (2.0-8.3) x10*3/uL Absolute Nucleated RBC (0.0-0.012) X10*3/uL Nucleated RBC % (auto) (0.0-0.2) /100WBC PT (10.0-13.1) SEC INR (0.9-1.1) Sodium (135-145) mmol/L Potassium (3.3-5.1) mmol/L Chloride (96-108) mmol/L Carbon Dioxide (22-29) mmol/L Anion Gap (12-20) BUN (9-16) mg/dL Creatinine (0.5-1.4) mg/dL Estim Creat Clear Calc Estimated GFR Random Glucose (60-115) mg/dL Calcium (8.4-10.2) mg/dL Magnesium (1.6-2.6) mg/dL Total Bilirubin (0.0-1.0) mg/dL Direct Bilirubin (0.0-0.5) mg/dL AST (5-31) U/L ALT (0-31) U/L Alkaline Phosphatase (39-117) U/L Troponin I High Sens 4.4 (<3.5-17.0) ng/L B-Natriuretic Peptide (<100) pg/mL Total Protein (6.5-8.0) g/dL Albumin (3.5-5.0) g/dL Lipase (8-78) U/L Urine Color Urine Appearance Urine pH (5.0-9.0) Ur Specific [place] (1.005-1.025) Urine Protein (Neg-Trace) mg/dL Urine Glucose (UA) (Negative) mg/dL Urine Ketones (Negative) mg/dL Urine Blood (Negative) Urine Nitrite (Negative) Ur Leukocyte Esterase (Negative) COVID-19 ([facility]) (Negative) COVID-19 Clin Com ECG Data Attestation: I personally reviewed and interpreted this ECG as follows: ECG interpretation date: 10/25/21 ECG interpretation time: 03:16 Interpretation: Rate: 130s Rhythm: afib [place]: normal Normal P waves. Normal JASIEL. Normal QRS complex. ST T wave : nonspecific no MALLORIE qTC: normal prior studies: rapid afib The study has been interpreted contemporaneously by me. . Procedures EJ/Peripheral Line Arm L: Time Out Performed: Yes Skin Cleansed in Sterile Fashion: Yes Size (gauge): 20 IV Secured and Dressing Applied: Yes Patient Tolerated Procedure: well and no complications Discharge Plan Discharge Clinical Impression: Atrial fibrillation with rapid ventricular response, Chronic gastritis Patient Disposition: Still a Patient Prescriptions: No Action (DME) Pads For Women Pad See Rx Instructions .ROUTE .MEDSUPPLY Qty: 240 11RF Rx Instructions: Use 8 pad daily tramadol 50 mg tablet 50 mg PO Q6H Qty: 120 3RF fluticasone propionate [Flonase Allergy Relief] 50 mcg/actuation spray,susp ension 1 spray intranasal DAILY 14 Days Qty: 100 0RF Rx Instructions: administer into each nostril calcium carbonate-vitamin D3 [Calcium 500 With D] 500 mg-10 mcg (400 unit) tablet 1 tab PO DAILY Qty: 90 1RF lidocaine HCl [Lidocaine Viscous] 2 % solution 5 ml mucous membrane BID PRN (Reason: pain) Qty: 100 0RF buspirone 5 mg tablet 5 mg PO DAILY Flovent HFA 110 mcg/actuation HFA aerosol inhaler 2 puff inhalation BID montelukast 10 mg tablet 10 mg PO DAILY albuterol sulfate 90 mcg/actuation HFA aerosol inhaler 2 inh inhalation Q4-6H PRN (Reason: bronchospasm) albuterol sulfate 2.5 mg /3 mL (0.083 %) solution for nebulization inhalation atenolol 100 mg tablet 100 mg PO DAILY 90 Days Qty: 90 3RF losartan 50 mg tablet 50 mg PO DAILY 90 Days Qty: 90 3RF rivaroxaban 20 mg tablet 20 mg PO DAILY Qty: 90 3RF omega-3 fatty acids [Fish Oil Concentrate] 1,000 mg capsule 1,000 mg PO DAILY ondansetron HCl 4 mg tablet 4 mg PO Q12H 30 Days Qty: 60 3RF ipratropium bromide 21 mcg (0.03 %) spray,non-aerosol 1 spray intranasal BEDTIME lidocaine 5 % adhesive patch,medicated 2 patch topical DAILY Xarelto 20 mg tablet 20 mg PO DAILY Rx Instructions: must administer with evening meal famotidine [Pepcid] 40 mg tablet 40 mg PO BEDTIME Qty: 30 6RF omeprazole 20 mg capsule,delayed release(DR/EC) 20 mg PO DAILY Qty: 30 6RF Linzess 72 mcg capsule 72 mcg PO QAM Qty: 30 6RF
[2021-10-25 03:49] LABS: MANUAL DIFF FLAG NO
[2021-10-25 03:50] LABS: Basophils Percent Auto 0.4 % (0-2); Eosinophils Absolute Auto 0.1 X10*3/uL (0.0-0.4); Eosinophils Percent Auto 1.4 % (0-4); Hematocrit 40.9 % (37.0-47.0); Hemoglobin 13.3 g/dl (12.0-16.0); Imm Gran Abs Auto 0.03 X10*3/uL (0.00-0.03); Imm Gran Pct Auto 0.3 % (0.0-0.4); Lymphocytes Absolute Auto 4.2 X10*3/uL (1.2-4.9); Lymphocytes Percent Auto 44.8 % (20-40); Mean Corpuscular HGB Conc 32.5 g/dl (31.0-35.0); Mean Corpuscular Hemoglobin 29.5 pg (27.0-33.0); Mean Corpuscular Volume 90.7 fL (80.0-98.0); Mean Platelet Volume 11.5 fL (9.4-12.3); Monocytes Absolute Auto 0.7 X10*3/uL (0.1-1.2); Monocytes Percent Auto 7.7 % (2-11); Neutrophils Absolute Auto 4.3 x10*3/uL (2.0-8.3); Neutrophils Percent Auto 45.4 % (45-73); Platelet Count 208 X10*3/uL (160-400); Red Blood Count 4.51 X10*6/uL (4.20-5.50); Red Cell Distribution Width 14.3 % (11.0-16.0); White Blood Count 9.5 X10*3/uL (4.8-10.8)
[2021-10-25] MEDS: Magnesium Hydrox/Alum Hydrox 30 ML ORAL.SUSP 15 ML PO (03:55)
[2021-10-25] MEDS: Lidocaine HCl Viscous 2 % 15 ML SOLUTION MUCOUS MEM (03:55)
[2021-10-25 03:56] LABS: INTERNATIONAL NORM RATIO 1.3 (0.9-1.1); Prothrombin Time 14.6 SEC (10.0-13.1)
[2021-10-25] MEDS: Metoprolol Tartrate 5 MG/5 ML VIAL IVPUSH ×2 (03:56→04:35)
[2021-10-25 04:07] LABS: Alanine Aminotransferase 17 U/L (0-31); Albumin Level 3.9 g/dL (3.5-5.0); Alkaline Phosphatase 96 U/L (39-117); Anion Gap 18 (12-20); Aspartate Amino Transferase 19 U/L (5-31); Bilirubin Direct 0.2 mg/dL (0.0-0.5); Bilirubin Total 0.5 mg/dL (0.0-1.0); Blood Urea Nitrogen 15 mg/dL (9-16); Calcium 9.1 mg/dL (8.4-10.2); Carbon Dioxide 22 mmol/L (22-29); Chloride 106 mmol/L (96-108); Creatinine Clr Calc Pharmacy 106.3; Estimated Glomerular Filt Rate > 60; Glucose Random 107 mg/dL (60-115); Lipase 10 U/L (8-78); Magnesium 1.7 mg/dL (1.6-2.6); Potassium 4.2 mmol/L (3.3-5.1); Sodium 142 mmol/L (135-145); Total Protein 7.7 g/dL (6.5-8.0)
[2021-10-25 04:08] LABS: COVID-19 Test Negative (Negative)
[2021-10-25 04:10] LABS: B Type Natriuretic Peptide 69 pg/mL (<100); Troponin-I High Sensitivity 3.6 ng/L (<3.5-17.0)
--- NOTE | 2021-10-25 04:37 | PC.NURSE ---
Pt. received medication for stomach pain and burning. She expresses some relief for this...the burning part of the pain has subsided, but now there is pressure like airplane cabin pressure building up . Pt. resting in bed.
[2021-10-25] MEDS: LORazepam 1 MG TABLET PO (04:52)
[2021-10-25] MEDS: dilTIAZem HCL 50 MG/10 ML VIAL 10 MG IVPUSH (05:11)
[2021-10-25 05:28] LABS: Appearance Urine Clear; Color Urine Yellow; Glucose Urine UA Negative (Negative); Leukocyte Esterase Urine Negative (Negative); Nitrite Urine Negative (Negative); Specific Gravity - Urine <= 1.005 (1.005-1.025); Urine Blood Negative (Negative); Urine Ketones Negative (Negative); Urine Protein Negative (Neg-Trace)
[2021-10-25 06:28] LABS: Troponin-I High Sensitivity 4.4 ng/L (<3.5-17.0)
[2021-10-25] MEDS: dilTIAZem HCL 125 MG in 0.9 % Sodium Chloride 100 ML 10 MG IVCONT (06:56)
--- NOTE | 2021-10-25 07:56 | PC.NURSE ---
Pt alert/awake. Cardizem gtt infusing at 10mg/hr at this time. A fib continues on monitor. Pt reports mild headache and abd pain intermittently. Skin pwd. Speaking full sentences. VSS.
--- NOTE | 2021-10-25 09:08 | PC.NURSE ---
Afib remains on tele, more rate controlled rate noted 90-120s
--- NOTE | 2021-10-25 09:50 | PC.NURSE ---
Pt noted in afib however rate noted in 70s, more consistently 80s at this time. Cardizem gtt held. BP stable
--- NOTE | 2021-10-25 10:01 | PC.NURSE ---
Dr Schultz aware of Cardizem gtt held
--- NOTE | 2021-10-25 12:05 | PM.IMHP ---
History of Present Illness Date of Service: 10/25/21 Attending physician on admission: Kaci Allen Chief Complaint: afib with rvr 55-year-old female with history of atrial fibrillation anticoagulated with Xarelto, hypertension, NINI on CPAP, asthma, chronic sinusitis, GERD, gastritis, hiatal hernia, osteoarthritis, and morbid obesity with BMI greater than 65 presented to the Emergency Department this morning complaining of burning chest pain as well as palpitations that had started around 00:00 this morning. She describes a burning chest pain/pressure radiating from her stomach to her mouth as well as pressure in her head, sensation of air hunger, and persistent palpitations that is making her anxious. On arrival, heart rate was 141 with EKG in the ED showing rapid Afib with HR in the 130s with nonspecific ST wave abnormality, no MALLORIE. No improvement in HR with metorpolol or dilt pushes. Started on cardizem per protocol with HR improved to 75-110. Hematology and chemistry studies normal. Troponins neg x2. BNP normal. CXR negative. Currently reports feeling anxious with slight palpitations. Review of Systems Review of Systems: General: No fevers, malaise, unintentional weight loss Cardiovascular: +palpitations. No chest pain, or leg edema Respiratory: No shortness of breath, wheezing, cough GI: +reflux, +epigastric pain. No nausea, vomiting, diarrhea, constipation, melena, hematochezia Neuro: No headaches, weakness, paresthesias Skin: No rashes or lesions [facility] Medical History (Updated 10/25/21 @ 12:21 by SUDHEER Hilario) Afib Anxiety Arthritis Asthma B12 deficiency Depression Diarrhea DUB (dysfunctional uterine bleeding) Dysuria Epigastric pain Essential (primary) hypertension Fibromyalgia Hepatic steatosis Otitis media Panic attacks Postmenopausal bleeding Sleep apnea with use of continuous positive airway pressure (CPAP) Urge urinary incontinence Family History Father CVA (cerebral vascular accident) Colon cancer CAD (coronary artery disease) Mother Cancer of unknown origin Surgical History (Updated 10/25/21 @ 12:21 by SUDHEER Hilario) H/O colonoscopy History of section History of cholecystectomy History of esophagogastroduodenoscopy (EGD) Tubal ligation status Social History Household Members: None Housing: Apartment Alcohol intake: never Patient Tobacco Use Status: Never used Tobacco e-Cigarette/Vaping Use: Never Used Second Hand Smoke Exposure: No Advance Directives: No Advance Directives Information Provided: No service: No Current occupational status: disabled Cognitive needs: Yes (cane) Hearing needs: No Vision needs: Yes (glasses) Meds Allergies Allergy/AdvReac Type Severity Reaction Status Date / Time levofloxacin [From LEVAQUIN] Allergy Intermediate DIZZINESS Verified 09/26/21 11:19 topiramate Allergy Intermediate palpitation Verified 09/26/21 11:19 s BuPROPion HCl Allergy Intermediate palpitation Uncoded 07/16/21 10:25 s Phentermine HCl Allergy Intermediate uncontrolled Uncoded 07/16/21 10:25 hypertension Active Medications: Current Medications Acetaminophen (Acetaminophen 325 Mg Tablet) 650 mg PO Q6H PRN PRN Reason: Pain, Mild (Pain Scale 1-3) Diltiazem HCl 125 mg/ Sodium (Chloride) 125 mls @ 0 mls/hr IVCONT .Q0M [facility]; Protocol Last Titration: 10/25/21 09:49 Dose: 0 mg/hr, 0 mls/hr Ondansetron HCl (Ondansetron Hcl 4 Mg/2 Ml Vial) 4 mg IVPUSH Q8H PRN PRN Reason: Nausea and Vomiting Pharmacy Consult (Consult Rx Perform Med Rec) 1 each MISCELLANE STAT STA Stop: 10/25/21 10:21 Sodium Chloride (0.9 % Sodium Chloride Flush 3 Ml Syringe) [facility] Medications Medication Instructions Recorded Confirmed Last Taken Type montelukast 10 mg tablet 10 mg PO DAILY 01/18/20 07/16/21 Unknown History albuterol sulfate 90 mcg/actuation 2 inh inhalation Q4-6H PRN 08/23/20 07/16/21 Unknown History aerosol inhaler bronchospasm omega-3 fatty acids 1,000 mg 1,000 mg PO DAILY 08/23/20 07/16/21 Unknown History capsule (Fish Oil Concentrate) albuterol sulfate 2.5 mg/3 mL 3 mg inhalation QID PRN Wheezing 09/19/20 07/16/21 Unknown History (0.083 %) solution for nebulization fluticasone propionate 110 2 puff inhalation BID 12/24/20 07/16/21 Unknown History mcg/actuation HFA aerosol inhaler (Flovent HFA) ipratropium bromide 21 mcg (0.03 2 spray intranasal Q8H PRN Allergy 04/24/21 07/16/21 Unknown History %) nasal spray Symptoms lidocaine 5 % topical patch 2 patch topical DAILY 04/24/21 07/16/21 Unknown History buspirone 5 mg tablet 5 mg PO BID 07/16/21 07/16/21 Unknown History rivaroxaban 20 mg tablet (Xarelto) 20 mg PO DAILY@1700 09/26/21 Unknown History Physical Exam Vital Signs and Narrative: Vital Signs: Last Vital Signs Temp 98.1 F 10/25/21 02:44 Pulse 75 10/25/21 09:49 Resp 20 10/25/21 09:49 BP 166/77 H 10/25/21 09:49 Pulse Ox 97 10/25/21 09:49 O2 Del Method 10/25/21 09:49 BMI result Body Mass Index 65.6 Constitutional - Awake and Alert, No apparent distress Eyes - PERRLA, EOMI Cardiovascular - S1S2, irregularly irregular with normal rate, No edema Respiratory - Normal lung expansion, Normal respiratory effort, No respiratory distress, CTA bilaterally Gastrointestinal - NT / ND; +BS; No rebound or guarding Extremities - no calf tenderness bilaterally, no swelling Skin - Warm/Dry Neurological - Alert & oriented x3, No focal deficit Psychological - Appropriate affect Results Labs CBC and Chem 7: 10/25/21 03:37 10/25/21 03:38 Labs: Laboratory Results - last 24 hr 10/25/21 10/25/21 10/25/21 03:37 03:37 03:37 MCV 90.7 MCH 29.5 MCHC 32.5 RDW 14.3 Plt Count 208 MPV 11.5 Immature Gran % (Auto) 0.3 Neut % (Auto) 45.4 Lymph % (Auto) 44.8 H [place] % (Auto) 7.7 Eos % (Auto) 1.4 Baso % (Auto) 0.4 Lymph # (Auto) 4.2 [place] # (Auto) 0.7 Eos # (Auto) 0.1 Baso # (Auto) 0.0 Abs Immat Gran (auto) 0.03 Absolute Neuts (auto) 4.3 Absolute Nucleated RBC 0.000 Nucleated RBC % (auto) 0.0 PT 14.6 H INR 1.3 H Anion Gap Estim Creat Clear Calc Estimated GFR Random Glucose Calcium Magnesium Total Bilirubin Direct Bilirubin AST ALT Alkaline Phosphatase B-Natriuretic Peptide 69 Total Protein Albumin Lipase Urine Color Urine Appearance Urine pH Ur Specific [place] Urine Protein Urine Glucose (UA) Urine Ketones Urine Blood Urine Nitrite Ur Leukocyte Esterase COVID-19 ([facility]) COVID-19 Clin Com 10/25/21 10/25/21 10/25/21 03:38 03:38 05:22 MCV MCH MCHC RDW Plt Count MPV Immature Gran % (Auto) Neut % (Auto) Lymph % (Auto) [place] % (Auto) Eos % (Auto) Baso % (Auto) Lymph # (Auto) [place] # (Auto) Eos # (Auto) Baso # (Auto) Abs Immat Gran (auto) Absolute Neuts (auto) Absolute Nucleated RBC Nucleated RBC % (auto) PT INR Anion Gap 18 Estim Creat Clear Calc 106.3 Estimated GFR > 60 Random Glucose 107 Calcium 9.1 Magnesium 1.7 Total Bilirubin 0.5 Direct Bilirubin 0.2 AST 19 ALT 17 Alkaline Phosphatase 96 B-Natriuretic Peptide Total Protein 7.7 Albumin 3.9 Lipase 10 Urine Color Yellow Urine Appearance Clear Urine pH 7.0 Ur Specific [place] <= 1.005 Urine Protein Negative Urine Glucose (UA) Negative Urine Ketones Negative Urine Blood Negative Urine Nitrite Negative Ur Leukocyte Esterase Negative COVID-19 ([facility]) Negative COVID-19 Clin Com See Note Imaging Radiologist's Impressions: Impressions Chest X-Ray 10/25/21 04:14 IMPRESSION: No acute cardiopulmonary findings. Assessment and Plan (1) Atrial fibrillation with rapid ventricular response: Status: Acute Plan 55-year-old female with history of atrial fibrillation anticoagulated with Xarelto, hypertension, NINI on CPAP, asthma, chronic sinusitis, GERD, gastritis, hiatal hernia, osteoarthritis, and morbid obesity with BMI greater than 65 admitted for atrial fibrillation with RVR. 1- Atrial fibrillation with RVR- EKG with afib with HR 130s. Nonspecific st changes, No MALLORIE. Negative trop and bnp -Continued with RVR despite lopressor and dilt pushes. Continue dilt drip per protocol -Continue with xarelto for anticoagulation. No evidence of active bleeding -Cardiology consulted. Echo ordered -Admit to telemetry 2-HTN- bp slightly elevated 156/95 -Continue diltiazem drip -Continue home losartan. Hold atenolol -Monitor BPs. 3-NINI -Cpap ordered 4-Mild persistent asthma without exarbation -Continue flovent and singulair -Albuterol neb prn 5-GERD/gastritis/hiatal hernia -Continue omeprazole and famotidine from home -Tums prn 6-Osteoarthritis -Continue home tramadol DVT prophylaxis- on xarelto Full code Pt requires inpt stay at least 2 midnights due to atrial fibrillation with RVR requiring cardizem drip and continuous cardiac monitoring. Quality Stroke Does the patient have a stroke diagnosis?: No VTE Prior VTE?: No VTE Risk Level:: Medical - moderate - high VTE Device Contraindication: N/A - Device Ordered VTE Drug Contraindication: N/A - Med Ordered
--- NOTE | 2021-10-25 12:23 | PC.NURSE ---
Pt heart rate found to be ranging from 80s-140s. Resumed cardizem gtt at 5mg/hr.
--- NOTE | 2021-10-25 12:54 | PHA.MEDREC ---
Pharmacy Consult ? Medication Reconciliation Pharmacy has completed the medication reconciliation.
--- NOTE | 2021-10-25 14:09 | P.CONCA_ITS ---
History of Present Illness History of Present Illness Date of Service: 10/25/21 Requesting physician: Emili Miller Chief complaint: Afib Narrative: 55-year-old female who has background history of hypertension, obstructive sleep apnea, paroxysmal atrial fibrillation for which she has been on Xarelto and gastroesophageal reflux disease. She is presenting for palpitations and was noted to be in AFib with RVR. She has been started on diltiazem drip in the ED. She is denying any chest discomfort currently. She continues to have some fluttering and palpitations. Denying shortness of breath. Previously was on Xarelto and has been taking regularly since September 15. End of August she had procedure went Xarelto was interrupted for few days. [facility] Past Medical History Medical History (Updated 10/25/21 @ 12:21 by SUDHEER Hilario) Afib Anxiety Arthritis Asthma B12 deficiency Depression Diarrhea DUB (dysfunctional uterine bleeding) Dysuria Epigastric pain Essential (primary) hypertension Fibromyalgia Hepatic steatosis Otitis media Panic attacks Postmenopausal bleeding Sleep apnea with use of continuous positive airway pressure (CPAP) Urge urinary incontinence Family History Family History Father CVA (cerebral vascular accident) Colon cancer CAD (coronary artery disease) Mother Cancer of unknown origin Surgical History Surgical History (Updated 10/25/21 @ 12:21 by SUDHEER Hilario) H/O colonoscopy History of section History of cholecystectomy History of esophagogastroduodenoscopy (EGD) Tubal ligation status Social History Social History Household Members: None Housing: Apartment Alcohol intake: never Patient Tobacco Use Status: Never used Tobacco e-Cigarette/Vaping Use: Never Used Second Hand Smoke Exposure: No Advance Directives: No Advance Directives Information Provided: No service: No Current occupational status: disabled Cognitive needs: Yes (cane) Hearing needs: No Vision needs: Yes (glasses) Meds Allergies Allergy/AdvReac Type Severity Reaction Status Date / Time levofloxacin [From LEVAQUIN] Allergy Intermediate DIZZINESS Verified 09/26/21 11:19 topiramate Allergy Intermediate palpitation Verified 09/26/21 11:19 s BuPROPion HCl Allergy Intermediate palpitation Uncoded 07/16/21 10:25 s Phentermine HCl Allergy Intermediate uncontrolled Uncoded 07/16/21 10:25 hypertension Active Medications: Current Medications Acetaminophen (Acetaminophen 325 Mg Tablet) 650 mg PO Q6H PRN PRN Reason: Pain, Mild (Pain Scale 1-3) Calcium Carbonate (Calcium Carbonate 750 Mg Tab.Chew) 750 mg PO Q4H PRN PRN Reason: heartburn Diltiazem HCl 125 mg/ Sodium (Chloride) 125 mls @ 0 mls/hr IVCONT .Q0M [facility]; Protocol Last Titration: 10/25/21 12:24 Dose: 5 mg/hr, 5 mls/hr Ondansetron HCl (Ondansetron Hcl 4 Mg/2 Ml Vial) 4 mg IVPUSH Q8H PRN PRN Reason: Nausea and Vomiting Sodium Chloride (0.9 % Sodium Chloride Flush 3 Ml Syringe) 3 ml IVFLUSH QSHIFT [facility] Home Medications Medication Instructions Recorded Confirmed Last Taken Type montelukast 10 mg tablet 10 mg PO DAILY 01/18/20 10/25/21 10/25/21 History albuterol sulfate 90 mcg/actuation 2 inh inhalation Q4-6H PRN 08/23/20 10/25/21 10/25/21 History aerosol inhaler bronchospasm omega-3 fatty acids 1,000 mg 1,000 mg PO DAILY 08/23/20 10/25/21 10/25/21 History capsule (Fish Oil Concentrate) albuterol sulfate 2.5 mg/3 mL 3 mg inhalation QID PRN Wheezing 09/19/20 10/25/21 10/25/21 History (0.083 %) solution for nebulization fluticasone propionate 110 2 puff inhalation BID 12/24/20 10/25/21 10/25/21 History mcg/actuation HFA aerosol inhaler (Flovent HFA) ipratropium bromide 21 mcg (0.03 2 spray intranasal Q8H PRN Allergy 04/24/21 10/25/21 10/25/21 History %) nasal spray Symptoms lidocaine 5 % topical patch 2 patch topical DAILY 04/24/21 10/25/21 10/25/21 History buspirone 5 mg tablet 5 mg PO BID 07/16/21 10/25/21 10/25/21 History rivaroxaban 20 mg tablet (Xarelto) 20 mg PO DAILY@1700 09/26/21 10/25/21 10/25/21 History Physical Exam Vital Signs: Vital Signs: Last Vital Signs Temp 98.1 F 10/25/21 02:44 Pulse 137 H 10/25/21 12:22 Resp 18 10/25/21 12:22 BP 156/95 H 10/25/21 12:22 Pulse Ox 97 10/25/21 12:22 O2 Del Method 10/25/21 12:22 BMI result Body Mass Index 65.6 GENERAL APPEARANCE: in no acute distress, pleasant. NECK: no carotid bruit, no jugular venous distention. SKIN: no suspicious lesions, warm and dry. HEART: no murmurs, irregularly irregular rhythm. Tachycardic. LUNGS: clear to auscultation bilaterally. ABDOMEN: soft, nontender. EXTREMITIES: no edema. PERIPHERAL PULSES: equal. NEUROLOGIC: No gross deficits, AAO X 3 Objective Labs and Meds Result diagrams: 10/25/21 03:37 10/25/21 03:38 Lab results: Laboratory Results - last 24 hr 10/25/21 10/25/21 10/25/21 03:37 03:37 03:37 WBC 9.5 RBC 4.51 Hgb 13.3 Hct 40.9 MCV 90.7 MCH 29.5 MCHC 32.5 RDW 14.3 Plt Count 208 MPV 11.5 Immature Gran % (Auto) 0.3 Neut % (Auto) 45.4 Lymph % (Auto) 44.8 H [place] % (Auto) 7.7 Eos % (Auto) 1.4 Baso % (Auto) 0.4 Lymph # (Auto) 4.2 [place] # (Auto) 0.7 Eos # (Auto) 0.1 Baso # (Auto) 0.0 Abs Immat Gran (auto) 0.03 Absolute Neuts (auto) 4.3 Absolute Nucleated RBC 0.000 Nucleated RBC % (auto) 0.0 PT 14.6 H INR 1.3 H Sodium Potassium Chloride Carbon Dioxide Anion Gap BUN Creatinine Estim Creat Clear Calc Estimated GFR Random Glucose Calcium Magnesium Total Bilirubin Direct Bilirubin AST ALT Alkaline Phosphatase Troponin I High Sens 3.6 B-Natriuretic Peptide 69 Total Protein Albumin Lipase Urine Color Urine Appearance Urine pH Ur Specific [place] Urine Protein Urine Glucose (UA) Urine Ketones Urine Blood Urine Nitrite Ur Leukocyte Esterase COVID-19 ([facility]) COVID-19 Clin Com 10/25/21 10/25/21 10/25/21 03:38 03:38 05:22 WBC RBC Hgb Hct MCV MCH MCHC RDW Plt Count MPV Immature Gran % (Auto) Neut % (Auto) Lymph % (Auto) [place] % (Auto) Eos % (Auto) Baso % (Auto) Lymph # (Auto) [place] # (Auto) Eos # (Auto) Baso # (Auto) Abs Immat Gran (auto) Absolute Neuts (auto) Absolute Nucleated RBC Nucleated RBC % (auto) PT INR Sodium 142 Potassium 4.2 Chloride 106 Carbon Dioxide 22 Anion Gap 18 BUN 15 Creatinine 0.81 Estim Creat Clear Calc 106.3 Estimated GFR > 60 Random Glucose 107 Calcium 9.1 Magnesium 1.7 Total Bilirubin 0.5 Direct Bilirubin 0.2 AST 19 ALT 17 Alkaline Phosphatase 96 Troponin I High Sens B-Natriuretic Peptide Total Protein 7.7 Albumin 3.9 Lipase 10 Urine Color Yellow Urine Appearance Clear Urine pH 7.0 Ur Specific [place] <= 1.005 Urine Protein Negative Urine Glucose (UA) Negative Urine Ketones Negative Urine Blood Negative Urine Nitrite Negative Ur Leukocyte Esterase Negative COVID-19 ([facility]) Negative COVID-19 [employer] Com See Note 10/25/21 06:03 WBC RBC Hgb Hct MCV MCH MCHC RDW Plt Count MPV Immature Gran % (Auto) Neut % (Auto) Lymph % (Auto) [place] % (Auto) Eos % (Auto) Baso % (Auto) Lymph # (Auto) [place] # (Auto) Eos # (Auto) Baso # (Auto) Abs Immat Gran (auto) Absolute Neuts (auto) Absolute Nucleated RBC Nucleated RBC % (auto) PT INR Sodium Potassium Chloride Carbon Dioxide Anion Gap BUN Creatinine Estim Creat Clear Calc Estimated GFR Random Glucose Calcium Magnesium Total Bilirubin Direct Bilirubin AST ALT Alkaline Phosphatase Troponin I High Sens 4.4 B-Natriuretic Peptide Total Protein Albumin Lipase Urine Color Urine Appearance Urine pH Ur Specific [place] Urine Protein Urine Glucose (UA) Urine Ketones Urine Blood Urine Nitrite Ur Leukocyte Esterase COVID-19 ([facility]) COVID-19 Clin Com Imaging Radiologist's impression: Impressions Chest X-Ray 10/25/21 04:14 IMPRESSION: No acute cardiopulmonary findings. Assessment and Plan (1) Atrial fibrillation with rapid ventricular response: Status: Acute Plan 55-year-old female who is presenting for AFib with RVR. She has palpitations and is symptomatic. Clinically not in heart failure. On IV diltiazem currently. She has been taking rivaroxaban uninterrupted for the last 40 days. Continue Cardizem for now. Hold the atenolol. If difficult to rate controlled and we can try 300 mg flecainide x1 to see if she breaks with that. If that is unsuccessful then she will need cardioversion on Wednesday. Xarelto should not be interrupted and she should get her medications regularly. Thank you for allowing me to participate in the care of your patient. Please feel free to contact me if you have any questions. Procedures Date of Service Date of Service: 10/25/21
--- NOTE | 2021-10-25 15:01 | ECG_ITS ---
Test Reason : PALPATION Blood Pressure : / mmHG Vent. Rate : 132 BPM Atrial Rate : 000 BPM P-R Int : 000 ms QRS Dur : 076 ms QT Int : 310 ms P-R-T Axes : 000 001 051 degrees QTc Int : 459 ms Atrial fibrillation with rapid ventricular response Nonspecific ST abnormality Abnormal ECG When compared with ECG of 05-MAY-2021 02:59, Atrial fibrillation has replaced Sinus rhythm Vent. rate has increased BY 59 BPM Nonspecific T wave abnormality now evident in Lateral leads Referred By: Susana Terrell Electronically Signed By:MANSI GONZALEZ
[2021-10-25] MEDS: traMADoL HCL 50 MG TABLET PO ×2 (16:24→21:40)
[2021-10-25] MEDS: Rivaroxaban 20 MG TABLET PO (16:25)
--- NOTE | 2021-10-25 16:42 | PM.EVENT ---
Event Note Date of Service: 10/25/21 Event Note: Addendum to history and physical by mid-level provider SUDHEER Miller I interviewed and examined the patient. I discussed their presentation and management with the mid-level provider. I reviewed the history and physical and agree with the documentation, with the following additions and corrections: 55yo F with AF on rivorxaban, HTN, NINI on CPAP, morbid obesity p/w epigastric burning + palpitations, found to be in AF/RVR that did not respond to IV metoprolol or diltiazem pushes so was placed on a continuous diltiazem infusion and ventricular rate is currently in 80s. Plan admit to [facility], continue diltiazem drip, consult Cardiology, obtain TTE. re: GERD/gastritis, she underwent recent EGD and the gastritis is inactive.
[2021-10-25] MEDS: Famotidine 20 MG TABLET 40 MG PO (21:41)
[2021-10-25] MEDS: busPIRone HCl 5 MG TABLET PO (21:41)
[2021-10-26] VITALS (10 sets, daily range): BP systolic 113–137; BP diastolic 61–90; PULSE 69–142; RESP 14–33; TEMP 36.6–37.1; O2SAT 95–99
--- NOTE | 2021-10-26 | ECG_ITS ---
Test Reason : AFIB Blood Pressure : / mmHG Vent. Rate : 069 BPM Atrial Rate : 069 BPM P-R Int : 156 ms QRS Dur : 096 ms QT Int : 454 ms P-R-T Axes : 005 005 022 degrees QTc Int : 486 ms Normal sinus rhythm Prolonged QT Abnormal ECG When compared with ECG of 25-OCT-2021 02:31, Sinus rhythm has replaced Atrial fibrillation Vent. rate has decreased BY 63 BPM Nonspecific T wave abnormality no longer evident in Lateral leads Referred By: Kaci Allen Electronically Signed By:MANSI GONZALEZ
[2021-10-26] MEDS: Omeprazole 20 MG CAPSULE.DR PO (06:07)
[2021-10-26] MEDS: dilTIAZem HCL 125 MG in 0.9 % Sodium Chloride 100 ML 10 MG IVCONT (07:26)
[2021-10-26] MEDS: Calcium + Vitamin D 250 MG TABLET 500 MG PO (09:14)
[2021-10-26] MEDS: busPIRone HCl 5 MG TABLET PO ×2 (09:15→21:12)
[2021-10-26] MEDS: Lidocaine 4 % Patch ADH..PATCH 2 PATCH TRANSDERMA (09:15)
[2021-10-26] MEDS: Montelukast Sodium 10 MG TABLET PO (09:15)
[2021-10-26] MEDS: Losartan Potassium 50 MG TABLET PO (09:15)
--- NOTE | 2021-10-26 09:53 | MHC.CM.PN ---
CM spoke with Patient via the assist of Telephonic Technical Delivery Manager. Patient lives in an apartment with her Adult Son and she uses a walker to assist with mobility. Home/resume 10 [employer] hours/week is the goal and CM has initiated and will follow for dc planning. PCP is Dr. Eri Mukherjee and Patient has received Moderna/Covid vax x3.
--- NOTE | 2021-10-26 10:26 | PM.PNCARD ---
Subjective Subjective Date of Service: 10/26/21 Interval history: Seen and examined at bedside. Continues to be in AFib. On Cardizem drip. Physical Exam Vital Signs: Last Vital Signs Temp 97.8 F 10/25/21 23:54 Pulse 87 10/26/21 09:18 Resp 14 10/26/21 09:18 BP 113/81 10/26/21 09:18 Pulse Ox 98 10/26/21 09:18 O2 Del Method 10/26/21 09:18 BMI result Body Mass Index 65.6 GENERAL APPEARANCE: in no acute distress, pleasant. NECK: no carotid bruit, no jugular venous distention. SKIN: no suspicious lesions, warm and dry. HEART: no murmurs, irregularly irregular rhythm. LUNGS: clear to auscultation bilaterally. ABDOMEN: soft, nontender. EXTREMITIES: no edema. PERIPHERAL PULSES: equal. NEUROLOGIC: No gross deficits, AAO X 3 Objective Labs and Meds Result diagrams: 10/25/21 03:37 10/25/21 03:38 Progress Note: A&P Assessment and plan (1) Essential (primary) hypertension: Status: Acute (2) Atrial fibrillation with rapid ventricular response: Status: Acute Plan 55-year-old female who is presenting for palpitation and atrial fibrillation with rapid ventricular response. Blood pressure control is good. She is on Cardizem drip. Electrolytes her stable. Will give 1 g of magnesium. Would give her 300 mg of flecainide x1 to see if she cardiovert. If continues to be in AFib after flecainide and keep her NPO after midnight for potential cardioversion tomorrow. Keep Xarelto without any interruption. Thank you for allowing me to participate in the care of your patient. Please feel free to contact me if you have any questions. Time Spent With Patient Time: Total time spent is greater than 50% in coordination of care (as documented) at patient's floor/unit and/or counseling patient: Progress Note: Quality Stroke Does the patient have a stroke diagnosis?: No Procedures Date of Service Date of Service: 10/26/21
[2021-10-26] MEDS: Magnesium Sulfate/D5W 1 GM/100 ML PIGGYBACK IV (11:14)
[2021-10-26] MEDS: Flecainide Acetate 50 MG TABLET 300 MG PO (11:28)
--- NOTE | 2021-10-26 12:18 | HO.PM.IMPN ---
Subjective Subjective Date of Service: 10/26/21 Interval History: feels lightheaded, still in AF no chest pain Review of Systems Review of Systems: Yes all other systems are reviewed and are negative Physical Exam Vital Signs: Vital Signs: Last Vital Signs Temp 97.8 F 10/25/21 23:54 Pulse 104 H 10/26/21 11:26 Resp 23 H 10/26/21 11:26 BP 126/70 10/26/21 11:26 Pulse Ox 95 10/26/21 11:26 O2 Del Method 10/26/21 11:26 BMI result Body Mass Index 65.6 Gen: in no acute distress HEENT: sclera anicteric, moist mucus membranes Neck: supple Lungs: clear to auscultation bilaterally Heart: irregularly irregular, no murmurs Abd: soft, non-tender, non-distended, morbidly obese Ext: no edema Skin: warm/well-perfused Neuro: alert and oriented x3, no focal findings Psych: appropriate affect Objective Data Active Medications Acetaminophen (Acetaminophen 325 Mg Tablet) 650 mg PO Q6H PRN PRN Reason: Pain, Mild (Pain Scale 1-3) Buspirone HCl (Buspirone Hcl 5 Mg Tablet) 5 mg PO BID [facility] Last Admin: 10/26/21 09:15 Dose: 5 mg Documented By: BENJIE Calcium Carbonate (Calcium Carbonate 750 Mg Tab.Chew) 750 mg PO Q4H PRN PRN Reason: heartburn Calcium Carbonate/Cholecalciferol (Calcium + Vitamin D 250 Mg Tablet) 500 mg PO DAILY [facility] Last Admin: 10/26/21 09:14 Dose: 500 mg Documented By: BENJIE Famotidine (Famotidine 20 Mg Tablet) 40 mg PO BEDTIME [facility] Last Admin: 10/25/21 21:41 Dose: 40 mg Documented By: ONEL Fluticasone Propionate (Fluticasone Propionate 100 Mcg Blst.W.Dev) 2 puff INHALE RBID [facility] Last Admin: 10/26/21 07:18 Dose: Not Given Documented By: GUILLAUME Non-Admin Reason: Med Not Available Diltiazem HCl 125 mg/ Sodium (Chloride) 125 mls @ 0 mls/hr IVCONT .Q0M [facility]; Protocol Last Admin: 10/26/21 07:26 Dose: 10 mg/hr, 10 mls/hr Documented By: BENJIE Ipratropium Rush (Ipratropium Rush Vignesh 0.03 % 30 Ml [place]) 2 spray NOSTRIL-B Q8H PRN PRN Reason: Allergy Symptoms Lidocaine (Lidocaine 4 % Patch Adh..Patch) 2 patch TRANSDERMA DAILY [facility] Last Admin: 10/26/21 09:15 Dose: 2 patch Documented By: BENJIE Losartan Potassium (Losartan Potassium 50 Mg Tablet) 50 mg PO DAILY [facility]; Protocol Last Admin: 10/26/21 09:15 Dose: 50 mg Documented By: BENJIE Montelukast Sodium (Montelukast Sodium 10 Mg Tablet) 10 mg PO DAILY [facility] Last Admin: 10/26/21 09:15 Dose: 10 mg Documented By: BENJIE Non-Formulary Medication (Linaclotide [Linzess]) 72 mcg PO DAILY [facility] Omeprazole (Omeprazole 20 Mg Capsule.Dr) 20 mg PO DAILY@0630 [facility] Last Admin: 10/26/21 06:07 Dose: 20 mg Documented By: ONEL Rivaroxaban (Rivaroxaban 20 Mg Tablet) 20 mg PO DAILY@1700 [facility] Last Admin: 10/25/21 16:25 Dose: 20 mg Documented By: MATEUSZ Sodium Chloride (0.9 % Sodium Chloride Flush 3 Ml Syringe) 3 ml IVFLUSH QSHIFT [facility] Last Admin: 10/26/21 07:30 Dose: Not Given Documented By: COOPEB Non-Admin Reason: IV Running Tramadol HCl (Tramadol Hcl 50 Mg Tablet) 25 mg PO Q6H PRN PRN Reason: severe pain Labs CBC & Chem 7: 10/25/21 03:37 10/25/21 03:38 Assessment and Plan (1) Atrial fibrillation with rapid ventricular response: Status: Acute Plan hospital d#2 55yo F with AF on rivaroxaban, HTN, NINI on CPAP, morbid obesity p/w epigastric burning + palpitations, found to be in AF/RVR that did not respond to IV metoprolol or diltiazem pushes so was placed on a continuous diltiazem infusion # pAF - symptomatic. flecainide x1 dose for attempted chemical cardioversion; if unsuccessful, NPO for DC cardioversion in AM. continue rivaroxaban for anticoagulation # HTN - continue losartan # mild persistent asthma without exacerbation - continue montelukast, inhaled fluticasone, prn albuterol # GERD # gastritis - continue PPI + H2RA # osteoarthritis - prn tramadol # NINI - CPAP # mood disorder - buspirone # VTE ppx: rivaroxaban In my clinical judgment, the patient requires continued hospitalization for the following reasons: rate control + cardioversion Quality Stroke Does the patient have a stroke diagnosis?: No VTE Prior VTE?: No VTE Risk Level:: Medical - moderate - high VTE Device Contraindication: N/A - Device Ordered VTE Drug Contraindication: N/A - Med Ordered
[2021-10-26] MEDS: 0.9 % Sodium Chloride Flush 3 ML SYRINGE IVFLUSH ×2 (15:08→21:13)
[2021-10-26] MEDS: Rivaroxaban 20 MG TABLET PO (16:19)
[2021-10-26] MEDS: atenoloL 100 MG TABLET PO (16:19)
--- NOTE | 2021-10-26 20:55 | PC.NURSE ---
assume of care patient ask for a clean drew ,and wipes went to bathroom and got clean up ,vitals sign taken patient in bed resting at this time .
[2021-10-26] MEDS: Famotidine 20 MG TABLET 40 MG PO (21:12)
[2021-10-27 00:47] VITALS: BP 128/59; PULSE 57; RESP 20; O2SAT 99
[2021-10-27 05:59] VITALS: BP 138/60; PULSE 63; RESP 16; O2SAT 97
--- NOTE | 2021-10-27 07:00 | CA_ITS ---
Transthoracic Echocardiogram Patient (Last, First, Middle): Christiane Vicente, Gender: Female Date of : 1965 Age: 55 Procedure Date: 10/27/2021 Procedure Type: Transthoracic Echocardiogram Location: ER Height: 149.86 cm Weight: 147.42 kg BSA: 2.27 m2 Heart Rate: 58 bpm BP: 127 / 49 mmHg Upholstery Auto Trimmer: SB Referring MD: Kaci Allen MD Senior Advisor: Suleman Rosales MD Symptoms: af/rvr Study Quality: Adequate ECG Rhythm: Bradycardia Conclusions: - Essentially normal study Findings Left Ventricle The visually estimated ejection fraction is between 60-65%. Spectral Doppler is indicative of a normal filling pattern. Right Ventricle Normal right ventricular cavity size and systolic function. Atria The left atrium is likely dilated. There is lipomatous hypertrophy of the interatrial septum. There is no evidence of interatrial shunt. The right atrium is normal in size. Aortic Valve Normal aortic valve structure and function. There is no aortic valve stenosis. There is no aortic valve regurgitation. Mitral Valve Normal mitral valve structure and function. There is trace mitral valve regurgitation. There is no mitral valve stenosis. Pulmonic Valve The pulmonic valve was not well visualized. Tricuspid Valve Likely normal tricuspid valve structure and function. Tricuspid regurgitation envelope is inadequate for calculation of right ventricular systolic pressure. Normal right atrial pressure. Great Vessels All visible segments of the aorta are normal in size. The pulmonary artery was not well visualized. Venous The inferior vena cava is normal in size and collapses greater than 50% with inspiration. Pericardium/Pleural There is no evidence of pericardial effusion. Prior Study Comparison No significant change compared to prior study dated: 07/21/2018. Measurements 2D Linear Measurements IVSd: 0.81 0.6-0.9/0.6-1.0 cm LVIDd: 5.12 3.9-5.3/4.2-5.9 cm LVIDd Index: 2.26 2.4-3.2/2.2-3.1 cm/m2 LVIDs: 3.21 2.0-3.6 cm LVPWd: 0.75 0.7-1.1 cm LA Diam: 4.10 2.7-3.8/3.0-4.0 cm LAIDs Index: 1.81 1.5-2.3 cm/m2 LV Mass: 171.11 67-162/88-224 g LV Mass Index: 75.38 43-95/49-115 g/m2 LVOT Diam: 2.10 3.0+(-)1.3 cm 2D Systolic Function EF 4C: 58.10 >55% EF 2C: 65.70 >55% EF BiP: 60.20 >55% Mitral Valve MV Pk E: 0.89 MV PK A: 0.61 MV Decel Time: 224.00 E/A: 1.50 E'Lateral: 6.31 E'Medial: 6.64 E/E' Med: 13.40 E/E' Lat: 14.10 PHT: 66.00 MVA PHT: 3.33 Decel [place]: 3.96 Aortic Valve AoV Pk Araims: 1.30 AoV Mn Aramis: 0.89 AoV VTI: 0.29 AoV Pk Grad: 7.00 Aov Mn Grad: 4.00 ALEJO Cont.VTI: 2.88 LVOT LVOT Pk Aramis: 1.02 LVOT Mn Aramis: 0.66 LVOT VTI: 0.24 LVOT Pk Grad: 4.00 LVOT Mn Grad: 2.00 LVOT Diam: 2.10 LVOT Area: 3.46 Diastolic Function MV Pk E: 0.89 MV Pk A: 0.61 E/A: 1.50 E'Medial: 6.64 E/E' Med: 13.40 E' Laterial: 6.31 E/E' Lat: 14.10 Right Ventricle TAPSE (mm): 23.00 TVS' Aramis: 12.40 Tricuspid Valve RA Press: 3.00 Great Vessels Aorta Sinus of Valsalva: 3.00 2.0-3.5 cm Ao Asc: 3.20 2.1-3.4 cm Ao Arch: 2.50 Pulmonary Veins Pulm Vein S/D 1.10 Pulmonary Valve PV Pk Aramis: 0.93 Peak PV Grad: 3.00 Updated in Other Vendor System with Status of Final Suleman Rosales MD electronically signed on 10/27/2021 11:49:57 AM with status of Final
[2021-10-27 07:51] VITALS: BP 115/63; PULSE 100; RESP 21; TEMP 36.5; O2SAT 96
[2021-10-27 08:15] VITALS: BP 127/49; PULSE 60; RESP 20; TEMP 36.2; O2SAT 97
[2021-10-27] MEDS: Calcium + Vitamin D 250 MG TABLET 500 MG PO (09:27)
[2021-10-27] MEDS: busPIRone HCl 5 MG TABLET PO (09:27)
[2021-10-27] MEDS: atenoloL 100 MG TABLET PO (09:27)
[2021-10-27] MEDS: Losartan Potassium 50 MG TABLET PO (09:28)
[2021-10-27] MEDS: Montelukast Sodium 10 MG TABLET PO (09:28)
[2021-10-27] MEDS: Lidocaine 4 % Patch ADH..PATCH 2 PATCH TRANSDERMA (09:28)
[2021-10-27] MEDS: 0.9 % Sodium Chloride Flush 3 ML SYRINGE IVFLUSH (09:31)
[2021-10-27 12:08] VITALS: BP 142/68; PULSE 57; RESP 17; TEMP 36; O2SAT 97
--- NOTE | 2021-10-27 14:00 | P.DS_ITS ---
DS: Providers Provider Date of Service: 10/27/21 Date of admission: 10/25/21 10:23 Date of discharge: 10/27/21 Primary care physician: Unknown Physician Consults: 10/25/21 10:25 Consult to Cardiology Routine Consulting Provider: Akil Wang Reason for consultation: af/rvr, sandra pt DS: Diagnosis Discharge Diagnosis (1) Atrial fibrillation with rapid ventricular response: Status: Acute (2) Morbid obesity: Status: Acute DS: Summary Hospital Course Hospital Course: From the history and physical by the admitting hospitalist, SUDHEER Miller, 10/25/21: 55-year-old female with history of atrial fibrillation anticoagulated with Xarelto, hypertension, NINI on CPAP, asthma, chronic sinusitis, GERD, gastritis, hiatal hernia, osteoarthritis, and morbid obesity with BMI greater than 65 presented to the Emergency Department this morning complaining of burning chest pain as well as palpitations that had started around 00:00 this morning.? She describes a burning chest pain/pressure radiating from her stomach to her mouth as well as pressure in her head, sensation of air hunger, and persistent palpitations that is making her anxious.? On arrival, heart rate was 141 with EKG in the ED showing rapid Afib with HR in the 130s with nonspecific ST wave abnormality, no MALLORIE. No improvement in HR with metorpolol or dilt pushes. Sta rted on cardizem per protocol with HR improved to 75-110. Hematology and chemistry studies normal. Troponins neg x2. BNP normal. CXR negative. Currently reports feeling anxious with slight palpitations. This 55yo F with AF on rivaroxaban, HTN, NINI on CPAP, and morbid obesity presented to [facility] with epigastric burning + palpitations. She was found to be in AF/RVR that did not respond to IV metoprolol or diltiazem pushes so was placed on a continuous diltiazem infusion. She underwent pharmacologic conversion with flecainide to normal sinus rhythm. She was kept on rivaroxaban for anticoagulation. She was discharged home with maintenance flecainide. Echocardiogram was normal. She will follow up with Cardiology in 2 weeks' time. Time Spent with Patient Time attestation: Total time spent providing and/or coordinating discharge services: 35 Discharge coordination time: Greater than 30 minutes Quality: Safe Use of Opioids Does Pt have an Active Cancer Diagnosis on the Problem List?: No Quality: Stroke Does the patient have a stroke diagnosis?: No Physical Exam Vital Signs: Vital Signs: Last Vital Signs Temp 96.8 F 10/27/21 12:08 Pulse 57 10/27/21 12:08 Resp 17 10/27/21 12:08 BP 142/68 H 10/27/21 12:08 Pulse Ox 97 10/27/21 12:08 O2 Del Method 10/27/21 12:08 O2 Flow Rate 2 10/27/21 07:51 BMI result Body Mass Index 65.6 Gen: in no acute distress HEENT: sclera anicteric, moist mucus membranes Neck: supple Lungs: clear to auscultation bilaterally Heart: regular rate and rhythm, no murmurs Abd: soft, non-tender, non-distended, morbidly obese Ext: no edema Skin: warm/well-perfused Neuro: alert and oriented x3, no focal findings Psych: appropriate affect DS: Data Data Completed and Pending Completed studies during hospitalization [Text1]: Laboratory Results WBC 9.5 X10*3/uL (4.8-10.8) 10/25/21 03:37 RBC 4.51 X10*6/uL (4.20-5.50) 10/25/21 03:37 Hgb 13.3 g/dl (12.0-16.0) 10/25/21 03:37 Hct 40.9 % (37.0-47.0) 10/25/21 03:37 MCV 90.7 fL (80.0-98.0) 10/25/21 03:37 MCH 29.5 pg (27.0-33.0) 10/25/21 03:37 MCHC 32.5 g/dl (31.0-35.0) 10/25/21 03:37 RDW 14.3 % (11.0-16.0) 10/25/21 03:37 Plt Count 208 X10*3/uL (160-400) 10/25/21 03:37 MPV 11.5 fL (9.4-12.3) 10/25/21 03:37 Immature Gran % (Auto) 0.3 % (0.0-0.4) 10/25/21 03:37 Neut % (Auto) 45.4 % (45-73) 10/25/21 03:37 Lymph % (Auto) 44.8 % (20-40) H 10/25/21 03:37 Evans % (Auto) 7.7 % (2-11) 10/25/21 03:37 Eos % (Auto) 1.4 % (0-4) 10/25/21 03:37 Baso % (Auto) 0.4 % (0-2) 10/25/21 03:37 Lymph # (Auto) 4.2 X10*3/uL (1.2-4.9) 10/25/21 03:37 Evans # (Auto) 0.7 X10*3/uL (0.1-1.2) 10/25/21 03:37 Eos # (Auto) 0.1 X10*3/uL (0.0-0.4) 10/25/21 03:37 Baso # (Auto) 0.0 X10*3/uL (0.0-0.2) 10/25/21 03:37 Abs Immat Gran (auto) 0.03 X10*3/uL (0.00-0.03) 10/25/21 03:37 Absolute Neuts (auto) 4.3 x10*3/uL (2.0-8.3) 10/25/21 03:37 Absolute Nucleated RBC 0.000 X10*3/uL (0.0-0.012) 10/25/21 03:37 Nucleated RBC % (auto) 0.0 /100WBC (0.0-0.2) 10/25/21 03:37 PT 14.6 SEC (10.0-13.1) H 10/25/21 03:37 INR 1.3 (0.9-1.1) H 10/25/21 03:37 Sodium 142 mmol/L (135-145) 10/25/21 03:38 Potassium 4.2 mmol/L (3.3-5.1) 10/25/21 03:38 Chloride 106 mmol/L (96-108) 10/25/21 03:38 Carbon Dioxide 22 mmol/L (22-29) 10/25/21 03:38 Anion Gap 18 (12-20) 10/25/21 03:38 BUN 15 mg/dL (9-16) 10/25/21 03:38 Creatinine 0.81 mg/dL (0.5-1.4) 10/25/21 03:38 Estim Creat Clear Calc 106.3 10/25/21 03:38 Estimated GFR > 60 10/25/21 03:38 Random Glucose 107 mg/dL (60-115) 10/25/21 03:38 Calcium 9.1 mg/dL (8.4-10.2) 10/25/21 03:38 Magnesium 1.7 mg/dL (1.6-2.6) 10/25/21 03:38 Total Bilirubin 0.5 mg/dL (0.0-1.0) 10/25/21 03:38 Direct Bilirubin 0.2 mg/dL (0.0-0.5) 10/25/21 03:38 AST 19 U/L (5-31) 10/25/21 03:38 ALT 17 U/L (0-31) 10/25/21 03:38 Alkaline Phosphatase 96 U/L (39-117) 10/25/21 03:38 Troponin I High Sens 4.4 ng/L (<3.5-17.0) 10/25/21 06:03 B-Natriuretic Peptide 69 pg/mL (<100) 10/25/21 03:37 Total Protein 7.7 g/dL (6.5-8.0) 10/25/21 03:38 Albumin 3.9 g/dL (3.5-5.0) 10/25/21 03:38 Lipase 10 U/L (8-78) 10/25/21 03:38 Urine Color Yellow 10/25/21 05:22 Urine Appearance Clear 10/25/21 05:22 Urine pH 7.0 (5.0-9.0) 10/25/21 05:22 Ur Specific Elma <= 1.005 (1.005-1.025) 10/25/21 05:22 Urine Protein Negative mg/dL (Neg-Trace) 10/25/21 05:22 Urine Glucose (UA) Negative mg/dL (Negative) 10/25/21 05:22 Urine Ketones Negative mg/dL (Negative) 10/25/21 05:22 Urine Blood Negative (Negative) 10/25/21 05:22 Urine Nitrite Negative (Negative) 10/25/21 05:22 Ur Leukocyte Esterase Negative (Negative) 10/25/21 05:22 COVID-19 (SUNNY) Negative (Negative) 10/25/21 03:38 COVID-19 Clin Com See Note 10/25/21 03:38 Impressions Chest X-Ray 10/25/21 04:14 IMPRESSION: No acute cardiopulmonary findings. TTE 10/27/21 Conclusions: - Essentially normal study ? Discharge Plan Discharge Patient Disposition: Home, Self-Care Discharge Diagnosis: atrial fibrillation Referrals: Eri Feldman MD [Physician] - 1 Week Suleman Rosales MD [Physician] - 1 Week Physician,Tracey Pal [Primary Care Provider] - 1 Week Discharge Medications: New flecainide 50 mg Tablet 50 mg PO BID Qty: 60 0RF Continued (DME) Pads For Women Pad See Rx Instructions .ROUTE .MEDSUPPLY Qty: 240 11RF Rx Instructions: Use 8 pad daily tramadol 50 mg tablet 50 mg PO Q6H Qty: 120 3RF calcium carbonate-vitamin D3 [Calcium 500 With D] 500 mg-10 mcg (400 unit) tablet 1 tab PO DAILY Qty: 90 1RF buspirone 5 mg tablet 5 mg PO BID Flovent HFA 110 mcg/actuation HFA aerosol inhaler 2 puff inhalation BID montelukast 10 mg tablet 10 mg PO DAILY albuterol sulfate 90 mcg/actuation HFA aerosol inhaler 2 inh inhalation Q4-6H PRN (Reason: bronchospasm) albuterol sulfate 2.5 mg /3 mL (0.083 %) solution for nebulization 3 mg inhalation QID PRN (Reason: Wheezing) atenolol 100 mg tablet 100 mg PO DAILY 90 Days Qty: 90 3RF losartan 50 mg tablet 50 mg PO DAILY 90 Days Qty: 90 3RF omega-3 fatty acids [Fish Oil Concentrate] 1,000 mg capsule 1,000 mg PO DAILY ipratropium bromide 21 mcg (0.03 %) spray,non-aerosol 2 spray intranasal Q8H PRN (Reason: Allergy Symptoms) lidocaine 5 % adhesive patch,medicated 2 patch topical DAILY Xarelto 20 mg tablet 20 mg PO DAILY@1700 Rx Instructions: must administer with evening meal famotidine [Pepcid] 40 mg tablet 40 mg PO BEDTIME Qty: 30 6RF omeprazole 20 mg capsule,delayed release(DR/EC) 20 mg PO DAILY Qty: 30 6RF Linzess 72 mcg capsule 72 mcg PO QAM Qty: 30 6RF Discharge Orders: Discharge Order (Routine); Ordered 10/27/21 Ordered By: Kaci Allen Diet: Low salt diet Activity on Discharge: As tolerated Stand Alone Forms: Patient Portal Discharge page Care Plan Goals: control of atrial fibrillation Health Concerns: atrial fibrillation Plan of Treatment: add antiarrhythmic medication FLECAINIDE 50 mg twice daily follow up with Dr Rosales from [facility] Cardiology in 2 weeks Please follow up with your primary care doctor within 1 week. Please return to the hospital if you experience recurrent or worsening symptoms. Assessment: See Discharge Summary.
--- NOTE | 2021-10-27 14:04 | MHC.CM.PN ---
pt dcd home no skilled servceis ordered by
[2021-10-27] MEDS: Flecainide Acetate 50 MG TABLET PO (14:14)
--- NOTE | 2021-10-27 14:44 | P.PNCA_ITS ---
Subjective Subjective Date of Service: 10/27/21 <SILVIO Vergara - Last Filed: 10/27/21 14:52> 10/27/21 <Suleman Rosales MD - Last Filed: 10/27/21 15:01> Principal diagnosis: Chest discomfort, afib <SILVIO Vergara - Last Filed: 10/27/21 14:52> Interval history: Seen at 1130. Today she reports feeling well. No longer having any chest discomfort or heart palpitations. Breathing is normal. Ambulating in room steady. No bleeding issues reported. Concerned about plan for upcoming bariatric surgery. youth nutritional monitor showing sinus rhythm. <SILVIO Vergara - Last Filed: 10/27/21 14:52> Review of Systems Review of Systems As above <SILVIO Vergara - Last Filed: 10/27/21 14:52> Physical Exam Vital Signs: Last Vital Signs Temp 96.8 F 10/27/21 12:08 Pulse 57 10/27/21 12:08 Resp 17 10/27/21 12:08 BP 142/68 H 10/27/21 12:08 Pulse Ox 97 10/27/21 12:08 O2 Del Method 10/27/21 12:08 O2 Flow Rate 2 10/27/21 07:51 BMI result Body Mass Index 65.6 <SILVIO Vergara - Last Filed: 10/27/21 14:52> Const General: cooperative, healthy appearing, comfortable and no acute distress <SILVIO Vergara - Last Filed: 10/27/21 14:52> Neck Neck: Yes normal visual inspection <SILVIO Vergara - Last Filed: 10/27/21 14:52> Resp Effort & Inspection: normal respiratory effort <SILVIO Vergara Last Filed: 10/27/21 14:52> Auscultation: clear to auscultation bilaterally, no crackles, no rales, no rhonchi and no wheezes <SILVIO Vergara - Last Filed: 10/27/21 14:52> Cardio Jugular venous distension: no JVD <SILVIO Vergara - Last Filed: 10/27/21 14:52> Rate: regular rate <SILVIO Vergara - Last Filed: 10/27/21 14:52> Rhythm: regular rhythm <SILVIO Vregara Last Filed: 10/27/21 14:52> Heart sounds: S1 normal heart sound present, S2 normal heart sound present, no gallops, no murmurs and no rubs <SILVIO Vergara - Last Filed: 10/27/21 14:52> Peripheral pulses: Peripheral pulses 2+ throughout <SILVIO Vergara - Last Filed: 10/27/21 14:52> GI Inspection: Yes normal to inspection <SILVIO Vergara Last Filed: 10/27/21 14:52> Extrem General: Yes normal to inspection, No no pedal edema and No calf tenderness <SILVIO Vergara Last Filed: 10/27/21 14:52> Psych Appearance: grossly normal <SILVIO Vergara Last Filed: 10/27/21 14:52> Mental Status: mental status grossly normal <SILVIO Vergara Last Filed: 10/27/21 14:52> Speech and movement: Normal speech and movement present <SILVIO Vergara Last Filed: 10/27/21 14:52> Objective Labs and Meds Result diagrams: : 10/25/21 03:37 10/25/21 03:38 <SILVIO Vergara Last Filed: 10/27/21 14:52> Progress Note: A&P Assessment and plan (1) Atrial fibrillation with rapid ventricular response: Status: Acute <SILVIO Vergara Last Filed: 10/27/21 14:52> Assessment and Plan: History of paroxysmal atrial fibrillation. On day of admission developed chest discomfort and heart palpitations. Presented with EKG showing AFib RVR with rate up to 141. She was treated with rate slowing medications including metoprolol and diltiazem eventual conversion back to sinus rhythm. She is currently back on her usual atenolol 100 mg daily. youth nutritional monitor showing sinus rhythm with average heart rate in the 60s. No longer having symptoms. She continues on Xarelto for anticoagulation. Troponin levels normal. Echocardiogram done today shows normal EF, no wall motion abnormality and no significant valve abnormality. Last nuclear stress test 12/21/2018 showed normal myocardial perfusion imaging. Will start on flecainide 50 mg b.i.d. to be taking in addition to her atenolol. Continue Xarelto. Can be discharged from a cardiology perspective. We will arrange for outpatient cardiology follow-up and EKG. <SILVIO Vergara - Last Filed: 10/27/21 14:52> History of paroxysmal atrial fibrillation. On day of admission developed chest discomfort and heart palpitations. Presented with EKG showing AFib RVR with rate up to 141. She was treated with rate slowing medications including metoprolol and diltiazem eventual conversion back to sinus rhythm. She is currently back on her usual atenolol 100 mg daily. youth nutritional monitor showing sinus rhythm with average heart rate in the 60s. No longer having symptoms. She continues on Xarelto for anticoagulation. Troponin levels normal. Echocardiogram done today shows normal EF, no wall motion abnormality and no significant valve abnormality. Last nuclear stress test 12/21/2018 showed normal myocardial perfusion imaging. Will start on flecainide 50 mg b.i.d. to be taking in addition to her atenolol. Continue Xarelto. Can be discharged from a cardiology perspective. We will arrange for outpatient cardiology follow-up and EKG. Patient seen and examined. Case discussed with Liza Salinas. Patient converted back to sinus rhythm with rate control. Recurrent atrial fibrillation. Echocardiogram shows no significant structure abnormality. Start flecainide 50 mg b.i.d. in addition to atenolol. Continue CPAP therapy. Continue aggressive weight loss program. However given her recurrent AFib would postpone her bariatric surgery for about a month. She require myocardial perfusion imaging as outpatient as she has been started on flecainide therapy. This was discussed with her. Continue aggressive blood pressure control. Will follow with her as outpatient <Suleman Rosales MD - Last Filed: 10/27/21 15:01> (2) Chest discomfort: Status: Acute <SILVIO Vergara - Last Filed: 10/27/21 14:52> Assessment and Plan: In the setting of AFib RVR. No ACS. <SILVIO Vergara - Last Filed: 10/27/21 14:52> (3) Morbid obesity: Status: Acute <SILVIO Vergara - Last Filed: 10/27/21 14:52> Assessment and Plan: She has plan for bariatric surgery later this month. Will send message to Dr. Miguel requesting that surgery be postponed 1 month so that stress test and cardiology follow-up can be completed. <SILVIO Vergara - Last Filed: 10/27/21 14:52> Time Spent With Patient Time: Total time spent is greater than 50% in coordination of care (as documented) at patient's floor/unit and/or counseling patient: 24 <SILVIO Vergara - Last Filed: 10/27/21 14:52> Progress Note: Quality Stroke Does the patient have a stroke diagnosis?: No <SILVIO Vergara - Last Filed: 10/27/21 14:52> Procedures Date of Service Date of Service: 10/27/21 <SILVIO Vergara - Last Filed: 10/27/21 14:52>
== END 2021-10-27 14:30 | disposition home or self-care (01) | DRG 201 ==
LOC: HO.ED 09:00 → HO.EDOVER 10:30
PROVIDERS: Admitting Provider Family Medicine; Emergency Provider Emergency Medicine; PCP Internal Medicine; Visit Provider Family Medicine
DX: I48.0 Paroxysmal atrial fibrillation (principal); Z68.44 Body mass index [BMI] 60.0-69.9, adult; E66.01 Morbid (severe) obesity due to excess calories; F41.9 Anxiety disorder, unspecified; I10 Essential (primary) hypertension; M19.90 Unspecified osteoarthritis, unspecified site; K21.9 Gastro-esophageal reflux disease without esophagitis; K44.9 Diaphragmatic hernia without obstruction or gangrene; K29.70 Gastritis, unspecified, without bleeding; J45.30 Mild persistent asthma, uncomplicated; G47.33 Obstructive sleep apnea (adult) (pediatric); Z20.822 Contact with and (suspected) exposure to COVID-19; Z88.8 Allergy status to other drugs, medicaments and biological substances; Z79.51 Long term (current) use of inhaled steroids; Z79.01 Long term (current) use of anticoagulants; Z79.899 Other long term (current) drug therapy
CPT/HCPCS: 36415; 71045; 80048; 80076; 81003; 83690; 83735; 83880; 84484; 85025; 85610; 87635; 93005; 93306; 94660; 99285; J3475; Q9957

== ENCOUNTER → 2021-11-13 09:45 | Outpatient (REF) | payer OTHER, SELFPAY ==
--- NOTE | ~2021-11-13 | NM_ITS ---
Myocardial perfusion study Indication: Chest pain to evaluate for myocardial ischemia Technique: The patient was brought in for a Lexiscan perfusion study on 11/13/2021. Patient performed low-level exercise and was injected 0.4 mg of Lexiscan intravenously. Within a minute of injection, 45 mCi of sestamibi was given intravenously. Images were obtained using the SPECT gamma camera interlaced with the gating device. Images were obtained in supine position. Resting perfusion study was performed on 11/14/2021. Patient was administered 45 mCi of sestamibi intravenously at rest. Images were then obtained in supine position. Images obtained with and without CT attenuation. Total DLP 216 mGy-cm. Images were processed with the software and compared side to side in short axis, horizontal long axis and vertical long axis views. Findings: The stress perfusion study showed non attenuated images show moderately reduced uptake in the inferoapical wall of the LV myocardium and mildly reduced uptake in the inferior wall of the LV myocardium. Is also mildly reduced uptake in the apical portion of the inferolateral as well as mildly reduced uptake in the basal inferolateral wall of the LV myocardium. Of the LV myocardium is normally perfused. Attenuation corrected images show mildly reduced uptake in the apex especially apical portion of inferolateral wall of the LV myocardium.. The gated study shows normal LV systolic function with calculated LVEF of 58%. LV cavity is normal in size. The gated study shows normal systolic wall thickening and contraction of segments. Resting study shows non attenuated images show improved uptake in the inferoapical as well as the apical portion of inferolateral wall of the LV myocardium. Is also improved uptake in the inferior wall however this finding is equivocal given subdiaphragmatic uptake. Attenuation corrected images show improved uptake in the region of the inferolateral wall.. Gating at rest reveals normal systolic wall motion with ejection fraction at 65%. The findings are consistent with small area of mild intensity possible apical inferolateral wall ischemia.. NM/NM sindy perf SPECT rest & str Impression: 1. Myocardial perfusion imaging study shows mild intensity apical inferolateral wall ischemia in a branch vessel distribution 2. Gated LVEF is 58% 3. Transient ischemic dilatation not present EKG is Nondiagnostic for ischemia
--- NOTE | 2021-11-13 09:48 | CA_ITS ---
Acquisition Time: 2021-11-13 10:22:28 Total Exercise Time: 00:02:26 Test Indications: PAF CHEST PAIN Medications: ATENOLOL SINGULAR ATROVASTATIN Protocol: REBEKAH Max HR: 114 BPM 68% of Pred: 166 BPM Max BP: 144/080 mmHG Max Work Load: 4.6 METS Exercise stress test with exercise 2 min 26 sec of Rebekah protocol, achieving 68% of MPHR, with moderate sob and knee discomfort with request to slow exercise. Treadmill placed in recovery and slowed to 1 MPH for additonal 4 min. Testing changed to pharmacological stress test with Lexiscan injection, with report of sob and nausea, without arrythmia, with normotensive response to injection, with nondiagnostic EKG for ischemia. In recovery she was treated with Aminophylline 75mg IVP to reverse Lexiscan with resolution of symptoms. Nuclear images pending. Test reviewed with Dr Wang. Referred By: Liza Salinas Overread By: LIZA SALINAS
== END ==
LOC: HO.CARD 09:45
PROVIDERS: PCP Internal Medicine; Visit Provider Nurse Practitioner Family
DX: R07.89 Other chest pain (principal); I48.0 Paroxysmal atrial fibrillation
CPT/HCPCS: 78452; 93017; A9500; J0280; J2785

== ENCOUNTER 2021-11-24 10:47 | Outpatient (REF) | payer OTHER, SELFPAY ==
[2021-11-24 11:56] LABS: Anion Gap 14 (12-20); Blood Urea Nitrogen 11 mg/dL (9-16); Calcium 8.7 mg/dL (8.4-10.2); Carbon Dioxide 21 mmol/L (22-29); Chloride 109 mmol/L (96-108); Cholesterol 200 mg/dL; Estimated Glomerular Filt Rate > 60; Glucose Random 89 mg/dL (60-115); HDL Cholesterol 46 mg/dL; LDL Cholesterol Calculated 138 mg/dl; Potassium 3.8 mmol/L (3.3-5.1); Sodium 140 mmol/L (135-145); Triglycerides 83 mg/dL
[2021-11-24 12:18] LABS: Thyroid Stimulating Hormone 1.14 uIU/mL (0.32-4.0)
== END 2021-11-24 10:48 | disposition home or self-care (01) ==
LOC: HO.LAB 10:47
PROVIDERS: Absent Provider Internal Medicine; PCP Internal Medicine; Visit Provider Nurse Practitioner Family
DX: I48.91 Unspecified atrial fibrillation (principal); R93.1 Abnormal findings on diagnostic imaging of heart and coronary circulation; I10 Essential (primary) hypertension
CPT/HCPCS: 36415; 80048; 80061; 84443

== ENCOUNTER → 2021-12-26 09:51 | Outpatient (BNVA) | payer OTHER, SELFPAY | PROVIDERS: PCP Internal Medicine; Referring Provider Internal Medicine; Visit Provider Internal Medicine Cardiovascular Disease | DX: I48.0 Paroxysmal atrial fibrillation (principal); I25.10 Atherosclerotic heart disease of native coronary artery without angina pectoris; I10 Essential (primary) hypertension | CPT/HCPCS: 93005; 99212 ==

== ENCOUNTER 2021-12-30 12:00 | Outpatient (REF) | payer OTHER, SELFPAY ==
[2021-12-30 14:22] LABS: Influenza A PCR NEGATIVE (Negative); Influenza B PCR NEGATIVE (Negative); Resp Syncy Virus RNA Qual PCR NEGATIVE (Negative); SARS COV2 PCR INHOUSE NEGATIVE (Negative)
== END 2021-12-30 12:01 | disposition home or self-care (01) ==
LOC: HO.LAB 12:00
PROVIDERS: PCP Internal Medicine; Visit Provider Internal Medicine
DX: Z20.822 Contact with and (suspected) exposure to COVID-19 (principal); R09.89 Other specified symptoms and signs involving the circulatory and respiratory systems
CPT/HCPCS: 0241U

== ENCOUNTER 2022-01-15 11:35 | Outpatient (REF) | payer OTHER, SELFPAY ==
--- NOTE | ~2022-01-15 | MM_ITS ---
EXAMINATION: MM SCREENING DIGITAL BREAST TOMOSYNTHESIS, BILATERAL CLINICAL INFORMATION: Screening. Asymptomatic. The lifetime risk of breast cancer based on the Tyrer-Cuzick Model is 15.8%. COMPARISON: Mammography: January 13, 2021 and studies dating back to May 03, 2013 TECHNIQUE: Digital breast tomosynthesis is performed in both the craniocaudal and mediolateral oblique views along with computer-aided detection (CAD). Synthesized 2D images are generated from the tomosynthesis. FINDINGS: There are scattered areas of fibroglandular density (ACR BI-RADS breast composition Category b). There are no significant masses, abnormal calcifications, or other abnormalities. MM/MM tomosynthesis screening BI IMPRESSION: No significant changes from prior exam. ASSESSMENT: BI-RADS 1: Negative RECOMMENDATION: Routine annual mammography screening. This patient's information was entered into a reminder system with a target due date for their next mammogram.
== END 2022-01-15 11:36 | disposition home or self-care (01) ==
LOC: HO.MAMMO 11:35
PROVIDERS: Visit Provider Internal Medicine
DX: Z12.31 Encounter for screening mammogram for malignant neoplasm of breast (principal)
CPT/HCPCS: 77063; 77067

== ENCOUNTER 2022-01-16 14:28 | Outpatient (REF) | payer OTHER, SELFPAY ==
--- NOTE | ~2022-01-16 | XR_ITS ---
EXAMINATION: XR CHEST CLINICAL INFORMATION: Shortness of breath COMPARISON: 10/25/2021 TECHNIQUE: 2 views of the chest were obtained. FINDINGS: Diffuse mild bronchial wall thickening redemonstrated. No focal consolidation. No pleural effusion or pneumothorax. Heart size within normal limits for technique. No acute osseous abnormalities. XR/XR chest 2V IMPRESSION: Diffuse mild bronchial thickening which may represent chronic bronchitis in this patient.
== END 2022-01-16 14:29 | disposition home or self-care (01) ==
LOC: HO.XRAY 14:28
PROVIDERS: PCP Internal Medicine; Visit Provider Nurse Practitioner Family
DX: R06.02 Shortness of breath (principal)
CPT/HCPCS: 71046

== ENCOUNTER 2022-01-21 10:05 | Emergency (ER) | payer OTHER, SELFPAY ==
--- NOTE | ~2022-01-21 | XR_ITS ---
EXAMINATION: XR CHEST CLINICAL INFORMATION: Chest pain. COMPARISON: 01/16/2022 chest radiographs. TECHNIQUE: 2 views of the chest were obtained. FINDINGS: No significant abnormality is noted involving the heart, lungs, mediastinum, bony thorax or soft tissues. XR/XR chest 2V IMPRESSION: No acute cardiopulmonary process.
[2022-01-21 10:14] VITALS: BP 148/82; PULSE 83; RESP 18; TEMP 36.8; O2SAT 98; BMI 64.4
--- NOTE | 2022-01-21 10:16 | ECG_ITS ---
Test Reason : CP/AFIB Blood Pressure : / mmHG Vent. Rate : 135 BPM Atrial Rate : 000 BPM P-R Int : 000 ms QRS Dur : 074 ms QT Int : 322 ms P-R-T Axes : 000 -03 048 degrees QTc Int : 483 ms Atrial fibrillation with rapid ventricular response with premature ventricular or aberrantly conducted complexes Abnormal ECG When compared with ECG of 26-OCT-2021 15:05, Atrial fibrillation has replaced Sinus rhythm Vent. rate has increased BY 66 BPM Referred By: Mana Wild Electronically Signed By:DARIN DONAHUE MD
[2022-01-21 11:30] LABS: MANUAL DIFF FLAG NO
[2022-01-21 11:32] LABS: Basophils Percent Auto 0.5 % (0-2); Eosinophils Absolute Auto 0.1 X10*3/uL (0.0-0.4); Eosinophils Percent Auto 1.6 % (0-4); Hematocrit 41.3 % (37.0-47.0); Hemoglobin 13.1 g/dl (12.0-16.0); Imm Gran Abs Auto 0.02 X10*3/uL (0.00-0.03); Imm Gran Pct Auto 0.3 % (0.0-0.4); Lymphocytes Absolute Auto 2.1 X10*3/uL (1.2-4.9); Lymphocytes Percent Auto 34.4 % (20-40); Mean Corpuscular HGB Conc 31.7 g/dl (31.0-35.0); Mean Corpuscular Hemoglobin 29.2 pg (27.0-33.0); Mean Corpuscular Volume 92.2 fL (80.0-98.0); Mean Platelet Volume 11.1 fL (9.4-12.3); Monocytes Absolute Auto 0.6 X10*3/uL (0.1-1.2); Neutrophils Absolute Auto 3.4 x10*3/uL (2.0-8.3); Neutrophils Percent Auto 54.2 % (45-73); Platelet Count 182 X10*3/uL (160-400); Red Blood Count 4.48 X10*6/uL (4.20-5.50); Red Cell Distribution Width 14.5 % (11.0-16.0); White Blood Count 6.2 X10*3/uL (4.8-10.8)
[2022-01-21 11:49] LABS: Alanine Aminotransferase 16 U/L (0-31); Albumin Level 3.9 g/dL (3.5-5.0); Alkaline Phosphatase 94 U/L (39-117); Anion Gap 10 (12-20); Aspartate Amino Transferase 15 U/L (5-31); Bilirubin Total 0.5 mg/dL (0.0-1.0); Blood Urea Nitrogen 12 mg/dL (9-16); Calcium 9.1 mg/dL (8.4-10.2); Carbon Dioxide 26 mmol/L (22-29); Chloride 111 mmol/L (96-108); Creatinine Clr Calc Pharmacy 113.6; Estimated Glomerular Filt Rate > 60; Glucose Random 94 mg/dL (60-115); Magnesium 1.6 mg/dL (1.6-2.6); Sodium 143 mmol/L (135-145); Total Protein 7.2 g/dL (6.5-8.0)
[2022-01-21 11:54] LABS: B Type Natriuretic Peptide 102 pg/mL (<100); Troponin-I High Sensitivity < 3.5 ng/L (<3.5-17.0)
--- NOTE | 2022-01-21 17:15 | ED.GENADULT ---
HPI - General Adult General Chief complaint: Dyspnea Stated complaint: Afib Chest Pain Not feeling Well Time Seen by Provider: 01/21/22 17:14 Source: patient Mode of arrival: ambulatory Limitations: no limitations History of Present Illness HPI narrative: Patient 56 years old with history of asthma coronary artery disease hypertension atrial fibrillation on Xarelto comes in for 2 weeks of cough off and on and not feeling well patient has seen her primary care doctor 2 times had chest x-ray done which was negative at [facility] flu RSV test done on 12/30 was negative patient was given Augmentin for 10 days and prednisone using nebulizing treatment at home is still coughing patient is not on any ACEinhibitor cough is mostly in dry also been feeling palpitation episodes when patient arrived her heart rate was 135 patient is on flecainide Related Data Home Medications Medication Instructions Recorded Confirmed montelukast 10 mg tablet 10 mg PO DAILY 01/18/20 01/16/22 albuterol sulfate 90 mcg/actuation 2 inh inhalation Q4-6H PRN 08/23/20 01/16/22 aerosol inhaler bronchospasm omega-3 fatty acids 1,000 mg 1,000 mg PO DAILY 08/23/20 01/16/22 capsule (Fish Oil Concentrate) albuterol sulfate 2.5 mg/3 mL 3 mg inhalation QID PRN Wheezing 09/19/20 01/16/22 (0.083 %) solution for nebulization fluticasone propionate 110 2 puff inhalation BID 12/24/20 01/16/22 mcg/actuation HFA aerosol inhaler (Flovent HFA) ipratropium bromide 21 mcg (0.03 2 spray intranasal Q8H PRN Allergy 04/24/21 01/16/22 %) nasal spray Symptoms lidocaine 5 % topical patch 2 patch topical DAILY 04/24/21 01/16/22 buspirone 5 mg tablet 5 mg PO BID 07/16/21 01/16/22 rivaroxaban 20 mg tablet (Xarelto) 20 mg PO DAILY@1700 09/26/21 01/16/22 calcium carbonate 500 mg-vitamin 1 tab PO DAILY 12/26/21 01/16/22 D3 10 mcg (400 unit) tablet (Calcium 500 With D) Previous Rx's Medication Instructions Recorded incontinence pad, liner, disp #240 ea 08/15/20 (Pads For Women) atenolol 100 mg tablet 100 mg PO DAILY 90 days #90 tabs 04/28/21 famotidine 40 mg tablet (Pepcid) 40 mg PO BEDTIME #30 tabs 09/26/21 linaclotide 72 mcg capsule 72 mcg PO QAM #30 caps 09/26/21 (Linzess) omeprazole 20 mg capsule,delayed 20 mg PO DAILY #30 caps 09/26/21 release tramadol 50 mg tablet 50 mg PO Q12H #120 tabs 10/30/21 flecainide 50 mg tablet 50 mg PO BID #60 tabs 12/08/21 losartan 100 mg tablet 100 mg PO DAILY #30 tabs 12/26/21 fluticasone propionate 50 1 spray intranasal DAILY 30 days 12/30/21 mcg/actuation nasal #16 grams spray,suspension (Flonase Allergy Relief) miscellaneous medical supply 1 ea miscellaneous DAILY #1 ea 12/31/21 amoxicillin 875 mg-potassium 1 tab PO Q12H #10 tabs 01/01/22 clavulanate 125 mg tablet prednisone 20 mg tablet 40 mg PO DAILY 5 days #10 tabs 01/16/22 benzonatate 200 mg capsule 200 mg PO TID PRN cough #30 caps 01/21/22 Allergies Allergy/AdvReac Type Severity Reaction Status Date / Time levofloxacin [From LEVAQUIN] Allergy Intermediate DIZZINESS Verified 01/16/22 14:00 topiramate Allergy Intermediate palpitation Verified 01/16/22 14:00 s BuPROPion HCl Allergy Intermediate palpitation Uncoded 12/31/21 11:09 s Phentermine HCl Allergy Intermediate uncontrolled Uncoded 12/31/21 11:09 hypertension Review of Systems Review of Systems: Yes all other systems are reviewed and are negative [facility] Past Medical History Medical History Abnormal nuclear cardiac imaging test Afib Anxiety Arthritis Asthma Atrial fibrillation with rapid ventricular response B12 deficiency Chronic gastritis Depression Diarrhea DUB (dysfunctional uterine bleeding) Dysuria Epigastric pain Fibromyalgia Hepatic steatosis HTN (hypertension) Otitis media Panic attacks Postmenopausal bleeding Sleep apnea with use of continuous positive airway pressure (CPAP) Urge urinary incontinence Surgical History H/O colonoscopy History of section History of cholecystectomy History of esophagogastroduodenoscopy (EGD) Tubal ligation status Family History Family History Father CVA (cerebral vascular accident) Colon cancer CAD (coronary artery disease) Mother Cancer of unknown origin Social History Social History Household Members: None Housing: Apartment Alcohol intake: never Patient Tobacco Use Status: Never used Tobacco e-Cigarette/Vaping Use: Never Used Second Hand Smoke Exposure: No Advance Directives: No Advance Directives Information Provided: No service: No Current occupational status: disabled Cognitive needs: Yes (cane) Hearing needs: No Vision needs: Yes (glasses) Physical Exam ED Vital Signs: Vital Signs - 24 hr 01/21/22 10:14 01/21/22 17:22 01/21/22 18:13 Temperature 98.3 F 98.5 F Pulse Rate 83 74 83 Respiratory Rate 18 16 18 Blood Pressure 148/82 H 131/87 Pulse Oximetry 98 96 Oxygen Delivery Method Room Air Room Air 01/21/22 20:00 Temperature 98.2 F Pulse Rate 81 Respiratory Rate 16 Blood Pressure 118/73 Pulse Oximetry 98 Oxygen Delivery Method Room Air BMI result Body Mass Index 64.4 Appearance: Alert. Oriented X3. No acute distress. Eyes: No pallor or icterus ENT: Pharynx normal. Oral Mucosa moist Neck: Normal inspection. Neck supple. CVS: Tachycardic irregular irregular. Pulses normal. Respiratory: No respiratory distress. Equal air entry bilateral, no wheezing/rales/rhonchi prolonged expiration Abdomen: Soft and nontender. Bowel sounds are present, no mass palpable, no CVA tenderness Skin: Skin warm and dry. Normal skin color. Normal skin turgor. Extremities: trace lower extremity edema. No calf tenderness Neuro: Oriented X 3. No motor deficit. No sensory deficit.No cerebellar signs , cranial nerves II-XII intact Medications Administered Discontinued Medications Generic Name Dose Route Start Last Admin Trade Name Freq PRN Reason Stop Dose Admin Albuterol/Ipratropium 3 ml 01/21/22 17:52 01/21/22 18:11 Albuterol/Iprat 2.5/0.5mg 3 Ml Ampul.Neb INHALE 12/07/22 17:53 3 ml ONCE ONE Administration Benzonatate 200 mg 01/21/22 17:52 01/21/22 18:06 Benzonatate 100 Mg Capsule PO 01/21/22 17:53 200 mg ONCE ONE Administration Medical Decision Making Medical Decision Making [facility] Narrative: Patient felt much better after nebulizing treatment and Tessalon will discharge patient home chest x-ray negative labs are stable patient had tachycardia on arrival improved after stay in the ER patient already on flecainide and atenolol Differential Diagnoses: Differential diagnosis (Bronchitis/pneumonia/CHF) Lab Attestation: I reviewed the patient's lab results. Independent interpretation of EKG, rhythm strip, radiology study: Independent interp EKG,rhythm strip, radiology study I performed an independent interpretation of the: EKG My interpretation is Atrial fibrillation heart rate 135 beats per minute with occasional PVCs no acute ST-T changes no acute ischemia Discharge Plan Discharge Clinical Impression: Acute bronchitis Patient Disposition: Home, Self-Care Instructions: Acute Bronchitis (ED) Additional Instructions: Continue nebulizing treatment and inhaler Cough drops as advised Follow with PCP for better Prescriptions: New benzonatate 200 mg capsule 200 mg PO TID PRN (Reason: cough) Qty: 30 0RF No Action (DME) Pads For Women Pad See Rx Instructions .ROUTE .MEDSUPPLY Qty: 240 11RF Rx Instructions: Use 8 pad daily flecainide 50 mg tablet 50 mg PO BID Qty: 60 5RF fluticasone propionate [Flonase Allergy Relief] 50 mcg/actuation spray,suspension 1 spray intranasal DAILY 30 Days Qty: 16 1RF Rx Instructions: administer into each nostril amoxicillin-pot clavulanate 875-125 mg tablet 1 tab PO Q12H Qty: 10 0RF buspirone 5 mg tablet 5 mg PO BID Flovent HFA 110 mcg/actuation HFA aerosol inhaler 2 puff inhalation BID tramadol 50 mg tablet 50 mg PO Q12H Qty: 120 3RF miscellaneous medical supply Misc 1 ea miscellaneous DAILY Qty: 1 0RF Rx Instructions: nebulizer machine with tubing prednisone 20 mg tablet 40 mg PO DAILY 5 Days Qty: 10 0RF montelukast 10 mg tablet 10 mg PO DAILY albuterol sulfate 90 mcg/actuation HFA aerosol inhaler 2 inh inhalation Q4-6H PRN (Reason: bronchospasm) albuterol sulfate 2.5 mg /3 mL (0.083 %) solution for nebulization 3 mg inhalation QID PRN (Reason: Wheezing) atenolol 100 mg tablet 100 mg PO DAILY 90 Days Qty: 90 3RF omega-3 fatty acids [Fish Oil Concentrate] 1,000 mg capsule 1,000 mg PO DAILY ipratropium bromide 21 mcg (0.03 %) spray,non-aerosol 2 spray intranasal Q8H PRN (Reason: Allergy Symptoms) lidocaine 5 % adhesive patch,medicated 2 patch topical DAILY Xarelto 20 mg tablet 20 mg PO DAILY@1700 Rx Instructions: must administer with evening meal famotidine [Pepcid] 40 mg tablet 40 mg PO BEDTIME Qty: 30 6RF omeprazole 20 mg capsule,delayed release(DR/EC) 20 mg PO DAILY Qty: 30 6RF Linzess 72 mcg capsule 72 mcg PO QAM Qty: 30 6RF calcium carbonate-vitamin D3 [Calcium 500 With D] 500 mg-10 mcg (400 unit) tablet 1 tab PO DAILY losartan 100 mg tablet 100 mg PO DAILY Qty: 30 5RF Interventions: ED Discharge Assessment Last Done: 01/21/22 20:19 Discharge Date/Time: 01/21/22 20:19 Print Language: Greek
[2022-01-21 17:22] VITALS: BP 131/87; PULSE 74; RESP 16; TEMP 36.9; O2SAT 96
[2022-01-21 17:39] LABS: Appearance Urine Clear; Color Urine Yellow; Glucose Urine UA Negative (Negative); Leukocyte Esterase Urine Negative (Negative); Nitrite Urine Negative (Negative); PH 5.5 (5.0-9.0); Specific Gravity - Urine 1.015 (1.005-1.025); Urine Blood Negative (Negative); Urine Ketones Negative (Negative); Urine Protein Negative (Neg-Trace)
[2022-01-21] MEDS: Benzonatate 100 MG CAPSULE 200 MG PO (18:06)
--- NOTE | 2022-01-21 18:07 | PC.NURSE ---
Pt is alert and oriented x4, resting comfortably on stretcher in no apparent distress. Pt is icelandic speaking only. Pt reports having a cough and flu like symptoms for the last week. Pt denies chest pain and denies difficultly breathing
[2022-01-21] MEDS: Albuterol/Iprat 2.5/0.5MG 3 ML AMPUL.NEB INHALE (18:11)
[2022-01-21 18:13] VITALS: PULSE 83; RESP 18; O2SAT 98
[2022-01-21 20:00] VITALS: BP 118/73; PULSE 81; RESP 16; TEMP 36.8; O2SAT 98
--- NOTE | 2022-01-21 20:18 | PC.NURSE ---
Discharge instructions reviewed with pt. Pt verbalizes understanding.
== END 2022-01-21 20:19 | disposition home or self-care (01) ==
PROVIDERS: Physician Assistant Medical; Emergency Provider Internal Medicine; PCP Internal Medicine
DX: J20.9 Acute bronchitis, unspecified (principal); R06.02 Shortness of breath; I48.91 Unspecified atrial fibrillation; R07.89 Other chest pain; I10 Essential (primary) hypertension; Z79.899 Other long term (current) drug therapy; Z79.01 Long term (current) use of anticoagulants
CPT/HCPCS: 36415; 71046; 80053; 81003; 83735; 83880; 84484; 85025; 93005; 94640; 99284

== ENCOUNTER 2022-04-07 10:06 | Outpatient (REF) | payer OTHER, SELFPAY ==
[2022-04-07 12:15] LABS: Alanine Aminotransferase 17 U/L (0-31); Albumin Level 3.7 g/dL (3.5-5.0); Alkaline Phosphatase 92 U/L (39-117); Anion Gap 10 (12-20); Aspartate Amino Transferase 20 U/L (5-31); Bilirubin Total 0.5 mg/dL (0.0-1.0); Blood Urea Nitrogen 13 mg/dL (9-16); Calcium 8.8 mg/dL (8.4-10.2); Carbon Dioxide 24 mmol/L (22-29); Chloride 110 mmol/L (96-108); Cholesterol 202 mg/dL; Estimated Glomerular Filt Rate > 60; Glucose Fasting 88 mg/dL (60-99); HDL Cholesterol 49 mg/dL; LDL Cholesterol Calculated 135 mg/dl; Potassium 4.3 mmol/L (3.3-5.1); Sodium 140 mmol/L (135-145); Triglycerides 92 mg/dL
== END 2022-04-07 10:07 | disposition home or self-care (01) ==
LOC: HO.LAB 10:06
PROVIDERS: PCP Internal Medicine; Visit Provider Internal Medicine
DX: I48.0 Paroxysmal atrial fibrillation (principal); E78.5 Hyperlipidemia, unspecified
CPT/HCPCS: 36415; 80053; 80061

== ENCOUNTER → 2022-06-02 11:50 | Outpatient (BNVA) | payer OTHER, SELFPAY | PROVIDERS: PCP Internal Medicine; Visit Provider Nurse Practitioner | DX: K59.04 Chronic idiopathic constipation (principal); K21.9 Gastro-esophageal reflux disease without esophagitis; R10.10 Upper abdominal pain, unspecified | CPT/HCPCS: 99212 ==

== ENCOUNTER → 2022-06-23 10:49 | Outpatient (BNVA) | payer OTHER, SELFPAY | PROVIDERS: PCP Internal Medicine; Visit Provider Obstetrics & Gynecology ==

== ENCOUNTER → 2022-07-01 14:16 | Outpatient (BNVA) | payer OTHER, SELFPAY | PROVIDERS: PCP Internal Medicine; Visit Provider Nurse Practitioner Family | DX: M79.7 Fibromyalgia (principal); M25.561 Pain in right knee; M25.562 Pain in left knee | CPT/HCPCS: 99212 ==

== ENCOUNTER 2022-07-14 12:03 | Emergency (ER) | payer OTHER, SELFPAY ==
--- NOTE | ~2022-07-14 | XR_ITS ---
EXAMINATION: XR CHEST CLINICAL INFORMATION: Shortness of breath COMPARISON: Previous chest x-ray January 2022 TECHNIQUE: 2 views of the chest were obtained. FINDINGS: No significant abnormality is noted involving the heart, lungs, mediastinum, bony thorax or soft tissues. XR/XR chest 2V IMPRESSION: Unremarkable examination.
--- NOTE | 2022-07-14 12:09 | ECG_ITS ---
Test Reason : sob Blood Pressure : / mmHG Vent. Rate : 065 BPM Atrial Rate : 065 BPM P-R Int : 148 ms QRS Dur : 084 ms QT Int : 406 ms P-R-T Axes : 001 002 029 degrees QTc Int : 422 ms Normal sinus rhythm Normal ECG When compared with ECG of 21-JAN-2022 17:04, Sinus rhythm has replaced Atrial fibrillation Vent. rate has decreased BY 70 BPM Referred By: Generic ED Physician Electronically Signed By:DARIN DONAHUE MD
[2022-07-14 12:32] VITALS: BP 174/88; PULSE 70; RESP 18; TEMP 36.4; O2SAT 99; BMI 64.6
--- NOTE | 2022-07-14 12:32 | ED_ITS ---
HPI - Asthma General Chief Complaint: General Medical Stated Complaint: Asthma Time Seen by Provider: 07/14/22 14:59 History of Present Illness HPI Narrative: patient complains of scratchy throat runny nose 6 intermittent wheezing for past several days but no shortness of breath now she has not had any chest pain, the only shortness of breath has intermittent feeling of chest tightness same as previous asthma, but denies any chest pain no fainting or feeling faint no dizziness no weakness no nausea no vomiting no exertional symptoms There is no leg pain no calf no leg swelling, there is no abdominal pain no nausea vomiting or diarrhea no skin rash Related Data Home Medications Medication Instructions Recorded Confirmed montelukast 10 mg tablet 10 mg PO DAILY 01/18/20 07/22/22 omega-3 fatty acids 1,000 mg 1,000 mg PO DAILY 08/23/20 07/22/22 capsule (Fish Oil Concentrate) albuterol sulfate 2.5 mg/3 mL 3 mg inhalation QID PRN Wheezing 09/19/20 07/22/22 (0.083 %) solution for nebulization fluticasone propionate 110 2 puff inhalation BID 12/24/20 07/22/22 mcg/actuation HFA aerosol inhaler (Flovent HFA) ipratropium bromide 21 mcg (0.03 2 spray intranasal Q8H PRN Allergy 04/24/21 07/22/22 %) nasal spray Symptoms buspirone 5 mg tablet 5 mg PO BID 07/16/21 07/22/22 albuterol sulfate 90 mcg/actuation 1 inh inhalation QID 06/02/22 07/22/22 aerosol inhaler (Ventolin HFA) fluticasone 500 mcg-salmeterol 50 ea inhalation 06/16/22 07/22/22 mcg/dose blistr powdr for inhalation (Advair Diskus) Previous Rx's Medication Instructions Recorded incontinence pad, liner, disp #240 ea 08/15/20 (Pads For Women) miscellaneous medical supply 1 ea miscellaneous DAILY #1 ea 12/31/21 calcium carbonate 500 mg-vitamin 1 tab PO DAILY 90 days #90 tabs 04/28/22 D3 10 mcg (400 unit) tablet (Calcium 500 With D) tramadol 50 mg tablet 50 mg PO Q12H #60 tabs 05/08/22 famotidine 40 mg tablet (Pepcid) 40 mg PO BEDTIME #30 tabs 06/02/22 linaclotide 72 mcg capsule 72 mcg PO QAM #30 caps 06/02/22 (Linzess) omeprazole 40 mg capsule,delayed 40 mg PO DAILY 30 days #30 caps 06/02/22 release fluticasone propionate 50 1 spray intranasal DAILY 30 days 06/10/22 mcg/actuation nasal #16 grams spray,suspension (Flonase Allergy Relief) losartan 100 mg tablet 100 mg PO DAILY #30 tabs 06/18/22 lidocaine 5 % topical patch 1 patch topical DAILY #30 ea 07/01/22 cetirizine 10 mg tablet 10 mg PO DAILY PRN allergy 07/14/22 symptoms #14 tabs prednisone 20 mg tablet 20 mg PO BID 5 days #10 tabs 07/14/22 atenolol 100 mg tablet 100 mg PO DAILY 90 days #90 tabs 07/22/22 flecainide 50 mg tablet 50 mg PO BID 90 days #180 tabs 07/22/22 rivaroxaban 20 mg tablet (Xarelto) 20 mg PO DAILY@1700 #90 tabs 07/22/22 Allergies Allergy/AdvReac Type Severity Reaction Status Date / Time levofloxacin [From LEVAQUIN] Allergy Intermediate DIZZINESS Verified 07/01/22 15:01 topiramate Allergy Intermediate palpitation Verified 07/01/22 15:01 s BuPROPion HCl Allergy Intermediate palpitation Uncoded 07/01/22 15:01 s Phentermine HCl Allergy Intermediate uncontrolled Uncoded 07/01/22 15:01 hypertension [facility] Past Medical History Source: nursing notes reviewed Medical History Abnormal nuclear cardiac imaging test Afib Anxiety Arthritis Asthma Atrial fibrillation with rapid ventricular response B12 deficiency Chronic gastritis Depression Diarrhea DUB (dysfunctional uterine bleeding) Dysuria Epigastric pain Fibromyalgia Hepatic steatosis HTN (hypertension) Otitis media Panic attacks Postmenopausal bleeding Sleep apnea with use of continuous positive airway pressure (CPAP) Urge urinary incontinence Surgical History H/O colonoscopy History of section History of cholecystectomy History of esophagogastroduodenoscopy (EGD) Tubal ligation status Family History Family History Father CVA (cerebral vascular accident) Colon cancer CAD (coronary artery disease) Mother Cancer of unknown origin Social History Social History Household Members: None Housing: Apartment Alcohol intake: never Patient Tobacco Use Status: Never used Tobacco e-Cigarette/Vaping Use: Never Used Second Hand Smoke Exposure: No service: No Current occupational status: disabled Cognitive needs: Yes (cane) Hearing needs: No Vision needs: Yes (glasses) Physical Exam Vital Signs: Vital Signs: Last Vital Signs Temp 98.2 F 07/14/22 16:00 Pulse 72 07/14/22 16:00 Resp 18 07/14/22 16:00 BP 167/73 H 07/14/22 16:00 Pulse Ox 98 07/14/22 16:00 O2 Del Method Room Air 07/14/22 16:00 BMI result Body Mass Index 64.6 General appearance no acute distress comfortable and cooperative Eyes no redness or discharge The pharynx is clear without redness swelling or exudate Neck is supple Chest is clear to auscultation bilateral no respiratory distress Heart no murmur Abdomen soft nontender Extremities no edema no calf tenderness or swelling, full range of motion x4 Skin no rash Course Course Course Narrative: RME - 56 yo Tristanian speaking female with history of asthma, fibromyalgia, morbid obesity, CAD, HTN, paroxysmal afib on Xarelto who presents to the ER for evaluation of 2-3 days of SOB, upper back pain, headaches. No chest pain. BP 170s in triage with normal HR and SPO2 98% Plan: CXR, EKG, lab workup and COVID swab EKG was a normal sinus rhythm with a rate of 65, no acute ischemic changes, no acute ST change Chest x-ray was normal, CBC was normal, chemistries were normal Well-appearing patient without chest pain, no shortness of breath now, no difficulty breathing or swallowing is advised that her blood pressure was high on 2 readings and follow with her doctor, ambulates easily and is treated for asthma and allergies Medical Decision Making Lab Data MDM Lab Attestation statement: I reviewed the patient's lab results. 07/14/22 13:18 07/14/22 13:18 Labs: Lab Results 07/14/22 07/14/22 07/14/22 Range/Units 13:18 13:18 13:18 WBC 7.0 (4.8-10.8) X10*3/uL RBC 4.25 (4.20-5.50) X10*6/uL Hgb 12.7 (12.0-16.0) g/dl Hct 40.0 (37.0-47.0) % MCV 94.1 (80.0-98.0) fL MCH 29.9 (27.0-33.0) pg MCHC 31.8 (31.0-35.0) g/dl RDW 14.1 (11.0-16.0) % Plt Count 184 (160-400) X10*3/uL MPV 12.0 (9.4-12.3) fL Immature Gran % (Auto) 0.4 (0.0-0.4) % Neut % (Auto) 48.3 (45-73) % Lymph % (Auto) 41.6 H (20-40) % [place] % (Auto) 7.9 (2-11) % Eos % (Auto) 1.4 (0-4) % Baso % (Auto) 0.4 (0-2) % Lymph # (Auto) 2.9 (1.2-4.9) X10*3/uL [place] # (Auto) 0.6 (0.1-1.2) X10*3/uL Eos # (Auto) 0.1 (0.0-0.4) X10*3/uL Baso # (Auto) 0.0 (0.0-0.2) X10*3/uL Abs Immat Gran (auto) 0.03 (0.00-0.03) X10*3/uL Absolute Neuts (auto) 3.4 (2.0-8.3) x10*3/uL Absolute Nucleated RBC 0.000 (0.0-0.012) X10*3/uL Nucleated RBC % (auto) 0.0 (0.0-0.2) /100WBC Sodium 143 (135-145) mmol/L Potassium 4.0 (3.3-5.1) mmol/L Chloride 109 H (96-108) mmol/L Carbon Dioxide 23 (22-29) mmol/L Anion Gap 15 (12-20) BUN 12 (9-16) mg/dL Creatinine 0.74 (0.5-1.4) mg/dL Estim Creat Clear Calc 113.8 Estimated GFR > 60 Random Glucose 81 (60-115) mg/dL Calcium 9.3 (8.4-10.2) mg/dL Magnesium 1.7 (1.6-2.6) mg/dL Total Bilirubin 0.5 (0.0-1.0) mg/dL Direct Bilirubin 0.1 (0.0-0.5) mg/dL AST 19 (5-31) U/L ALT 20 (0-31) U/L Alkaline Phosphatase 102 (39-117) U/L Total Protein 7.5 (6.5-8.0) g/dL Albumin 3.9 (3.5-5.0) g/dL COVID-19 ([facility]) Negative (Negative) COVID-19 Clin Com See Note Discharge Plan Discharge Clinical Impression: Allergies, Asthma Patient Disposition: Home, Self-Care Additional Instructions: there is no sign of any dangerous condition, symptoms I likely allergies and mild asthma X-rays EKG and blood tests did not show any worrisome conditions Your exam was normal Her blood pressure was elevated on 2 readings so follow with your doctor to check about blood pressure control Return any time any worse condition or any concerns To control the asthma we are doing several days of prednisone and for allergies we have added cetirizine Prescriptions: New cetirizine 10 mg tablet 10 mg PO DAILY PRN (Reason: allergy symptoms) Qty: 14 0RF prednisone 20 mg tablet 20 mg PO BID 5 Days Qty: 10 0RF No Action (DME) Pads For Women Pad See Rx Instructions .ROUTE .MEDSUPPLY Qty: 240 11RF Rx Instructions: Use 8 pad daily calcium carbonate-vitamin D3 [Calcium 500 With D] 500 mg-10 mcg (400 unit) tablet 1 tab PO DAILY 90 Days Qty: 90 1RF tramadol 50 mg tablet 50 mg PO Q12H Qty: 60 1RF fluticasone propionate [Flonase Allergy Relief] 50 mcg/actuation spray,suspe nsion 1 spray intranasal DAILY 30 Days Qty: 16 1RF Rx Instructions: administer into each nostril losartan 100 mg tablet 100 mg PO DAILY Qty: 30 5RF buspirone 5 mg tablet 5 mg PO BID Flovent HFA 110 mcg/actuation HFA aerosol inhaler 2 puff inhalation BID miscellaneous medical supply Misc 1 ea miscellaneous DAILY Qty: 1 0RF Rx Instructions: nebulizer machine with tubing fluticasone propion-salmeterol [Advair Diskus] 500-50 mcg/dose blister with device inhalation montelukast 10 mg tablet 10 mg PO DAILY albuterol sulfate 2.5 mg /3 mL (0.083 %) solution for nebulization 3 mg inhalation QID PRN (Reason: Wheezing) omega-3 fatty acids [Fish Oil Concentrate] 1,000 mg capsule 1,000 mg PO DAILY ipratropium bromide 21 mcg (0.03 %) spray,non-aerosol 2 spray intranasal Q8H PRN (Reason: Allergy Symptoms) albuterol sulfate [Ventolin HFA] 90 mcg/actuation HFA aerosol inhaler 1 inh inhalation QID omeprazole 40 mg capsule,delayed release(DR/EC) 40 mg PO DAILY 30 Days Qty: 30 6RF famotidine [Pepcid] 40 mg tablet 40 mg PO BEDTIME Qty: 30 6RF Linzess 72 mcg capsule 72 mcg PO QAM Qty: 30 6RF Xarelto 20 mg tablet 20 mg PO DAILY@1700 Qty: 90 3RF Rx Instructions: must administer with evening meal flecainide 50 mg tablet 50 mg PO BID 90 Days Qty: 180 3RF atenolol 100 mg tablet 100 mg PO DAILY 90 Days Qty: 90 3RF lidocaine 5 % adhesive patch,medicated 1 patch topical DAILY Qty: 30 0RF Rx Instructions: leave on most painful area for up to 12 hrs then take off for 12 hours Interventions: ED Discharge Assessment Last Done: 07/14/22 16:27 Discharge Date/Time: 07/14/22 16:28
[2022-07-14 13:29] LABS: MANUAL DIFF FLAG NO
[2022-07-14 13:34] LABS: Basophils Percent Auto 0.4 % (0-2); Eosinophils Absolute Auto 0.1 X10*3/uL (0.0-0.4); Eosinophils Percent Auto 1.4 % (0-4); Hemoglobin 12.7 g/dl (12.0-16.0); Imm Gran Abs Auto 0.03 X10*3/uL (0.00-0.03); Imm Gran Pct Auto 0.4 % (0.0-0.4); Lymphocytes Absolute Auto 2.9 X10*3/uL (1.2-4.9); Lymphocytes Percent Auto 41.6 % (20-40); Mean Corpuscular HGB Conc 31.8 g/dl (31.0-35.0); Mean Corpuscular Hemoglobin 29.9 pg (27.0-33.0); Mean Corpuscular Volume 94.1 fL (80.0-98.0); Monocytes Absolute Auto 0.6 X10*3/uL (0.1-1.2); Monocytes Percent Auto 7.9 % (2-11); Neutrophils Absolute Auto 3.4 x10*3/uL (2.0-8.3); Neutrophils Percent Auto 48.3 % (45-73); Platelet Count 184 X10*3/uL (160-400); Red Blood Count 4.25 X10*6/uL (4.20-5.50); Red Cell Distribution Width 14.1 % (11.0-16.0)
[2022-07-14 13:48] LABS: Alanine Aminotransferase 20 U/L (0-31); Albumin Level 3.9 g/dL (3.5-5.0); Alkaline Phosphatase 102 U/L (39-117); Anion Gap 15 (12-20); Aspartate Amino Transferase 19 U/L (5-31); Bilirubin Direct 0.1 mg/dL (0.0-0.5); Bilirubin Total 0.5 mg/dL (0.0-1.0); Blood Urea Nitrogen 12 mg/dL (9-16); Calcium 9.3 mg/dL (8.4-10.2); Carbon Dioxide 23 mmol/L (22-29); Chloride 109 mmol/L (96-108); Creatinine Clr Calc Pharmacy 113.8; Estimated Glomerular Filt Rate > 60; Glucose Random 81 mg/dL (60-115); Magnesium 1.7 mg/dL (1.6-2.6); Sodium 143 mmol/L (135-145); Total Protein 7.5 g/dL (6.5-8.0)
[2022-07-14 13:50] LABS: COVID-19 Test Negative (Negative); IDNOW Serial# 55D5AD1C
[2022-07-14 15:01] VITALS: BP 180/65; PULSE 62; RESP 18; O2SAT 97
[2022-07-14 16:00] VITALS: BP 167/73; PULSE 72; RESP 18; TEMP 36.8; O2SAT 98
== END 2022-07-14 16:28 | disposition home or self-care (01) ==
PROVIDERS: Physician Assistant; Emergency Provider Student in an Organized Health Care Education/Training Program; PCP Internal Medicine
DX: J45.909 Unspecified asthma, uncomplicated (principal); R06.02 Shortness of breath; T78.40XA Allergy, unspecified, initial encounter; X58.XXXA Exposure to other specified factors, initial encounter; I10 Essential (primary) hypertension; I48.0 Paroxysmal atrial fibrillation; E66.01 Morbid (severe) obesity due to excess calories; Z68.44 Body mass index [BMI] 60.0-69.9, adult; Z79.899 Other long term (current) drug therapy; Z79.01 Long term (current) use of anticoagulants; Z20.822 Contact with and (suspected) exposure to COVID-19
CPT/HCPCS: 71046; 80048; 80076; 83735; 85025; 87635; 93005; 99283; 99284

== ENCOUNTER → 2022-07-22 09:37 | Outpatient (BNVA) | payer OTHER, SELFPAY | PROVIDERS: PCP Internal Medicine; Referring Provider Internal Medicine; Visit Provider Internal Medicine Cardiovascular Disease | DX: I48.0 Paroxysmal atrial fibrillation (principal); I25.10 Atherosclerotic heart disease of native coronary artery without angina pectoris; Z79.01 Long term (current) use of anticoagulants | CPT/HCPCS: 93005; 99212 ==

== ENCOUNTER → 2022-07-30 12:38 | Outpatient (BNVA) | payer OTHER, SELFPAY | PROVIDERS: PCP Internal Medicine; Visit Provider Nurse Practitioner | DX: K59.04 Chronic idiopathic constipation (principal); K21.9 Gastro-esophageal reflux disease without esophagitis; R10.10 Upper abdominal pain, unspecified | CPT/HCPCS: 99212 ==

== ENCOUNTER 2022-09-14 10:37 | Outpatient (AMB) | payer OTHER, SELFPAY ==
--- NOTE | 2022-09-14 10:46 | MHC.OFFVISWM ---
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 Patient c/o: here for evaluation Home Health Administrator Required: Yes Home Health Administrator Language: Technical Sales Representative Name: Claudia GARBER Information Interpreted: non-clinical & clinical Citrix Administrator: Citrix Administrator Present Accompanied by: Self / Same As Patient Allergies levofloxacin [From LEVAQUIN] Allergy (Intermediate, Verified 07/30/22 13:18) DIZZINESS topiramate Allergy (Intermediate, Verified 07/30/22 13:18) palpitations BuPROPion HCl Allergy (Intermediate, Uncoded 07/01/22 15:01) palpitations Phentermine HCl Allergy (Intermediate, Uncoded 07/01/22 15:01) uncontrolled hypertension Medication List - Last Reconciled 09/14/22 by Juan Saldaña MD albuterol sulfate 3 mg inhalation QID PRN albuterol sulfate 90 mcg/actuation (Ventolin HFA) 1 inh inhalation QID atenolol 100 mg PO DAILY 90 days buspirone 5 mg PO BID calcium carbonate-vitamin D3 500 mg-10 mcg (400 unit) (Calcium 500 With D) 1 tab PO DAILY 90 days cetirizine 10 mg PO DAILY PRN famotidine (Pepcid) 40 mg PO BEDTIME flecainide 50 mg PO BID 90 days fluticasone propion-salmeterol 500-50 mcg/dose (Advair Diskus) ea inhalation fluticasone propionate 110 mcg/actuation (Flovent HFA) 2 puffs inhalation BID fluticasone propionate 50 mcg/actuation (Flonase Allergy Relief) 1 spray intranasal DAILY 30 days incontinence pad, liner, disp (Pads For Women) Use 8 pad daily ipratropium bromide 2 sprays intranasal Q8H PRN lidocaine 5% 1 patch topical DAILY lidocaine 5% 1 patch topical DAILY linaclotide (Linzess) 72 mcg PO QAM losartan 100 mg PO DAILY miscellaneous medical supply 1 ea miscellaneous DAILY montelukast 10 mg PO DAILY omega-3 fatty acids (Fish Oil Concentrate) 1,000 mg PO DAILY omeprazole 40 mg PO DAILY 30 days rivaroxaban (Xarelto) 20 mg PO DAILY@1700 tramadol 50 mg PO Q12H HPI HPI Comments History of Present Illness Details The patient is a 56-year-old woman with a lifelong struggle with obesity who has a past medical history of atrial fibrillation anticoagulated with Xarelto, asthma, GERD, hypertension, obstructive sleep apnea on CPAP, NAFLD, coronary artery disease who had enrolled in the surgical weight loss program in January, with a BMI of 58.3/294 lbs. In reviewing the prior notes, she was last seen 11/18/2020 by Hans Sanderson PA-C; during her time in the program, her weight increased to 322 lb/BMI of 65.5 from her entry weight & notes indicate that she transitioned to [facility] bariatric surgery program & was found to be in afib during her work up. She presents today with BMI 65.4/323.6lbs. She contacted the surgical weight loss program to obtain information regarding gastric balloon for weight loss. Patient's past medical history also includes chronic idiopathic constipation on Linzess and was last seen on 07/30/2022 by Radha Escalona and our GI Clinic. The last 2 notes indicate that the patient is scheduled for gastric bypass in October, at [facility]. She notes restricted physical activity due to arthritis and her exercise routine currently walking Past surgical history includes , tubal ligation and and cholecystectomy GERD 14 ESS 10 WILIAM 2 QOL 89 PFSH Medical History (Updated 09/14/22 @ 11:30 by Juan Saldaña MD) Abnormal nuclear cardiac imaging test Afib Anxiety Arthritis Asthma Atrial fibrillation with rapid ventricular response B12 deficiency Chronic gastritis Depression Diarrhea DUB (dysfunctional uterine bleeding) Dysuria Epigastric pain Fibromyalgia Hepatic steatosis HTN (hypertension) Otitis media Panic attacks Postmenopausal bleeding Sleep apnea with use of continuous positive airway pressure (CPAP) Urge urinary incontinence Surgical History H/O colonoscopy History of section History of cholecystectomy History of esophagogastroduodenoscopy (EGD) Tubal ligation status Family History Father CVA (cerebral vascular accident) Colon cancer CAD (coronary artery disease) Mother Cancer of unknown origin Social History Household Members: None Housing: Apartment Alcohol intake: never Patient Tobacco Use Status: Never used Tobacco e-Cigarette/Vaping Use: Never Used Second Hand Smoke Exposure: No service: No Current occupational status: disabled Cognitive needs: Yes (cane) Hearing needs: No Vision needs: Yes (glasses) Female Reproductive History Menstrual Age of Menarche: 14 Review of Systems Const All systems reviewed & are unremarkable except as noted in HPI and below Physical Exam Vital Signs: Last Vital Signs Temp 98.1 F 09/14/22 11:07 Pulse 70 09/14/22 11:07 BP 180/87 H 09/14/22 11:07 Pulse Ox 92 09/14/22 11:07 Oxygen Delivery Method Room Air 09/14/22 11:07 BMI result Body Mass Index 65.3 On exam, the patient is nontoxic She is in no acute respiratory distress Abdomen is obese Results Reviewed Results Reviewed: Surgical weight loss notes from January, are reviewed Diagnostic imaging CXR 07/14/22 NAD Labs from 07/14/2022 Hemoglobin 12.7 with normal indices; white blood cell count 7.0 with normal differential; platelet count 184K BUN 12, creatinine 0.74; electrolytes and liver function tests within normal parameters EGD & Bx from 09/12/21 did not show a hiatal hernia and chronic gastritis with no H pylori was appreciated Assessment & Plan Assessment & Plan (1) BMI 60.0-69.9, adult: Code(s): Z68.44 - Body mass index [BMI] 60.0-69.9, adult (2) NINI (obstructive sleep apnea): Code(s): G47.33 - Obstructive sleep apnea (adult) (pediatric) (3) Paroxysmal atrial fibrillation: Code(s): I48.0 - Paroxysmal atrial fibrillation (4) Anticoagulated: Code(s): Z79.01 - 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 (5) Chronic idiopathic constipation: Code(s): K59.04 - Chronic idiopathic constipation (6) Arthritis: Code(s): M19.90 - Unspecified osteoarthritis, unspecified site (7) Asthma: Code(s): J45.909 - Unspecified asthma, uncomplicated (8) CAD (coronary artery disease): Code(s): I25.10 - Atherosclerotic heart disease of seminole coronary artery without angina pectoris (9) HTN (hypertension): Code(s): I10 - Essential (primary) hypertension (10) NINI on CPAP: Code(s): G47.33 - Obstructive sleep apnea (adult) (pediatric); Z99.89 - Dependence on other enabling machines and devices (11) NAFLD (nonalcoholic fatty liver disease): Code(s): K76.0 - Fatty (change of) liver, not elsewhere classified Plan The patient confirmed that she is scheduled to have bariatric surgery at [facility] next month but wanted to get more information regarding the balloon. She did note candidly that she is not able to afford $6000. We also reviewed the inherent risks of balloon placement in an anticoagulated patient, the importance of diet and increased activity. At this time, the patient is leaning towards having surgery at [facility] and will contact us if she wishes to re-enter the surgical weight loss program here at [facility]. I spent 63 minutes total, this includes reviewing records from Gastroenterology, Cardiology, outside hospital, ER and hospitalist admissions. Greater than 50% of this time was spent in consultation. Coding Level of Care Code Est Pt Level 5 (11627) Diagnoses BMI 60.0-69.9, adult Z68.44 NINI (obstructive sleep apnea) G47.33 Paroxysmal atrial fibrillation I48.0 Anticoagulated Z79.01 Chronic idiopathic constipation K59.04 Arthritis M19.90 Asthma J45.909 CAD (coronary artery disease) I25.10 HTN (hypertension) I10 NINI on CPAP G47.33; Z99.89 NAFLD (nonalcoholic fatty liver disease) K76.0 Time Spent (min) 63
[2022-09-14 11:07] VITALS: BP 180/87; PULSE 70; TEMP 36.7; O2SAT 92; BMI 65.3
== END 2022-09-14 12:17 | disposition home or self-care (01) ==
PROVIDERS: PCP Internal Medicine; Visit Provider Surgery
DX: E66.01 Morbid (severe) obesity due to excess calories (principal); Z68.44 Body mass index [BMI] 60.0-69.9, adult; Z79.01 Long term (current) use of anticoagulants; Z99.89 Dependence on other enabling machines and devices; K76.0 Fatty (change of) liver, not elsewhere classified
CPT/HCPCS: 99215

== ENCOUNTER → 2022-09-14 10:37 | Outpatient (BNVA) | payer OTHER, SELFPAY | PROVIDERS: PCP Internal Medicine; Visit Provider Surgery | DX: E66.01 Morbid (severe) obesity due to excess calories (principal); K21.9 Gastro-esophageal reflux disease without esophagitis; K76.0 Fatty (change of) liver, not elsewhere classified; K59.04 Chronic idiopathic constipation; I48.91 Unspecified atrial fibrillation; I25.10 Atherosclerotic heart disease of native coronary artery without angina pectoris; I10 Essential (primary) hypertension; J45.909 Unspecified asthma, uncomplicated; G47.33 Obstructive sleep apnea (adult) (pediatric); M19.90 Unspecified osteoarthritis, unspecified site; Z68.44 Body mass index [BMI] 60.0-69.9, adult; Z90.49 Acquired absence of other specified parts of digestive tract; Z79.01 Long term (current) use of anticoagulants; Z99.89 Dependence on other enabling machines and devices; Z79.899 Other long term (current) drug therapy | CPT/HCPCS: 99212 ==

== ENCOUNTER 2022-10-23 09:03 | Outpatient (REF) | payer OTHER, SELFPAY ==
[2022-10-23 09:42] LABS: MANUAL DIFF FLAG NO
[2022-10-23 09:47] LABS: Appearance Urine Clear; Color Urine Yellow; Glucose Urine UA Negative (Negative); Leukocyte Esterase Urine Negative (Negative); Nitrite Urine Negative (Negative); UMIC TRIGGER UACC YES; Urine Blood Trace (Negative); Urine Ketones Negative (Negative); Urine Protein Negative (Neg-Trace)
[2022-10-23 10:06] LABS: Bacteria Urine None Seen (None Seen); Hyaline Casts Urine 0-2 /LPF (0-2); RBC Urine 0-2 /HPF (0-2); WBC Urine 0-5 /HPF (0-5)
[2022-10-23 10:49] LABS: Basophils Percent Auto 0.5 % (0-2); Eosinophils Absolute Auto 0.1 X10*3/uL (0.0-0.4); Eosinophils Percent Auto 1.8 % (0-4); Hematocrit 39.6 % (37.0-47.0); Hemoglobin 12.8 g/dl (12.0-16.0); Imm Gran Abs Auto 0.02 X10*3/uL (0.00-0.03); Imm Gran Pct Auto 0.3 % (0.0-0.4); Lymphocytes Absolute Auto 2.6 X10*3/uL (1.2-4.9); Lymphocytes Percent Auto 42.5 % (20-40); Mean Corpuscular HGB Conc 32.3 g/dl (31.0-35.0); Mean Corpuscular Hemoglobin 29.4 pg (27.0-33.0); Mean Platelet Volume 12.3 fL (9.4-12.3); Monocytes Absolute Auto 0.5 X10*3/uL (0.1-1.2); Monocytes Percent Auto 8.5 % (2-11); Neutrophils Absolute Auto 2.8 x10*3/uL (2.0-8.3); Neutrophils Percent Auto 46.4 % (45-73); Platelet Count 192 X10*3/uL (160-400); Red Blood Count 4.35 X10*6/uL (4.20-5.50); Red Cell Distribution Width 13.8 % (11.0-16.0)
[2022-10-23 10:59] LABS: Estimated Average Glucose 103 mg/dL; Hemoglobin A1c % 5.2 % (<6.0)
[2022-10-23 11:22] LABS: Alanine Aminotransferase 13 U/L (0-31); Alkaline Phosphatase 98 U/L (39-117); Anion Gap 13 (12-20); Aspartate Amino Transferase 16 U/L (5-31); Bilirubin Total 0.4 mg/dL (0.0-1.0); Blood Urea Nitrogen 12 mg/dL (9-16); C Reactive Protein 0.59 mg/dL (< or = 0.50); Calcium 9.2 mg/dL (8.4-10.2); Carbon Dioxide 23 mmol/L (22-29); Chloride 109 mmol/L (96-108); Cholesterol 197 mg/dL (<200); Estimated Glomerular Filt Rate > 60; Glucose Random 90 mg/dL (60-115); HDL Cholesterol 46 mg/dL (>40); Iron 67 mcg/dL (30-160); LDL Cholesterol Calculated 128 mg/dL (<100); Percent Iron Saturation 22 % (15-50); Potassium 3.6 mmol/L (3.3-5.1); Sodium 141 mmol/L (135-145); Total Iron Binding Capacity 299 mcg/dL (228-428); Total Protein 7.5 g/dL (6.5-8.0); Triglycerides 119 mg/dL (<150); Unsaturated Iron Binding 232 ug/dL
[2022-10-23 11:46] LABS: Ferritin 25 ng/mL (10-250); Insulin 8 uU/mL (2-29); TSH reflex Free T4 1.43 uIU/mL (0.32-4.0); Vitamin D 25-OH Total 29.3 ng/mL (>30)
[2022-10-23 11:47] LABS: Folate 11.8 ng/mL (> or = 4.0); Vitamin B12 693 pg/mL (200-900)
[2022-10-25 12:39] LABS: PTHI 64 pg/mL (16-77)
[2022-10-27 12:34] LABS: Zinc 80 mcg/dL (60-130)
[2022-10-28 16:23] LABS: Vitamin B1 16 nmol/L (8-30)
[2022-10-29 15:43] LABS: Vitamin A 36 mcg/dL (38-98)
== END 2022-10-23 09:04 | disposition home or self-care (01) ==
LOC: HO.LAB 09:03
PROVIDERS: Surgery; PCP Internal Medicine; Visit Provider Internal Medicine
DX: G47.33 Obstructive sleep apnea (adult) (pediatric) (principal); I48.0 Paroxysmal atrial fibrillation; K76.0 Fatty (change of) liver, not elsewhere classified; I10 Essential (primary) hypertension; I25.10 Atherosclerotic heart disease of native coronary artery without angina pectoris; M19.90 Unspecified osteoarthritis, unspecified site; J45.909 Unspecified asthma, uncomplicated; Z99.89 Dependence on other enabling machines and devices; Z79.01 Long term (current) use of anticoagulants
CPT/HCPCS: 36415; 80053; 80061; 81001; 81003; 82306; 82607; 82728; 82746; 83036; 83525; 83540; 83970; 84425; 84443; 84590; 84630; 85025; 86140

== ENCOUNTER 2022-10-26 10:52 | Outpatient (REF) | payer OTHER, SELFPAY ==
[2022-10-26 13:44] LABS: Appearance Urine Clear; Color Urine Yellow; Glucose Urine UA Negative (Negative); Leukocyte Esterase Urine Small (1+) (Negative); Nitrite Urine Negative (Negative); PH 5.5 (5.0-9.0); UMIC TRIGGER UACC YES; Urine Blood Negative (Negative); Urine Ketones Negative (Negative); Urine Protein Negative (Neg-Trace)
[2022-10-26 13:50] LABS: Bacteria Urine None Seen (None Seen); Hyaline Casts Urine 0-2 /LPF (0-2); RBC Urine 0-2 /HPF (0-2); UACC Culture Trigger YES
== END 2022-10-26 10:53 | disposition home or self-care (01) ==
LOC: HO.LAB 10:52
PROVIDERS: PCP Internal Medicine; Visit Provider Internal Medicine
DX: R30.0 Dysuria (principal)
CPT/HCPCS: 36415; 80053; 80061; 81001; 87086

== ENCOUNTER 2022-12-04 13:41 | Outpatient (AMB) | payer OTHER, SELFPAY ==
[2022-12-04 13:44] VITALS: BP 140/80; PULSE 70; O2SAT 98; BMI 65.0
--- NOTE | 2022-12-04 13:44 | A.OFFPC_ITS ---
Vital Signs 12/04/22 13:44 Height 4 ft 11 in Weight 322 lb BMI 65.0 BP 140/80 H Blood Pressure Location Lt brachial Position Sitting Pulse 70 Pulse Source Pulse Oximeter Pulse Oximetry (%) 98 Oxygen Delivery Method Room Air Intake Visit Reasons: Asthma f/u College Or University Registrar Required: Yes College Or University Registrar Name: Go Espinosa Information Interpreted: non-clinical & clinical Allergies levofloxacin [From LEVAQUIN] Allergy (Intermediate, Verified 12/04/22 13:57) DIZZINESS topiramate Allergy (Intermediate, Verified 12/04/22 13:57) palpitations BuPROPion HCl Allergy (Intermediate, Uncoded 12/04/22 13:45) palpitations Phentermine HCl Allergy (Intermediate, Uncoded 12/04/22 13:45) uncontrolled hypertension Medication List - Last Reconciled 12/04/22 by THERESE Baez albuterol sulfate 3 mg inhalation QID PRN albuterol sulfate 90 mcg/actuation (Ventolin HFA) 1 inh inhalation QID atenolol 100 mg PO DAILY 90 days buspirone 5 mg PO BID calcium carbonate-vitamin D3 500 mg-10 mcg (400 unit) (Calcium 500 With D) 1 tab PO DAILY 90 days cetirizine 10 mg PO DAILY PRN famotidine 40 mg PO BEDTIME flecainide 50 mg PO BID 90 days fluticasone propion-salmeterol 500-50 mcg/dose (Advair Diskus) ea inhalation fluticasone propionate 110 mcg/actuation (Flovent HFA) 2 puffs inhalation BID fluticasone propionate 50 mcg/actuation (Flonase Allergy Relief) 1 spray intranasal DAILY 30 days incontinence pad, liner, disp (Pads For Women) Use 8 pad daily ipratropium bromide 2 sprays intranasal Q8H PRN lidocaine 5% 1 patch topical DAILY lidocaine 5% 1 patch topical DAILY linaclotide (Linzess) 72 mcg PO QAM losartan 100 mg PO DAILY miscellaneous medical supply 1 ea miscellaneous DAILY montelukast 10 mg PO DAILY omega-3 fatty acids (Fish Oil Concentrate) 1,000 mg PO DAILY omeprazole 40 mg PO DAILY rivaroxaban (Xarelto) 20 mg PO DAILY@1700 tramadol 50 mg PO BID PRN Tobacco use date assessed: 06/16/22 Dental Screening Dental Screen Date: 12/04/22 Did you have a dental visit in the last 12 months?: Yes Did you have a dental problem in the last 6 months where you did not have access to dental care?: No Was dental information given to patient?: Patient has dentist HPI HPI Comments History of Present Illness Details Patient is a 56-year-old female patient of Dr. May presents today fro follow up. Medical history significant for constipation, GERD, insomnia, asthma, AFib-followed by [facility], NINI on CPAP, morbid obesity, fibromyalgia- followed by Rheumatology, hypertension, CAD-followed by Cardiology. Patient reports asthma has been controlled on current inhalers. Blood pressure controlled today 140/80. [facility] Medical History HTN (hypertension) Abnormal nuclear cardiac imaging test Atrial fibrillation with rapid ventricular response DUB (dysfunctional uterine bleeding) Otitis media Postmenopausal bleeding Diarrhea Epigastric pain Dysuria Urge urinary incontinence B12 deficiency Panic attacks Sleep apnea with use of continuous positive airway pressure (CPAP) Arthritis Anxiety Depression Afib Asthma Chronic gastritis Hepatic steatosis Fibromyalgia Surgical History Tubal ligation status H/O colonoscopy History of esophagogastroduodenoscopy (EGD) History of cholecystectomy History of section Family History Father CVA (cerebral vascular accident) Colon cancer CAD (coronary artery disease) Mother Cancer of unknown origin Social History Household Members: None Housing: Apartment Alcohol intake: never Patient Tobacco Use Status: Never used Tobacco e-Cigarette/Vaping Use: Never Used Second Hand Smoke Exposure: No service: No Current occupational status: disabled Cognitive needs: Yes (cane) Hearing needs: No Vision needs: Yes (glasses) Female Reproductive History Menstrual Age of Menarche: 14 Questionnaire PHQ-9 Over the last 2 weeks, how often have you been bothered by any of the following problems? 1. Little interest or pleasure in doing things: not at all 2. Feeling down, depressed, or hopeless: not at all 3. Trouble falling or staying asleep, or sleeping too much: not at all 4. Feeling tired or having little energy: not at all 5. Poor appetite or overeating: nearly every day (pt states when shes anxious ) 6. Feeling bad about yourself - or that you are a failure or have let yourself or your family down: not at all 7. Trouble concentrating on things, such as reading the newspaper or watching television: not at all 8. Moving or speaking so slowly that other people could have noticed. Or the opposite - being so fidgety or restless that you have been moving around a lot more than usual: not at all 9. Thoughts that you would be better off or of hurting yourself in some way: not at all Total score: 3 Depression Screening Interpretation: Negative Depression Screening Done: Yes 86072 - PHQ-9 Billing: Yes Source: Developed by Drs. Marc Jordan, Kristine Sams, Salinas Hutchins and colleagues, with an educational deshaun from [employer]. Thrive Questionnaire Date Thrive assessed: 06/16/22 AUDIT C Alcohol Use Questionnaire (AUDIT-C) 1. How often do you have a drink containing alcohol?: Never 3. How often do you have six or more drinks on one occasion?: Never Total Score: 0 Score Reviewed/Action Taken: No ANIL-7 AMB Questionnaire ANIL-7 Date ANIL - 7 assessed: 06/16/22 Feeling nervous, anxious, or on edge: 1 = Several days Not being able to stop or control worryin = Not at all Worrying too much about different things: 0 = Not at all Trouble relaxin = Not at all Being so restless that it is hard to sit still: 0 = Not at all Becoming easily annoyed or irritable: 0 = Not at all Feeling afraid as if something awful might happen: 0 = Not at all Total ANIL-7 score (0-4 normal; 5-9 mild; 10-14 moderate; 15-21 severe): 1 Source: Developed by Drs. Marc Jordan, Salinas Cobb and colleagues, with an educational deshaun from [employer]. ANIL-7 Assessment Billing ANIL-7 Assessment Tool: ANIL-7 Assessment 54720 Review of Systems Const Denies chills, Denies fatigue, Denies fever(s) and Denies poor appetite Eyes Denies no additional complaints ENT Reports Normal hearing present Card Denies chest pain, Denies syncope, Denies rapid heart rate and Denies dyspnea Resp Denies cough and Denies dyspnea GI Denies change in stool character, Denies constipation, Denies diarrhea, Denies nausea and Denies vomiting Denies urinary frequency, Denies dysuria and Denies urinary urgency Neuro Reports Normal hearing present, Denies confusion and Denies syncope Psych Denies confusion Endo Denies fatigue Physical exam (Primary Care) Vital Signs: Last Vital Signs Pulse 70 12/04/22 13:44 BP 140/80 H 12/04/22 13:44 Pulse Ox 98 12/04/22 13:44 Oxygen Delivery Method Room Air 12/04/22 13:44 BMI result Body Mass Index 65.0 Tobacco/Smoking Status: Tobacco use Status Tobacco use date assessed 06/16/22 12/04/22 13:48 Patient Tobacco Use Status Never used Tobacco 12/04/22 13:48 e-Cigarette/Vaping Use Never Used 12/04/22 13:48 PHQ-9: PHQ-9 Score PHQ-9: Total score 3 12/04/22 13:58 Depression Screening Interpretation: Negative Thrive Assessment: Date of Thrive Assessment Date Thrive assessed 06/16/22 12/04/22 13:48 Const General: No confusion Orientation/consciousness: No confusion HENMT Head: Yes normocephalic and Yes atraumatic Eyes Conjunctivae: conjunctivae normal Chest Chest palpation & inspection: normal inspection of the chest Resp Effort & Inspection: normal respiratory effort Auscultation: clear to auscultation bilaterally, no crackles, no rhonchi and no wheezes Cardio Rate: regular rate Rhythm: regular rhythm Heart sounds: S1 normal heart sound present and S2 normal heart sound present GI Inspection: Yes normal to inspection Neuro General: No confusion Cranial nerves: Yes Normal hearing present Extrem General: No edema Assessment and Plan Assessment & Plan (1) Asthma: Code(s): J45.909 - Unspecified asthma, uncomplicated Plan: Continue on adviar and albuterol prn (2) HTN (hypertension): Code(s): I10 - Essential (primary) hypertension Plan: Continue on atenolol, losartan. Follow low salt diet and excercise (3) NINI on CPAP: Code(s): G47.33 - Obstructive sleep apnea (adult) (pediatric); Z99.89 - Dependence on other enabling machines and devices Plan: Continue to use cpap for greater than 4 hours a night with good effect (4) Paroxysmal atrial fibrillation: Code(s): I48.0 - Paroxysmal atrial fibrillation Plan: Continue on current rate continue medication and xarelto for anticoagulation. Continue to follow with rheumatology. Coding Level of Care Code Est Pt Level 4 (95846) Diagnoses Asthma J45.909 HTN (hypertension) I10 NINI on CPAP G47.33; Z99.89 Paroxysmal atrial fibrillation I48.0 Additional Codes ANIL-7 Assessment Billing - ANIL-7 Assessment Tool: ANIL-7 Assessment 92735 ([id number])
== END 2022-12-04 14:12 | disposition home or self-care (01) ==
PROVIDERS: PCP Internal Medicine; Visit Provider Nurse Practitioner Family
DX: J45.909 Unspecified asthma, uncomplicated (principal); I10 Essential (primary) hypertension; G47.33 Obstructive sleep apnea (adult) (pediatric); I48.0 Paroxysmal atrial fibrillation; Z99.89 Dependence on other enabling machines and devices; K21.9 Gastro-esophageal reflux disease without esophagitis
CPT/HCPCS: 99214

== ENCOUNTER 2022-12-22 13:56 | Outpatient (AMB) | payer OTHER, SELFPAY ==
--- NOTE | 2022-12-22 14:10 | A.OFFVIS_ITS ---
Intake Vital Signs 12/22/22 14:13 Height 4 ft 11 in Weight 323 lb 3.163 oz BMI 65.3 BP 136/76 Blood Pressure Location Rt radial Position Sitting Pulse 79 Pulse Source Pulse Oximeter Intake Visit Reasons: fibromyalgia Intake Note: Pt last seen by eDya on 07/01/22, presents today for follow up. Follows with [facility] for her knee pains. Business Continuity Planning Director Required: Yes Business Continuity Planning Director Language: Glazier Stained Glass Name: Amadeo [id number] Information Interpreted: non-clinical & clinical Accompanied by: Self / Same As Patient Allergies levofloxacin [From LEVAQUIN] Allergy (Intermediate, Verified 12/22/22 14:15) DIZZINESS topiramate Allergy (Intermediate, Verified 12/22/22 14:15) palpitations BuPROPion HCl Allergy (Intermediate, Uncoded 12/22/22 14:15) palpitations Phentermine HCl Allergy (Intermediate, Uncoded 12/22/22 14:15) uncontrolled hypertension Medication List - Last Reconciled 12/22/22 by Andrey Tapia MD albuterol sulfate 3 mg inhalation QID PRN albuterol sulfate 90 mcg/actuation (Ventolin HFA) 1 inh inhalation QID atenolol 100 mg PO DAILY 90 days buspirone 5 mg PO BID calcium carbonate-vitamin D3 500 mg-10 mcg (400 unit) (Calcium 500 With D) 1 tab PO DAILY 90 days cetirizine 10 mg PO DAILY PRN famotidine 40 mg PO BEDTIME flecainide 50 mg PO BID 90 days fluticasone propion-salmeterol 500-50 mcg/dose (Advair Diskus) ea inhalation fluticasone propionate 50 mcg/actuation (Flonase Allergy Relief) 1 spray intranasal DAILY 30 days fluticasone propionate 110 mcg/actuation (Flovent HFA) 2 puffs inhalation BID incontinence pad, liner, disp (Pads For Women) Use 8 pad daily ipratropium bromide 2 sprays intranasal Q8H PRN lidocaine 5% 1 patch topical DAILY lidocaine 5% 1 patch topical DAILY linaclotide (Linzess) 72 mcg PO QAM losartan 100 mg PO DAILY miscellaneous medical supply 1 ea miscellaneous DAILY montelukast 10 mg PO DAILY omega-3 fatty acids (Fish Oil Concentrate) 1,000 mg PO DAILY omeprazole 40 mg PO DAILY rivaroxaban (Xarelto) 20 mg PO DAILY@1700 tramadol 50 mg PO BID PRN HPI HPI Comments History of Present Illness Details This is 57-year-old morbidly obese female with generalized osteoart hritis and fibromyalgia who returns for follow-up. States that she feels about the same overall. States that she takes tramadol 2 to 3 times a week as needed for pains. [facility] Medical History HTN (hypertension) Abnormal nuclear cardiac imaging test Atrial fibrillation with rapid ventricular response DUB (dysfunctional uterine bleeding) Otitis media Postmenopausal bleeding Diarrhea Epigastric pain Dysuria Urge urinary incontinence B12 deficiency Panic attacks Sleep apnea with use of continuous positive airway pressure (CPAP) Arthritis Anxiety Depression Afib Asthma Chronic gastritis Hepatic steatosis Fibromyalgia Surgical History Tubal ligation status H/O colonoscopy History of esophagogastroduodenoscopy (EGD) History of cholecystectomy History of section Family History Father CVA (cerebral vascular accident) Colon cancer CAD (coronary artery disease) Mother Cancer of unknown origin Social History Household Members: None Housing: Apartment Alcohol intake: never Patient Tobacco Use Status: Never used Tobacco e-Cigarette/Vaping Use: Never Used Second Hand Smoke Exposure: No service: No Current occupational status: disabled Cognitive needs: Yes (cane) Hearing needs: No Vision needs: Yes (glasses) Female Reproductive History Menstrual Age of Menarche: 14 Review of Systems [facility] [place] Reports back pain, Reports myalgias and Reports arthralgias Physical Exam Vital Signs: Last Vital Signs Pulse 79 12/22/22 14:13 BP 136/76 12/22/22 14:13 BMI result Body Mass Index 65.3 Const General: cooperative, healthy appearing and comfortable Nutritional Appearance: obese morbidly obese Orientation/consciousness: patient oriented x3 Limitations: ambulation with cane HEENT Head: Yes normocephalic and Yes atraumatic Resp Effort & Inspection: normal respiratory effort and able to speak in complete sentences Skin General skin exam: no rashes or lesions noted Neuro General: patient oriented x3 Extrem Other: Multiple fibromyalgia tender points Normal nailfold capillaroscopy No active synovitis Assessment & Plan Assessment & Plan (1) Fibromyalgia: Code(s): M79.7 - Fibromyalgia Plan: 57-year-old morbidly obese female with fibromyalgia and generalized osteoarthritis presents for follow-up. Symptoms about the same overall. She takes tramadol 50 mg 2 to 3 times a week. Can continue with current tramadol use. Follow-up with other providers. follow-up in 6 months Plan I spent 15 minutes reviewing patient's chart, evaluating patient, counseling patient and documenting in the chart Coding Level of Care Code Est Pt Level 3 (62923) Diagnoses Fibromyalgia M79.7
[2022-12-22 14:13] VITALS: BP 136/76; PULSE 79; BMI 65.3
== END 2022-12-22 14:30 | disposition home or self-care (01) ==
PROVIDERS: PCP Internal Medicine; Visit Provider Student in an Organized Health Care Education/Training Program
DX: M79.7 Fibromyalgia (principal)
CPT/HCPCS: 99213

== ENCOUNTER → 2022-12-22 13:56 | Outpatient (BNVA) | payer OTHER, SELFPAY | PROVIDERS: PCP Internal Medicine; Visit Provider Student in an Organized Health Care Education/Training Program | DX: M79.7 Fibromyalgia (principal) | CPT/HCPCS: 99212 ==

== ENCOUNTER 2023-01-26 10:48 | Outpatient (AMB) | payer OTHER, SELFPAY ==
[2023-01-26 10:54] VITALS: BP 140/70; PULSE 65; BMI 65.0
--- NOTE | 2023-01-26 10:54 | A.OFFVIS_ITS ---
Intake Vital Signs 01/26/23 10:54 Height 4 ft 11 in Weight 321 lb 13.998 oz BMI 65.0 BP 140/70 H Blood Pressure Location Lt radial Position Sitting Pulse 65 Intake Visit Reasons: 6 mth f/up w/ ekg Intake Note: 6 mnth f/up pt its fine Construction Engineering Manager Required: Yes Construction Engineering Manager Name: angela/cyracom Accompanied by: Self / Same As Patient Allergies levofloxacin [From LEVAQUIN] Allergy (Intermediate, Verified 01/26/23 10:58) DIZZINESS topiramate Allergy (Intermediate, Verified 01/26/23 10:58) palpitations BuPROPion HCl Allergy (Intermediate, Uncoded 12/22/22 14:15) palpitations Phentermine HCl Allergy (Intermediate, Uncoded 12/22/22 14:15) uncontrolled hypertension Medication List - Last Reconciled 01/26/23 by Suleman Rosales MD albuterol sulfate 3 mg inhalation QID PRN albuterol sulfate 90 mcg/actuation (Ventolin HFA) 1 inh inhalation QID atenolol 100 mg PO DAILY 90 days buspirone 5 mg PO BID calcium carbonate-vitamin D3 500 mg-10 mcg (400 unit) (Calcium 500 With D) 1 tab PO DAILY 90 days famotidine 40 mg PO BEDTIME flecainide 50 mg PO BID 90 days fluticasone propion-salmeterol 500-50 mcg/dose (Advair Diskus) ea inhalation fluticasone propionate 50 mcg/actuation (Flonase Allergy Relief) 1 spray intranasal DAILY 30 days fluticasone propionate 110 mcg/actuation (Flovent HFA) 2 puffs inhalation BID incontinence pad, liner, disp (Pads For Women) Use 8 pad daily ipratropium bromide 2 sprays intranasal Q8H PRN lidocaine 5% 1 patch topical DAILY lidocaine 5% 1 patch topical DAILY linaclotide (Linzess) 72 mcg PO QAM losartan 100 mg PO DAILY miscellaneous medical supply 1 ea miscellaneous DAILY montelukast 10 mg PO DAILY omega-3 fatty acids (Fish Oil Concentrate) 1,000 mg PO DAILY omeprazole 40 mg PO DAILY rivaroxaban (Xarelto) 20 mg PO DAILY@1700 tramadol 50 mg PO DAILY PRN HPI HPI Comments History of Present Illness Details Christiane comes for follow-up. History was obtained with help of complaint clerk. Patient was evaluated by bariatric surgery for gastric balloon but was not considered a candidate for the same and feels like she would be a candidate for sleeve gastrectomy. Patient has not had any prolonged irregular heartbeat or palpitations. No bleeding issues or neurologic events. She says she has been suffering from asthma which has been her main issue at this point time. She has denies any exertional chest pain or shortness of breath. Uses CPAP every night. Blood pressures been generally well controlled. [facility] Medical History HTN (hypertension) Abnormal nuclear cardiac imaging test Atrial fibrillation with rapid ventricular response DUB (dysfunctional uterine bleeding) Otitis media Postmenopausal bleeding Diarrhea Epigastric pain Dysuria Urge urinary incontinence B12 deficiency Panic attacks Sleep apnea with use of continuous positive airway pressure (CPAP) Arthritis Anxiety Depression Afib Asthma Chronic gastritis Hepatic steatosis Fibromyalgia Surgical History Tubal ligation status H/O colonoscopy History of esophagogastroduodenoscopy (EGD) History of cholecystectomy History of section Family History Father CVA (cerebral vascular accident) Colon cancer CAD (coronary artery disease) Mother Cancer of unknown origin Social History Household Members: None Housing: Apartment Alcohol intake: never Patient Tobacco Use Status: Never used Tobacco e-Cigarette/Vaping Use: Never Used Second Hand Smoke Exposure: No service: No Current occupational status: disabled Cognitive needs: Yes (cane) Hearing needs: No Vision needs: Yes (glasses) Female Reproductive History Menstrual Age of Menarche: 14 Review of Systems Const Reports chills, Reports fatigue, Reports fever(s), Reports frequent falls, Reports weakness, Reports weight gain and Reports weight loss ENT Reports dizziness Card Reports chest pain, Reports leg edema, Reports lightheadedness, Reports palpitations, Reports dyspnea and Reports dyspnea on exertion Resp Reports cough, Reports dyspnea and Reports dyspnea on exertion GI Reports hematochezia Musc Reports abnormal gait, Reports muscle weakness, Reports numbness, Reports rad iating pain into limb and Reports tingling Neuro Reports abnormal gait, Reports dizziness, Reports frequent falls, Reports numbness, Reports tingling and Reports weakness Endo Reports fatigue and Reports palpitations Physical Exam Vital Signs: Last Vital Signs Pulse 65 01/26/23 10:54 BP 140/70 H 01/26/23 10:54 BMI result Body Mass Index 65.0 Const General: cooperative, comfortable and no acute distress Nutritional Appearance: obese morbidly obese Orientation/consciousness: patient oriented x3 Neck Neck: Yes trachea midline, Yes supple and Yes no JVD Chest Chest palpation & inspection: normal inspection of the chest Resp Effort & Inspection: normal respiratory effort Auscultation: clear to auscultation bilaterally and diminished lung sounds Cardio Jugular venous distension: no JVD Rate: regular rate Rhythm: regular rhythm Heart sounds: S1 normal heart sound present and S2 normal heart sound present GI Inspection: Yes Abdominal panniculus present and Yes obesity Auscultation: normal bowel sounds Skin General skin exam: no rashes or lesions noted Neuro General: patient oriented x3 Extrem General: Yes no clubbing, cyanosis or edema Office Procedures EKG Details: EKG shows normal sinus rhythm with PAC with aberrant conduction otherwise normal EKG [id number], Complete Assessment & Plan Assessment & Plan (1) Paroxysmal atrial fibrillation: Code(s): I48.0 - Paroxysmal atrial fibrillation Plan: Patient with highly symptomatic paroxysmal atrial fibrillation without any overt clinical recurrence at this point time. Has done well with rhythm control approach will continue pursue rhythm control approach. Continue flecainide therapy along with AV ridge blocking agent with atenolol.. Importance of rhythm control was discussed importance of compliance with medication was discussed if she has intermittent symptoms of palpitations a most likely related to PACs. Continue CPAP therapy. She would benefit from aggressive weight loss program. Continue aggressive control of blood pressure. Continue full oral anticoagulation, currently on Xarelto 20 mg daily. Semi annual renal function test should be pursued. High risk for recurrent atrial fibrillation. (2) CAD (coronary artery disease): Code(s): I25.10 - Atherosclerotic heart disease of [place] coronary artery without angina pectoris Plan: Nonobstructive CAD without any obvious symptoms of angina. Continue aggressive risk factor modification. Blood pressure is currently well optimized currently on full oral anticoagulation will avoid low-dose aspirin therapy. Target goal blood pressure less than 130/84. Should be on statin therapy with target goal LDL less than 70 mg/dL. (3) HTN (hypertension): Code(s): I10 - Essential (primary) hypertension Plan: Hypertension which is currently well optimized advised to monitor blood pressure at home maintain a log. Goal blood pressure less than 130/84. Low-salt diet was discussed continue CPAP therapy. Follow up in the clinic in 6 months for EKG in 1 year with me. Thank you for allowing me to partake in her care Coding Level of Care Code Est Pt Level 4 (33757) Diagnoses Paroxysmal atrial fibrillation I48.0 CAD (coronary artery disease) I25.10 HTN (hypertension) I10 CPT Codes EKG - CPT: 99316-[id number], Complete ([id number])
== END 2023-01-26 11:59 | disposition home or self-care (01) ==
PROVIDERS: PCP Internal Medicine; Visit Provider Internal Medicine Cardiovascular Disease
DX: I48.0 Paroxysmal atrial fibrillation (principal); I25.10 Atherosclerotic heart disease of native coronary artery without angina pectoris; I10 Essential (primary) hypertension
CPT/HCPCS: 93010; 99214

== ENCOUNTER → 2023-01-26 10:48 | Outpatient (BNVA) | payer OTHER, SELFPAY | PROVIDERS: PCP Internal Medicine; Visit Provider Internal Medicine Cardiovascular Disease | DX: I48.0 Paroxysmal atrial fibrillation (principal); I25.10 Atherosclerotic heart disease of native coronary artery without angina pectoris; I10 Essential (primary) hypertension | CPT/HCPCS: 93005; 99212 ==

== ENCOUNTER 2023-02-12 09:48 | Emergency (ER) | payer OTHER, SELFPAY ==
--- NOTE | ~2023-02-12 | US_ITS ---
EXAMINATION: US PELVIS CLINICAL INFORMATION: Right-sided abdominal pain x2 days. Evaluate for torsion. COMPARISON: None available. TECHNIQUE: Ultrasound of the pelvis is performed using both transabdominal and transvaginal transducers along with Doppler. Transvaginal imaging is performed due to inadequate visualization transabdominally. FINDINGS: Uterus: The uterus is anteverted, anteflexed and measures 11.0 x 3.0 8.8 cm The double wall endometrial thickness is 0.1 cm. The uterus is smooth in contour and has normal myometrial echogenicity. No visible fibroid. Adnexa: Both ovaries are visualized. There is normal color flow to the adnexa. There is no ovarian torsion. There is no pelvic ascites or fluid collection. Right ovary measures 5.3 x 3.0 x 3.9 cm and volume 32.4 mL. There is a complex hypoechoic solid structure measuring 3.1 x 2.7 [address] there is small bowel loops seen adjacent to right ovary and hence explains ultrasound findings. A complex ovarian cyst or mass cannot be entirely excluded. On CT there is a tubular structure extending from ovary to the IVC with adjacent fat stranding suspicious for ovarian thrombosis or thrombophlebitis resulting in fat stranding. Left ovary measures 2.7 x 1.7 x 2.0. CM. The transabdominal imaging was limited The Doppler imaging of pelvis was not performed due to limitation. There is a small amount of free fluid in the cul-de-sac. US/US pelvic and transvaginal IMPRESSION: Enlarged right ovary. There is a questionable solid lesion adjacent right ovary most likely adjacent small bowel is surrounding as visualized on the CT performed earlier today. A complex cyst or mass adjacent ovary cannot be entirely excluded. A repeat CT or ultrasound in 1-2 weeks is recommended. There is tubular structure seen on CT emanating from left ovary and extending to IVC may represent ovarian vein thrombosis or thrombophlebitis. Small amount of free fluid in the cul-de-sac.
--- NOTE | ~2023-02-12 | CT_ITS ---
EXAMINATION: CT ABDOMEN AND PELVIS WITH CONTRAST CLINICAL INFORMATION: Right lower quadrant abdominal pain COMPARISON: 12/15/2020 TECHNIQUE: Multidetector volumetric images were obtained from the superior aspect of the liver through the pubic symphysis following administration 85 mL of Omnipaque 350 intravenous contrast. Sagittal and coronal reformatted images were obtained on the technologist's workstation. Oral contrast: No This CT examination was performed using dose optimization techniques as appropriate, variously including the following: *Automated exposure control *Adjustment of mA and/or kV according to patient size (this includes techniques or standardized protocols for targeted exams where dose is matched to indication/reason for exam; i.e. extremities or head) *Use of iterative reconstruction technique DLP: 1638 mGy-cm FINDINGS: It should be noted this case was assigned to me at 2:27 PM while I was engaged in diagnostic mammography and notified [facility] of diagnostic mammographic responsibilities LUNG BASES: The visualized lung bases are unremarkable. LIVER, GALLBLADDER, AND BILIARY TREE: The liver is normal in size, shape, and attenuation. No focal hepatic lesion or biliary ductal dilatation is present. Status post cholecystectomy PANCREAS: Unremarkable. SPLEEN: Unremarkable. ADRENAL GLANDS: Unremarkable. KIDNEYS AND URETERS: The kidneys are normal in size, shape, and attenuation. No hydronephrosis, hydroureter, or calculi seen. No perinephric stranding. BLADDER: Decompressed bladder appears mildly thick-walled and irregular GASTROINTESTINAL TRACT: The bowel pattern appears to be nonobstructing. ABDOMINAL WALL: No significant hernia is appreciated. LYMPH NODES: Normal. VASCULAR: There is a prominent right ovarian vein with soft tissue stranding around it. This emanates into the pelvis around appears to be increase volume of ovarian tissue.. The ovarian vein is hyperdense and again increase variant tissue on the right approximately 4.7 x 2.5 x 2.2 cm.. A few cuts there may be some filling defect within the vein. For example image 54 of series 2 Mild free fluid extending inferior to this area.. As described there is increasing density in the right adnexa/ovarian region. PELVIC VISCERA: As described above OSSEOUS STRUCTURES: Unremarkable. CT/CT abdomen pelvis w IV con IMPRESSION: This exam is abnormal. There is felt to be hyperenhancement and enlargement of the right ovarian vein with soft tissue stranding around it. Abnormal vein leads into an enlarging right adnexal ovarian region. Certainly torsion would be a consideration here. Infection would need to be considered. On a few cuts cannot exclude mild foci of low-attenuation within this enhancing vein and therefore an element of thrombus within the vein cannot be excluded. Limited study as this is not a dedicated CTA exam. Recommend ultrasound. Other findings are as described above. This critical result was discussed with Dr. Terrell at 3:32 PM on 02/12/2023 and it was ascertained that the content and urgency of the report was understood at the time of direct communication. Fleischner guidelines were followed.
[2023-02-12 10:02] VITALS: BP 151/75; PULSE 68; RESP 18; TEMP 36.2; O2SAT 95; BMI 64.6
[2023-02-12 10:31] LABS: MANUAL DIFF FLAG NO
[2023-02-12 10:33] LABS: Basophils Percent Auto 0.2 % (0-2); Eosinophils Absolute Auto 0.1 X10*3/uL (0.0-0.4); Eosinophils Percent Auto 0.6 % (0-4); Hemoglobin 12.9 g/dl (12.0-16.0); Imm Gran Abs Auto 0.03 X10*3/uL (0.00-0.03); Imm Gran Pct Auto 0.3 % (0.0-0.4); Lymphocytes Absolute Auto 2.6 X10*3/uL (1.2-4.9); Lymphocytes Percent Auto 27.4 % (20-40); Mean Corpuscular HGB Conc 32.3 g/dl (31.0-35.0); Mean Corpuscular Hemoglobin 29.5 pg (27.0-33.0); Mean Corpuscular Volume 91.3 fL (80.0-98.0); Mean Platelet Volume 11.3 fL (9.4-12.3); Monocytes Absolute Auto 0.8 X10*3/uL (0.1-1.2); Monocytes Percent Auto 8.2 % (2-11); Neutrophils Percent Auto 63.3 % (45-73); Platelet Count 208 X10*3/uL (160-400); Red Blood Count 4.38 X10*6/uL (4.20-5.50); Red Cell Distribution Width 13.8 % (11.0-16.0); White Blood Count 9.4 X10*3/uL (4.8-10.8)
[2023-02-12 10:48] LABS: Alanine Aminotransferase 11 U/L (0-31); Albumin Level 3.9 g/dL (3.5-5.0); Alkaline Phosphatase 107 U/L (39-117); Anion Gap 13 (12-20); Aspartate Amino Transferase 14 U/L (5-31); Bilirubin Total 0.7 mg/dL (0.0-1.0); Blood Urea Nitrogen 8 mg/dL (9-16); Calcium 9.1 mg/dL (8.4-10.2); Carbon Dioxide 23 mmol/L (22-29); Chloride 107 mmol/L (96-108); Creatinine Clr Calc Pharmacy 105.4; Estimated Glomerular Filt Rate > 60; Glucose Random 91 mg/dL (60-115); Lipase 7 U/L (8-78); Potassium 3.6 mmol/L (3.3-5.1); Sodium 139 mmol/L (135-145); Total Protein 7.8 g/dL (6.5-8.0)
--- NOTE | 2023-02-12 10:54 | ED.ABDPAIN ---
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 No fevers but had some chills. No diarrhea. Reports pain worsened last night. Has no hx of renal colic. MD elicited complaint: abdominal pain and flank pain Pertinent past history: none Onset (ago): day(s) (2) Pain Consistency: constant Location: RLQ and R flank Severity: moderate Quality: stabbing and aching Radiation: R flank Migration to: RLQ Exacerbating factors: nothing Relieving factors: nothing Associated symptoms: nausea and dysuria Related Data Home Medications Medication Instructions Recorded Confirmed montelukast 10 mg tablet 10 mg PO DAILY 01/18/20 01/26/23 omega-3 fatty acids 1,000 mg 1,000 mg PO DAILY 08/23/20 01/26/23 capsule (Fish Oil Concentrate) albuterol sulfate 2.5 mg/3 mL 3 mg inhalation QID PRN Wheezing 09/19/20 01/26/23 (0.083 %) solution for nebulization buspirone 5 mg tablet 5 mg PO BID 07/16/21 01/26/23 albuterol sulfate 90 mcg/actuation 1 inh inhalation QID 06/02/22 01/26/23 aerosol inhaler (Ventolin HFA) fluticasone 500 mcg-salmeterol 50 ea inhalation 06/16/22 01/26/23 mcg/dose blistr powdr for inhalation (Advair Diskus) Previous Rx's Medication Instructions Recorded miscellaneous medical supply 1 ea miscellaneous DAILY #1 ea 12/31/21 linaclotide 72 mcg capsule 72 mcg PO QAM #30 caps 06/02/22 (Linzess) lidocaine 5 % topical patch 1 patch topical DAILY #30 ea 07/01/22 atenolol 100 mg tablet 100 mg PO DAILY 90 days #90 tabs 07/22/22 flecainide 50 mg tablet 50 mg PO BID 90 days #180 tabs 07/22/22 rivaroxaban 20 mg tablet (Xarelto) 20 mg PO DAILY@1700 #90 tabs 07/22/22 incontinence pad, liner, disp #240 ea 08/06/22 (Pads For Women) calcium carbonate 500 mg-vitamin 1 tab PO DAILY 90 days #90 tabs 08/10/22 D3 10 mcg (400 unit) tablet (Calcium 500 With D) omeprazole 40 mg capsule,delayed 40 mg PO DAILY #90 caps 09/15/22 release famotidine 40 mg tablet 40 mg PO BEDTIME #90 tabs 11/24/22 fluticasone propionate 50 1 spray intranasal DAILY 30 days 12/07/22 mcg/actuation nasal #16 grams spray,suspension (Flonase Allergy Relief) losartan 100 mg tablet 100 mg PO DAILY #90 tabs 12/10/22 fluticasone propionate 110 2 puff inhalation BID #12 grams 01/15/23 mcg/actuation HFA aerosol inhaler (Flovent HFA) ipratropium bromide 21 mcg (0.03 2 spray intranasal Q8H PRN Allergy 01/15/23 %) nasal spray Symptoms #30 mL lidocaine 5 % topical patch 1 patch topical DAILY #30 patches 01/15/23 tramadol 50 mg tablet 50 mg PO DAILY PRN pain #30 tabs 01/15/23 Allergies Allergy/AdvReac Type Severity Reaction Status Date / Time levofloxacin [From LEVAQUIN] Allergy Intermediate DIZZINESS Verified 02/12/23 10:11 topiramate Allergy Intermediate palpitation Verified 02/12/23 10:11 s BuPROPion HCl Allergy Intermediate palpitation Uncoded 02/12/23 10:11 s Phentermine HCl Allergy Intermediate uncontrolled Uncoded 02/12/23 10:11 hypertension Review of Systems Review of Systems Constitutional : No Weight loss, No Fever, pos Chills ENT/Mouth : No sore throat, No Rhinorrhea Eyes: No Swelling, No Redness Cardiovascular : No Chest Pain, No SOB, NoEdema Respiratory : No Cough, No Sputum, No Wheezing Gastrointestinal : Positive Nausea, no Vomiting, no Diarrhea, positive abdominal Pain, No Hematochezia, No Melena Genitourinary : pos Dysuria, No Urinary Frequency, No Hematuria, No Urgency Musculoskeletal : No joint pain, No Myalgias, No Joint Swelling Skin : No Skin Lesions, No rash Neuro : No Weakness, No Numbness, No Dizziness, No Headache Psych : No Anxiety/Panic, No Depression Heme/Lymph: No Bruising, No Lymphadenopathy Endocrine : No Polyuria, No Polydipsia All other systems reviewed and are negative. [facility] Past Medical History Attestation statement: The following information was validated with the patient. Source: old records reviewed Medical History HTN (hypertension) Abnormal nuclear cardiac imaging test Atrial fibrillation with rapid ventricular response DUB (dysfunctional uterine bleeding) Otitis media Postmenopausal bleeding Diarrhea Epigastric pain Dysuria Urge urinary incontinence B12 deficiency Panic attacks Sleep apnea with use of continuous positive airway pressure (CPAP) Arthritis Anxiety Depression Afib Asthma Chronic gastritis Hepatic steatosis Fibromyalgia Surgical History Tubal ligation status H/O colonoscopy History of esophagogastroduodenoscopy (EGD) History of cholecystectomy History of section Family History Family History Father CVA (cerebral vascular accident) Colon cancer CAD (coronary artery disease) Mother Cancer of unknown origin Social History Social History Household Members: None Housing: Apartment Alcohol intake: never Patient Tobacco Use Status: Never used Tobacco Smoked in Last 30 Days: No e-Cigarette/Vaping Use: Never Used Second Hand Smoke Exposure: No Use of substances other than those prescribed or required for medical reasons: No Advance Directives: No Advance Directives Information Provided: No Patient : No service: No Current occupational status: disabled Cognitive needs: Yes (cane) Hearing needs: No Vision needs: Yes (glasses) Physical Exam ED Vital Signs: Vital Signs - 24 hr 02/12/23 10:02 02/12/23 11:00 02/12/23 14:43 Temperature 97.1 F 98.2 F 98.9 F Pulse Rate 68 74 72 Respiratory Rate 18 18 16 Blood Pressure 151/75 H 143/56 H 166/69 H Pulse Oximetry 95 97 96 Oxygen Delivery Method Room Air Room Air Room Air BMI result Body Mass Index 64.6 Appearance: Alert. Oriented X3. No acute distress. Eyes: Pupils equal, round and reactive to light. ENT: Pharynx normal. Neck: Normal inspection. Neck supple. CVS: Normal heart rate and rhythm. Pulses normal. Respiratory: No respiratory distress. Breath sounds normal. Abdomen: Soft and moderate RLQ ttp no rebound patient is obese Skin: Skin warm and dry. Normal skin color. Normal skin turgor. Extremities: No lower extremity edema. No calf ttp Neuro: Oriented X 3. No motor deficit. No sensory deficit. Course Course Course Narrative: signed out to Dr. Rowe pending US Medical Decision Making Medical Decision Making MDM Narrative: 57 yo female with PMH of NAFLD, asthma, CAD, HTN, obesity, NINI, PAF on xarelto , GERD here with RLQ and R flank ttp with some dysuria no fevers at this time will need labs, UA, CT scan for renal colic, appendicitis, IV morphine for pain ordered. Differential Diagnosis Differential Diagnoses: The differential diagnosis associated with the presentation includes renal colic, appendicitis, viral syndrome Admission/Observation Consideration of admission/observation: Escalation of care including admission/observation considered Lab Data [facility] Lab Attestation statement: I reviewed the patient's lab results. 02/12/23 10:17 02/12/23 10:17 Labs: Lab Results 02/12/23 02/12/23 Range/Units 10:17 10:45 WBC 9.4 (4.8-10.8) X10*3/uL RBC 4.38 (4.20-5.50) X10*6/uL Hgb 12.9 (12.0-16.0) g/dl Hct 40.0 (37.0-47.0) % MCV 91.3 (80.0-98.0) fL MCH 29.5 (27.0-33.0) pg MCHC 32.3 (31.0-35.0) g/dl RDW 13.8 (11.0-16.0) % Plt Count 208 (160-400) X10*3/uL MPV 11.3 (9.4-12.3) fL Immature Gran % (Auto) 0.3 (0.0-0.4) % Neut % (Auto) 63.3 (45-73) % Lymph % (Auto) 27.4 (20-40) % [place] % (Auto) 8.2 (2-11) % Eos % (Auto) 0.6 (0-4) % Baso % (Auto) 0.2 (0-2) % Lymph # (Auto) 2.6 (1.2-4.9) X10*3/uL [place] # (Auto) 0.8 (0.1-1.2) X10*3/uL Eos # (Auto) 0.1 (0.0-0.4) X10*3/uL Baso # (Auto) 0.0 (0.0-0.2) X10*3/uL Abs Immat Gran (auto) 0.03 (0.00-0.03) X10*3/uL Absolute Neuts (auto) 6.0 (2.0-8.3) x10*3/uL Absolute Nucleated RBC 0.000 (0.0-0.012) X10*3/uL Nucleated RBC % (auto) 0.0 (0.0-0.2) /100WBC Sodium 139 (135-145) mmol/L Potassium 3.6 (3.3-5.1) mmol/L Chloride 107 (96-108) mmol/L Carbon Dioxide 23 (22-29) mmol/L Anion Gap 13 (12-20) BUN 8 L (9-16) mg/dL Creatinine 0.79 (0.5-1.4) mg/dL Estim Creat Clear Calc 105.4 Estimated GFR > 60 Random Glucose 91 (60-115) mg/dL Calcium 9.1 (8.4-10.2) mg/dL Total Bilirubin 0.7 (0.0-1.0) mg/dL AST 14 (5-31) U/L ALT 11 (0-31) U/L Alkaline Phosphatase 107 (39-117) U/L Troponin I High Sens < 2.7 (<3.5-17.0) ng/L Total Protein 7.8 (6.5-8.0) g/dL Albumin 3.9 (3.5-5.0) g/dL Lipase 7 L (8-78) U/L Urine Color Yellow Urine Appearance Clear Urine pH 5.5 (5.0-9.0) Ur Specific [place] 1.015 (1.005-1.025) Urine Protein Negative (Neg-Trace) mg/dL Urine Glucose (UA) Negative (Negative) mg/dL Urine Ketones Negative (Negative) mg/dL Urine Blood Trace H (Negative) Urine Nitrite Negative (Negative) Ur Leukocyte Esterase Small (1+) H (Negative) Urine RBC 0-2 (0-2) /HPF Urine WBC 21-50 H (0-5) /HPF Ur Squamous Epith Cells 0-2 (0-2) /HPF Urine Bacteria 1+ (None Seen) Hyaline Casts 0-2 (0-2) /LPF Independent Interpretation I performed an independent interpretation of an: EKG and CT Scan (abnormal R adnexa ovary) Interpretation: Rate: 66 Rhythm: NSR [place]: normal Normal P waves. Normal JASIEL. Normal QRS complex. ST T wave : normal no [place], inverted T wave V1 qTC: normal prior studies: no acute ischemia The study has been interpreted contemporaneously by me. . Radiology Impression Discussion of test interpretation with radiology: I discussed test interpretation with the radiologist and I have reviewed the radiologist's reading. Radiologist Impression: recommend US of R ovary External Record Review External record reviewed: Inpatient record Medications Administered Discontinued Medications Generic Name Dose Route Start Last Admin Trade Name Chidi PRN Reason Stop Dose Admin Famotidine 20 mg 02/12/23 11:04 02/12/23 12:48 Famotidine/Pf 20 Mg/2 Ml Vial IVPUSH 02/12/23 11:05 20 mg ONCE ONE Administration Iohexol 100 ml 02/12/23 13:07 02/12/23 13:07 Iohexol 350 Mg/Ml 100 Ml Infus..Btl IV 02/12/23 13:08 100 ml ONCE ONE Administration Morphine Sulfate 4 mg 02/12/23 11:03 02/12/23 12:48 Morphine Sulfate 4 Mg/Ml Cartridge IVPUSH 02/12/23 11:04 4 mg ONCE ONE Administration Protocol Discharge Plan Discharge Clinical Impression: Abdominal pain Qualifiers: Abdominal location: right lower quadrant Qualified Code(s): R10.31 - Right lower quadrant pain Patient Disposition: Still a Patient Instructions: Abdominal Pain (ED) Prescriptions: No Action (DME) Pads For Women Pad See Rx Instructions .ROUTE .MEDSUPPLY Qty: 240 11RF Rx Instructions: Use 8 pad daily calcium carbonate-vitamin D3 [Calcium 500 With D] 500 mg-10 mcg (400 unit) tablet 1 tab PO DAILY 90 Days Qty: 90 1RF omeprazole 40 mg capsule,delayed release(DR/EC) 40 mg PO DAILY Qty: 90 2RF famotidine 40 mg tablet 40 mg PO BEDTIME Qty: 90 3RF fluticasone propionate [Flonase Allergy Relief] 50 mcg/actuation spray,suspension 1 spray intranasal DAILY 30 Days Qty: 16 1RF Rx Instructions: administer into each nostril losartan 100 mg tablet 100 mg PO DAILY Qty: 90 1RF lidocaine 5 % adhesive patch,medicated 1 patch topical DAILY Qty: 30 4RF tramadol 50 mg tablet 50 mg PO DAILY PRN (Reason: pain) Qty: 30 1RF ipratropium bromide 21 mcg (0.03 %) spray,non-aerosol 2 spray intranasal Q8H PRN (Reason: Allergy Symptoms) Qty: 30 3RF fluticasone propionate [Flovent HFA] 110 mcg/actuation HFA aerosol inhaler 2 puff inhalation BID Qty: 12 3RF buspirone 5 mg tablet 5 mg PO BID miscellaneous medical supply Misc 1 ea miscellaneous DAILY Qty: 1 0RF Rx Instructions: nebulizer machine with tubing fluticasone propion-salmeterol [Advair Diskus] 500-50 mcg/dose blister with device inhalation montelukast 10 mg tablet 10 mg PO DAILY albuterol sulfate 2.5 mg /3 mL (0.083 %) solution for nebulization 3 mg inhalation QID PRN (Reason: Wheezing) omega-3 fatty acids [Fish Oil Concentrate] 1,000 mg capsule 1,000 mg PO DAILY albuterol sulfate [Ventolin HFA] 90 mcg/actuation HFA aerosol inhaler 1 inh inhalation QID Linzess 72 mcg capsule 72 mcg PO QAM Qty: 30 6RF Xarelto 20 mg tablet 20 mg PO DAILY@1700 Qty: 90 3RF Rx Instructions: must administer with evening meal flecainide 50 mg tablet 50 mg PO BID 90 Days Qty: 180 3RF atenolol 100 mg tablet 100 mg PO DAILY 90 Days Qty: 90 3RF lidocaine 5 % adhesive patch,medicated 1 patch topical DAILY Qty: 30 0RF Rx Instructions: leave on most painful area for up to 12 hrs then take off for 12 hours
[2023-02-12 11:00] VITALS: BP 143/56; PULSE 74; RESP 18; TEMP 36.8; O2SAT 97
--- NOTE | 2023-02-12 11:04 | ECG_ITS ---
Test Reason : EPI GASTRIC PAIN Blood Pressure : / mmHG Vent. Rate : 066 BPM Atrial Rate : 066 BPM P-R Int : 136 ms QRS Dur : 084 ms QT Int : 422 ms P-R-T Axes : 013 013 016 degrees QTc Int : 442 ms Normal sinus rhythm Normal ECG When compared with ECG of 14-JUL-2022 12:12, No significant change was found Referred By: Susana Terrell Electronically Signed By:DEVIN GARCIA
[2023-02-12 11:08] LABS: Appearance Urine Clear; Color Urine Yellow; Glucose Urine UA Negative (Negative); Leukocyte Esterase Urine Small (1+) (Negative); Nitrite Urine Negative (Negative); PH 5.5 (5.0-9.0); Specific Gravity - Urine 1.015 (1.005-1.025); UMIC TRIGGER UACC YES; Urine Blood Trace (Negative); Urine Ketones Negative (Negative); Urine Protein Negative (Neg-Trace)
[2023-02-12 11:11] LABS: Bacteria Urine 1+ (None Seen); Hyaline Casts Urine 0-2 /LPF (0-2); RBC Urine 0-2 /HPF (0-2); Squamous Epithelial Cell Urine 0-2 /HPF (0-2); UACC Culture Trigger YES; WBC Urine 21-50 /HPF (0-5)
[2023-02-12 11:48] LABS: Troponin-I High Sensitivity < 2.7 ng/L (<3.5-17.0)
--- NOTE | 2023-02-12 12:13 | PC.NURSE ---
delay in medication administration and being scanned via CT d/t pt being a hard stick. this RN attempted three times w/o success. NORI granger attempted once w/o success. NORI zuleta states he will attempt to obtain IV access via ultrasound.
[2023-02-12] MEDS: Morphine Sulfate 4 MG/ML CARTRIDGE IVPUSH (12:48)
[2023-02-12] MEDS: Famotidine/PF 20 MG/2 ML VIAL IVPUSH (12:48)
--- NOTE | 2023-02-12 13:04 | PC.NURSE ---
NORI Littlejohn able to obtain IV access in the right AC. medication administered per provider order. pt currently being transported to CT at this time.
[2023-02-12] MEDS: iohexoL 350 MG/ML 100 ML INFUS..BTL IV (13:07)
[2023-02-12 14:43] VITALS: BP 166/69; PULSE 72; RESP 16; TEMP 37.2; O2SAT 96
[2023-02-12] MEDS: Ketorolac Tromethamine 15 MG/ML VIAL 10 MG IVPUSH (18:45)
--- NOTE | 2023-02-12 19:13 | ED_ITS ---
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 Mode of arrival: ambulatory Limitations: no limitations Related Data Home Medications Medication Instructions Recorded Confirmed montelukast 10 mg tablet 10 mg PO DAILY 01/18/20 01/26/23 omega-3 fatty acids 1,000 mg 1,000 mg PO DAILY 08/23/20 01/26/23 capsule (Fish Oil Concentrate) albuterol sulfate 2.5 mg/3 mL 3 mg inhalation QID PRN Wheezing 09/19/20 01/26/23 (0.083 %) solution for nebulization buspirone 5 mg tablet 5 mg PO BID 07/16/21 01/26/23 albuterol sulfate 90 mcg/actuation 1 inh inhalation QID 06/02/22 01/26/23 aerosol inhaler (Ventolin HFA) fluticasone 500 mcg-salmeterol 50 ea inhalation 06/16/22 01/26/23 mcg/dose blistr powdr for inhalation (Advair Diskus) Previous Rx's Medication Instructions Recorded miscellaneous medical supply 1 ea miscellaneous DAILY #1 ea 12/31/21 linaclotide 72 mcg capsule 72 mcg PO QAM #30 caps 06/02/22 (Linzess) lidocaine 5 % topical patch 1 patch topical DAILY #30 ea 07/01/22 atenolol 100 mg tablet 100 mg PO DAILY 90 days #90 tabs 07/22/22 flecainide 50 mg tablet 50 mg PO BID 90 days #180 tabs 07/22/22 rivaroxaban 20 mg tablet (Xarelto) 20 mg PO DAILY@1700 #90 tabs 07/22/22 incontinence pad, liner, disp #240 ea 08/06/22 (Pads For Women) calcium carbonate 500 mg-vitamin 1 tab PO DAILY 90 days #90 tabs 08/10/22 D3 10 mcg (400 unit) tablet (Calcium 500 With D) omeprazole 40 mg capsule,delayed 40 mg PO DAILY #90 caps 09/15/22 release famotidine 40 mg tablet 40 mg PO BEDTIME #90 tabs 11/24/22 fluticasone propionate 50 1 spray intranasal DAILY 30 days 12/07/22 mcg/actuation nasal #16 grams spray,suspension (Flonase Allergy Relief) losartan 100 mg tablet 100 mg PO DAILY #90 tabs 12/10/22 fluticasone propionate 110 2 puff inhalation BID #12 grams 01/15/23 mcg/actuation HFA aerosol inhaler (Flovent HFA) ipratropium bromide 21 mcg (0.03 2 spray intranasal Q8H PRN Allergy 01/15/23 %) nasal spray Symptoms #30 mL lidocaine 5 % topical patch 1 patch topical DAILY #30 patches 01/15/23 tramadol 50 mg tablet 50 mg PO DAILY PRN pain #30 tabs 01/15/23 Allergies Allergy/AdvReac Type Severity Reaction Status Date / Time levofloxacin [From LEVAQUIN] Allergy Intermediate DIZZINESS Verified 02/12/23 10:11 topiramate Allergy Intermediate palpitation Verified 02/12/23 10:11 s BuPROPion HCl Allergy Intermediate palpitation Uncoded 02/12/23 10:11 s Phentermine HCl Allergy Intermediate uncontrolled Uncoded 02/12/23 10:11 hypertension PMFSH Past Medical History Medical History HTN (hypertension) Abnormal nuclear cardiac imaging test Atrial fibrillation with rapid ventricular response DUB (dysfunctional uterine bleeding) Otitis media Postmenopausal bleeding Diarrhea Epigastric pain Dysuria Urge urinary incontinence B12 deficiency Panic attacks Sleep apnea with use of continuous positive airway pressure (CPAP) Arthritis Anxiety Depression Afib Asthma Chronic gastritis Hepatic steatosis Fibromyalgia Surgical History Tubal ligation status H/O colonoscopy History of esophagogastroduodenoscopy (EGD) History of cholecystectomy History of section Family History Family History Father CVA (cerebral vascular accident) Colon cancer CAD (coronary artery disease) Mother Cancer of unknown origin Social History Social History Household Members: None Housing: Apartment Alcohol intake: never Patient Tobacco Use Status: Never used Tobacco Smoked in Last 30 Days: No e-Cigarette/Vaping Use: Never Used Second Hand Smoke Exposure: No Use of substances other than those prescribed or required for medical reasons: No Advance Directives: No Advance Directives Information Provided: No Patient : No service: No Current occupational status: disabled Cognitive needs: Yes (cane) Hearing needs: No Vision needs: Yes (glasses) Physical Exam ED Vital Signs: Vital Signs - 24 hr 02/12/23 10:02 02/12/23 11:00 02/12/23 14:43 Temperature 97.1 F 98.2 F 98.9 F Pulse Rate 68 74 72 Respiratory Rate 18 18 16 Blood Pressure 151/75 H 143/56 H 166/69 H Pulse Oximetry 95 97 96 Oxygen Delivery Method Room Air Room Air Room Air BMI result Body Mass Index 64.6 Medications Administered Discontinued Medications Generic Name Dose Route Start Last Admin Trade Name Freq PRN Reason Stop Dose Admin Famotidine 20 mg 02/12/23 11:04 02/12/23 12:48 Famotidine/Pf 20 Mg/2 Ml Vial IVPUSH 02/12/23 11:05 20 mg ONCE ONE Administration Iohexol 100 ml 02/12/23 13:07 02/12/23 13:07 Iohexol 350 Mg/Ml 100 Ml Infus..Btl IV 02/12/23 13:08 100 ml ONCE ONE Administration Ketorolac Tromethamine 10 mg 02/12/23 18:22 02/12/23 18:45 Ketorolac Tromethamine 15 Mg/Ml Vial IVPUSH 02/12/23 18:23 10 mg ONCE ONE Administration Morphine Sulfate 4 mg 02/12/23 11:03 02/12/23 12:48 Morphine Sulfate 4 Mg/Ml Cartridge IVPUSH 02/12/23 11:04 4 mg ONCE ONE Administration Protocol Medical Decision Making Lab Data 02/12/23 10:17 02/12/23 10:17 Labs: Lab Results 02/12/23 02/12/23 Range/Units 10:17 10:45 WBC 9.4 (4.8-10.8) X10*3/uL RBC 4.38 (4.20-5.50) X10*6/uL Hgb 12.9 (12.0-16.0) g/dl Hct 40.0 (37.0-47.0) % MCV 91.3 (80.0-98.0) fL MCH 29.5 (27.0-33.0) pg MCHC 32.3 (31.0-35.0) g/dl RDW 13.8 (11.0-16.0) % Plt Count 208 (160-400) X10*3/uL MPV 11.3 (9.4-12.3) fL Immature Gran % (Auto) 0.3 (0.0-0.4) % Neut % (Auto) 63.3 (45-73) % Lymph % (Auto) 27.4 (20-40) % [place] % (Auto) 8.2 (2-11) % Eos % (Auto) 0.6 (0-4) % Baso % (Auto) 0.2 (0-2) % Lymph # (Auto) 2.6 (1.2-4.9) X10*3/uL [place] # (Auto) 0.8 (0.1-1.2) X10*3/uL Eos # (Auto) 0.1 (0.0-0.4) X10*3/uL Baso # (Auto) 0.0 (0.0-0.2) X10*3/uL Abs Immat Gran (auto) 0.03 (0.00-0.03) X10*3/uL Absolute Neuts (auto) 6.0 (2.0-8.3) x10*3/uL Absolute Nucleated RBC 0.000 (0.0-0.012) X10*3/uL Nucleated RBC % (auto) 0.0 (0.0-0.2) /100WBC Sodium 139 (135-145) mmol/L Potassium 3.6 (3.3-5.1) mmol/L Chloride 107 (96-108) mmol/L Carbon Dioxide 23 (22-29) mmol/L Anion Gap 13 (12-20) BUN 8 L (9-16) mg/dL Creatinine 0.79 (0.5-1.4) mg/dL Estim Creat Clear Calc 105.4 Estimated GFR > 60 Random Glucose 91 (60-115) mg/dL Calcium 9.1 (8.4-10.2) mg/dL Total Bilirubin 0.7 (0.0-1.0) mg/dL AST 14 (5-31) U/L ALT 11 (0-31) U/L Alkaline Phosphatase 107 (39-117) U/L Troponin I High Sens < 2.7 (<3.5-17.0) ng/L Total Protein 7.8 (6.5-8.0) g/dL Albumin 3.9 (3.5-5.0) g/dL Lipase 7 L (8-78) U/L Urine Color Yellow Urine Appearance Clear Urine pH 5.5 (5.0-9.0) Ur Specific [place] 1.015 (1.005-1.025) Urine Protein Negative (Neg-Trace) mg/dL Urine Glucose (UA) Negative (Negative) mg/dL Urine Ketones Negative (Negative) mg/dL Urine Blood Trace H (Negative) Urine Nitrite Negative (Negative) Ur Leukocyte Esterase Small (1+) H (Negative) Urine RBC 0-2 (0-2) /HPF Urine WBC 21-50 H (0-5) /HPF Ur Squamous Epith Cells 0-2 (0-2) /HPF Urine Bacteria 1+ (None Seen) Hyaline Casts 0-2 (0-2) /LPF Discharge Plan Discharge Clinical Impression: Abdominal pain Qualifiers: Abdominal location: right lower quadrant Qualified Code(s): R10.31 - Right lower quadrant pain Patient Disposition: Still a Patient Instructions: Abdominal Pain (ED) Prescriptions: No Action (DME) Pads For Women Pad See Rx Instructions .ROUTE .MEDSUPPLY Qty: 240 11RF Rx Instructions: Use 8 pad daily calcium carbonate-vitamin D3 [Calcium 500 With D] 500 mg-10 mcg (400 unit) tablet 1 tab PO DAILY 90 Days Qty: 90 1RF omeprazole 40 mg capsule,delayed release(DR/EC) 40 mg PO DAILY Qty: 90 2RF famotidine 40 mg tablet 40 mg PO BEDTIME Qty: 90 3RF fluticasone propionate [Flonase Allergy Relief] 50 mcg/actuation spray,suspension 1 spray intranasal DAILY 30 Days Qty: 16 1RF Rx Instructions: administer into each nostril losartan 100 mg tablet 100 mg PO DAILY Qty: 90 1RF lidocaine 5 % adhesive patch,medicated 1 patch topical DAILY Qty: 30 4RF tramadol 50 mg tablet 50 mg PO DAILY PRN (Reason: pain) Qty: 30 1RF ipratropium bromide 21 mcg (0.03 %) spray,non-aerosol 2 spray intranasal Q8H PRN (Reason: Allergy Symptoms) Qty: 30 3RF fluticasone propionate [Flovent HFA] 110 mcg/actuation HFA aerosol inhaler 2 puff inhalation BID Qty: 12 3RF buspirone 5 mg tablet 5 mg PO BID miscellaneous medical supply Misc 1 ea miscellaneous DAILY Qty: 1 0RF Rx Instructions: nebulizer machine with tubing fluticasone propion-salmeterol [Advair Diskus] 500-50 mcg/dose blister with device inhalation montelukast 10 mg tablet 10 mg PO DAILY albuterol sulfate 2.5 mg /3 mL (0.083 %) solution for nebulization 3 mg inhalation QID PRN (Reason: Wheezing) omega-3 fatty acids [Fish Oil Concentrate] 1,000 mg capsule 1,000 mg PO DAILY albuterol sulfate [Ventolin HFA] 90 mcg/actuation HFA aerosol inhaler 1 inh inhalation QID Linzess 72 mcg capsule 72 mcg PO QAM Qty: 30 6RF Xarelto 20 mg tablet 20 mg PO DAILY@1700 Qty: 90 3RF Rx Instructions: must administer with evening meal flecainide 50 mg tablet 50 mg PO BID 90 Days Qty: 180 3RF atenolol 100 mg tablet 100 mg PO DAILY 90 Days Qty: 90 3RF lidocaine 5 % adhesive patch,medicated 1 patch topical DAILY Qty: 30 0RF Rx Instructions: leave on most painful area for up to 12 hrs then take off for 12 hours
[2023-02-12 19:27] VITALS: BP 167/76; PULSE 72; RESP 20; TEMP 36.6; O2SAT 94
[2023-02-12] MEDS: Morphine Sulfate Immed Release 15 MG TABLET PO (19:56)
[2023-02-12] MEDS: Acetaminophen 325 MG TABLET 975 MG PO (19:56)
[2023-02-12] MEDS: cephALEXin 500 MG CAPSULE 1000 MG PO (19:56)
== END 2023-02-12 20:44 | disposition home or self-care (01) ==
PROVIDERS: Emergency Medicine; Emergency Provider Emergency Medicine; PCP Internal Medicine
DX: R10.31 Right lower quadrant pain (principal); I10 Essential (primary) hypertension; I48.0 Paroxysmal atrial fibrillation; K21.9 Gastro-esophageal reflux disease without esophagitis; J45.909 Unspecified asthma, uncomplicated; Z79.01 Long term (current) use of anticoagulants
CPT/HCPCS: 36415; 74177; 76830; 76856; 80053; 81001; 83690; 84484; 85025; 87086; 87088; 87186; 93005; 93975; 96374; 96375; 99284; 99285; J1885; J2270; Q9967

== ENCOUNTER → 2023-02-12 11:04 | Outpatient (BNV) | payer OTHER, SELFPAY | PROVIDERS: Emergency Provider Emergency Medicine; PCP Internal Medicine; Visit Provider Internal Medicine | DX: R10.13 Epigastric pain (principal) | CPT/HCPCS: 93010 ==

== ENCOUNTER 2023-02-18 10:21 | Outpatient (REF) | payer OTHER, SELFPAY ==
--- NOTE | ~2023-02-18 | MM_ITS ---
EXAMINATION: MM SCREENING DIGITAL BREAST TOMOSYNTHESIS, BILATERAL CLINICAL INFORMATION: Screening. Asymptomatic. COMPARISON: Mammography: This study is compared with prior exams dating back to 2017. TECHNIQUE: Digital breast tomosynthesis is performed in both the craniocaudal and mediolateral oblique views along with computer-aided detection (CAD). Synthesized 2D images are generated from the tomosynthesis. FINDINGS: The breasts are almost entirely fatty (ACR BI-RADS breast composition Category a). There are no significant masses, abnormal calcifications, or other abnormalities. MM/MM tomosynthesis screening BI IMPRESSION: No mammographic evidence of malignancy. ASSESSMENT: BI-RADS BI-RADS 1 - Negative RECOMMENDATION: Routine annual mammography screening. 1 year F/U This examination should not preclude the clinical evaluation of a suspicious palpable abnormality. This patient's information was entered into a reminder system with a target due date for their next mammogram.
== END 2023-02-18 10:22 | disposition home or self-care (01) ==
LOC: HO.MAMMO 10:21
PROVIDERS: PCP Internal Medicine; Visit Provider Internal Medicine
DX: Z12.31 Encounter for screening mammogram for malignant neoplasm of breast (principal)
CPT/HCPCS: 77063; 77067

== ENCOUNTER → 2023-02-18 10:30 | Outpatient (BNV) | payer OTHER, SELFPAY | PROVIDERS: PCP Internal Medicine; Visit Provider Radiology Diagnostic Radiology | DX: Z12.31 Encounter for screening mammogram for malignant neoplasm of breast (principal) | CPT/HCPCS: 77063; 77067 ==

== ENCOUNTER 2023-02-24 12:53 | Outpatient (AMB) | payer OTHER, SELFPAY ==
[2023-02-24 13:08] VITALS: BP 142/70; PULSE 70; RESP 17; O2SAT 98; BMI 65.2
--- NOTE | 2023-02-24 13:08 | MHC.PC.OV ---
Vital Signs 02/24/23 13:08 02/24/23 14:49 Height 4 ft 11 in Weight 322 lb 15.635 oz BMI 65.2 BP 142/70 H 140/70 H Blood Pressure Location Lt brachial Lt brachial Position Sitting Sitting Respiration 17 Pulse 70 Pulse Source Pulse Oximeter Pulse Oximetry (%) 98 Oxygen Delivery Method Room Air Intake Visit Reasons: 02/12 Head Stomach Back Pain Intake Note: Patient is here to follow-up after a visit the emergency department at [facility] on 02/12/23. Level Designer Required: No Accompanied by: Self / Same As Patient Allergies levofloxacin [From LEVAQUIN] Allergy (Intermediate, Verified 02/24/23 13:27) DIZZINESS topiramate Allergy (Intermediate, Verified 02/24/23 13:27) palpitations BuPROPion HCl Allergy (Intermediate, Uncoded 02/24/23 13:27) palpitations Phentermine HCl Allergy (Intermediate, Uncoded 02/24/23 13:27) uncontrolled hypertension Medication List - Last Reconciled 02/24/23 by Eri Mukherjee MD albuterol sulfate 3 mg inhalation QID PRN albuterol sulfate 90 mcg/actuation (Ventolin HFA) 1 inh inhalation QID atenolol 100 mg PO DAILY 90 days buspirone 5 mg PO BID calcium carbonate-vitamin D3 500 mg-10 mcg (400 unit) (Calcium 500 With D) 1 tab PO DAILY 90 days famotidine 40 mg PO BEDTIME flecainide 50 mg PO BID 90 days fluticasone propion-salmeterol 500-50 mcg/dose (Advair Diskus) ea inhalation fluticasone propionate 110 mcg/actuation (Flovent HFA) 2 puffs inhalation BID fluticasone propionate 50 mcg/actuation (Flonase Allergy Relief) 1 spray intranasal DAILY 30 days incontinence pad, liner, disp (Pads For Women) Use 8 pad daily ipratropium bromide 2 sprays intranasal Q8H PRN lidocaine 5% 1 patch topical DAILY lidocaine 5% 1 patch topical DAILY linaclotide (Linzess) 72 mcg PO QAM losartan 100 mg PO DAILY miscellaneous medical supply 1 ea miscellaneous DAILY montelukast 10 mg PO DAILY morphine 15 mg PO Q6H PRN omega-3 fatty acids (Fish Oil Concentrate) 1,000 mg PO DAILY omeprazole 40 mg PO DAILY rivaroxaban (Xarelto) 20 mg PO DAILY@1700 tramadol 50 mg PO DAILY PRN Tobacco use date assessed: 02/24/23 Dental Screening Dental Screen Date: 02/24/23 Did you have a dental visit in the last 12 months?: Yes Did you have a dental problem in the last 6 months where you did not have access to dental care?: No Was dental information given to patient?: Patient has dentist HPI HPI Comments History of Present Illness Details This is a 57-year-old female with hypertension, paroxysmal atrial fibrillation, morbid obesity and mild major depression that comes today as hospital discharge follow-up with discharge date 02/12/2023 due to pelvic pain in the right area. CT scan of the abdomen and ultrasound of the pelvis were done showing right ovarian abnormality in which complex cyst vs mass cannot be rule out. Was referred to [facility] OBGYN. Ultrasound will be repeated as per recommendation of Radiology. Labs done show no significant abnormality and even though she feels improved for the pelvic pain is still present. Blood pressure borderline normal to elevated and will be recheck in 3 weeks by nurse navigator. On chronic anticoagulation for her atrial fibrillation that is follow by cardiology. She is morbidly obese with a BMI of 65.2 and was enroll in a [employer] weight management but has to enroll back again. Depression is in remission. [facility] Medical History (Updated 02/24/23 @ 14:51 by Eri Mukherjee MD) HTN (hypertension) Abnormal nuclear cardiac imaging test Atrial fibrillation with rapid ventricular response DUB (dysfunctional uterine bleeding) Otitis media Postmenopausal bleeding Diarrhea Epigastric pain Dysuria Urge urinary incontinence B12 deficiency Panic attacks Sleep apnea with use of continuous positive airway pressure (CPAP) Arthritis Anxiety Depression Afib Asthma Chronic gastritis Hepatic steatosis Fibromyalgia Surgical History Tubal ligation status H/O colonoscopy History of esophagogastroduodenoscopy (EGD) History of cholecystectomy History of section Family History Father CVA (cerebral vascular accident) Colon cancer CAD (coronary artery disease) Mother Cancer of unknown origin Social History Household Members: None Housing: Apartment Alcohol intake: never Patient Tobacco Use Status: Never used Tobacco e-Cigarette/Vaping Use: Never Used Second Hand Smoke Exposure: No service: No Current occupational status: disabled Cognitive needs: Yes (cane) Hearing needs: No Vision needs: Yes (glasses) Female Reproductive History Menstrual Age of Menarche: 14 Questionnaire PHQ-9 Over the last 2 weeks, how often have you been bothered by any of the following problems? 1. Little interest or pleasure in doing things: not at all 2. Feeling down, depressed, or hopeless: not at all 3. Trouble falling or staying asleep, or sleeping too much: not at all 4. Feeling tired or having little energy: not at all 5. Poor appetite or overeating: not at all 6. Feeling bad about yourself - or that you are a failure or have let yourself or your family down: not at all 7. Trouble concentrating on things, such as reading the newspaper or watching television: not at all 8. Moving or speaking so slowly that other people could have noticed. Or the opposite - being so fidgety or restless that you have been moving around a lot more than usual: not at all 9. Thoughts that you would be better off or of hurting yourself in some way: not at all Total score: 0 Depression Screening Interpretation: Negative Depression Screening Done: Yes 62623 - PHQ-9 Billing: Yes Source: Developed by Drs. Marc Jordan, Kristine Sams, Salinas Hutchins and colleagues, with an educational deshaun from [employer]. Thrive Questionnaire Date Thrive assessed: 02/24/23 I am a: Patient What is your living situation today?: I have a steady place to live Within the past 12 months, did the food you bought not last and you didn't have the money to get more?: Never true Within the past 12 months, did you worry whether your food would run out before you got money to buy more?: Never true Do you have trouble paying for medicines?: No Do you have trouble getting transportation to medical appointments?: No Do you have trouble paying your heating and electricity bill?: No Do you have trouble taking care of your child, family member or friend?: No Do you have trouble with day-to-day activities such as bathing, preparing meals, shopping, managing finances, etc.?: No Are you currently unemployed and looking for a job?: No Are you interested in more education?: No Please select the resources that you would like help with: None Currently or been in a relationship where the following occur: no concerns reported AUDIT C Alcohol Use Questionnaire (AUDIT-C) 1. How often do you have a drink containing alcohol?: Never 3. How often do you have six or more drinks on one occasion?: Never Total Score: 0 ANIL-7 AMB Questionnaire ANIL-7 Date ANIL - 7 assessed: 02/24/23 Feeling nervous, anxious, or on edge: 0 = Not at all Not being able to stop or control worryin = Not at all Worrying too much about different things: 0 = Not at all Trouble relaxin = Not at all Being so restless that it is hard to sit still: 0 = Not at all Becoming easily annoyed or irritable: 0 = Not at all Feeling afraid as if something awful might happen: 0 = Not at all Total ANIL-7 score (0-4 normal; 5-9 mild; 10-14 moderate; 15-21 severe): 0 Source: Developed by Drs. Marc Jordan, Kristine Sams, Salinas Hutchins and colleagues, with an educational deshaun from [employer]. ANIL-7 Assessment Billing ANIL-7 Assessment Tool: ANIL-7 Assessment 18469 Review of Systems Const All systems reviewed & are unremarkable except as noted in HPI and below Eyes Reports no additional complaints, Denies change in vision and Denies other visual disturbances Card Denies chest pain at rest, Denies chest pain with activity, Denies edema, Denies irregular heart rhythm, Denies claudication, Denies dyspnea, Denies dyspnea on exertion, Denies orthopnea, Denies paroxysmal nocturnal dyspnea and Denies slow heart rate Resp Denies cough, Denies dyspnea and Denies dyspnea on exertion GI Denies abdominal pain, Denies change in bowel habits, Denies excessive flatus, Denies nausea and Denies vomiting Denies urinary incontinence, Denies urinary hesitancy and Denies urinary urgency Musc Denies abnormal gait, Denies atrophy, Denies deformity and Denies limited range of motion Skin/Breast Denies bleeding lesions, Denies changing lesions and Denies rash Neuro Denies abnormal gait, Denies behavioral changes and Denies lack of coordination Psych Denies behavioral changes Physical exam (Primary Care) Vital Signs: Last Vital Signs Pulse 70 02/24/23 13:08 Resp 17 02/24/23 13:08 BP 142/70 H 02/24/23 13:08 Pulse Ox 98 02/24/23 13:08 Oxygen Delivery Method Room Air 02/24/23 13:08 BMI result Body Mass Index 65.2 Tobacco/Smoking Status: Tobacco use Status Tobacco use date assessed 02/24/23 02/24/23 13:10 Patient Tobacco Use Status Never used Tobacco 02/24/23 13:10 e-Cigarette/Vaping Use Never Used 02/24/23 13:10 PHQ-9: PHQ-9 Score PHQ-9: Total score 0 02/24/23 13:30 Depression Screening Interpretation: Negative Thrive Assessment: Date of Thrive Assessment Date Thrive assessed 02/24/23 02/24/23 13:20 Currently or been in a relationship where the following occur: no concerns reported Eyes General: appearance normal, both eyes and all related structures Eyelids: Yes eyelids normal Conjunctivae: conjunctivae normal Neck Neck: Yes normal visual inspection and Yes supple Resp Effort & Inspection: normal respiratory effort Auscultation: clear to auscultation bilaterally Cardio Jugular venous distension: no JVD Rate: regular rate Rhythm: regular rhythm Heart sounds: S1 normal heart sound present and S2 normal heart sound present Extrem General: Yes full ROM Psych Appearance: grossly normal Office Procedures Flu Questionnaire Does the patient have a severe egg allergy?: No Does the patient have severe life threatening allergies?: No Does the patient have a fever or illness today?: No Has the patient ever had Guillain-[place] Syndrome?: No Has the patient ever had any past reaction to a flu shot?: No Immunizations flu vacc [id number] 6mos up(PF) 60 mcg(15 mcgx4)/0.5 mL IM syringe Performing Provider: Eri Mukherjee MD [facility] Administered by: MYRA Dumont on 02/24/23 13:26 Dose Route Admin Location Dispensed Lot Number Expiration Date NDC Picker [employer] Packer 0.5 mL IM Left Deltoid 0.5 mL [id number] 08/15/23 [id number] [place] VIS Given Date VIS Provided VIS Publication Date 02/24/23 Single Vaccine 20 Eligibility Eligibility Date Funding Source Not [facility] Eligible 02/24/23 Private Assessment and Plan Assessment & Plan (1) Hospital discharge follow-up: Code(s): Z09 - Encounter for follow-up examination after completed treatment for conditions other than malignant neoplasm Plan: Discharge date 02/12/2023 due to pelvic pain. CT scan of abdomen and pelvis was done which could see right pelvic abnormality in which ultrasound of the pelvis done after shows right ovarian and normally that can be either a complex cyst or a mass. Labs were showing no significant abnormality. 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 (3) HTN (hypertension): Code(s): I10 - Essential (primary) hypertension Plan: Continue losartan and atenolol. Blood pressure goal is equal or less than 130/80. (4) Mild episode of recurrent major depressive disorder: Code(s): F33.0 - Major depressive disorder, recurrent, mild Plan: In remission. (5) Morbid obesity: Code(s): E66.01 - Morbid (severe) obesity due to excess calories Plan: Restart weight management. BMI goal is less than 30. (6) Paroxysmal atrial fibrillation: Code(s): I48.0 - Paroxysmal atrial fibrillation Plan: Continue flecainide. Follow-up with Cardiology. Orders: Orders US pelvic and transvaginal Today N83.209 - Unspecified ovarian cyst, unspecified side Influenza [id number] Immunization Today Z23 - Encounter for immunization Referrals [employer] Referral N83.209 - Unspecified ovarian cyst, unspecified side Coding Level of Care Code TCM Mod MDM <= 14 Days Diagnoses Hospital discharge follow-up Z09 Ovarian anomaly Q50.39 HTN (hypertension) I10 Mild episode of recurrent major depressive disorder F33.0 Morbid obesity E66.01 Paroxysmal atrial fibrillation I48.0 Additional Codes ANIL-7 Assessment Billing - ANIL-7 Assessment Tool: ANIL-7 Assessment 94279 ([id number]) Time Spent (min) 26
[2023-02-24 14:49] VITALS: BP 140/70
== END 2023-02-24 13:38 | disposition home or self-care (01) ==
PROVIDERS: PCP Internal Medicine; Visit Provider Internal Medicine
DX: Z23 Encounter for immunization (principal); Q50.39 Other congenital malformation of ovary; I10 Essential (primary) hypertension; F33.0 Major depressive disorder, recurrent, mild; I48.0 Paroxysmal atrial fibrillation
CPT/HCPCS: 90471; 90686; 99214

== ENCOUNTER 2023-03-10 12:14 | Outpatient (AMB) | payer OTHER, SELFPAY ==
[2023-03-10 12:16] VITALS: BP 136/64; PULSE 69; BMI 64.6
--- NOTE | 2023-03-10 12:16 | A.OFFVIS_ITS ---
Intake Vital Signs 03/10/23 12:16 Height 4 ft 11 in Weight 319 lb 10.724 oz BMI 64.6 BP 136/64 Blood Pressure Location Lt brachial Position Sitting Pulse 69 Intake Visit Reasons: 6 Month Follow Up Intake Note: Patient presents to in office 6 months follow up of GERD. CC: Patient reports she sometimes has diarrhea and sometimes constipation. Also sometimes she gets LUQ abd pain and nausea. Denies other GI symptoms. Cloak Room Attendant Required: Yes Accompanied by: Self / Same As Patient Allergies levofloxacin [From LEVAQUIN] Allergy (Intermediate, Verified 03/10/23 12:21) DIZZINESS topiramate Allergy (Intermediate, Verified 03/10/23 12:21) palpitations BuPROPion HCl Allergy (Intermediate, Uncoded 02/24/23 13:27) palpitations Phentermine HCl Allergy (Intermediate, Uncoded 02/24/23 13:27) uncontrolled hypertension HPI 6 Month Follow Up HPI Details Assessment & Plan (1) Chronic idiopathic constipation: Code(s): K59.04 - Chronic idiopathic constipation Plan: Reagan Iqbal Increasing the omeprazole from 20mg to 40mg has alleviated her nausea. She also continues on famotidine at bedtime. The Linzess 72 mcg is controlling her constipation well. She is now happy with her GI regimen. She saw her ancillary services manager therapy last week and she has bee referred now to [facility] for consideration of gastric bypass vs balloon. However, she found that the cost of the balloon is $6000!! She will go back to [facility] and see if she can restart the process for bypass. Return office visit in 6 months (2) GERD (gastroesophageal reflux diseas e): Code(s): K21.9 - Gastro-esophageal reflux disease without esophagitis Qualifiers: Esophagitis presence: esophagitis presence not specified Qualified Code(s): K21.9 - Gastro-esophageal reflux disease without esophagitis (3) Upper abdominal pain: Code(s): R10.10 - Upper abdominal pain, unspecified TODAY'S VISIT Reagan Iqbal She had some diarrhea, for 2 weeks, but she feels this was a virus. She also was seen in the ER and they found a right ovarian cyst. She still feels that her GI regimen is controlling her sx well, she does not feel she needs a change. She has occasional nausea and pain in the LUQ. This is nothing like what it was in the past however it tends to be mild and transient. Taking omeprazole 40mg has alleviated her nausea that was severe in the past. She also continues on famotidine at bedtime. The Linzess 72 mcg is controlling her constipation well. ROV 6 mos PFSH Medical History Adult general medical exam Upper abdominal pain Asthma exacerbation Hospital discharge follow-up Preoperative cardiovascular examination BMI 50.0-59.9, adult Morbid obesity Asthma NINI (obstructive sleep apnea) HTN (hypertension) Abnormal nuclear cardiac imaging test Atrial fibrillation with rapid ventricular response DUB (dysfunctional uterine bleeding) Otitis media Postmenopausal bleeding Diarrhea Epigastric pain Dysuria Urge urinary incontinence B12 deficiency Panic attacks Sleep apnea with use of continuous positive airway pressure (CPAP) Arthritis Anxiety Depression Afib Asthma Chronic gastritis Hepatic steatosis Fibromyalgia Surgical History Tubal ligation status H/O colonoscopy History of esophagogastroduodenoscopy (EGD) History of cholecystectomy History of section Family History Father CVA (cerebral vascular accident) Colon cancer CAD (coronary artery disease) Mother Cancer of unknown origin Social History Household Members: None Housing: Apartment Alcohol intake: never Patient Tobacco Use Status: Never used Tobacco e-Cigarette/Vaping Use: Never Used Second Hand Smoke Exposure: No service: No Current occupational status: disabled Cognitive needs: Yes (cane) Hearing needs: No Vision needs: Yes (glasses) Female Reproductive History Menstrual Age of Menarche: 14 Review of Systems Const Denies fatigue, Denies fever(s), Denies night sweats, Denies poor appetite and Denies weight loss Eyes Details: glasses Reports requires corrective lenses ENT Reports Normal hearing present, Denies dental pain, Denies dysphagia, Denies hearing loss, Denies mouth pain, Denies odynophagia, Denies throat swelling, Denies tongue swelling and Reports other (Dentition adequate) Card Reports no additional complaints Resp Reports no additional complaints GI Reports abdominal pain, Denies melena, Denies bloating, Denies hematochezia, Reports constipation, Denies GI cramping, Denies dysphagia, Denies excessive flatus, Denies early satiety, Reports heartburn, Reports diarrhea, Reports na usea, Denies odynophagia, Denies vomiting and Denies hematemesis Reports pelvic pain Skin/Breast Denies pruritus, Denies lesions, Denies rash and Denies jaundice Neuro Reports Normal hearing present and Denies Abnormal speech present Endo Denies fatigue Aller/Immun Denies throat swelling and Denies tongue swelling Physical Exam Vital Signs: Last Vital Signs Pulse 69 03/10/23 12:16 BP 136/64 03/10/23 12:16 BMI result Body Mass Index 64.6 Const General: cooperative, no acute distress, well developed and well groomed Nutritional Appearance: well nourished and obese morbidly obese Orientation/consciousness: oriented to person, oriented to place and oriented to time Limitations: language barrier and ambulation with cane HEENT Head: Yes normocephalic and Yes atraumatic Eyes General: appearance normal, both eyes and all related structures Pupils: Equal, round and reactive pupils present Neck Neck: Yes normal visual inspection and Yes no lymphadenopathy Thyroid: Thyroid normal Resp Effort & Inspection: normal respiratory effort and able to speak in complete sentences Auscultation: clear to auscultation bilaterally Cardio Rate: regular rate Rhythm: regular rhythm Heart sounds: Normal, physiologic split S2 sound present Peripheral pulses: radial pulses present and posterior tibial pulses present GI Inspection: No distended, Yes Abdominal panniculus present and Yes obesity Palpation (GI): Soft to palpation, nontender, no guarding, not rigid and No hepatosplenomegaly present Percussion: Yes normal to percussion Auscultation: normal bowel sounds Rectal Exam - Female: deferred Skin General skin exam: no rashes or lesions noted, turgor normal, skin not dry, no jaundice, No spider nevi and no striae Rashes: no rashes Nails: normal Neuro General: oriented to person, oriented to place and oriented to time Cranial nerves: Yes Equal, round and reactive pupils present and Yes Normal hearing present Speech: No Abnormal speech present Extrem General: Yes normal to inspection, No clubbing, No cyanosis and No edema Psych Appearance: grossly normal and well kempt Mental Status: mental status grossly normal Speech and movement: Normal speech and movement present Affect: normal affect Attitude: cooperative Thought process: Normal thought process present and not confabulating Thought content: Normal thought content present Insight: Fair insight present (Psych) Judgement: Fair judgement present (Psych) Assessment & Plan Assessment & Plan (1) GERD (gastroesophageal reflux disease): Code(s): K21.9 - Gastro-esophageal reflux disease without esophagitis Qualifiers: Esophagitis presence: esophagitis presence not specified Qualified Code(s): K21.9 - Gastro-esophageal reflux disease without esophagitis (2) Chronic idiopathic constipation: Code(s): K59.04 - Chronic idiopathic constipation Plan [place] [employer] She had some diarrhea, for 2 weeks, but she feels this was a virus. She also was seen in the ER and they found a right ovarian cyst. She still feels that her GI regimen is controlling her sx well, she does not feel she needs a change. She has occasional nausea and pain in the LUQ. This is nothing like what it was in the past however it tends to be mild and transient. Taking omeprazole 40mg has alleviated her nausea that was severe in the past. She also continues on famotidine at bedtime. The Linzess 72 mcg is controlling her constipation well. ROV 6 mos Medications: Refilled famotidine 40 mg PO BEDTIME 90 tabs 3RF K21.9 - Gastro-esophageal reflux disease without esophagitis linaclotide (Linzess) 72 mcg PO QAM 30 caps 6RF omeprazole 40 mg PO DAILY 90 caps 2RF K21.9 - Gastro-esophageal reflux disease without esophagitis Coding Level of Care Code Est Pt Level 3 (06490) Diagnoses Gastroesophageal reflux disease, unspecified whether esophagitis present K21.9 Esophagitis presence: esophagitis presence not specified Chronic idiopathic constipation K59.04
== END 2023-03-10 12:46 | disposition home or self-care (01) ==
PROVIDERS: PCP Internal Medicine; Visit Provider Nurse Practitioner
DX: K21.9 Gastro-esophageal reflux disease without esophagitis (principal); K59.04 Chronic idiopathic constipation
CPT/HCPCS: 99213

== ENCOUNTER → 2023-03-10 12:14 | Outpatient (BNVA) | payer OTHER, SELFPAY | PROVIDERS: PCP Internal Medicine; Visit Provider Nurse Practitioner | DX: K21.9 Gastro-esophageal reflux disease without esophagitis (principal); K59.04 Chronic idiopathic constipation | CPT/HCPCS: 99212 ==

== ENCOUNTER 2023-03-19 13:48 | Outpatient (REF) | payer OTHER, SELFPAY ==
--- NOTE | ~2023-03-19 | US_ITS ---
EXAMINATION: US PELVIS CLINICAL INFORMATION: Ovarian cyst; the last menstrual period is uncertain. COMPARISON: Pelvic ultrasound dated 02/12/2023. TECHNIQUE: Ultrasound of the pelvis is performed using both transabdominal and transvaginal transducers along with Doppler. Transvaginal imaging is performed due to inadequate visualization transabdominally. Imaging is somewhat limited by body habitus. FINDINGS: Uterus: The uterus is anteverted and anteflexed. The uterus measures 11.3 x 2.8 x 4.0 cm. The double wall endometrial thickness is 2 mm. The uterus is smooth in contour and has normal myometrial echogenicity. No visible fibroid. Adnexa: Both ovaries are visualized. There is normal color flow to the adnexa. There is no ovarian torsion. There is no pelvic ascites or fluid collection. Right ovary measures 2.7 x 1.7 x 1.4 cm, volume 3.4 mL. Left ovary measures 1.5 x 1.5 x 1.4 cm, volume 1.6 mL. US/US pelvic and transvaginal IMPRESSION: Unremarkable examination, somewhat technically limited by body habitus. No right ovarian cyst is presently appreciated.
== END 2023-03-19 13:49 | disposition home or self-care (01) ==
LOC: HO.US 13:48
PROVIDERS: PCP Internal Medicine; Visit Provider Internal Medicine
DX: N83.209 Unspecified ovarian cyst, unspecified side (principal)
CPT/HCPCS: 76830; 76856

== ENCOUNTER 2023-06-17 11:08 | Outpatient (REF) | payer OTHER, SELFPAY ==
[2023-06-17 12:40] LABS: Alanine Aminotransferase 14 U/L (0-31); Alkaline Phosphatase 96 U/L (39-117); Anion Gap 14 (12-20); Aspartate Amino Transferase 22 U/L (5-31); Bilirubin Total 0.5 mg/dL (0.0-1.0); Blood Urea Nitrogen 18 mg/dL (9-16); Calcium 9.6 mg/dL (8.4-10.2); Carbon Dioxide 18 mmol/L (22-29); Chloride 110 mmol/L (96-108); Cholesterol 215 mg/dL (<200); Estimated Glomerular Filt Rate > 60; Glucose Fasting 92 mg/dL (60-99); HDL Cholesterol 49 mg/dL (>40); LDL Cholesterol Calculated 141 mg/dL (<100); Potassium 4.4 mmol/L (3.3-5.1); Sodium 138 mmol/L (135-145); Total Protein 8.6 g/dL (6.5-8.0); Triglycerides 125 mg/dL (<150)
[2023-06-17 14:03] LABS: Appearance Urine Clear; Color Urine Yellow; Glucose Urine UA Negative (Negative); Leukocyte Esterase Urine Negative (Negative); Nitrite Urine Negative (Negative); PH 5.5 (5.0-9.0); Specific Gravity - Urine 1.025 (1.005-1.025); Urine Blood Negative (Negative); Urine Ketones Negative (Negative); Urine Protein Negative (Neg-Trace)
== END 2023-06-17 11:09 | disposition home or self-care (01) ==
LOC: HO.LAB 11:08
PROVIDERS: PCP Internal Medicine; Visit Provider Internal Medicine
DX: I25.10 Atherosclerotic heart disease of native coronary artery without angina pectoris (principal); R30.0 Dysuria; E78.5 Hyperlipidemia, unspecified
CPT/HCPCS: 36415; 80053; 80061; 81003

== ENCOUNTER 2023-06-23 12:43 | Outpatient (AMB) | payer OTHER, SELFPAY ==
--- NOTE | 2023-06-23 12:55 | A.OFFPC_ITS ---
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 Accompanied by: Self / Same As Patient Allergies levofloxacin [From LEVAQUIN] Allergy (Intermediate, Verified 06/23/23 13:15) DIZZINESS topiramate Allergy (Intermediate, Verified 06/23/23 13:15) palpitations BuPROPion HCl Allergy (Intermediate, Uncoded 06/23/23 13:15) palpitations Phentermine HCl Allergy (Intermediate, Uncoded 06/23/23 13:15) uncontrolled hypertension Medication List - Last Reconciled 06/23/23 by Eri Mukherjee MD albuterol sulfate 3 mg inhalation QID PRN albuterol sulfate 90 mcg/actuation (Ventolin HFA) 1 inh inhalation QID atenolol 100 mg PO DAILY blood pressure monitor As directed buspirone 5 mg PO BID calcium carbonate-vitamin D3 500 mg-10 mcg (400 unit) (Calcium 500 With D) 1 tab PO DAILY 90 days famotidine 40 mg PO BEDTIME flecainide 50 mg PO BID fluticasone propionate 50 mcg/actuation (Flonase Allergy Relief) 1 spray intranasal DAILY 30 days fluticasone propionate 110 mcg/actuation 2 puffs inhalation BID incontinence pad, liner, disp (Pads For Women) Use 8 pad daily ipratropium bromide 2 sprays intranasal Q8H PRN lidocaine 5% 1 patch topical DAILY linaclotide (Linzess) 72 mcg PO QAM losartan 100 mg PO DAILY miscellaneous medical supply 1 ea miscellaneous DAILY montelukast (Singulair) 10 mg PO QPM montelukast 10 mg PO DAILY nitrofurantoin monohyd/m-cryst 100 mg 1 cap PO BID omega-3 fatty acids (Fish Oil Concentrate) 1,000 mg PO DAILY omeprazole 40 mg PO DAILY rivaroxaban (Xarelto) 20 mg PO QPM tramadol 50 mg PO DAILY PRN Tobacco use date assessed: 02/24/23 Dental Screening Dental Screen Date: 02/24/23 HPI HPI Comments History of Present Illness Details This is a 57-year-old female with paroxysmal atrial fibrillation and super super obesity that comes for her physical exam. On chronic anticoagulation for atrial fibrillation and is follow by cardiology. Her BMI is 64.8 and was refer again to weight management for weight loss surgery. Last mammogram was February 2023. Last Pap smear was 2020. Last colonoscopy was 2017 and next 1 will be 2024. No chest pain or shortness of breath. Walks with a cane for gait stability due to knee osteoarthritis. [facility] Medical History (Updated 06/23/23 @ 13:32 by Eri Mukherjee MD) Adult general medical exam Mild episode of recurrent major depressive disorder BMI 60.0-69.9, adult Upper abdominal pain Asthma exacerbation Hospital discharge follow-up Preoperative cardiovascular examination BMI 50.0-59.9, adult Morbid obesity Asthma NINI (obstructive sleep apnea) HTN (hypertension) Abnormal nuclear cardiac imaging test Atrial fibrillation with rapid ventricular response DUB (dysfunctional uterine bleeding) Otitis media Postmenopausal bleeding Diarrhea Epigastric pain Dysuria Urge urinary incontinence B12 deficiency Panic attacks Sleep apnea with use of continuous positive airway pressure (CPAP) Arthritis Anxiety Depression Afib Asthma Chronic gastritis Hepatic steatosis Fibromyalgia Surgical History Tubal ligation status H/O colonoscopy History of esophagogastroduodenoscopy (EGD) History of cholecystectomy History of section Family History Father CVA (cerebral vascular accident) Colon cancer CAD (coronary artery disease) Mother Cancer of unknown origin Social History Household Members: None Housing: Apartment Alcohol intake: never Patient Tobacco Use Status: Never used Tobacco e-Cigarette/Vaping Use: Never Used Second Hand Smoke Exposure: No service: No Current occupational status: disabled Cognitive needs: Yes (cane) Hearing needs: No Vision needs: Yes (glasses) Female Reproductive History Menstrual Age of Menarche: 14 Questionnaire Thrive Questionnaire Date Thrive assessed: 02/24/23 ANIL-7 AMB Questionnaire ANIL-7 Date ANIL - 7 assessed: 02/24/23 Source: Developed by Drs. Marc Jordan, Kristine Sams, Salinas Hutchins and colleagues, with an educational deshaun from [employer]. Review of Systems Const All systems reviewed & are unremarkable except as noted in HPI and below Card Denies chest pain at rest, Denies chest pain with activity, Denies edema, Denies irregular heart rhythm, Denies claudication, Denies dyspnea, Denies dyspnea on exertion, Denies orthopnea, Denies paroxysmal nocturnal dyspnea and Denies slow heart rate Resp Denies cough, Denies dyspnea and Denies dyspnea on exertion Physical exam (Primary Care) Vital Signs: Last Vital Signs BP 130/70 06/23/23 12:56 BMI result Body Mass Index 64.8 BMI Assessment/Plan discussion: High BMI High, discussed plan: lifestyle, weight reduction, dietary and physical activity Tobacco/Smoking Status: Tobacco use Status Tobacco use date assessed 02/24/23 06/23/23 12:58 Patient Tobacco Use Status Never used Tobacco 06/23/23 12:58 e-Cigarette/Vaping Use Never Used 06/23/23 12:58 Thrive Assessment: Date of Thrive Assessment Date Thrive assessed 02/24/23 06/23/23 12:58 Const General: cooperative Nutritional Appearance: obese morbidly obese Orientation/consciousness: patient oriented x3 Limitations: ambulation with cane HENMT Head: Yes normal to inspection, Yes normocephalic and Yes atraumatic Ears: external ears normal Eyes General: appearance normal, both eyes and all related structures Eyelids: Yes eyelids normal Conjunctivae: conjunctivae normal Neck Neck: Yes normal visual inspection and Yes supple Resp Effort & Inspection: normal respiratory effort Auscultation: clear to auscultation bilaterally Cardio Jugular venous distension: no JVD Rate: regular rate Rhythm: regular rhythm Heart sounds: S1 normal heart sound present and S2 normal heart sound present GI Inspection: Yes normal to inspection Palpation (GI): Soft to palpation and nontender Auscultation: normal bowel sounds Skin General skin exam: no rashes or lesions noted Neuro General: patient oriented x3 and no focal motor deficits Extrem General: Yes full ROM Psych Appearance: grossly normal Assessment and Plan Assessment & Plan (1) Adult general medical exam: Code(s): Z00.00 - Encounter for general adult medical examination without abnormal findings Plan: Repeat in a year. (2) Super-super obese: Code(s): E66.01 - Morbid (severe) obesity due to excess calories Plan: Referred to weight management. BMI goal is less than 30. (3) Paroxysmal atrial fibrillation: Code(s): I48.0 - Paroxysmal atrial fibrillation Plan: Continue Xarelto. The goal is heart rate control. Follow with Cardiology. Orders: Referrals Medical Weight Management Referral E66.01 - Morbid (severe) obesity due to excess calories Medications: New rosuvastatin 10 mg PO DAILY 90 days 90 tabs 1RF cetirizine (All Day Allergy (cetirizine)) 10 mg PO DAILY 90 days PRN 90 tabs 0RF allergy symptoms Changed From albuterol sulfate 90 mcg/actuation (Ventolin HFA) 1 inh inhalation QID To Ventolin HFA 90 mcg/actuation (albuterol sulfate) 1 inh inhalation QID 30 days 18 grams 1RF NS Coding Level of Care Code Est Pt Prev Care 40-64y(34175) Diagnoses Adult general medical exam Z00.00 Super-super obese E66.01 Paroxysmal atrial fibrillation I48.0 Time Spent (min) 30
[2023-06-23 12:56] VITALS: BP 130/70; BMI 64.8
== END 2023-06-23 13:29 | disposition home or self-care (01) ==
PROVIDERS: Visit Provider Internal Medicine
DX: Z00.00 Encounter for general adult medical examination without abnormal findings (principal); E66.01 Morbid (severe) obesity due to excess calories; I48.0 Paroxysmal atrial fibrillation; Z68.44 Body mass index [BMI] 60.0-69.9, adult
CPT/HCPCS: 99396

== ENCOUNTER 2023-07-27 13:36 | Outpatient (AMB) | payer OTHER, SELFPAY ==
--- NOTE | 2023-07-27 13:54 | A.OFFVIS_ITS ---
Vital Signs 07/27/23 14:00 Height 4 ft 11 in Weight 323 lb 3.163 oz BMI 65.3 BP 142/68 H Blood Pressure Location Rt brachial Position Sitting Pulse 69 Pulse Source Pulse Oximeter Pulse Oximetry (%) 97 Oxygen Delivery Method Room Air Intake Visit Reasons: OA/FMS Intake Note: Patient last seen 12/22/22 presents today for follow up and test results. Reports bl leg pain and swelling. 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 Language: Manager Emergency Name: Petra [id number] Accompanied by: Self / Same As Patient Allergies levofloxacin [From LEVAQUIN] Allergy (Intermediate, Verified 07/27/23 14:04) DIZZINESS topiramate Allergy (Intermediate, Verified 07/27/23 14:04) palpitations BuPROPion HCl Allergy (Intermediate, Uncoded 07/27/23 14:04) palpitations Phentermine HCl Allergy (Intermediate, Uncoded 07/27/23 14:04) uncontrolled hypertension Medication List - Last Reconciled 07/27/23 by Andrey Tapia MD albuterol sulfate 3 mg inhalation QID PRN atenolol 100 mg PO DAILY blood pressure monitor As directed buspirone 5 mg PO BID calcium carbonate-vitamin D3 500 mg-10 mcg (400 unit) (Calcium 500 With D) 1 tab PO DAILY 90 days cetirizine (All Day Allergy (cetirizine)) 10 mg PO DAILY PRN 90 days famotidine 40 mg PO BEDTIME flecainide 50 mg PO BID fluticasone propionate 50 mcg/actuation (Flonase Allergy Relief) 1 spray intranasal DAILY 30 days fluticasone propionate 110 mcg/actuation 2 puffs inhalation BID incontinence pad, liner, disp (Pads For Women) Use 8 pad daily ipratropium bromide 2 sprays intranasal Q8H PRN lidocaine 5% 1 patch topical DAILY linaclotide (Linzess) 72 mcg PO QAM losartan 100 mg PO DAILY miscellaneous medical supply 1 ea miscellaneous DAILY montelukast (Singulair) 10 mg PO QPM omega-3 fatty acids (Fish Oil Concentrate) 1,000 mg PO DAILY omeprazole 40 mg PO DAILY rivaroxaban (Xarelto) 20 mg PO QPM rosuvastatin 10 mg PO DAILY 90 days tramadol 50 mg PO DAILY PRN Ventolin HFA 90 mcg/actuation (albuterol sulfate) 1 inh inhalation QID 30 days NS HPI Comments Details: This is 57-year-old morbidly obese female with generalized osteoarthritis and fibromyalgia who returns for follow-up. she states that she feels about the same overall. Recently she has been having right knee pain. She states that she to see [facility] for injections. She had shoulder and knee injections in the past. Most recent injection was in her knee and was about a year ago. she continues to take tramadol as needed. She uses it 3-5 days a week [facility] Medical History Adult general medical exam Mild episode of recurrent major depressive disorder BMI 60.0-69.9, adult Upper abdominal pain Asthma exacerbation Hospital discharge follow-up Preoperative cardiovascular examination BMI 50.0-59.9, adult Morbid obesity Asthma NINI (obstructive sleep apnea) HTN (hypertension) Abnormal nuclear cardiac imaging test Atrial fibrillation with rapid ventricular response DUB (dysfunctional uterine bleeding) Otitis media Postmenopausal bleeding Diarrhea Epigastric pain Dysuria Urge urinary incontinence B12 deficiency Panic attacks Sleep apnea with use of continuous positive airway pressure (CPAP) Arthritis Anxiety Depression Afib Asthma Chronic gastritis Hepatic steatosis Fibromyalgia Surgical History Tubal ligation status H/O colonoscopy History of esophagogastroduodenoscopy (EGD) History of cholecystectomy History of section Family History Father CVA (cerebral vascular accident) Colon cancer CAD (coronary artery disease) Mother Cancer of unknown origin Social History Household Members: None Housing: Apartment Alcohol intake: never Patient Tobacco Use Status: Never used Tobacco e-Cigarette/Vaping Use: Never Used Second Hand Smoke Exposure: No service: No Current occupational status: disabled Cognitive needs: Yes (cane) Hearing needs: No Vision needs: Yes (glasses) Female Reproductive History Menstrual Age of Menarche: 14 Review of Systems [facility] [place]ralgias Physical Exam Vital Signs: Last Vital Signs Pulse 69 07/27/23 14:00 BP 142/68 H 07/27/23 14:00 Pulse Ox 97 07/27/23 14:00 Oxygen Delivery Method Room Air 07/27/23 14:00 BMI result Body Mass Index 65.3 Const General: cooperative, healthy appearing and comfortable Nutritional Appearance: obese morbidly obese Orientation/consciousness: patient oriented x3 Limitations: ambulation with cane HEENT Head: Yes normocephalic and Yes atraumatic Resp Effort & Inspection: normal respiratory effort and able to speak in complete sentences Skin General skin exam: no rashes or lesions noted Neuro General: patient oriented x3 Extrem Other: Multiple fibromyalgia tender points Normal nailfold capillaroscopy right knee warmth and pain with range of motion Assessment & Plan Assessment & Plan (1) Fibromyalgia: Code(s): M79.7 - Fibromyalgia Category: Medical Plan: 57-year-old morbidly obese female with fibromyalgia and generalized osteoarthritis presents for follow-up. seems that her right knee arthritis is most problematic today. Can sees [facility] for injections as needed. Most recent injection was about a year ago. Advised patient to return to [facility]. she uses tramadol 10 mg 3-5 days a week as needed for pain. Refilled. 20 tabs should last her 30 days Can continue with current tramadol use. Follow-up with other providers. follow-up in 6 months Plan I spent 15 minutes reviewing patient's chart, evaluating patient, counseling patient and documenting in the chart Medications: Changed From tramadol 50 mg PO DAILY PRN 30 tabs 2RF pain To tramadol 20 tabs should last her 30 days 50 mg PO DAILY PRN 20 tabs 3RF pain Coding Level of Care Code Est Pt Level 3 (85848) Diagnoses Fibromyalgia M79.7
[2023-07-27 14:00] VITALS: BP 142/68; PULSE 69; O2SAT 97; BMI 65.3
== END 2023-07-27 14:26 | disposition home or self-care (01) ==
PROVIDERS: PCP Internal Medicine; Visit Provider Student in an Organized Health Care Education/Training Program
DX: M79.7 Fibromyalgia (principal)
CPT/HCPCS: 99213

== ENCOUNTER → 2023-07-27 13:36 | Outpatient (BNVA) | payer OTHER, SELFPAY | PROVIDERS: PCP Internal Medicine; Visit Provider Student in an Organized Health Care Education/Training Program | DX: M79.7 Fibromyalgia (principal); E66.01 Morbid (severe) obesity due to excess calories; Z68.44 Body mass index [BMI] 60.0-69.9, adult | CPT/HCPCS: 99212 ==

== ENCOUNTER → 2023-08-03 09:48 | Outpatient (BNVA) | payer OTHER, SELFPAY | PROVIDERS: PCP Internal Medicine; Visit Provider Internal Medicine Cardiovascular Disease ==

== ENCOUNTER 2023-09-08 12:38 | Outpatient (AMB) | payer OTHER, SELFPAY ==
[2023-09-08 12:52] VITALS: BMI 65.3
--- NOTE | 2023-09-08 12:52 | A.OFFVIS_ITS ---
Vital Signs 09/08/23 12:52 Height 4 ft 11 in Weight 323 lb 3.163 oz BMI 65.3 Intake Visit Reasons: 6 month follow up Intake Note: Patient in office today in 6 months follow up GERD. CC: Patient c/o epigastric pain with radiation to the left and burning sensation. She also c/o a lot of gas, nausea, diarrhea, and constipation sometimes, and GERD. She also reports black and foul smelling stools. 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 Accompanied by: Self / Same As Patient Allergies bupropion Allergy (Severe, Verified 09/08/23 13:03) Palpitations phentermine Allergy (Severe, Verified 09/08/23 13:03) Hypertension levofloxacin [From LEVAQUIN] Allergy (Intermediate, Verified 09/08/23 13:03) DIZZINESS topiramate Allergy (Intermediate, Verified 09/08/23 13:03) palpitations HPI HPI 6 month follow up: Details: Assessment & Plan (1) GERD (gastroesophageal reflux disease): Code(s): K21.9 - Gastro-esophageal reflux disease without esophagitis Qualifiers: Esophagitis presence: esophagitis presence not specified Qualified Code(s): K21.9 - Gastro-esophageal reflux disease without esophagitis (2) Chronic idiopathic constipation: Code(s): K59.04 - Chronic idiopathic constipation Plan [place] #Tachira Live She had some diarrhea, for 2 weeks, but she feels this was a virus. She also was seen in the ER and they found a right ovarian cyst. She still feels that her GI regimen is controlling her sx well, she does not feel she needs a change. She has occasional nausea and pain in the LUQ. This is nothing like what it was in the past however it tends to be mild and transient. Taking omeprazole 40mg has alleviated her nausea that was severe in the past. She also continues on famotidine at bedtime. The Linzess 72 mcg is controlling her constipation well. ROV 6 mos Medications: Refilled famotidine 40 mg PO BEDTIME 90 tabs 3RF K21.9 - Gastro-esophageal reflux disease without esophagitis linaclotide (Linzess) 72 mcg PO QAM 30 caps 6RF omeprazole 40 mg PO DAILY 90 caps 2RF K21.9 - Gastro-esophageal reflux disease without esophagitis TODAY'S VISIT [place] #Max Iqbal She has been having pain that seems to start periumbilicall and then radiates to the left back. She will have associated nausea depending on what I eat, and s he has a lot of bloating. This i worse with condiments juan j spicy foods. She is only on o2o qd, may need bid r/t BMI. Is moving bowels well but with some variability soft to hard. Uses Linzess. She is seeing bariatrics at [facility] and has been approved for surgery. She is worried about her hiatal hernia and will get barium swallow to assess, EGD last no mention. after barium swallow [facility] Medical History Adult general medical exam Mild episode of recurrent major depressive disorder BMI 60.0-69.9, adult Upper abdominal pain Asthma exacerbation Hospital discharge follow-up Preoperative cardiovascular examination BMI 50.0-59.9, adult Morbid obesity Asthma NINI (obstructive sleep apnea) HTN (hypertension) Abnormal nuclear cardiac imaging test Atrial fibrillation with rapid ventricular response DUB (dysfunctional uterine bleeding) Otitis media Postmenopausal bleeding Diarrhea Epigastric pain Dysuria Urge urinary incontinence B12 deficiency Panic attacks Sleep apnea with use of continuous positive airway pressure (CPAP) Arthritis Anxiety Depression Afib Asthma Chronic gastritis Hepatic steatosis Fibromyalgia Surgical History Tubal ligation status H/O colonoscopy History of esophagogastroduodenoscopy (EGD) History of cholecystectomy History of section Family History Father CVA (cerebral vascular accident) Colon cancer CAD (coronary artery disease) Mother Cancer of unknown origin Social History Household Members: None Housing: Apartment Alcohol intake: never Patient Tobacco Use Status: Never used Tobacco e-Cigarette/Vaping Use: Never Used Second Hand Smoke Exposure: No service: No Current occupational status: disabled Cognitive needs: Yes (cane) Hearing needs: No Vision needs: Yes (glasses) Female Reproductive History Menstrual Age of Menarche: 14 Review of Systems Const Denies fatigue, Denies fever(s), Denies night sweats, Denies poor appetite and Denies weight loss Eyes Details: glasses Reports requires corrective lenses ENT Reports Normal hearing present, Denies dental pain, Denies dysphagia, Denies hearing loss, Denies mouth pain, Denies odynophagia, Denies throat swelling, Denies tongue swelling and Reports other (Dentition adequate) Card Reports no additional complaints Resp Reports no additional complaints GI Details: Reports abdominal pain, Denies melena, Reports bloating, Denies hematochezia, Reports constipation, Denies GI cramping, Denies dysphagia, Denies excessive flatus, Denies early satiety, Reports heartburn, Denies diarrhea, Denies nausea, Denies odynophagia, Denies vomiting and Denies hematemesis Musc Reports back pain Skin/Breast Denies pruritus, Denies lesions, Denies rash and Denies jaundice Neuro Reports Normal hearing present and Denies Abnormal speech present Endo Denies fatigue Aller/Immun Denies throat swelling and Denies tongue swelling Physical Exam Vital Signs: BMI result Body Mass Index 65.3 Const General: cooperative, no acute distress, well developed and well groomed Nutritional Appearance: well nourished and obese morbidly obese Orientation/consciousness: oriented to person, oriented to place and oriented to time Limitations: ambulation with cane HEENT Head: Yes normocephalic and Yes atraumatic Eyes General: appearance normal, both eyes and all related structures Pupils: Equal, round and reactive pupils present Neck Neck: Yes normal visual inspection and Yes no lymphadenopathy Thyroid: Thyroid normal Resp Effort & Inspection: normal respiratory effort and able to speak in complete sentences Auscultation: clear to auscultation bilaterally Cardio Rate: regular rate Rhythm: regular rhythm Heart sounds: Normal, physiologic split S2 sound present Peripheral pulses: radial pulses present and posterior tibial pulses present GI Inspection: No distended, Yes Abdominal panniculus present and Yes obesity Palpation (GI): Soft to palpation, nontender, no guarding, not rigid and No hepatosplenomegaly present Percussion: Yes normal to percussion Auscultation: normal bowel sounds Rectal Exam - Female: deferred Skin General skin exam: no rashes or lesions noted, turgor normal, skin not dry, no jaundice, No spider nevi and no striae Rashes: no rashes Nails: normal Neuro General: oriented to person, oriented to place and oriented to time Cranial nerves: Yes Equal, round and reactive pupils present and Yes Normal hearing present Speech: No Abnormal speech present Extrem General: Yes normal to inspection, No clubbing, No cyanosis and No edema Psych Appearance: grossly normal and well kempt Mental Status: mental status grossly normal Speech and movement: Normal speech and movement present Affect: normal affect Attitude: cooperative Thought process: Normal thought process present and not confabulating Thought content: Normal thought content present Insight: Limited insight present (Psych) Judgement: Limited judgement present (Psych) Assessment & Plan Assessment & Plan (1) GERD (gastroesophageal reflux disease): Code(s): K21.9 - Gastro-esophageal reflux disease without esophagitis Category: Medical Qualifiers: Esophagitis presence: esophagitis presence not specified Qualified Code(s): K21.9 - Gastro-esophageal reflux disease without esophagitis Plan [place] #Max Live She has been having pain that seems to start periumbilicall and then radiates to the left back. She will have associated nausea depending on what I eat, and she has a lot of bloating. This i worse with condiments juan j spicy foods. She is only on o2o qd, may need bid r/t BMI. Is moving bowels well but with some variability soft to hard. Uses Linzess. She is seeing bariatrics at [facility] and has been approved for surgery. She is worried about her hiatal hernia and will get barium swallow to assess, EGD last no mention. after barium swallow Orders: Orders [place] barium swallow 09/08/23 K21.9 - Gastro-esophageal reflux disease without esophagitis Medications: Changed From omeprazole 40 mg PO DAILY 90 caps 2RF K21.9 - Gastro-esophageal reflux disease without esophagitis To omeprazole 40 mg PO BID 180 caps 1RF K21.9 - Gastro-esophageal reflux disease without esophagitis On Hold 2 famotidine Hold Comment: Doctor's Order 40 mg PO BEDTIME 90 tabs 3RF K21.9 - Gastro- esophageal reflux disease without esophagitis Coding Level of Care Code Est Pt Level 3 (35630) Diagnoses Gastroesophageal reflux disease, unspecified whether esophagitis present K21.9 Esophagitis presence: esophagitis presence not specified
== END 2023-09-08 13:51 | disposition home or self-care (01) ==
PROVIDERS: PCP Internal Medicine; Visit Provider Nurse Practitioner
DX: K21.9 Gastro-esophageal reflux disease without esophagitis (principal)
CPT/HCPCS: 99213

== ENCOUNTER → 2023-09-08 12:38 | Outpatient (BNVA) | payer OTHER, SELFPAY | PROVIDERS: PCP Internal Medicine; Visit Provider Nurse Practitioner | DX: K21.9 Gastro-esophageal reflux disease without esophagitis (principal) | CPT/HCPCS: 99212 ==

== ENCOUNTER → 2023-12-21 10:24 | Outpatient (REF) | payer OTHER, SELFPAY ==
--- NOTE | 2023-12-21 10:27 | CA_ITS ---
Transthoracic Echocardiogram Patient (Last, First, Middle): Christiane Vicente, Gender: Female Date of : 1965 Age: 58 Procedure Date: 12/21/2023 Procedure Type: Transthoracic Echocardiogram Location: OP Height: 149.86 cm Weight: 146.51 kg BSA: 2.26 m2 Heart Rate: 63 bpm BP: 130 / 70 mmHg Manager Environmental Health And Safety: DIANA Referring MD: Suleman Rosales MD Investment Manager: Suleman Rosales MD Symptoms: I48.0 - Paroxysmal atrial fibrillation Study Quality: Adequate ECG Rhythm: Sinus Conclusions: - Essentially normal study Findings Left Ventricle Normal left ventricular size, thickness, and systolic function. The visually estimated ejection fraction is between 65-70%. Spectral Doppler is indicative of a normal filling pattern. Right Ventricle Normal right ventricular cavity size and systolic function. Atria Both atria are normal in size. There is no evidence of interatrial shunt. Aortic Valve Normal aortic valve structure and function. There is no aortic valve stenosis. There is no aortic valve regurgitation. Mitral Valve Normal mitral valve structure and function. There is trace mitral valve regurgitation. There is no mitral valve stenosis. Pulmonic Valve The pulmonic valve is likely normal. Tricuspid Valve Normal tricuspid valve structure. Tricuspid regurgitation envelope is inadequate for calculation of right ventricular systolic pressure. Normal right atrial pressure. Great Vessels All visible segments of the aorta are normal in size. The pulmonary artery was not well visualized. There is no dilatation of the ascending aorta measuring 3.30 cm. Venous The inferior vena cava is normal in size and collapses greater than 50% with inspiration. Pericardium/Pleural There is no evidence of pericardial effusion. Prior Study Comparison No significant change compared to prior study dated: 10/27/2021. Measurements 2D Linear Measurements IVSd: 1.04 0.6-0.9/0.6-1.0 cm LVIDd: 5.13 3.9-5.3/4.2-5.9 cm LVIDd Index: 2.27 2.4-3.2/2.2-3.1 cm/m2 LVIDs: 3.09 2.0-3.6 cm LVPWd: 0.68 0.7-1.1 cm LA Diam: 4.30 2.7-3.8/3.0-4.0 cm LAIDs Index: 1.90 1.5-2.3 cm/m2 LV Mass: 193.28 67-162/88-224 g LV Mass Index: 85.52 43-95/49-115 g/m2 LVOT Diam: 2.20 3.0+(-)1.3 cm 2D Systolic Function EF 4C: 64.20 >55% EF 2C: 73.40 >55% EF BiP: 68.70 >55% Mitral Valve MV Pk E: 1.09 MV PK A: 0.68 MV Decel Time: 195.00 E/A: 1.60 E'Lateral: 7.29 E'Medial: 6.74 E/E' Med: 16.20 E/E' Lat: 15.00 PHT: 57.00 MVA PHT: 3.86 Decel [place]: 5.61 Aortic Valve AoV Pk Aramis: 1.40 AoV Pk Grad: 8.00 ALEJO: 2.92 LVOT LVOT Pk Aramis: 1.12 LVOT Mn Aramis: 0.71 LVOT VTI: 0.26 LVOT Pk Grad: 5.00 LVOT Mn Grad: 2.00 LVOT Diam: 2.20 LVOT Area: 3.80 Diastolic Function MV Pk E: 1.09 MV Pk A: 0.68 E/A: 1.60 E'Medial: 6.74 E/E' Med: 16.20 E' Laterial: 7.29 E/E' Lat: 15.00 Right Ventricle TAPSE (mm): 28.60 TVS' Aramis: 13.40 Tricuspid Valve RA Press: 3.00 Great Vessels Aorta Sinus of Valsalva: 3.20 2.0-3.5 cm Ao Asc: 3.30 2.1-3.4 cm Ao Arch: 2.50 Pulmonary Valve PV Pk Aramis: 1.11 Peak PV Grad: 5.00 Updated in Other Vendor System with Status of Final Suleman Rosales MD electronically signed on 12/22/2023 1:01:03 PM with status of Final
== END ==
LOC: HO.CARD 10:24
PROVIDERS: PCP Internal Medicine; Visit Provider Internal Medicine Cardiovascular Disease
DX: I48.0 Paroxysmal atrial fibrillation (principal)
CPT/HCPCS: 93306

== ENCOUNTER → 2023-12-21 10:27 | Outpatient (BNV) | payer OTHER, SELFPAY | PROVIDERS: PCP Internal Medicine; Visit Provider Internal Medicine Cardiovascular Disease | DX: I48.0 Paroxysmal atrial fibrillation (principal) | CPT/HCPCS: 93306 ==

== ENCOUNTER 2023-12-25 07:11 | Outpatient (REF) | payer OTHER, SELFPAY ==
[2023-12-25 07:40] LABS: MANUAL DIFF FLAG NO
[2023-12-25 08:04] LABS: Basophils Percent Auto 0.3 % (0-2); Eosinophils Absolute Auto 0.1 X10*3/uL (0.0-0.4); Eosinophils Percent Auto 1.3 % (0-4); Hematocrit 38.9 % (37.0-47.0); Hemoglobin 13.1 g/dl (12.0-16.0); Imm Gran Abs Auto 0.03 X10*3/uL (0.00-0.03); Imm Gran Pct Auto 0.4 % (0.0-0.4); Lymphocytes Absolute Auto 2.9 X10*3/uL (1.2-4.9); Lymphocytes Percent Auto 40.8 % (20-40); Mean Corpuscular HGB Conc 33.7 g/dl (31.0-35.0); Mean Corpuscular Hemoglobin 30.6 pg (27.0-33.0); Mean Corpuscular Volume 90.9 fL (80.0-98.0); Mean Platelet Volume 11.4 fL (9.4-12.3); Monocytes Absolute Auto 0.5 X10*3/uL (0.1-1.2); Monocytes Percent Auto 7.2 % (2-11); Neutrophils Absolute Auto 3.6 x10*3/uL (2.0-8.3); Platelet Count 169 X10*3/uL (160-400); Red Blood Count 4.28 X10*6/uL (4.20-5.50); Red Cell Distribution Width 13.8 % (11.0-16.0); White Blood Count 7.1 X10*3/uL (4.8-10.8)
[2023-12-25 08:44] LABS: Alanine Aminotransferase 24 U/L (0-31); Alkaline Phosphatase 96 U/L (39-117); Anion Gap 14 (12-20); Aspartate Amino Transferase 24 U/L (5-31); Bilirubin Total 0.5 mg/dL (0.0-1.0); Blood Urea Nitrogen 10 mg/dL (9-16); Calcium 9.5 mg/dL (8.4-10.2); Carbon Dioxide 23 mmol/L (22-29); Chloride 110 mmol/L (96-108); Cholesterol 139 mg/dL (<200); Estimated Glomerular Filt Rate > 60; Glucose Fasting 97 mg/dL (60-99); HDL Cholesterol 51 mg/dL (>40); Iron 57 mcg/dL (30-160); LDL Cholesterol Calculated 77 mg/dL (<100); Percent Iron Saturation 21 % (15-50); Potassium 3.8 mmol/L (3.3-5.1); Sodium 143 mmol/L (135-145); Total Iron Binding Capacity 268 mcg/dL (228-428); Total Protein 7.4 g/dL (6.5-8.0); Triglycerides 55 mg/dL (<150); Unsaturated Iron Binding 211 ug/dL
[2023-12-25 09:04] LABS: Thyroid Stimulating Hormone 1.94 uIU/mL (0.32-4.0); Vitamin D 25-OH Total 28.7 ng/mL (>30)
[2023-12-25 09:06] LABS: Vitamin B12 704 pg/mL (200-900)
== END 2023-12-25 07:12 | disposition home or self-care (01) ==
LOC: HO.LAB 07:11
PROVIDERS: PCP Internal Medicine; Visit Provider Internal Medicine
DX: D64.9 Anemia, unspecified (principal); E78.5 Hyperlipidemia, unspecified; E55.9 Vitamin D deficiency, unspecified; E53.8 Deficiency of other specified B group vitamins; E66.01 Morbid (severe) obesity due to excess calories
CPT/HCPCS: 36415; 80053; 80061; 82306; 82607; 82746; 83540; 84443; 85025

== ENCOUNTER 2023-12-28 13:21 | Outpatient (AMB) | payer OTHER, SELFPAY ==
--- NOTE | 2023-12-28 13:28 | MHC.PC.OV ---
Vital Signs 12/28/23 13:31 Height 4 ft 11 in Weight 315 lb BMI 63.6 BP 132/80 Blood Pressure Location Lt brachial Position Sitting Intake Visit Reasons: lipids, weight Intake Note: Patient here for a follow up lipids, weight Technical Business Analyst Required: No Accompanied by: Self / Same As Patient Allergies bupropion Allergy (Severe, Verified 12/28/23 13:42) Palpitations phentermine Allergy (Severe, Verified 12/28/23 13:42) Hypertension levofloxacin [From LEVAQUIN] Allergy (Intermediate, Verified 12/28/23 13:42) DIZZINESS topiramate Allergy (Intermediate, Verified 12/28/23 13:42) palpitations Medication List - Last Reconciled 12/28/23 by Eri Mukherjee MD albuterol sulfate 3 mg inhalation QID PRN atenolol 100 mg PO DAILY blood pressure monitor As directed buspirone 5 mg PO BID calcium carbonate-vitamin D3 500 mg-10 mcg (400 unit) (Calcium 500 With D) 1 tab PO DAILY 90 days cetirizine (All Day Allergy (cetirizine)) 10 mg PO DAILY PRN 90 days flecainide 50 mg PO BID fluticasone furoate 50 mcg/actuation (Arnuity Ellipta) 1 inh inhalation Q24H 30 days fluticasone propionate 110 mcg/actuation 2 puffs inhalation BID fluticasone propionate 50 mcg/actuation (Flonase Allergy Relief) 1 spray intranasal DAILY 30 days incontinence pad, liner, disp (Pads For Women) Use 8 pad daily ipratropium bromide 2 sprays intranasal Q8H PRN lidocaine 5% 1 patch topical DAILY linaclotide (Linzess) 72 mcg PO QAM losartan 100 mg PO DAILY miscellaneous medical supply 1 ea miscellaneous DAILY omega-3 fatty acids (Fish Oil Concentrate) 1,000 mg PO DAILY omeprazole 40 mg PO BID rivaroxaban (Xarelto) 20 mg PO QPM rosuvastatin 10 mg PO DAILY 90 days tramadol 50 mg PO DAILY PRN Ventolin HFA 90 mcg/actuation (albuterol sulfate) 1 inh inhalation QID 30 days NS Tobacco use date assessed: 02/24/23 Dental Screening Dental Screen Date: 02/24/23 HPI HPI Comments History of Present Illness Details This is a 58-year-old female with paroxysmal atrial fibrillation, hypertension, dyslipidemia, coronary artery disease, GERD and constipation as well as super super obesity that comes today for follow-up on her conditions. On flecainide for atrial fibrillation and also has chronic anticoagulation. Follow by cardiology for her atrial fibrillation and coronary artery disease. Blood pressure stable. Cholesterol has markedly improved and LDL is very close to goal. On atenolol and losartan for blood pressure. Had coronary CTA showing known obstructive coronary artery disease but denies any chest pain or shortness on breath at the moment. GERD stable with PPIs. Chronic idiopathic constipation is stable with Linzess and follow by Gastroenterology. She has super super obese with a BMI of 63.6 and has tried diet and exercise with no improvement. Has an appointment with [facility] soon and I will start her on Wegovy due to her cardiovascular disease. Walks with a cane for gait stability. [facility] Medical History (Updated 12/28/23 @ 14:01 by Eri Mukherjee MD) Adult general medical exam Mild episode of recurrent major depressive disorder BMI 60.0-69.9, adult Upper abdominal pain Asthma exacerbation Hospital discharge follow-up Preoperative cardiovascular examination BMI 50.0-59.9, adult Morbid obesity Asthma NINI (obstructive sleep apnea) HTN (hypertension) Abnormal nuclear cardiac imaging test Atrial fibrillation with rapid ventricular response DUB (dysfunctional uterine bleeding) Otitis media Postmenopausal bleeding Diarrhea Epigastric pain Dysuria Urge urinary incontinence B12 deficiency Panic attacks Sleep apnea with use of continuous positive airway pressure (CPAP) Arthritis Anxiety Depression Afib Asthma Chronic gastritis Hepatic steatosis Fibromyalgia Surgical History Tubal ligation status H/O colonoscopy History of esophagogastroduodenoscopy (EGD) History of cholecystectomy History of section Family History Father CVA (cerebral vascular accident) Colon cancer CAD (coronary artery disease) Mother Cancer of unknown origin Social History Household Members: None Housing: Apartment Alcohol intake: never Patient Tobacco Use Status: Never used Tobacco e-Cigarette/Vaping Use: Never Used Second Hand Smoke Exposure: No service: No Current occupational status: disabled Cognitive needs: Yes (cane) Hearing needs: No Vision needs: Yes (glasses) Female Reproductive History Menstrual Age of Menarche: 14 Questionnaire Thrive Questionnaire Date Thrive assessed: 02/24/23 ANIL-7 AMB Questionnaire ANIL-7 Date ANIL - 7 assessed: 02/24/23 Source: Developed by Drs. Marc Jordan, Kristine Sams, Salinas Hutchins and colleagues, with an educational deshaun from [employer]. Review of Systems Const All systems reviewed & are unremarkable except as noted in HPI and below Card Denies chest pain at rest, Denies chest pain with activity, Denies edema, Denies irregular heart rhythm, Denies claudication, Denies dyspnea, Denies dyspnea on exertion, Denies orthopnea, Denies paroxysmal nocturnal dyspnea and Denies slow heart rate Resp Denies cough, Denies dyspnea and Denies dyspnea on exertion Physical exam (Primary Care) Vital Signs: Last Vital Signs BP 132/80 12/28/23 13:31 BMI result Body Mass Index 63.6 BMI Assessment/Plan discussion: High BMI High, discussed plan: lifestyle, weight reduction, dietary and physical activity Tobacco/Smoking Status: Tobacco use Status Tobacco use date assessed 02/24/23 12/28/23 13:30 Patient Tobacco Use Status Never used Tobacco 12/28/23 13:30 e-Cigarette/Vaping Use Never Used 12/28/23 13:30 Thrive Assessment: Date of Thrive Assessment Date Thrive assessed 02/24/23 12/28/23 13:30 Const Limitations: ambulation with cane Resp Effort & Inspection: normal respiratory effort Auscultation: clear to auscultation bilaterally Cardio Jugular venous distension: no JVD Rate: regular rate Rhythm: regular rhythm Heart sounds: S1 normal heart sound present and S2 normal heart sound present Extrem General: Yes full ROM Office Procedures Flu Questionnaire Does the patient have a severe egg allergy?: No Does the patient have severe life threatening allergies?: No Does the patient have a fever or illness today?: No Has the patient ever had Guillain-[place] Syndrome?: No Has the patient ever had any past reaction to a flu shot?: No Immunizations Fluarix Triv [id number] (PF) 45 mcg (15 mcg x 3)/0.5 mL IM syringe Performing Provider: Eri Mukherjee MD Performing Location: [facility] Administered by: JCARLOS Baires on 12/28/23 13:52 Dose Route Admin Location Dispensed Lot Number Expiration Date NDC Red Lead Burner 0.5 mL IM Right Deltoid 0.5 mL [id number] 08/14/24 53552-055-10 [employer] VIS Given Date VIS Provided VIS Publication Date 12/28/23 Single Vaccine 20 Eligibility Eligibility Date Funding Source Not [facility] Eligible 12/28/23 Private Coding Level of Care Code Est Pt Level 4 (31053) Complex EM visit Add On G2211 Diagnoses Paroxysmal atrial fibrillation I48.0 Gastroesophageal reflux disease, unspecified whether esophagitis present K21.9 Esophagitis presence: esophagitis presence not specified Chronic idiopathic constipation K59.04 Primary hypertension I10 Hypertension type: primary hypertension Super-super obese E66.01 Dyslipidemia E78.5 Coronary artery disease involving [place] coronary artery of [place] heart without angina pectoris I25.10 Coronary Disease-Associated Artery/Lesion type: [place] artery [place] vs. transplanted heart: [place] heart Associated angina: without angina Time Spent (min) 25 Assessment & Plan Assessment & Plan (1) Paroxysmal atrial fibrillation: Code(s): I48.0 - Paroxysmal atrial fibrillation Category: Medical Plan: Continue flecainide. Follow-up with Cardiology. (2) GERD (gastroesophageal reflux disease): Code(s): K21.9 - Gastro-esophageal reflux disease without esophagitis Category: Medical Qualifiers: Esophagitis presence: esophagitis presence not specified Qualified Code(s): K21.9 - Gastro-esophageal reflux disease without esophagitis Plan: Continue PPIs. (3) Chronic idiopathic constipation: Code(s): K59.04 - Chronic idiopathic constipation Category: Medical Plan: Continue Linzess. (4) HTN (hypertension): Code(s): I10 - Essential (primary) hypertension Category: Medical Qualifiers: Hypertension type: primary hypertension Qualified Code(s): I10 - Essential (primary) hypertension Plan: Continue losartan and add Tylenol. Blood pressure goal is equal or less than 130/80. (5) Super-super obese: Code(s): E66.01 - Morbid (severe) obesity due to excess calories Category: Medical Plan: Follow-up with pain management. Start Wegovy. Advised to do diet and exercise to reach BMI goal less than 30. (6) Dyslipidemia: Code(s): E78.5 - Hyperlipidemia, unspecified Category: Medical Plan: Continue statins. LDL goal is less than 70. (7) CAD (coronary artery disease): Code(s): I25.10 - Atherosclerotic heart disease of [place] coronary artery without angina pectoris Category: Medical Qualifiers: Coronary Disease-Associated Artery/Lesion type: [place] artery [place] vs. transplanted heart: [place] heart Associated angina: without angina Qualified Code(s): I25.10 - Atherosclerotic heart disease of [place] coronary artery without angina pectoris Plan: Continue statins. LDL goal is less than 70. Follow-up with Cardiology. Orders: Orders Influenza [id number] Immunization Today Z23 - Encounter for immunization Medications: New semaglutide (weight loss) (Weabrilvlitzy) administer weeks 1 through 4 of therapy 0.25 mg (0.5 mL) subcut QWEEK 4 weeks 2 mL 0RF E66.01 - Morbid (severe) obesity due to excess calories, I10 - Essential (primary) hypertension, I25.10 - Atherosclerotic heart disease of [place] coronary artery without angina pectoris, I48.0 - Paroxysmal atrial fibrillation
[2023-12-28 13:31] VITALS: BP 132/80; BMI 63.6
== END 2023-12-28 14:02 | disposition home or self-care (01) ==
PROVIDERS: PCP Internal Medicine; Visit Provider Internal Medicine
DX: I48.0 Paroxysmal atrial fibrillation (principal); K21.9 Gastro-esophageal reflux disease without esophagitis; E66.01 Morbid (severe) obesity due to excess calories; Z68.44 Body mass index [BMI] 60.0-69.9, adult; K59.04 Chronic idiopathic constipation; I10 Essential (primary) hypertension; E78.5 Hyperlipidemia, unspecified; I25.10 Atherosclerotic heart disease of native coronary artery without angina pectoris; Z23 Encounter for immunization

== ENCOUNTER → 2023-12-28 13:21 | Outpatient (BNVA) | payer OTHER, SELFPAY | PROVIDERS: PCP Internal Medicine; Visit Provider Internal Medicine | DX: Z23 Encounter for immunization (principal); I48.0 Paroxysmal atrial fibrillation; K21.9 Gastro-esophageal reflux disease without esophagitis; K59.04 Chronic idiopathic constipation; I10 Essential (primary) hypertension; E66.01 Morbid (severe) obesity due to excess calories; E78.5 Hyperlipidemia, unspecified; I25.10 Atherosclerotic heart disease of native coronary artery without angina pectoris | CPT/HCPCS: 90471; 90656; 99212 ==

== ENCOUNTER 2023-12-30 10:48 | Outpatient (AMB) | payer OTHER, SELFPAY ==
[2023-12-30 10:50] VITALS: BP 130/70; BMI 63.9
--- NOTE | 2023-12-30 10:50 | A.OFFVIS_ITS ---
Vital Signs 12/30/23 10:50 Height 4 ft 11 in Weight 316 lb 9.341 oz BMI 63.9 BP 130/70 Blood Pressure Location Rt brachial Position Sitting Intake Visit Reasons: 1 yr f/up s/p echo w/ ekg Intake Note: 1yr f/u s/p Echo. Pt feeling okay Screening Nurse Required: Yes Screening Nurse Name: trinity/vinnie [id number] Accompanied by: Self / Same As Patient Allergies bupropion Allergy (Severe, Verified 12/28/23 13:42) Palpitations phentermine Allergy (Severe, Verified 12/28/23 13:42) Hypertension levofloxacin [From LEVAQUIN] Allergy (Intermediate, Verified 12/28/23 13:42) DIZZINESS topiramate Allergy (Intermediate, Verified 12/28/23 13:42) palpitations Medication List - Last Reconciled 12/30/23 by Suleman Rosales MD albuterol sulfate 3 mg inhalation QID PRN atenolol 100 mg PO DAILY blood pressure monitor As directed buspirone 5 mg PO BID calcium carbonate-vitamin D3 500 mg-10 mcg (400 unit) (Calcium 500 With D) 1 tab PO DAILY 90 days cetirizine (All Day Allergy (cetirizine)) 10 mg PO DAILY PRN 90 days flecainide 50 mg PO BID fluticasone furoate 50 mcg/actuation (Arnuity Ellipta) 1 inh inhalation Q24H 30 days fluticasone propionate 110 mcg/actuation 2 puffs inhalation BID fluticasone propionate 50 mcg/actuation (Flonase Allergy Relief) 1 spray intranasal DAILY 30 days incontinence pad, liner, disp (Pads For Women) Use 8 pad daily ipratropium bromide 2 sprays intranasal Q8H PRN lidocaine 5% 1 patch topical DAILY linaclotide (Linzess) 72 mcg PO QAM losartan 100 mg PO DAILY omega-3 fatty acids (Fish Oil Concentrate) 1,000 mg PO DAILY omeprazole 40 mg PO BID rivaroxaban (Xarelto) 20 mg PO QPM rosuvastatin 10 mg PO DAILY 90 days semaglutide (weight loss) (Wegovy) 0.25 mg (0.5 mL) subcut QWEEK 4 weeks tramadol 50 mg PO DAILY PRN Ventolin HFA 90 mcg/actuation (albuterol sulfate) 1 inh inhalation QID 30 days NS HPI Comments Details: Christiane comes for follow-up. History was obtained with help of a certified medical technician assistant over the telephone. Patient is currently doing well. Has not been able to lose weight and recently prescribed Wegovy which she had questions about. Otherwise she has no symptoms of exertional shortness of breath. Denies any orthopnea, PND, leg edema. No exertional chest pain. Taking all her medications. Using a CPAP. No bleeding issues or neurologic events. [facility] Medical History Adult general medical exam Mild episode of recurrent major depressive disorder BMI 60.0-69.9, adult Upper abdominal pain Asthma exacerbation Hospital discharge follow-up Preoperative cardiovascular examination BMI 50.0-59.9, adult Morbid obesity Asthma NINI (obstructive sleep apnea) HTN (hypertension) Abnormal nuclear cardiac imaging test Atrial fibrillation with rapid ventricular response DUB (dysfunctional uterine bleeding) Otitis media Postmenopausal bleeding Diarrhea Epigastric pain Dysuria Urge urinary incontinence B12 deficiency Panic attacks Sleep apnea with use of continuous positive airway pressure (CPAP) Arthritis Anxiety Depression Afib Asthma Chronic gastritis Hepatic steatosis Fibromyalgia Surgical History Tubal ligation status H/O colonoscopy History of esophagogastroduodenoscopy (EGD) History of cholecystectomy History of section Family History Father CVA (cerebral vascular accident) Colon cancer CAD (coronary artery disease) Mother Cancer of unknown origin Social History Household Members: None Housing: Apartment Alcohol intake: never Patient Tobacco Use Status: Never used Tobacco e-Cigarette/Vaping Use: Never Used Second Hand Smoke Exposure: No service: No Current occupational status: disabled Cognitive needs: Yes (cane) Hearing needs: No Vision needs: Yes (glasses) Female Reproductive History Menstrual Age of Menarche: 14 Review of Systems Const Denies chills, Denies fatigue, Denies fever(s), Denies weight gain and Denies weight loss ENT Denies dizziness Card Denies chest pain, Denies leg edema, Denies lightheadedness, Denies palpitations, Denies dyspnea on exertion, Denies orthopnea and Denies other Resp Denies cough and Denies dyspnea on exertion GI Denies hematochezia and Denies change in stool character Musc Denies abnormal gait, Denies muscle weakness, Denies numbness, Denies radiating pain into limb and Denies tingling Neuro Denies abnormal gait, Denies dizziness, Denies numbness and Denies tingling Endo Denies fatigue and Denies palpitations Physical Exam Vital Signs: Last Vital Signs BP 130/70 12/30/23 10:50 BMI result Body Mass Index 63.9 Const General: cooperative, comfortable and no acute distress Nutritional Appearance: obese morbidly obese Orientation/consciousness: patient oriented x3 Neck Neck: Yes trachea midline, Yes supple and Yes no JVD Chest Chest palpation & inspection: normal inspection of the chest Resp Effort & Inspection: normal respiratory effort Auscultation: clear to auscultation bilaterally and diminished lung sounds Cardio Jugular venous distension: no JVD Rate: regular rate Rhythm: regular rhythm Heart sounds: S1 normal heart sound present and S2 normal heart sound present GI Inspection: Yes Abdominal panniculus present and Yes obesity Auscultation: normal bowel sounds Skin General skin exam: no rashes or lesions noted Neuro General: patient oriented x3 Extrem General: Yes no clubbing, cyanosis or edema Assessment & Plan Assessment & Plan (1) Paroxysmal atrial fibrillation: Code(s): I48.0 - Paroxysmal atrial fibrillation Category: Medical Plan: Highly symptomatic paroxysmal atrial fibrillation which has done well with rhythm control approach. Recommend to continue pursue aggressive rhythm control approach. Continue flecainide therapy which has helped her significantly. Continue concomitant AV ridge blocking agent with the atenolol. Continue full oral anticoagulation, currently on Xarelto 20 mg daily. Semi annual renal function test should be pursued. Continue CPAP therapy. She will benefit significantly from aggressive weight loss program and and aggressive blood pressure control. I would recommend to start we go away therapy. Avoidance of stimulants was discussed. Stress mitigation strategies was discussed. (2) HTN (hypertension): Code(s): I10 - Essential (primary) hypertension Category: Medical Qualifiers: Hypertension type: primary hypertension Qualified Code(s): I10 - Essential (primary) hypertension Plan: Hypertension which is currently well optimized advised to monitor blood pressure at home maintain a log. Goal blood pressure less than 130/84. Currently well optimized. She would benefit significantly from weight reduction. Continue CPAP therapy. Advised to maintain activity level as tolerated. Low-salt diet was discussed. Follow up in the clinic in 6 months time for EKG in 1 year with me. Thank you for allowing me to partake in her care Coding Level of Care Code Est Pt Level 4 (58843) Complex EM visit Add On G2211 Diagnoses Paroxysmal atrial fibrillation I48.0 Primary hypertension I10 Hypertension type: primary hypertension
== END 2023-12-30 11:13 | disposition home or self-care (01) ==
PROVIDERS: PCP Internal Medicine; Visit Provider Internal Medicine Cardiovascular Disease
DX: I48.0 Paroxysmal atrial fibrillation (principal); I10 Essential (primary) hypertension
CPT/HCPCS: 99214; G2211

== ENCOUNTER → 2023-12-30 10:48 | Outpatient (BNVA) | payer OTHER, SELFPAY | PROVIDERS: PCP Internal Medicine; Visit Provider Internal Medicine Cardiovascular Disease | DX: I48.0 Paroxysmal atrial fibrillation (principal); I10 Essential (primary) hypertension | CPT/HCPCS: 99212 ==

== ENCOUNTER 2024-01-03 10:43 | Outpatient (RCR) | payer OTHER, SELFPAY ==
[2023-12-27 12:55] VITALS: BP 137/64; PULSE 62
== END 2024-01-27 10:48 | disposition home or self-care (01) ==
LOC: HO.PT 10:43
PROVIDERS: PCP Internal Medicine; Visit Provider Physician Assistant
DX: M25.811 Other specified joint disorders, right shoulder (principal); M25.812 Other specified joint disorders, left shoulder
CPT/HCPCS: 97110; 97161

== ENCOUNTER → 2024-01-20 10:57 | Outpatient (BNVA) | payer OTHER, SELFPAY | PROVIDERS: PCP Internal Medicine; Visit Provider Internal Medicine ==

== ENCOUNTER 2024-02-03 09:41 | Outpatient (REF) | payer OTHER, SELFPAY ==
--- NOTE | ~2024-02-03 | FL_ITS ---
EXAMINATION: XR FLUOROSCOPY UPPER GI WITH AIR CLINICAL INFORMATION: Reflux COMPARISON: None TECHNIQUE: Fluoroscopic air contrast upper GI examination was performed utilizing standard techniques with thin and thick barium and effervescent granules. Numerous spot images were obtained. FINDINGS: Dual and single contrast images of the esophagus demonstrate normal caliber, contour, and mucosal pattern. No evidence of stricture, mass, or ulcerations identified. Esophageal peristalsis was normal. A small type I hiatal hernia is present. Significant gastroesophageal reflux is seen up to the thoracic inlet. Dual contrast and single contrast images of the stomach demonstrated a normal contour. The gastric rugal folds have a thickened appearance, suggestive of gastritis. No masses or ulcerations are seen. Contrast freely passed into the gastric antrum and duodenal bulb without delay. Single and air-contrast images of the duodenal bulb demonstrate no abnormality. The duodenal sweep has a normal appearance, course, and mucosal fold appearance. The imaged proximal jejunum has a normal fold pattern and caliber. FLUOROSCOPY TIME: 3 minutes 17 seconds Number of Spot Images: 7 Number of Cine: 12 DOSE AREA PRODUCT: 2769 uGy-m2 (microgray-meter squared) FL/FL barium swallow with air IMPRESSION: 1. Small type I hiatal hernia with severe gastroesophageal reflux. 2. Thickened appearance of the gastric rugal folds, suggestive of gastritis. This procedure was performed by Jorge Lopes PA-C, and supervised by Dr. Willis Electronically signed by: Melecio Willis MD 02/04/2024 04:33 PM [facility]
== END 2024-02-03 09:42 | disposition home or self-care (01) ==
LOC: HO.XRAY 09:41
PROVIDERS: PCP Internal Medicine; Visit Provider Nurse Practitioner
DX: K21.9 Gastro-esophageal reflux disease without esophagitis (principal)
CPT/HCPCS: 74221

== ENCOUNTER → 2024-02-03 09:43 | Outpatient (BNV) | payer OTHER, SELFPAY | PROVIDERS: PCP Internal Medicine; Visit Provider Physician Assistant Surgical | DX: K21.9 Gastro-esophageal reflux disease without esophagitis (principal) | CPT/HCPCS: 74246 ==

== ENCOUNTER 2024-02-15 10:47 | Outpatient (AMB) | payer OTHER, SELFPAY ==
[2024-02-15 10:51] VITALS: BP 150/84; PULSE 68; BMI 63.9
--- NOTE | 2024-02-15 10:51 | A.OFFVIS_ITS ---
Vital Signs 02/15/24 10:51 Height 4 ft 11 in Weight 316 lb 9.341 oz BMI 63.9 BP 150/84 H Blood Pressure Location Rt brachial Position Sitting Pulse 68 Pulse Source Pulse Oximeter Intake Visit Reasons: osteoarthritis Intake Note: Patient last seen by Doctor Andrey Tapia on 07/27/23. Presents today for Osteoporosis follow up. Warehouse Receiving Clerk Required: Yes Warehouse Receiving Clerk Language: File Clerk Services: Warehouse Receiving Clerk Present Information Interpreted: non-clinical & clinical Accompanied by: Self / Same As Patient Allergies bupropion Allergy (Severe, Verified 02/15/24 10:56) Palpitations phentermine Allergy (Severe, Verified 02/15/24 10:56) Hypertension levofloxacin [From LEVAQUIN] Allergy (Intermediate, Verified 02/15/24 10:56) DIZZINESS topiramate Allergy (Intermediate, Verified 02/15/24 10:56) palpitations Medication List - Last Reconciled 02/15/24 by Andrey Tapia MD albuterol sulfate 3 mg inhalation QID PRN atenolol 100 mg PO DAILY blood pressure monitor As directed buspirone 5 mg PO BID calcium carbonate-vitamin D3 500 mg-10 mcg (400 unit) (Calcium 500 With D) 1 tab PO DAILY 90 days cetirizine (All Day Allergy (cetirizine)) 10 mg PO DAILY PRN 90 days flecainide 50 mg PO BID fluticasone furoate 50 mcg/actuation (Arnuity Ellipta) 1 inh inhalation Q24H 30 days fluticasone propionate 110 mcg/actuation 2 puffs inhalation BID fluticasone propionate 50 mcg/actuation (Flonase Allergy Relief) 1 spray intranasal DAILY 30 days incontinence pad, liner, disp (Pads For Women) Use 8 pad daily ipratropium bromide 2 sprays intranasal Q8H PRN lidocaine 5% 1 patch topical DAILY linaclotide (Linzess) 72 mcg PO QAM losartan 100 mg PO DAILY omega-3 fatty acids (Fish Oil Concentrate) 1,000 mg PO DAILY omeprazole 40 mg PO BID rivaroxaban (Xarelto) 20 mg PO QPM rosuvastatin 10 mg PO DAILY 90 days semaglutide (weight loss) (Wegovy) 0.25 mg (0.5 mL) subcut QWEEK 4 weeks tramadol 50 mg PO DAILY PRN Ventolin HFA 90 mcg/actuation (albuterol sulfate) 1 inh inhalation QID 30 days NS HPI Comments Details: This is 58-year-old morbidly obese female with generalized osteoarthritis and fibromyalgia who returns for follow-up. She states that she feels her pains are getting worse overall. She has had a left knee injection by Orthopedics about a month ago as well as then left hip injection. [facility] Medical History Adult general medical exam Mild episode of recurrent major depressive disorder BMI 60.0-69.9, adult Upper abdominal pain Asthma exacerbation Hospital discharge follow-up Preoperative cardiovascular examination Morbid obesity Asthma NINI (obstructive sleep apnea) HTN (hypertension) Abnormal nuclear cardiac imaging test Atrial fibrillation with rapid ventricular response DUB (dysfunctional uterine bleeding) Otitis media Postmenopausal bleeding Diarrhea Epigastric pain Dysuria Urge urinary incontinence B12 deficiency Panic attacks Sleep apnea with use of continuous positive airway pressure (CPAP) Arthritis Anxiety Depression Afib Asthma Chronic gastritis Hepatic steatosis Fibromyalgia Surgical History Tubal ligation status H/O colonoscopy History of esophagogastroduodenoscopy (EGD) History of cholecystectomy History of section Family History Father CVA (cerebral vascular accident) Colon cancer CAD (coronary artery disease) Mother Cancer of unknown origin Social History Household Members: None Housing: Apartment Alcohol intake: never Patient Tobacco Use Status: Never used Tobacco e-Cigarette/Vaping Use: Never Used Second Hand Smoke Exposure: No service: No Current occupational status: disabled Cognitive needs: Yes (cane) Hearing needs: No Vision needs: Yes (glasses) Female Reproductive History Menstrual Age of Menarche: 14 Review of Systems [facility] [place] Reports arthralgias Physical Exam Vital Signs: Last Vital Signs Pulse 68 02/15/24 10:51 BP 150/84 H 02/15/24 10:51 BMI result Body Mass Index 63.9 Const General: cooperative, healthy appearing and comfortable Nutritional Appearance: obese morbidly obese Orientation/consciousness: patient oriented x3 Limitations: ambulation with cane HEENT Head: Yes normocephalic and Yes atraumatic Resp Effort & Inspection: normal respiratory effort and able to speak in complete sentences Skin General skin exam: no rashes or lesions noted Neuro General: patient oriented x3 Extrem Other: Multiple fibromyalgia tender points Normal pain-free range of motion of elbows and shoulders left knee pain with flexion Normal nailfold capillaroscopy Assessment & Plan Assessment & Plan (1) Fibromyalgia: Code(s): M79.7 - Fibromyalgia Category: Medical Plan: 58-year-old morbidly obese female with fibromyalgia and generalized osteoarthritis presents for follow-up. She follows up regularly with [facility] for intra-articular injections as needed Discussed management of fibromyalgia with patient. Patient follows up regularly with psychiatrist and psychotherapist. She uses her CPAP regularly. Discussed the importance of light exercises. Provided patient with a booklet on fibromyalgia management Currently she is prescribed 20 tablets of tramadol to last her one-month. Her pains have been getting worse recently. I will increase her tramadol to 30 tablets a month Follow-up in 6 months Plan I spent 15 minutes reviewing patient's chart, evaluating patient, counseling patient and documenting in the chart Medications: Refilled tramadol 50 mg PO DAILY PRN 30 tabs 5RF pain Coding Level of Care Code Est Pt Level 3 (70474) Diagnoses Fibromyalgia M79.7
--- OUTSIDE RECORDS SUMMARY | 2024-02-15 11:01 | XMS_ITS | Continuity of Care Document ---
Author Organization [facility] Address [address] [place] [id number] Phone Care Team Providers Care Blood And Plasma Laboratory Assistant Name Role Phone PCS, Nurse Unavailable Unavailable [...] Diagnoses Date Provider Providers Copied on Encounter [facility] /[facility], [address] [place] [address], [address], [place] tel:[phone] P [facility] General Medicine No Information PCS Nurse. [address] [place] [address], [id number], [place]. tel:[phone] Nutrition Visit Initial [facility] /[facility], [address] [place] [address], [address], [place] tel:[phone] P [facility] General Medicine No Information PCS Other Non Billable. [address] [place] [address], [id number], [place]. tel:[phone] OFFICE/OUTPAT IENT VISIT, [facility] /[facility], [address] [place] [address], [address], [place] tel:[phone] P [facility] General Medicine No Information Mismanos [facility]. [address], [place], [place], [id number], [place]. tel:[phone] PREV VISIT, [facility], AGE 40-64 [facility] /[facility], [address] [place] [address], [address], [place] tel:[phone] P [facility] General Medicine No Information Mism[facility]a. [address], [place], [place], [id number], [place]. tel:[phone] OFFICE/OUTPAT IENT VISIT, [facility] /[facility], [address] [place] [address], [address], [place] tel:[phone] P [facility] General Medicine No Information Mismanos Venessa. [address], [place], [place], [id number], [place]. tel:[phone] OFFICE/OUTPAT IENT VISIT, [facility], [address] [place] [address], [address], [place] tel:[phone] P [facility] General Medicine No Information Mismanos Venessa. [address], [place], [place], [id number], [place]. tel:[phone] OFFICE/OUTPAT IENT VISIT, [facility], [address] [place] [address], [address], [place] tel:[phone] P [facility] General Medicine No Information Mismanos Venessa. [address], [place], [place], [id number], [place]. tel:[phone] [facility] /[facility], [address] [place] [address], [address], [place] tel:[phone] P [facility] Laboratory No Information Jims [facility]. [address], [place], [place], [id number], [place]. tel:[phone] OFFICE/OUTPAT IENT VISIT, [facility] /[facility], [address] [place] [address], [address], [place] tel:[phone] [facility] [place] No Information Jims Venessa. [address], [place], [place], [id number], [place]. tel:[phone] Family History Family Member Type Diagnosis Age At Onset No Information Payers Payer name Insurance type Covered alliance party ID Authoriza tion(s) No Information Social History [...]
== END 2024-02-15 11:21 | disposition home or self-care (01) ==
PROVIDERS: PCP Internal Medicine; Visit Provider Student in an Organized Health Care Education/Training Program
DX: M79.7 Fibromyalgia (principal)
CPT/HCPCS: 99213

== ENCOUNTER → 2024-02-15 10:47 | Outpatient (BNVA) | payer OTHER, SELFPAY | PROVIDERS: PCP Internal Medicine; Visit Provider Student in an Organized Health Care Education/Training Program | DX: M79.7 Fibromyalgia (principal) | CPT/HCPCS: 99212 ==

== ENCOUNTER 2024-02-24 10:09 | Outpatient (REF) | payer OTHER, SELFPAY ==
--- NOTE | ~2024-02-24 | MM_ITS ---
EXAMINATION: MM SCREENING DIGITAL BREAST TOMOSYNTHESIS, BILATERAL CLINICAL INFORMATION: Screening. Asymptomatic. COMPARISON: Mammography: Comparison is made with available priors TECHNIQUE: Digital breast mammography with tomosynthesis is performed in both the craniocaudal and mediolateral oblique views along with computer-aided detection (CAD). FINDINGS: There are scattered areas of fibroglandular density (ACR BI-RADS breast composition Category b). There are no significant masses, abnormal calcifications, or other abnormalities. MM/MM tomosynthesis screening BI IMPRESSION: No mammographic evidence of malignancy. ASSESSMENT: BI-RADS BI-RADS 1 - Negative RECOMMENDATION: Routine annual mammography screening. 1 year F/U This examination should not preclude the clinical evaluation of a suspicious palpable abnormality. This patient's information was entered into a reminder system with a target due date for their next mammogram. Electronically signed by: Regine Johnson DO 03/02/2024 11:11 AM [facility]
== END 2024-02-24 10:10 | disposition home or self-care (01) ==
LOC: HO.MAMMO 10:09
PROVIDERS: PCP Internal Medicine; Visit Provider Internal Medicine
DX: Z12.31 Encounter for screening mammogram for malignant neoplasm of breast (principal)
CPT/HCPCS: 77063; 77067

== ENCOUNTER → 2024-02-24 10:30 | Outpatient (BNV) | payer OTHER, SELFPAY | PROVIDERS: PCP Internal Medicine; Visit Provider Internal Medicine | DX: Z12.31 Encounter for screening mammogram for malignant neoplasm of breast (principal) | CPT/HCPCS: 77063; 77067 ==

== ENCOUNTER 2024-03-13 00:57 | Emergency (ER) | payer OTHER, SELFPAY ==
--- NOTE | 2024-03-13 00:59 | ECG_ITS ---
Test Reason : palpitations Blood Pressure : */* mmHG Vent. Rate : 134 BPM Atrial Rate : * BPM P-R Int : * ms QRS Dur : 78 ms QT Int : 314 ms P-R-T Axes : * 14 2 degrees QTcB Int : 468 ms Artifact in tracing Atrial fibrillation with rapid ventricular response with premature ventricular or aberrantly conducted complexes ST depression, consider subendocardial injury Abnormal ECG When compared with ECG of 12-Feb-2023 11:30, Atrial fibrillation has replaced Sinus rhythm Vent. rate has increased by [address] now depressed in Anterolateral leads Nonspecific T wave abnormality now evident in Lateral leads Referred By: Generic ED Physician Electronically Signed By: DEVIN GARCIA
[2024-03-13 01:03] VITALS: BP 150/100; BP 196/111; PULSE 150; PULSE 99; RESP 18; TEMP 37.2; O2SAT 100; O2SAT 99; BMI 63.8
[2024-03-13 01:11] VITALS: BP 196/111; PULSE 132; RESP 16; TEMP 36.8; O2SAT 100
[2024-03-13 01:37] LABS: MANUAL DIFF FLAG NO
[2024-03-13 01:40] LABS: Basophils Percent Auto 0.4 % (0-2); Eosinophils Absolute Auto 0.2 X10*3/uL (0.0-0.4); Eosinophils Percent Auto 1.4 % (0-4); Hematocrit 40.4 % (37.0-47.0); Hemoglobin 13.4 g/dl (12.0-16.0); Imm Gran Abs Auto 0.05 X10*3/uL (0.00-0.03); Imm Gran Pct Auto 0.5 % (0.0-0.4); Lymphocytes Absolute Auto 4.4 X10*3/uL (1.2-4.9); Mean Corpuscular HGB Conc 33.2 g/dl (31.0-35.0); Mean Corpuscular Volume 90.6 fL (80.0-98.0); Monocytes Absolute Auto 0.7 X10*3/uL (0.1-1.2); Monocytes Percent Auto 6.2 % (2-11); Neutrophils Absolute Auto 5.5 x10*3/uL (2.0-8.3); Neutrophils Percent Auto 50.5 % (45-73); Platelet Count 180 X10*3/uL (160-400); Red Blood Count 4.46 X10*6/uL (4.20-5.50); Red Cell Distribution Width 14.2 % (11.0-16.0); White Blood Count 10.8 X10*3/uL (4.8-10.8)
[2024-03-13 01:44] LABS: INTERNATIONAL NORM RATIO 2.1 (0.9-1.1); Prothrombin Time 24.2 SEC (10.9-12.4)
[2024-03-13] MEDS: Metoprolol Tartrate 5 MG/5 ML VIAL IVPUSH (01:48)
--- NOTE | 2024-03-13 01:48 | ED_ITS ---
HPI - Arrhythmia/Palpitations General Chief Complaint: Arrhythmia/Palpitations Stated Complaint: PALPUTATIONS Time Seen by Provider: 03/13/24 01:10 Source: patient Mode of arrival: EMS Limitations: no limitations History of Present Illness ED Provider: HPI narrative: Patient's history of paroxysmal AFib on flecainide Xarelto and atenolol noticed heart palpitation about 40 minutes prior to arrival with heart rate ranging to 150s no chest pain no significant shortness a breath patient has also been congested for last few days no fever no chills Related Data Home Medications ?Medication ?Instructions ?Recorded ?Confirmed omega-3 fatty acids 1,000 mg 1,000 mg PO DAILY 08/23/20 12/30/23 capsule (Fish Oil Concentrate) albuterol sulfate 2.5 mg/3 mL 3 mg inhalation QID PRN Wheezing 09/19/20 12/30/23 (0.083 %) solution for nebulization buspirone 5 mg tablet 5 mg PO BID 07/16/21 12/30/23 Previous Rx's ?Medication ?Instructions ?Recorded incontinence pad, liner, disp #240 ea 08/06/22 (Pads For Women) linaclotide 72 mcg capsule 72 mcg PO QAM #30 caps 03/10/23 (Linzess) blood pressure monitor #1 ea 04/02/23 atenolol 100 mg tablet 100 mg PO DAILY #90 tabs 05/18/23 flecainide 50 mg tablet 50 mg PO BID #180 tabs 05/18/23 rivaroxaban 20 mg tablet (Xarelto) 20 mg PO QPM #90 tabs 05/18/23 fluticasone propionate 110 2 puff inhalation BID #12 grams 07/20/23 mcg/actuation HFA aerosol inhaler fluticasone furoate 50 1 inh inhalation Q24H 30 days #30 09/04/23 mcg/actuation blister powder for ea inhalation (Arnuity Ellipta) lidocaine 5 % topical patch 1 patch topical DAILY #90 patches 10/08/23 losartan 100 mg tablet 100 mg PO DAILY #90 tabs 11/17/23 rosuvastatin 10 mg tablet 10 mg PO DAILY 90 days #90 tabs 11/17/23 ipratropium bromide 21 mcg (0.03 2 spray intranasal Q8H PRN Allergy 10/15/24 %) nasal spray Symptoms #30 mL Ventolin HFA 90 mcg/actuation 1 inh inhalation QID 30 days #18 12/24/23 aerosol inhaler (albuterol sulfate) grams cetirizine 10 mg tablet (All Day 10 mg PO DAILY PRN allergy 02/07/24 Allergy (cetirizine)) symptoms 90 days #90 tabs fluticasone propionate 50 1 spray intranasal DAILY 30 days 02/07/24 mcg/actuation nasal #16 grams spray,suspension (Flonase Allergy Relief) calcium 500 mg (as 1 tab PO DAILY 90 days #90 tabs 02/15/24 carbonate)-vitamin D3 10 mcg (400 unit) tablet (Calcium 500 With D) tramadol 50 mg tablet 50 mg PO DAILY PRN pain #30 tabs 02/15/24 omeprazole 40 mg capsule,delayed 40 mg PO BID #180 caps 02/17/24 release tirzepatide (weight loss) 2.5 2.5 mg (0.5 mL) subcut QWEEK 4 02/29/24 mg/0.5 mL subcutaneous pen weeks #2 mL injector (Zepbound) Allergies Allergy/AdvReac Type Severity Reaction Status Date / Time bupropion Allergy Severe Palpitation Verified 03/13/24 01:05 s phentermine Allergy Severe Hypertensio Verified 03/13/24 01:05 n levofloxacin [From LEVAQUIN] Allergy Intermediate DIZZINESS Verified 03/13/24 01:05 topiramate Allergy Intermediate palpitation Verified 03/13/24 01:05 s Review of Systems 2 Review of Systems: Yes all other systems are reviewed and are negative PMFSH Past Medical History Medical History Adult general medical exam Mild episode of recurrent major depressive disorder BMI 60.0-69.9, adult Upper abdominal pain Asthma exacerbation Hospital discharge follow-up Preoperative cardiovascular examination Morbid obesity Asthma NINI (obstructive sleep apnea) HTN (hypertension) Abnormal nuclear cardiac imaging test Atrial fibrillation with rapid ventricular response DUB (dysfunctional uterine bleeding) Otitis media Postmenopausal bleeding Diarrhea Epigastric pain Dysuria Urge urinary incontinence B12 deficiency Panic attacks Sleep apnea with use of continuous positive airway pressure (CPAP) Arthritis Anxiety Depression Afib Asthma Chronic gastritis Hepatic steatosis Fibromyalgia Surgical History Tubal ligation status H/O colonoscopy History of esophagogastroduodenoscopy (EGD) History of cholecystectomy History of section Family History Family History Father CVA (cerebral vascular accident) Colon cancer CAD (coronary artery disease) Mother Cancer of unknown origin Social History Social History Household Members: None Housing: Apartment Alcohol intake: never Patient Tobacco Use Status: Never used Tobacco Smoked in Last 30 Days: No e-Cigarette/Vaping Use: Never Used Second Hand Smoke Exposure: No Use of substances other than those prescribed or required for medical reasons: No Advance Directives: No Advance Directives Information Provided: Yes Do you have a plan to hurt others: No Plan Patient : No service: No Current occupational status: disabled Cognitive needs: Yes (cane) Hearing needs: No Vision needs: Yes (glasses) Physical Exam 2 Vital Signs: Vital Signs: Last Vital Signs Temp 98.2 F 03/13/24 01:11 Pulse 132 H 03/13/24 01:11 Resp 16 03/13/24 01:11 BP 196/111 H 03/13/24 01:11 Pulse Ox 100 03/13/24 01:11 O2 Del Method Room Air 03/13/24 01:11 BMI result Body Mass Index 63.8 Appearance: Alert. Oriented X3. No acute distress. Obese Eyes: No pallor no icterus ENT: Pharynx normal. Oral Mucosa moist Neck: Normal inspection. Neck supple. CVS: Irregularly irregular heart rate tachycardic. Pulses normal. Respiratory: No respiratory distress. Equal air entry bilateral, no wheezing/rales/rhonchi Abdomen: Soft and nontender. Bowel sounds are present, no mass palpable, no CVA tenderness Skin: Skin warm and dry. Normal skin color. Normal skin turgor. Extremities: No lower extremity edema. No calf tenderness Neuro: Oriented X 3. No motor deficit. Medications Administered Discontinued Medications Generic Name Dose Route Start Last Admin Trade Name Freq PRN Reason Stop Dose Admin Al Hydroxide/Mg Hydroxide 30 ml 03/13/24 04:44 03/13/24 05:10 Magnesium Hydrox/Alum Hydrox 30 Ml Oral.Susp PO 03/13/24 04:45 30 ml ONCE ONE Administration Diltiazem HCl 20 mg 03/13/24 02:29 03/13/24 02:31 Diltiazem Hcl 50 Mg/10 Ml Vial IVPUSH 03/13/24 02:30 20 mg STAT STA Administration Famotidine 20 mg 03/13/24 04:44 03/13/24 05:10 Famotidine/Pf 20 Mg/2 Ml Vial IVPUSH 03/13/24 04:45 20 mg ONCE ONE Administration Flecainide Acetate 200 mg 03/13/24 01:39 03/13/24 02:04 Flecainide Acetate 50 Mg Tablet PO 03/13/24 01:40 200 mg ONCE ONE Administration Potassium Chloride 10 meq in 100 mls @ 100 mls/hr 03/13/24 04:29 03/13/24 04:38 Potassium Chloride/H20 IV 03/13/24 05:28 100 mls/hr ONCE ONE Administration Metoprolol Tartrate 5 mg 03/13/24 01:45 03/13/24 01:48 Metoprolol Tartrate 5 Mg/5 Ml Vial IVPUSH 03/13/24 01:46 5 mg ONCE ONE Administration Protocol Potassium Bicarbonate 25 meq 03/13/24 04:30 03/13/24 04:37 Potassium Bicarbonate/Cit Ac 25 Meq Tablet.Eff PO 03/13/24 04:31 25 meq ONCE ONE Administration Medical Decision Making Medical Decision Making [facility] Narrative: Patient with paroxysmal AFib on flecainide and atenolol comes here for rapid ventricular rate will give a dose of IV Lopressor and p.o. flecainide 200 mg for cardioversion. 04:30 Patient has received IV Lopressor and flecainide 200 mg also received Cardizem 20 mg IV heart rate initially decreased to 100 now again increased to 130 AFib with RVR will start patient on Cardizem drip 435am before starting Cardizem drip patient converted to normal sinus rhythm heart rate 64 beats per minute patient is asymptomatic Differential Diagnosis Differential Diagnoses: The differential diagnosis associated with the presentation includes Admission/Observation Consideration of admission/observation: Escalation of care including admission/observation considered Lab Data [facility] Lab Attestation statement: I reviewed the patient's lab results. 03/13/24 01:34 03/13/24 02:04 Labs: Lab Results 01/27/25 01/27/25 Range/Units 01:34 02:04 WBC 10.8 (4.8-10.8) X10*3/uL RBC 4.46 (4.20-5.50) X10*6/uL Hgb 13.4 (12.0-16.0) g/dl Hct 40.4 (37.0-47.0) % MCV 90.6 (80.0-98.0) fL MCH 30.0 (27.0-33.0) pg MCHC 33.2 (31.0-35.0) g/dl RDW 14.2 (11.0-16.0) % Plt Count 180 (160-400) X10*3/uL MPV 12.0 (9.4-12.3) fL Immature Gran % (Auto) 0.5 H (0.0-0.4) % Neut % (Auto) 50.5 (45-73) % Lymph % (Auto) 41.0 H (20-40) % Reagan % (Auto) 6.2 (2-11) % Eos % (Auto) 1.4 (0-4) % Baso % (Auto) 0.4 (0-2) % Lymph # (Auto) 4.4 (1.2-4.9) X10*3/uL Reagan # (Auto) 0.7 (0.1-1.2) X10*3/uL Eos # (Auto) 0.2 (0.0-0.4) X10*3/uL Baso # (Auto) 0.0 (0.0-0.2) X10*3/uL Abs Immat Gran (auto) 0.05 H (0.00-0.03) X10*3/uL Absolute Neuts (auto) 5.5 (2.0-8.3) x10*3/uL Absolute Nucleated RBC 0.000 (0.0-0.012) X10*3/uL Nucleated RBC % (auto) 0.0 (0.0-0.2) /100WBC PT 24.2 H (10.9-12.4) SEC INR 2.1 H (0.9-1.1) Sodium 145 (135-145) mmol/L Potassium 3.0 L D (3.3-5.1) mmol/L Chloride 111 H (96-108) mmol/L Carbon Dioxide 20 L (22-29) mmol/L Anion Gap 17 (12-20) BUN 16 (9-16) mg/dL Creatinine 0.77 (0.5-1.4) mg/dL Estim Creat Clear Calc 105.8 Estimated GFR > 60 Fasting Glucose 105 H (60-99) mg/dL Calcium 9.3 (8.4-10.2) mg/dL Total Bilirubin 0.4 (0.0-1.0) mg/dL AST 23 (5-31) U/L ALT 15 (0-31) U/L Alkaline Phosphatase 97 (39-117) U/L Troponin I High Sens 6.7 D (<3.5-17.0) ng/L B-Natriuretic Peptide 117 H (<100) pg/mL Total Protein 8.1 H (6.5-8.0) g/dL Albumin 4.0 (3.5-5.0) g/dL Influenza Type A (PCR) NEGATIVE (Negative) Influenza Type B (PCR) NEGATIVE (Negative) RSV RNA Qual (PCR) NEGATIVE (Negative) SARS-CoV-2 RNA (RT-PCR) NEGATIVE (Negative) Critical Care Time Critical Care Time Critical Care Time: Yes Total Critical Care Time: 70 Attestation: The patient was critically ill with a high probability of imminent or life threatening deterioration. I spent greater than ?80??minutes of discontinuous time evaluating the patient,delivering critical care at the bedside, discussing and evaluating pertinent data with consultants. Critical care time does not include time spent performing separately billable procedures or teaching. Total time spent performing critical care was 70???minutes. Discharge Plan Discharge Clinical Impression: Paroxysmal atrial fibrillation Patient Disposition: Home, Self-Care Instructions: A-fib (Atrial Fibrillation) (ED) Additional Instructions: Skip the dose of flecainide today in a.m. continue rest of your medications Follow with your senior sales consultant Report to the ER if recurrence of the palpitation Prescriptions: No Action (DME) Pads For Women Pad See Rx Instructions .ROUTE .MEDSUPPLY Qty: 240 11RF Rx Instructions: Use 8 pad daily (DME) blood pressure monitor Kit See Rx Instructions .Route Qty: 1 0RF Rx Instructions: As directed flecainide 50 mg tablet 50 mg PO BID Qty: 180 3RF atenolol 100 mg tablet 100 mg PO DAILY Qty: 90 3RF Xarelto 20 mg tablet 20 mg PO QPM Qty: 90 3RF fluticasone propionate 110 mcg/actuation HFA aerosol inhaler 2 puff inhalation BID Qty: 12 3RF Arnuity Ellipta 50 mcg/actuation blister with device 1 inh inhalation Q24H 30 Days Qty: 30 6RF lidocaine 5 % adhesive patch,medicated 1 patch topical DAILY Qty: 90 1RF rosuvastatin 10 mg tablet 10 mg PO DAILY 90 Days Qty: 90 1RF losartan 100 mg tablet 100 mg PO DAILY Qty: 90 1RF ipratropium bromide 21 mcg (0.03 %) spray,non-aerosol 2 spray intranasal Q8H PRN (Reason: Allergy Symptoms) Qty: 30 1RF albuterol sulfate [Ventolin HFA] 90 mcg/actuation HFA aerosol inhaler 1 inh inhalation QID 30 Days Qty: 18 1RF fluticasone propionate [Flonase Allergy Relief] 50 mcg/actuation spray,suspension 1 spray intranasal DAILY 30 Days Qty: 16 1RF Rx Instructions: administer into each nostril cetirizine [All Day Allergy (cetirizine)] 10 mg tablet 10 mg PO DAILY PRN (Reason: allergy symptoms) 90 Days Qty: 90 0RF calcium carbonate-vitamin D3 [Calcium 500 With D] 500 mg-10 mcg (400 unit) tablet 1 tab PO DAILY 90 Days Qty: 90 1RF omeprazole 40 mg capsule,delayed release(DR/EC) 40 mg PO BID Qty: 180 1RF Zepbound 2.5 mg/0.5 mL pen injector 2.5 mg subcut QWEEK 28 Days Qty: 2 0RF Rx Instructions: for 4 weeks buspirone 5 mg tablet 5 mg PO BID albuterol sulfate 2.5 mg /3 mL (0.083 %) solution for nebulization 3 mg inhalation QID PRN (Reason: Wheezing) omega-3 fatty acids [Fish Oil Concentrate] 1,000 mg capsule 1,000 mg PO DAILY tramadol 50 mg tablet 50 mg PO DAILY PRN (Reason: pain) Qty: 30 5RF Linzess 72 mcg capsule 72 mcg PO QAM Qty: 30 6RF Print Language: Italian
[2024-03-13 02:04] LABS: B Type Natriuretic Peptide 117 pg/mL (<100)
[2024-03-13] MEDS: Flecainide Acetate 50 MG TABLET 200 MG PO (02:04)
[2024-03-13 02:19] VITALS: PULSE 130
--- NOTE | 2024-03-13 02:24 | PC.NURSE ---
Patient changed into a hospital attire, placed on rn cardiac cath, HR 120-140's, no complaints of chest pain/shortness of breath. There are two US guided IV lines established: 18 G in L AC and 20 in R forearm. Labs drawn and sent to lab, Patient medicated per APR. Patient had episode of urinary incontinence at ED, lizzy care provided, bed linens changed, purewick applied. Patient currently resting on stretcher bed, HR in 120-150's. Dr Fierro notified.
[2024-03-13] MEDS: dilTIAZem HCL 50 MG/10 ML VIAL 20 MG IVPUSH (02:31)
[2024-03-13 02:32] LABS: Troponin-I High Sensitivity 6.7 ng/L (<3.5-17.0)
[2024-03-13 02:33] LABS: Alanine Aminotransferase 15 U/L (0-31); Alkaline Phosphatase 97 U/L (39-117); Anion Gap 17 (12-20); Aspartate Amino Transferase 23 U/L (5-31); Bilirubin Total 0.4 mg/dL (0.0-1.0); Blood Urea Nitrogen 16 mg/dL (9-16); Calcium 9.3 mg/dL (8.4-10.2); Carbon Dioxide 20 mmol/L (22-29); Chloride 111 mmol/L (96-108); Creatinine Clr Calc Pharmacy 105.8; Estimated Glomerular Filt Rate > 60; Glucose Fasting 105 mg/dL (60-99); Sodium 145 mmol/L (135-145); Total Protein 8.1 g/dL (6.5-8.0)
--- NOTE | 2024-03-13 02:33 | PC.NURSE ---
Patient medicated with Cardizem 20 mg IV push, currently HR in 70-90's, a-fib on phototypesetting equipment monitor. Call sharp within patient's reach, plan of care ongoing.
[2024-03-13 02:51] LABS: Influenza A PCR NEGATIVE (Negative); Influenza B PCR NEGATIVE (Negative); Resp Syncy Virus RNA Qual PCR NEGATIVE (Negative); SARS COV2 PCR INHOUSE NEGATIVE (Negative)
--- OUTSIDE RECORDS SUMMARY | 2024-03-13 02:52 | XMS_ITS | Continuity of Care Document ---
Author Organization [facility] Address [address] [place] [address] Phone Care Team Providers Care Grinding Machine Tender Name Role Phone PCS, Nurse Unavailable Unavailable [...] Diagnoses Date Provider Providers Copied on Encounter [facility] /[facility], [address] [place] [address], [address], [place] tel:[phone] P [facility] General Medicine No Information PCS Nurse. [address] [place] [address], [id number], [place]. tel:[phone] Nutrition Visit Initial [facility] /[facility], [address] [place] [address], [address], [place] tel:[phone] P [facility] General Medicine No Information PCS Other Non Billable. [address] [place] [address], [id number], [place]. tel:[phone] OFFICE/OUTPAT IENT VISIT, [facility] /[facility], [address] [place] [address], [address], [place] tel:[phone] P [facility] General Medicine No Information Mismanos Venessa. [address], [place], [place], [id number], [place]. tel:[phone] PREV VISIT, [facility], AGE 40-64 [facility] /[facility], [address] [place] [address], [address], [place] tel:[phone] P [facility] General Medicine No Information Mismanos Venessa. [address], [place], [place], [id number], [place]. tel:[phone] OFFICE/OUTPAT IENT VISIT, [facility] /[facility], [address] [place] [address], [address], [place] tel:[phone] P [facility] General Medicine No Information Mismanos Venessa. [address], [place], [place], [id number], [place]. tel:[phone] OFFICE/OUTPAT IENT VISIT, [facility], [address] [place] [address], [address], [place] tel:[phone] P [facility] General Medicine No Information Mismanos Venessa. [address], [place], [place], [id number], [place]. tel:[phone] OFFICE/OUTPAT IENT VISIT, [facility], [address] [place] [address], [address], [place] tel:[phone] P [facility] General Medicine No Information Mismanos Venessa. [address], [place], [place], [id number], [place]. tel:[phone] [facility] /[facility], [address] [place] [address], [address], [place] tel:[phone] P [facility] Laboratory No Information Jims Venessa. [address], [place], [place], [id number], [place]. tel:[phone] OFFICE/OUTPAT IENT VISIT, [facility] /[facility], [address] [place] [address], [address], [place] tel:[phone] P [facility] No Information Jims Venessa. [address], [place], [place], [id number], [place]. tel:[phone] Family History Family Member Type Diagnosis Age At Onset No Information Payers Payer name Insurance type Covered green party ID Authoriza tion(s) No Information Social [...]
--- OUTSIDE RECORDS SUMMARY | 2024-03-13 02:52 | XMS_ITS | Encounter Summary ---
Author Organization [employer] Address [address] [facility] 7t [place] [address] Care Team Providers Care Special Education Preschool Teacher Name Role Phone Unavailable Primary Care Provider Unavailabl e Encounter Details Date Type Department Care Team (Latest Contact Info) Description 10/07/2018 Abstract [facility] CONVERSIONS Dental, Provider, DDS Social History Tobacco Use Types Packs/Day Years Used Date Smoking Tobacco: Never Assessed Comments Unknown Sex and Gender Information Value Date Recorded Sex Assigned at Female 12/15/2021 10:20 AM EDT Legal Sex Female 10:20 AM EDT Gender Identity Female 12/15/2021 10:20 AM EDT Sexual Orientation Straight 12/15/2021 10 :20 AM EDT documented as of this encounter Plan of Treatment Upcoming Encounters Date Type Department Care Team (Late st Contact Info) Description 04/18/2024 1:00 PM EST Office Visit [facility] ADULT DENTAL [address] [place] [address] Mariela Barrow [address] [place] [address] documented as of this encounter Visit Diagnoses Not on filedocumented in this encounter
--- OUTSIDE RECORDS SUMMARY | 2024-03-13 02:52 | XMS_ITS | Encounter Summary ---
Author Organization [employer] Address [address] [facility] 7t [place] [address] Care Team Providers Care Farmworker General Name Role Phone Unavailable Primary Care Provider Unavailabl e Encounter Details Date Type Department Care Team (Latest Contact Info) Description 01/23/2021 Abstract [facility] CONVERSIONS Dental, Provider, DDS Social History [...] Description 04/18/2024 1:00 PM EST Office Visit [facility] ADULT DENTAL [address] [place] [address] Mariela Barrow [address] [place] [address] documented as of this encounter Visit Diagnoses Not on filedocumented in this encounter
--- OUTSIDE RECORDS SUMMARY | 2024-03-13 02:52 | XMS_ITS | Clinical Summary ---
Author Organization [employer] Address [address] [place] [address] 7t [place] [address] Care Team Providers Care Customer Quality Engineer Name Role Phone Unavailable Primary Care Provider Unavailabl e Allergies Active Allergy Reactions Criticality Noted Date Comments Levofloxacin Dizziness 03/07/2014 Medications albuterol (2.5 MG/3ML) 0.083% nebulizer solution INHALE 1 VIAL VIA NEBULIZER EVERY 4 HOURS NEEDED WHEEZING FOR UP TO 30 DAYS Active Ventolin HFA 108 (90 Base) MCG/ACT inhaler INHALE DANDO DOS SOPLIDOS POR VIA ORAL CADA CUATRO HORAS CUANDO SEA NECESARIO FOR WHEEZE Active atenolol (Tenormin) 100 MG tablet TOME LUIS TABLETA TODOS LOS D Active acetaminophen (Tylenol) 500 MG tablet Take 500 mg by mouth. Active bisacodyl (Dulcolax) 5 MG EC tablet Take 1 tablet by mouth at bed time. Active buPROPion XL (Wellbutrin XL) 150 MG 24 hr tablet Take 150 mg by mouth in the morning. Active Calcium Carb-Cholecalci ferol (RA Calcium Plus Vitamin D) 600-5 MG-MCG tablet Take by mouth. Activ e famotidine (Pepcid) 40 MG tablet TOME LUIS TABLETA TODOS LOS D AL ACOSTARSE Active fluticasone (Flonase) 50 MCG/ACT nasal spray SPRAY 1 SPRAY INTRANASALLY INTO EACH NOSTRIL DAILY FOR 30 DAYS 4 Active lidocaine (Lidoderm) 5 % patch APPLY 1 PATCH TOPICALLY A DIARIO Active Linzess 72 MCG capsule TOME 1 C PSULA POR V A ORAL CADA MA HENRY 4 Active losartan (Cozaar) 100 MG tablet TOME LUIS TABLETA TODOS LOS D Active montelukast (Singulair) 10 MG tablet TOME LUIS TABLETA POR V A ORAL AL ACOSTARSE Active omega-3 (Fish Oil) 1000 MG capsule Take by mouth. Activ e omeprazole (PriLOSEC) [address] capsule TOME LUIS C PSULA TODOS LOS D 3 Active Xarelto 20 MG tablet TOME LUIS TABLETA TODOS LOS D CON ALIMENTO AT 5PM Active traMADol (Ultram) 50 MG tablet TAKE 1 TABLET ORALLY DAILY NEEDED FOR PAIN Active Spacer/Aero-Hol ding Chambers (OptiChamber Consuelo) misc USE SEG N LO INDICADO WITH INHALER 3 Active flecainide (Tambocor) 50 MG tablet TOME LUIS TABLETA (50 MG) ORALLY 2 TIMES A DAY Active rosuvastatin (Crestor) 10 MG tablet TOME 1 TABLETA POR V A ORAL TODOS LOS D 4 Active Arnuity Ellipta 50 MCG/ACT inhaler INHALE 1 PUFF BY MOUTH EVERY 24 HOURS FOR 30 DAYS 4 Active Active Problems Problem Noted Date Diagnosed Date Missing teeth, acquired 04/15/2023 Localized gingival recession 04/15/2023 Dental calculus 04/15/2023 Social History Tobacco Use Types Packs/Day Years Used Date Smoking Tobacco: Never Smokeless Tobacco: Never Tobacco Cessation:Counseling Given: Not Answered Comments Unknown Sex and Gender Information Value Date Recorded Sex Assigned at Female 12/15/2021 10:20 AM EDT Legal Sex Female 10:20 AM EDT Gender Identity Female 12/15/2021 10:20 AM EDT Sexual Orientation Straight 12/15/2021 10 :20 AM EDT Last Filed Vital Signs Vital Sign Reading Time Taken Comments Blood Pressure 136/78 10/19/2023 10:01 AM EDT Pulse 64 04/15/2023 2:16 PM EST Temperature - - Respiratory Rate - - Oxygen Saturation - - Inhaled Oxygen Concentration - - Weight - - Height - - Body Mass Index - - Plan of Treatment Upcoming Encounters Date Type Department Care Team (Late st Contact Info) Description 04/18/2024 1:00 PM EST Office Visit [facility] ADULT D[facility] [address] [place] [address] Mariela Barrow [address] [place] [address] Health Maintenance Due Date Last Done Comments CT Colonography 1966 Colonoscopy 1966 Colorectal Cancer Screening 1966 Depression Screening 1966 FIT DNA/Cologuard 1966 FIT 1966 FOBT 1966 HIV Screening 1966 Lipid Panel 1966 SDOH Screening 1966 Sigmoidoscopy 1966 Pneumococcal Vaccine: Pediatrics (0 to 5 Years) and At-Risk Patients (6 to 64 Years) (1 of 2 - PCV) 1972 Alcohol/Substance Use Screening 1978 Hepatitis C Screening 1984 Hepatitis B Vaccines (1 of 3 - 19+ 3-dose series) 1985 Pap Smear 11/21/1987 Cervical Cancer Screening 1996 HPV/Cotest 1996 Mammogram 2006 Zoster Vaccines (1 of 2) 2016 Dental Oral Exam 10/15/2023 04/15/2023, 10/2020, 11/22/2019, Additional history exists COVID-19 Vaccine ( season) 2023 02/28/2021, 06/26/2020, 05/29/2020 Influenza Vaccine (#1) 2023 , 02/11/2022, 12/24/2020, Additional history exists Dental X-Ray: Full Mouth 01/25/2024 021, 07/15/2016, 04/13/2008 Dental X-Ray: Bitewings 04/15/2024 04/15/19 24, 01/23/2021, 11/22/2019, Additional history exists Dental Prophylaxis 04/18/2024 10/19/2023, 0 04/15/2023, 09/04/2021, Additional history exists Tobacco Screening 10/18/2024 10/19/2023 DTaP/Tdap/Td Vaccines (2 - Td or Tdap) 11/25/2025 11/26/2015 RSV Patients and Patients Aged 60 years or older (1 - 1-dose 75+ series) 2041 HIB Vaccines Aged Out No longer eligi ble based on patient's age to complete this topic HPV Vaccines Aged Out No longer eligi ble based on patient's age to complete this topic Hepatitis A Vaccines Aged Out No long er eligible based on patient's age to complete this topic IPV Vaccines Aged Out No longer eligi ble based on patient's age to complete this topic Meningococcal Vaccine Aged Out No victoria annalise eligible based on patient's age to complete this topic RSV under 20 months Aged Out No longe r eligible based on patient's age to complete this topic Rotavirus Vaccines Aged Out No longer eligible based on patient's age to complete this topic Procedures Procedure Name Priority Date/Time Associated Diagnosis Comments PROPHYLAXIS - ADULT Routine 10/19/2023 1 0:00 AM EDT Dental calculus BITEWINGS - 4 RADIOGRAPHIC IMAGES Routine 04/15/2023 2:00 PM EST Missing teeth, acquired Localized gingival recession Dental calculus PERIODIC ORAL EVALUATION - ESTABLISHED PATIENT Routine 04/15/2023 2:00 PM EST DIAGNOSTIC - DIAGNOSTIC IMAGING - INTRAORAL - COMPREHENSIVE SERIES OF RADIOGRAPHIC IMAGES Routine 01/23/2021 12:00 AM EST from Last 3 Months or Most Recently Relevant to Health Maintenance Insurance [facility] MEDICAID STAND ADULT
--- OUTSIDE RECORDS SUMMARY | 2024-03-13 02:52 | XMS_ITS | Clinical Summary ---
Author Organization [address] [facility] Address [address] [place] [address] Phone Care Team Providers Care Outbound Sales Executive Name Role Phone Eri Mukherjee MD Primary Care Provider [phone] Allergies Active Allergy Reactions Criticality Noted Date Comments Levofloxacin Dizziness 11/17/2016 Medications Medication Sig Dispensed Refills Start Date End Date Status losartan (COZAAR) 100 mg tablet Take 1 tablet (100 mg total) by mouth 1 (one) time each day. Active lidocaine (LIDODERM) 5 % patch Place 1 patch on the skin 1 (one) time each day. Apply for no more than 12 hours in any 24 hour period Active famotidine (PEPCID) 40 mg tablet Take 1 tablet (40 mg total) by mouth 1 (one) time each day. Active C-LAX LAXATIVE, BISACODYL, ORAL Take 1 tablet by mouth 1 (one) time each day. Active omega-3 acid ethyl esters (LOVAZA) 1 gram capsule Take 1 capsule (1 g total) by mouth 1 (one) time each day. Active acetaminophen (TYLENOL) 500 mg tablet Take 1 tablet (500 mg total) by mouth every 6 (six) hours if needed for mild pain or moderate pain. Active rivaroxaban (XARELTO) 20 mg tablet Take 1 tablet (20 mg total) by mouth 1 (one) time each day. Active cholecalciferol (VITAMIN D-3) 25 mcg (1,000 unit) capsule Take 1 capsule (1,000 Units total) by mouth 1 (one) time each day. Active buPROPion XL (WELLBUTRIN XL) 150 mg 24 hr tablet Take 1 tablet (150 mg total) by mouth 1 (one) time each day in the morning. Active atenoloL (TENORMIN) 100 mg tablet Take 1 tablet (100 mg total) by mouth 1 (one) time each day. Active calcium carbonate-vitamin D3 600 mg-5 mcg (200 unit) per tablet Take 1 tablet by mouth 1 (one) time each day. Active omeprazole (PriLOSEC) [address] capsule Take 1 capsule (20 mg total) by mouth 1 (one) time each day. Active traMADoL (ULTRAM) 50 mg tablet Take 1 tablet (50 mg total) by mouth every 6 (six) hours if needed for moderate pain or severe pain. Active flecainide (TAMBOCOR) 50 mg tablet Take 1 tablet (50 mg total) by mouth 2 (two) times a day. Active rosuvastatin (CRESTOR) 10 mg tablet Take 1 tablet (10 mg total) by mouth 1 (one) time each day. Active fluticasone furoate (Arnuity Ellipta) 100 mcg/actuation blister with device inhaler Inhale 1 puff by mouth 1 (one) time each day. 3 each 4 12/31/2023 12/30/2024 Active albuterol 2.5 mg /3 mL (0.083 %) nebulizer solution Take 3 mL by nebulization every 4 (four) hours if needed for wheezing or shortness of breath. 300 mL 3 12/31/2023 12/30/2024 Active albuterol HFA (PROAIR HFA ; PROVENTIL HFA ; VENTOLIN HFA) 90 mcg/actuation inhalerIndications: Mild persistent asthma, unspecified whether complicated Inhale 2 puffs by mouth every 4 (four) hours if needed for wheezing or shortness of breath. 6.7 g 2 12/31/2023 12/30/2024 Active Active Problems Problem Noted Date Diagnosed Date Morbid obesity with BMI of 60.0-69.9, adult 03/0 09/2023 NINI (obstructive sleep apnea) 11/18/2016 Overview (04/23/2023): [facility] Home Sleep Apnea Test: Date 07/20/2018; Wt 340#; BMI 6; JENNI 51, AI 27; HI 25; Unclassified apneas 0; Obstructive apneas 294; Central apneas 17; Mixed apneas 2; hypopneas 292; average oxygen saturation 89% (lowest 65% with saturations <88% for 5% or more of study) - Obstructive Sleep Apnea - severe; mostly obstructive apneas and hypopneas; with sleep related hypoventilation by 2019 home polysomnogram. Allergic rhinitis 11/18/2016 Asthma 11/18/2016 Atrial fibrillation 11/17/2016 Overview (04/23/2023): Pradaxa Depression 11/17/2016 Arthritis 11/17/2016 Encounters Date Type Department Care Team Description 01/03/[address] [facility] [address] [phone] Merissa Stone [place] DME request (Order for cpap repair/replace sent to [facility]. Fax confirmation received.) 12/31/2023 1:15 PM EST [facility] [address] [place] [phone] Uzair Antonio MD NINI (obstructive sleep apnea) (Primary Dx); Mild persistent asthma, unspecified whether complicated; Morbid obesity with BMI of 60.0-69.9, adult ([facility]) from Last 3 Months Surgical History Surgery Date Site/Laterality Comments CHOLECYSTECTOMY PROCEDURE: HISTORICAL CHOLECYSTECTOMY SECTION PROCEDURE: HISTORICAL ; COMMENT: x 3 Medical History Medical History Date Comments Morbid obesity with BMI of 6 0.0-69.9, adult ([facility]) 11/18/2016 DX:Morbid obesity with BMI o f 60.0-69.9, adult ([facility]) NINI (obstructive sleep apnea) 11/18/2016 DX :NINI (obstructive sleep apnea) Allergic rhinitis 11/18/2016 DX:Allergic rh initis Arthritis 11/17/2016 DX:Arthritis Asthma 11/18/2016 DX:Asthma Atrial fibrillation ([facility]) 11/17/2016 DX :Atrial fibrillation ([facility]); COMMENT: Pradaxa Depression 11/17/2016 DX:Depression Family History Medical History Relation Name Comments Other: AIDS Brother 1 Other: AIDS Brother 2 Thyroid disease Daughter Stroke Father Breast cancer Maternal Grandmother with M etastasis Diabetes Mother Diabetes Paternal Grandmother Relation Name Status Comments Brother 1 Brother 2 Daughter Father Maternal Grandmother Mother Paternal Grandmother Social History Tobacco Use Types Packs/Day Years Used Date Smoking Tobacco: Never Smokeless Tobacco: Never Alcohol Use Standard Drinks/Week Comments No 0 (1 standard drink = 0.6 oz pur e alcohol) Sex and Gender Information Value Date Recorded Sex Assigned at Not on file Gender Identity Not on file Sexual Orientation Not on file Job Start Date Occupation Industry Not on file Not on file Not on file Obstetrics History Last Filed Vital Signs Vital Sign Reading Time Taken Comments Blood Pressure 122/80 12/31/2023 1:23 PM EST Pulse 68 12/31/2023 1:23 PM EST Temperature 36.8 ??C (98.3 ??F) 12/31/2023 1:23 PM ES T Respiratory Rate 20 12/31/2023 1:23 PM EST Oxygen Saturation 96% 12/31/2023 1:23 PM EST Inhaled Oxygen Concentration - - Weight 144 kg (316 lb 12.8 oz) 12/31/2023 1:23 P M EST Height 149.9 cm (4' 11 ) 12/31/2023 1:23 PM EST Body Mass Index 63.99 12/31/2023 1:23 PM EST Plan of Treatment Upcoming Encounters Date Type Department Care Team (Late st Contact Info) Description 06/30/2024 1:00 PM EDT Office Visit [facility]gy [facility] [place] [address] [facility] [address] [place] [phone] Uzair Antonio MD [address] [facility] [address] [place] [address] Health Maintenance Due Date Last Done Comments Breast Cancer Screening 1966 Pneumococcal Vaccine: Pediatrics (0 to 5 Years) and At-Risk Patients (6 to 64 Years) (1 of 2 - PCV) 1972 Hepatitis B Vaccines (1 of 3 - 19+ 3-dose series) 1985 Cervical Cancer Screening: Pap Smear 11/21/1987 Zoster Vaccines (1 of 2) 2016 Colorectal Cancer Screening: Colonoscopy 01/24/2022 Depression Screening 01/24/2022 11/17/2016 HIV Screening 01/24/2022 Hepatitis C Screening 01/24/2022 Social Influencers of Health Screening 01/24/2022 COVID-19 Vaccine ( season) 2023 02/28/2021, 06/26/2020 Hypertension/CHF/CAD Annual BMP Blood Test 12/31/2023 02/27/2021 DTaP,Tdap,and Td Vaccines (2 - Td or Tdap) 11/25/2025 11/26/2015 Cholesterol Screening (Lipid Panel) 02/27/2026 02/27/2021 Influenza Vaccine Completed 12/28/2023, , 02/11/2022, Additional history exists HIB Vaccines Aged Out No longer eligi [...] on patient's age to complete this topic MMR Vaccines Aged Out No longer eligi ble based on patient's age to complete this topic Meningococcal ACWY Vaccine Aged Out N o longer eligible based on patient's age to complete this topic RSV Immunization Patients Under 20 months Aged Out No longer eligible based on patient's age to complete this topic Varicella Vaccines Aged Out No longer eligible based on patient's age to complete this topic Procedures Procedure Name Priority Date/Time Associated Diagnosis Comments ANNUAL BMP BLOOD TEST Routine 02/27/2021 LIPID PANEL Routine 02/27/2021 from Last 3 Months or Most Recently Relevant to Health Maintenance Results * Annual BMP Blood Test (02/27/2021) Pathologist [facility] Annual BMP Blood Test Abstracted Historical Provider MD ADAM Steven * (ABNORMAL) Lipid panel (02/27/2021) [facility] LDL/HDL Ratio 4 0 - 4 Triglycerides 68 0 - 150 mg/dL Cholesterol 178 0 - 200 mg/dL HDL 51 40 mg/dL LDL Cholesterol 114(A) 0 - 100 mg/dL Blood Venous blood specimen / Unknown Historical Provider LAB BLOOD ORDERAB LES from Last 3 Months or Most Recently Relevant to Health Maintenance Care Teams Outbound Sales Executive Relationship Specialty Start Date End Date Eri Mukherjee MD [address] [facility] , [address] [facility] [place] PCP - General Internal Medicine 12/08/13
--- OUTSIDE RECORDS SUMMARY | 2024-03-13 02:52 | XMS_ITS | Encounter Summary ---
Author Organization [employer] Address [address] [facility] [address] [place] [address] Care Team Providers Care Geospatial Analyst Name Role Phone Unavailable Primary Care Provider Unavailabl e Encounter Details Date Type Department Care Team (Latest Contact Info) Description 11/22/2019 Abstract [facility] CONVERSION[facility] Dental, Provider, DDS Social History [...] Description 04/18/2024 1:00 PM EST Office Visit [facility] ADULT DENT[facility] [address] [place] [address] Mariela Barrow [address] [place] [address] documented as of this encounter Visit Diagnoses Not on filedocumented in this encounter
--- NOTE | 2024-03-13 04:35 | ECG_ITS ---
Test Reason : AFIB Blood Pressure : */* mmHG Vent. Rate : 64 BPM Atrial Rate : 64 BPM P-R Int : 158 ms QRS Dur : 98 ms QT Int : 438 ms P-R-T Axes : 21 9 31 degrees QTcB Int : 451 ms Normal sinus rhythm Minimal voltage criteria for LVH, may be normal variant ( Ronal product ) Borderline ECG When compared with ECG of 13-Mar-2024 01:07, Sinus rhythm has replaced Atrial fibrillation Vent. rate has decreased by [address] no longer depressed in Inferior leads ST no longer depressed in Anterolateral leads Nonspecific T wave abnormality no longer evident in Lateral leads Referred By: Archie Youngblood Electronically Signed By: DEVIN GARCIA
[2024-03-13] MEDS: Potassium Bicarbonate/Cit AC 25 MEQ TABLET.EFF PO (04:37)
[2024-03-13] MEDS: Potassium Chloride/H20 10 MEQ/100 ML PIGGYBACK 100 MEQ IV (04:38)
[2024-03-13] MEDS: Magnesium Hydrox/Alum Hydrox 30 ML ORAL.SUSP PO (05:10)
[2024-03-13] MEDS: Famotidine/PF 20 MG/2 ML VIAL IVPUSH (05:10)
[2024-03-13 06:37] VITALS: BP 168/80; PULSE 62; RESP 18; TEMP 36.8; O2SAT 99
== END 2024-03-13 06:45 | disposition home or self-care (01) ==
PROVIDERS: Emergency Provider Internal Medicine; PCP Internal Medicine
DX: I48.0 Paroxysmal atrial fibrillation (principal); I10 Essential (primary) hypertension; E78.5 Hyperlipidemia, unspecified; J45.909 Unspecified asthma, uncomplicated; Z03.818 Encounter for observation for suspected exposure to other biological agents ruled out; E66.9 Obesity, unspecified; Z68.44 Body mass index [BMI] 60.0-69.9, adult; Z79.01 Long term (current) use of anticoagulants; Z79.899 Other long term (current) drug therapy
CPT/HCPCS: 0241U; 36415; 80053; 83880; 84484; 85025; 85610; 93005; 96365; 96375; 96376; 99285; J3480

== ENCOUNTER → 2024-03-13 00:59 | Outpatient (BNV) | payer OTHER, SELFPAY | PROVIDERS: Emergency Provider Internal Medicine; PCP Internal Medicine; Visit Provider Internal Medicine | DX: R94.31 Abnormal electrocardiogram [ECG] [EKG] (principal) | CPT/HCPCS: 93010 ==

== ENCOUNTER 2024-03-22 10:28 | Outpatient (AMB) | payer OTHER, SELFPAY ==
--- NOTE | 2024-03-22 10:32 | MHC.PC.OV ---
Vital Signs 03/22/24 10:33 Height 4 ft 11 in Weight 305 lb 4 oz BMI 61.6 BP 122/80 Blood Pressure Location Lt brachial Position Sitting Pulse 65 Pulse Source Pulse Oximeter Pulse Oximetry (%) 96 Oxygen Delivery Method Room Air Intake Visit Reasons: [facility] 03/13 heart issues Paramedic Rn Required: Yes Paramedic Rn Name: [email or web address]/[id number] Accompanied by: Self / Same As Patient Allergies bupropion Allergy (Severe, Verified 03/22/24 10:49) Palpitations phentermine Allergy (Severe, Verified 03/22/24 10:49) Hypertension levofloxacin [From LEVAQUIN] Allergy (Intermediate, Verified 03/22/24 10:49) DIZZINESS topiramate Allergy (Intermediate, Verified 03/22/24 10:49) palpitations Medication List - Last Reconciled 03/22/24 by OTILIA Baires albuterol sulfate 3 mg inhalation QID PRN atenolol 100 mg PO DAILY blood pressure monitor As directed buspirone 5 mg PO BID calcium carbonate-vitamin D3 500 mg-10 mcg (400 unit) (Calcium 500 With D) 1 tab PO DAILY 90 days cetirizine (All Day Allergy (cetirizine)) 10 mg PO DAILY PRN 90 days flecainide 50 mg PO BID fluticasone furoate 50 mcg/actuation (Arnuity Ellipta) 1 inh inhalation Q24H 30 days fluticasone propionate 110 mcg/actuation 2 puffs inhalation BID fluticasone propionate 50 mcg/actuation (Flonase Allergy Relief) 1 spray intranasal DAILY 30 days incontinence pad, liner, disp (Pads For Women) Use 8 pad daily ipratropium bromide 2 sprays intranasal Q8H PRN lidocaine 5% 1 patch topical DAILY linaclotide (Linzess) 72 mcg PO QAM losartan 100 mg PO DAILY omega-3 fatty acids (Fish Oil Concentrate) 1,000 mg PO DAILY omeprazole 40 mg PO BID rivaroxaban (Xarelto) 20 mg PO QPM rosuvastatin 10 mg PO DAILY 90 days tirzepatide (weight loss) (Zepbound) 2.5 mg (0.5 mL) subcut QWEEK 4 weeks tramadol 50 mg PO DAILY PRN Ventolin HFA 90 mcg/actuation (albuterol sulfate) 1 inh inhalation QID 30 days NS Tobacco use date assessed: 03/22/24 Dental Screening Dental Screen Date: 03/22/24 Did you have a dental visit in the last 12 months?: Yes Did you have a dental problem in the last 6 months where you did not have access to dental care?: No Was dental information given to patient?: Patient has dentist HPI [facility] 03/13 heart issues HPI Details The patient is a 58-year-old female who is presenting for post ER visit for heart palpitation and found to be in AFib with RVR Patient has significant past medical history of NAFLD, asthma, CAD, hypertension, paroxysmal atrial fibrillation, anticoagulation, GERD, 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 Reports that she has hx of recurrent sinusitis and that she is already on zyrtec ---will add mucinex to assist the patient in coughing up the phlegm She reports that she uses he CPAP every night and feels rested in the mornings The patient denies chest pain, denies heart palpitation-reports that she has not seen cardiology as yet, and that she will make an appt On exam: the patient has lung clear lungs, left nare swollen and red with small amount of whitish secretion, turbinates are red and boggy [facility] Medical History Adult general medical exam Mild episode of recurrent major depressive disorder BMI 60.0-69.9, adult Upper abdominal pain Asthma exacerbation Hospital discharge follow-up Preoperative cardiovascular examination Morbid obesity Asthma NINI (obstructive sleep apnea) HTN (hypertension) Abnormal nuclear cardiac imaging test Atrial fibrillation with rapid ventricular response DUB (dysfunctional uterine bleeding) Otitis media Postmenopausal bleeding Diarrhea Epigastric pain Dysuria Urge urinary incontinence B12 deficiency Panic attacks Sleep apnea with use of continuous positive airway pressure (CPAP) Arthritis Anxiety Depression Afib Asthma Chronic gastritis Hepatic steatosis Fibromyalgia Surgical History Tubal ligation status H/O colonoscopy History of esophagogastroduodenoscopy (EGD) History of cholecystectomy History of section Family History Father CVA (cerebral vascular accident) Colon cancer CAD (coronary artery disease) Mother Cancer of unknown origin Social History Household Members: None Housing: Apartment Alcohol intake: never Patient Tobacco Use Status: Never used Tobacco e-Cigarette/Vaping Use: Never Used Second Hand Smoke Exposure: No service: No Current occupational status: disabled Cognitive needs: Yes (cane) Hearing needs: No Vision needs: Yes (glasses) Female Reproductive History Menstrual Age of Menarche: 14 Questionnaire PHQ-9 Over the last 2 weeks, how often have you been bothered by any of the following problems? 1. Little interest or pleasure in doing things: not at all 2. Feeling down, depressed, or hopeless: not at all 3. Trouble falling or staying asleep, or sleeping too much: not at all 4. Feeling tired or having little energy: not at all 5. Poor appetite or overeating: not at all 6. Feeling bad about yourself - or that you are a failure or have let yourself or your family down: not at all 7. Trouble concentrating on things, such as reading the newspaper or watching television: not at all 8. Moving or speaking so slowly that other people could have noticed. Or the opposite - being so fidgety or restless that you have been moving around a lot more than usual: not at all 9. Thoughts that you would be better off or of hurting yourself in some way: not at all Total score: 0 Depression Screening Interpretation: Negative Depression Screening Done: Yes 01371 - PHQ-9 Billing: Yes Source: Developed by Drs. Marc Jordan, Kristine Sams, Salinas Hutchins and colleagues, with an educational deshaun from [employer]. Thrive Questionnaire Date Thrive assessed: 03/22/24 I am a: Patient What is your living situation today?: I have a steady place to live Within the past 12 months, did the food you bought not last and you didn't have the money to get more?: Never true Within the past 12 months, did you worry whether your food would run out before you got money to buy more?: Never true Do you have trouble paying for medicines?: No Do you have trouble getting transportation to medical appointments?: No Do you have trouble paying your heating and electricity bill?: No Do you have trouble taking care of your child, family member or friend?: No Do you have trouble with day-to-day activities such as bathing, preparing meals, shopping, managing finances, etc.?: No Are you currently unemployed and looking for a job?: No Are you interested in more education?: No Please select the resources that you would like help with: None Currently or been in a relationship where the following occur: No concerns reported THRIVE Score: 0 AUDIT C Alcohol Use Questionnaire (AUDIT-C) 1. How often do you have a drink containing alcohol?: Never 3. How often do you have six or more drinks on one occasion?: Never Total Score: 0 ANIL-7 AMB Questionnaire ANIL-7 Date ANIL - 7 assessed: 03/22/24 Feeling nervous, anxious, or on edge: 0 = Not at all Not being able to stop or control worryin = Not at all Worrying too much about different things: 0 = Not at all Trouble relaxin = Not at all Being so restless that it is hard to sit still: 0 = Not at all Becoming easily annoyed or irritable: 0 = Not at all Feeling afraid as if something awful might happen: 0 = Not at all Total ANIL-7 score (0-4 normal; 5-9 mild; 10-14 moderate; 15-21 severe): 0 Source: Developed by Drs. Marc Jordan, Kristine Sams, Salinas Hutchins and colleagues, with an educational deshaun from [employer]. ANIL-7 Assessment Billing ANIL-7 Assessment Tool: ANIL-7 Assessment 26529 Review of Systems Const Details: Denies chills, Denies fatigue, Denies fever(s), Denies headache(s) and Denies weakness HEENT Denies change in vision, Denies dizziness, Denies headache(s), Denies hearing loss, reports nasal congestion (hx of sinusitis), Denies sinus pain, Denies sinus pressure and Denies sore throat Card Denies chest pain, Denies lightheadedness, Denies dyspnea and Denies other (palpitations) Resp recurrent cough (coughing up phlegm), Denies dyspnea and Denies wheezing GI Denies abdominal pain, Denies melena, Denies hematochezia, Denies change in bowel habits, Denies dyspepsia and Denies nausea Denies hematuria and Denies dysuria Musc Denies abnormal gait, Denies myalgias, Denies arthralgias, Denies numbness and Denies tingling Skin/Breast Denies rash, Denies unusual bruising and Denies wounds Neuro Denies abnormal gait, Denies dizziness, Denies headache(s), Denies memory loss, Denies numbness, Denies Sensory deficit (Neuro), Denies tingling and Denies weakness Psych Denies anxiety, Denies depression and Denies memory loss Endo Denies cold intolerance, Denies fatigue, Denies heat intolerance, Denies polydipsia and Denies polyuria Tremaine/Lymph Denies easy bleeding and Denies easy bruising Aller/Immun Denies wheezing Physical exam (Primary Care) Vital Signs: Last Vital Signs Pulse 65 03/22/24 10:33 BP 122/80 03/22/24 10:33 Pulse Ox 96 03/22/24 10:33 Oxygen Delivery Method Room Air 03/22/24 10:33 BMI result Body Mass Index 61.6 Tobacco/Smoking Status: Tobacco use Status Tobacco use date assessed 03/22/24 03/22/24 10:37 Patient Tobacco Use Status Never used Tobacco 03/22/24 10:34 e-Cigarette/Vaping Use Never Used 03/22/24 10:34 PHQ-9: PHQ-9 Score PHQ-9: Total score 0 03/22/24 11:01 Depression Screening Interpretation: Negative Thrive Assessment: Date of Thrive Assessment Date Thrive assessed 03/22/24 03/22/24 10:37 Currently or been in a relationship where the following occur: No concerns reported Const Other: General: no acute distress, well developed, alert and awake Nutritional Appearance: well nourished Orientation/consciousness: patient oriented x3 HENMT Head: Yes normocephalic and Yes atraumatic Ears: hearing grossly normal bilaterally and TM's normal bilaterally General nose exam: Normal external nose present and bilateral nares erythema, left nare with small amount whitish secretion, bilateral turbinates boggy Mouth: Normal oral and palatal mucosa present and moist mucous membranes Eyes Pupils: Equal, round and reactive pupils present and Pupil accommodation reflex normal EOM: EOMs intact bilaterally Neck Neck: Yes normal visual inspection, Yes no lymphadenopathy and Yes trachea midline Thyroid: Thyroid normal Chest Chest palpation & inspection: normal inspection of the chest Resp Effort & Inspection: normal respiratory effort Auscultation: clear to auscultation bilaterally Cardio Rate: regular rate Rhythm: regular rhythm Heart sounds: S1 normal heart sound present, S2 normal heart sound present, no gallops, no murmurs and no rubs GI Palpation (GI): abdomen soft and nontender to palpation Auscultation: normal bowel sounds General: Yes no CVA tenderness Back/Spine/Pelvis Back: no CVA tenderness Skin General: warm and dry. Normal skin color. Normal skin turgor Lesions: no lesions Nails: normal Extrem General: Yes normal to inspection, No edema and No calf tenderness Psych Appearance: grossly normal Affect: normal affect Attitude: cooperative Thought process: Normal thought process present Coding Level of Care Code Est Pt Level 4 (82886) Diagnoses Paroxysmal atrial fibrillation I48.0 Gastroesophageal reflux disease, unspecified whether esophagitis present K21.9 Esophagitis presence: esophagitis presence not specified Chronic idiopathic constipation K59.04 Primary hypertension I10 Hypertension type: primary hypertension Super-super obese E66.01 Dyslipidemia E78.5 Coronary artery disease involving [place] traverse coronary artery of grand traverse heart without angina pectoris I25.10 Coronary Disease-Associated Artery/Lesion type: grand [place] artery [place] vs. transplanted heart: grand traverse heart Associated angina: without angina Nasal congestion R09.81 Cough, unspecified type R05.9 Cough type: unspecified Additional Codes PHQ-9 - 17912 - PHQ-9 Billing: Yes ([id number]) ANIL-7 Assessment Billing - ANIL-7 Assessment Tool: ANIL-7 Assessment 29605 ([id number]) Time Spent (min) 38 Assessment & Plan Assessment & Plan (1) Paroxysmal atrial fibrillation: Code(s): I48.0 - Paroxysmal atrial fibrillation Category: Medical Plan: The patient went into the ER with heart palpitation and found to be in AFIB RVR in the 150s, she was given IV lopressor and po flecainide 200mg for cardioversion. Her heart rate initially decreased to 100 then went up in the 130s afib rvr, she was started on cardizem drip and she converted in NSR in the 60s Continue flecainide. Follow-up with Cardiology. (2) GERD (gastroesophageal reflux disease): Code(s): K21.9 - Gastro-esophageal reflux disease without esophagitis Category: Medical Qualifiers: Esophagitis presence: esophagitis presence not specified Qualified Code(s): K21.9 - Gastro-esophageal reflux disease without esophagitis Plan: reinforced dietary restrictions, refrain from eating close to bedtime Continue omeprazole 40 mg BID (3) Chronic idiopathic constipation: Code(s): K59.04 - Chronic idiopathic constipation Category: Medical Plan: Continue Linzess 72 mcg daily. (4) HTN (hypertension): Code(s): I10 - Essential (primary) hypertension Category: Medical Qualifiers: Hypertension type: primary hypertension Qualified Code(s): I10 - Essential (primary) hypertension Plan: Continue losartan 100mg daily. Blood pressure goal is equal or less than 130/80. bp in office 122/80 reinforced low salt diet. (5) Super-super obese: Code(s): E66.01 - Morbid (severe) obesity due to excess calories Category: Medical Plan: Follow-up with pain management. Start Wegovy. Advised to do diet and exercise to reach BMI goal less than 30. (6) Dyslipidemia: Code(s): E78.5 - Hyperlipidemia, unspecified Category: Medical Plan: Continue statins. LDL goal is less than 70. ldl 77 on previous lipid panel reinforced and diet low in cholesterol and activity as tolerated (7) CAD (coronary artery disease): Code(s): I25.10 - Atherosclerotic heart disease of [place] coronary artery without angina pectoris Category: Medical Qualifiers: Coronary Disease-Associated Artery/Lesion type: [place] artery [place] vs. transplanted heart: grand [place] heart Associated angina: without angina Qualified Code(s): I25.10 - Atherosclerotic heart disease of [place] coronary artery without angina pectoris Plan: Continue statins. LDL goal is less than 70. Follow-up with Cardiology. (8) Nasal congestion: Code(s): R09.81 - Nasal congestion Category: Medical Plan: continue flonase nose spray and zyrtec 10 mg (9) Cough: Code(s): R05.9 - Cough, unspecified Category: Medical Qualifiers: Cough type: unspecified Qualified Code(s): R05.9 - Cough, unspecified Plan: start mucinex 600mg bid Medications: New guaifenesin ER (Mucinex) 600 mg PO BID PRN 30 tabs 0RF congestion
[2024-03-22 10:33] VITALS: BP 122/80; PULSE 65; O2SAT 96; BMI 61.6
--- OUTSIDE RECORDS SUMMARY | 2024-03-22 11:24 | XMS_ITS | Clinical Summary ---
Author Organization [employer] Address [address] [place] [address] [address] [place] [address] Care Team Providers Care Special Education Resource Room Teacher Name Role Phone Unavailable Primary Care [...] Description 04/18/2024 1:00 PM EST Office Visit [facility] [address] [place] [address] Mariela Barrow [address] [place] [address] Health Maintenance Due Date Last Done Comments CT Colonography 1966 Colonoscopy 1966 Colorectal Cancer Screening 1966 Depression Screening 1966 FIT DNA/Cologuard 1966 FIT 1966 FOBT 1966 HIV Screening 1966 Lipid Panel 1966 SDOH Screening 1966 Sigmoidoscopy 1966 Pneumococcal Vaccine: Pediatrics (0 to 5 Years) and At-Risk Patients (6 to 49) Years) (1 of 2 - PCV) 1972 Alcohol/Substance Use Screening 1978 Hepatitis C Screening 1984 Hepatitis B Vaccines (1 of 3 - 19+ 3-dose series) 1985 Pneumococcal Vaccine: 50+ Years (1 of 2 - PCV) 1985 Pap Smear 11/21/1987 Cervical Cancer Screening 1996 HPV/Cotest 1996 Mammogram 2006 Zoster Vaccines (1 of 2) 2016 Dental Oral Exam 10/15/2023 04/15/2023, 10/2020, 11/22/2019, Additional history exists COVID-19 Vaccine ( season) 2023 02/28/2021, 06/26/2020, 05/29/2020 Influenza Vaccine (#1) 2023 4, 02/11/2022, 12/24/2020, Additional history exists Dental X-Ray: [...] Most Recently Relevant to Health Maintenance Insurance [facility] MEDICAID STAND ADULT
--- OUTSIDE RECORDS SUMMARY | 2024-03-22 11:24 | XMS_ITS | Encounter Summary ---
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
--- OUTSIDE RECORDS SUMMARY | 2024-03-22 11:24 | XMS_ITS | Continuity of Care Document ---
Author Organization [facility] Address [address] [place] [address] Phone Care Team Providers Care Night Stocker Name Role Phone PCS, Nurse Unavailable Unavailable [...] Diagnoses Date Provider Providers Copied on Encounter [facility] /[facility], [address] [place] [address], [address], [place] tel:[phone] P [facility] General Medicine No Information PCS Nurse. [address] [place] [address], [id number], [place]. tel:[phone] Nutrition Visit Initial [facility] /[facility], [address] [place] [address], [address], [place] tel:[phone] P [facility] General Medicine No Information PCS Other Non Billable. [address] [place] [address], [id number], [place]. tel:[phone] OFFICE/OUTPAT IENT VISIT, [facility] /[facility], [address] [place] [address], [address], [place] tel:[phone] P [facility] General Medicine No Information Mismanos Venessa. [address], [place], [place], [id number], [place]. tel:[phone] PREV VISIT, [facility], AGE 40-64 [facility] /[facility], [address] [place] [address], [address], [place] tel:[phone] P [facility] General Medicine No Information Mismanos Venessa. [address], [place], [place], [id number], [place]. tel:[phone] OFFICE/OUTPAT IENT VISIT, [facility] /[facility], [address] [place] [address], [address], [place] tel:[phone] P [facility] General Medicine No Information Mismanos Venessa. [address], [place], [place], [id number], [place]. tel:[phone] OFFICE/OUTPAT IENT VISIT, [facility], [address] [place] [address], [address], [place] tel:[phone] P [facility] General Medicine No Information Mismanos Venessa. [address], [place], [place], [id number], [place]. tel:[phone] OFFICE/OUTPAT IENT VISIT, [facility], [address] [place] [address], [address], [place] tel:[phone] P [facility] General Medicine No Information Mismanos Venessa. [address], [place], [place], [id number], [place]. tel:[phone] [facility] /[facility], [address] [place] [address], [address], [place] tel:[phone] P [facility] Laboratory No Information Jims Venessa. [address], [place], [place], [id number], [place]. tel:[phone] OFFICE/OUTPAT IENT VISIT, [facility] /[facility], [address] [place] [address], [address], [place] tel:[phone] P [facility] General Medicine No Information Jims Venessa. [address], [place], [place], [id number], [place]. tel:[phone] Family History Family Member Type Diagnosis Age At Onset No Information Payers Payer name Insurance type Covered republican ID Authoriza tion(s) No Information Social History [...]
--- OUTSIDE RECORDS SUMMARY | 2024-03-22 11:24 | XMS_ITS | Encounter Summary ---
Author Organization [employer] Address [address] [facility] 7[address] [place] [address] Care Team Providers Care Deputy Felony Clerk Name Role Phone Unavailable Primary Care Provider Unavailabl e Encounter Details Date Type Department Care Team (Latest Contact Info) Description 10/07/2018 Abstract [facility] CONVERSIONS Dental, Provider, DDS Social History Tobacco [...] Description 04/18/2024 1:00 PM EST Office Visit [facility] ADULT DENTAL [address] [place] [address] Mariela Barrow [address] [place] [address] documented as of this encounter Visit Diagnoses Not on filedocumented in this encounter
--- OUTSIDE RECORDS SUMMARY | 2024-03-22 11:24 | XMS_ITS | Clinical Summary ---
Author Organization [facility] Address [address] [place] [address] Phone Care Team Providers Care Drum Tender Name Role Phone Eri Mukherjee MD Primary Care Provider [phone] Allergies Active Allergy Reactions Criticality Noted Date [...] NINI (obstructive sleep apnea) 11/18/2016 Overview (04/23/2023): [facility] Home Sleep Apnea Test: Date 07/20/2018; Wt [...] Department Care Team Description 01/03/2024 Telephone Pulmonolgy [facility] [address] [id number] Merissa Stone [place] DME request (Order for cpap repair/replace sent to [facility] Fax confirmation received.) 12/31/2023 1:15 PM EST [facility] [address] [facility] [address] [place] [phone] Uazir Antonio MD NINI (obstructive sleep apnea) (Primary Dx); Mild persistent asthma, unspecified whether complicated; Morbid obesity with BMI of 60.0-69.9, adult ([facility]) from Last 3 Months Surgical History Surgery Date Site/Laterality Comments CHOLECYSTECTOMY PROCEDURE: HISTORICAL CHOLECYSTECTOMY SECTION PROCEDURE: HISTORICAL ; COMMENT: x 3 Medical History Medical History Date Comments Morbid obesity with BMI of 6 0.0-69.9, adult ([facility]) 11/18/2016 DX:Morbid obesity with BMI o f 60.0-69.9, adult ([facility]) NINI (obstructive sleep apnea) 11/18/2016 DX :NINI (obstructive sleep apnea) Allergic rhinitis 11/18/2016 DX:Allergic rh initis Arthritis 11/17/2016 DX:Arthritis Asthma 11/18/2016 DX:Asthma Atrial fibrillation ([facility]) 11/17/2016 DX :Atrial fibrillation ([facility]); COMMENT: Pradaxa Depression 11/17/2016 DX:Depression Family History [...] 1:00 PM EDT Office Visit Pulmonolgy - [place] [address] [facility] [address] [place] [phone] Uzair Antonio MD [address] [facility] [address] [place] [address] Health Maintenance Due Date Last Done Comments [...] * Annual BMP Blood Test (02/27/2021) Pathologist [facility] Annual BMP Blood Test Abstracted Historical Provider MD ADAM Steven * (ABNORMAL) Lipid panel (02/27/2021) [facility] LDL/HDL Ratio 4 0 - 4 Triglycerides 68 0 - 150 mg/dL Cholesterol 178 0 - 200 mg/dL HDL 51 40 mg/dL LDL Cholesterol 114(A) 0 - 100 mg/dL Blood Venous blood specimen / Unknown Historical Provider LAB BLOOD ORDERAB LES from Last 3 Months or Most Recently Relevant to Health Maintenance Care Teams Drum Tender Relationship Specialty Start Date End Date Eri Mukherjee MD [address] [facility] , [address] [facility] D/B/A: [facility] [place] PCP - General Internal Medicine 12/08/13
--- OUTSIDE RECORDS SUMMARY | 2024-03-22 11:24 | XMS_ITS | Encounter Summary ---
Author Organization [employer] Address [address] [facility] 7t [place] [address] Care Team Providers Care Structural Steel Painter Name Role Phone Unavailable Primary Care Provider Unavailabl e Encounter Details Date Type Department Care Team (Latest Contact Info) Description 01/23/2021 Abstract [facility] CONVERSIONS Dental, Provider, DDS Social History [...] Description 04/18/2024 1:00 PM EST Office Visit [facility] ADULT DENTAL [address] [place] [address] Mariela Barrow [address] [place] [address] documented as of this encounter Visit Diagnoses Not on filedocumented in this encounter
== END 2024-03-22 11:13 | disposition home or self-care (01) ==
PROVIDERS: PCP Internal Medicine
DX: I12.9 Hypertensive chronic kidney disease with stage 1 through stage 4 chronic kidney disease, or unspecified chronic kidney disease (principal); I48.0 Paroxysmal atrial fibrillation; E66.01 Morbid (severe) obesity due to excess calories; Z68.44 Body mass index [BMI] 60.0-69.9, adult; E78.5 Hyperlipidemia, unspecified; K21.9 Gastro-esophageal reflux disease without esophagitis; K59.04 Chronic idiopathic constipation; I25.10 Atherosclerotic heart disease of native coronary artery without angina pectoris; R09.81 Nasal congestion; R05.9 Cough, unspecified

== ENCOUNTER → 2024-03-22 10:28 | Outpatient (BNVA) | payer OTHER, SELFPAY | PROVIDERS: PCP Internal Medicine | DX: I48.0 Paroxysmal atrial fibrillation (principal); K21.9 Gastro-esophageal reflux disease without esophagitis; K59.04 Chronic idiopathic constipation; I10 Essential (primary) hypertension; E66.01 Morbid (severe) obesity due to excess calories; E78.5 Hyperlipidemia, unspecified; I25.10 Atherosclerotic heart disease of native coronary artery without angina pectoris; R09.81 Nasal congestion; R05.9 Cough, unspecified | CPT/HCPCS: 96127; 99212 ==

== ENCOUNTER 2024-06-14 12:33 | Outpatient (AMB) | payer OTHER, SELFPAY ==
--- NOTE | 2024-06-14 12:35 | MHC.OFFVIS ---
Vital Signs 06/14/24 12:43 Height 4 ft 11 in Weight 301 lb 9.478 oz BMI 60.9 BP 180/77 H Blood Pressure Location Lt brachial Position Sitting Pulse 74 Pulse Source Pulse Oximeter Pulse Oximetry (%) 94 Oxygen Delivery Method Room Air Intake Visit Reasons: Follow up barium swallow Intake Note: Pt presents to the office today for a follow up barium swallow. Allergies bupropion Allergy (Severe, Verified 06/14/24 12:48) Palpitations phentermine Allergy (Severe, Verified 06/14/24 12:48) Hypertension levofloxacin [From LEVAQUIN] Allergy (Intermediate, Verified 06/14/24 12:48) DIZZINESS topiramate Allergy (Intermediate, Verified 06/14/24 12:48) palpitations HPI HPI Follow up barium swallow: Details: Assessment & Plan (1) GERD (gastroesophageal reflux disease): Code(s): K21.9 - Gastro-esophageal reflux disease without esophagitis Category: Medical Qualifiers: Esophagitis presence: esophagitis presence not specified Qualified Code(s): K21.9 - Gastro-esophageal reflux disease without esophagitis Plan [place] #Max Live She has been having pain that seems to start periumbilicall and then radiates to the left back. She will have associated nausea depending on what I eat, and she has a lot of bloating. This i worse with condiments juan j spicy foods. She is only on o2o qd, may need bid r/t BMI. Is moving bowels well but with some variability soft to hard. Uses Linzess. She is seeing bariatrics at [facility] and has been approved for surgery. She is worried about her hiatal hernia and will get barium swallow to assess, EGD last no mention. after barium swallow Orders: Orders FL barium swallow 09/08/23 K21.9 - Gastro-esophageal reflux disease without esophagitis Medications: Changed From omeprazole 40 mg PO DAILY 90 caps 2RF K21.9 - Gastro-esophageal reflux disease without esophagitis To omeprazole 40 mg PO BID 180 caps 1RF K21.9 - Gastro-esophageal reflux disease without esophagitis On Hold famotidine Hold Comment: Doctor's Order 40 mg PO BEDTIME 90 tabs 3RF K21.9 - Gastro-esophageal reflux disease without esophagitis BARIUM SWALLOW 02/03/2024 FINDINGS: Dual and single contrast images of the esophagus demonstrate normal caliber, contour, and mucosal pattern. No evidence of stricture, mass, or ulcerations identified. Esophageal peristalsis was normal. A small type I hiatal hernia is present. Significant gastroesophageal reflux is seen up to the thoracic inlet. Dual contrast and single contrast images of the stomach demonstrated a normal contour. The gastric rugal folds have a thickened appearance, suggestive of gastritis. No masses or ulcerations are seen. Contrast freely passed into the gastric antrum and duodenal bulb without delay. Single and air-contrast images of the duodenal bulb demonstrate no abnormality. The duodenal sweep has a normal appearance, course, and mucosal fold appearance. The imaged proximal jejunum has a normal fold pattern and caliber. FLUOROSCOPY TIME: 3 minutes 17 seconds Number of Spot Images: 7 Number of Cine: 12 DOSE AREA PRODUCT: 2769 uGy-m2 (microgray-meter squared) FL/FL barium swallow with air IMPRESSION: 1. Small type I hiatal hernia with severe gastroesophageal reflux. 2. Thickened appearance of the gastric rugal folds, suggestive of gastritis. TODAY'S VISIT [place] #Dasha Rasheed SHE IS NOW, HOPEFULLY ON OMEPRAZOLE 40 mg twice a day, in the past she was on omeprazole 40 in the morning and 20 of famotidine at night and she continues on Linzess 72 micro g. She was trialed on GLP-1's but they all made her very ill. She stopped them, she will continue to follow with [facility] weight management Clinic. I would usually do an EGD but we did want in 2021 that was not terribly informative and she says she has good symptom relief on twice a day 40 mg omeprazole. Also, if they do want to consider bariatric surgery usually the surgeon wants to do an EGD prior to this procedure so I am going to hold off for now. The patient is agreeable with this plan and she feels that for now the symptoms are well controlled. Return office visit in 3 months [facility] Medical History Encounter for medication monitoring Adult general medical exam Mild episode of recurrent major depressive disorder BMI 60.0-69.9, adult Upper abdominal pain Asthma exacerbation Hospital discharge follow-up Preoperative cardiovascular examination Morbid obesity Asthma NINI (obstructive sleep apnea) HTN (hypertension) Abnormal nuclear cardiac imaging test Atrial fibrillation with rapid ventricular response DUB (dysfunctional uterine bleeding) Otitis media Postmenopausal bleeding Diarrhea Epigastric pain Dysuria Urge urinary incontinence B12 deficiency Panic attacks Sleep apnea with use of continuous positive airway pressure (CPAP) Arthritis Anxiety Depression Afib Asthma Chronic gastritis Hepatic steatosis Fibromyalgia Surgical History Tubal ligation status H/O colonoscopy History of esophagogastroduodenoscopy (EGD) History of cholecystectomy History of section Family History Father CVA (cerebral vascular accident) Colon cancer CAD (coronary artery disease) Mother Cancer of unknown origin Social History Household Members: None Housing: Apartment Alcohol intake: never Patient Tobacco Use Status: Never used Tobacco e-Cigarette/Vaping Use: Never Used Second Hand Smoke Exposure: No service: No Current occupational status: disabled Cognitive needs: Yes (cane) Hearing needs: No Vision needs: Yes (glasses) Female Reproductive History Menstrual Age of Menarche: 14 Review of Systems Const Denies fatigue, Denies fever(s), Denies night sweats, Denies poor appetite and Denies weight loss Eyes Details: glasses ENT Reports Normal hearing present, Denies dental pain, Denies dysphagia, Denies hearing loss, Denies mouth pain, Denies odynophagia, Denies throat swelling, Denies tongue swelling and Reports other (Dentition adequate) Card Reports dyspnea on exertion Resp Reports dyspnea on exertion GI Details: Denies abdominal pain, Denies melena, Denies bloating, Denies hematochezia, Denies constipation, Denies GI cramping, Denies dysphagia, Denies excessive flatus, Denies early satiety, Reports heartburn, Denies diarrhea, Denies nausea, Denies odynophagia, Denies vomiting and Denies hematemesis Musc Reports back pain, Reports myalgias and Reports arthralgias Skin/Breast Denies pruritus, Denies lesions, Denies rash and Denies jaundice Neuro Reports Normal hearing present and Denies Abnormal speech present Endo Denies fatigue Aller/Immun Denies throat swelling and Denies tongue swelling Physical Exam Vital Signs: Last Vital Signs Pulse 74 06/14/24 12:43 BP 180/77 H 06/14/24 12:43 Pulse Ox 94 06/14/24 12:43 Oxygen Delivery Method Room Air 06/14/24 12:43 BMI result Body Mass Index 60.9 Const General: cooperative, no acute distress, well developed and well groomed Nutritional Appearance: well nourished and obese Orientation/consciousness: oriented to person, oriented to place and oriented to time Limitations: language barrier and ambulation with cane HEENT Head: Yes normocephalic and Yes atraumatic Eyes General: appearance normal, both eyes and all related structures Pupils: Equal, round and reactive pupils present Neck Neck: Yes normal visual inspection and Yes no lymphadenopathy Thyroid: Thyroid normal Resp Effort & Inspection: normal respiratory effort and able to speak in complete sentences Auscultation: clear to auscultation bilaterally Cardio Rate: regular rate Rhythm: regular rhythm Heart sounds: Normal, physiologic split S2 sound present Peripheral pulses: radial pulses present and posterior tibial pulses present GI Inspection: No distended, Yes Abdominal panniculus present and Yes obesity Palpation (GI): Soft to palpation, nontender, no guarding, not rigid and No hepatosplenomegaly present Percussion: Yes normal to percussion Auscultation: normal bowel sounds Rectal Exam - Female: deferred Skin General skin exam: no rashes or lesions noted, turgor normal, skin not dry, no jaundice, No spider nevi and no striae Rashes: no rashes Nails: normal Neuro General: oriented to person, oriented to place and oriented to time Cranial nerves: Yes Equal, round and reactive pupils present and Yes Normal hearing present Speech: No Abnormal speech present Extrem General: Yes normal to inspection, No clubbing, No cyanosis and No edema Psych Appearance: grossly normal and well kempt Mental Status: mental status grossly normal Speech and movement: Normal speech and movement present Affect: normal affect Attitude: cooperative Thought process: Normal thought process present and not confabulating Thought content: Normal thought content present Insight: Fair insight present (Psych) Judgement: Fair judgement present (Psych) Assessment & Plan Assessment & Plan (1) GERD (gastroesophageal reflux disease): Code(s): K21.9 - Gastro-esophageal reflux disease without esophagitis Category: Medical Qualifiers: Esophagitis presence: esophagitis presence not specified Qualified Code(s): K21.9 - Gastro-esophageal reflux disease without esophagitis (2) Chronic idiopathic constipation: Code(s): K59.04 - Chronic idiopathic constipation Category: Medical Plan [place] #Dasha Iqbal SHE IS NOW, HOPEFULLY ON OMEPRAZOLE 40 mg twice a day, in the past she was on omeprazole 40 in the morning and 20 of famotidine at night and she continues on Linzess 72 micro g. She was trialed on GLP-1's but they all made her very ill. She stopped them, she will continue to follow with [facility] weight management Clinic. I would usually do an EGD but we did want in 2021 that was not terribly informative and she says she has good symptom relief on twice a day 40 mg omeprazole. Also, if they do want to consider bariatric surgery usually the surgeon wants to do an EGD prior to this procedure so I am going to hold off for now. The patient is agreeable with this plan and she feels that for now the symptoms are well controlled. Return office visit in 3 months Medications: New omeprazole 40 mg PO BID 180 caps 1RF 90 days K21.9 - Gastro-esophageal reflux disease without esophagitis Refilled linaclotide (Linzess) 72 mcg PO QAM 30 caps 6RF Discontinued tirzepatide (weight loss) (Zepbound) for 4 weeks Discontinued Reason: Patient no longer taking 2.5 mg (0.5 mL) subcut QWEEK 4 weeks 2 mL 0RF E66.01 - Morbid (severe) obesity due to excess calories, E78.5 - Hyperlipidemia, unspecified, G47.33 - Obstructive sleep apnea (adult) (pediatric), I10 - Essential (primary) hypertension, I25.10 - Atherosclerotic heart disease of [place] coronary artery without angina pectoris, I48.0 - Paroxysmal atrial fibrillation, Z99.89 - Dependence on other enabling machines and devices Coding Level of Care Code Est Pt Level 3 (79816) Diagnoses Gastroesophageal reflux disease, unspecified whether esophagitis present K21.9 Esophagitis presence: esophagitis presence not specified Chronic idiopathic constipation K59.04
[2024-06-14 12:43] VITALS: BP 180/77; PULSE 74; O2SAT 94; BMI 60.9
--- OUTSIDE RECORDS SUMMARY | 2024-06-14 13:49 | XMS_ITS | Clinical Summary ---
Author Organization [employer] Address [address] [place] [address] 7t [place] [address] Care Team Providers Care Plant Operations Manager Name Role Phone Unavailable Primary Care Provider [...] Active Problems Problem Noted Date Diagnosed Date Normal oral exam 04/18/2024 Missing teeth, acquired 04/15/2023 Localized gingival recession 04/15/2023 Dental plaque 04/15/2023 Encounters Date Type Department Care Team Description 04/18/2024 1:00 PM EST Office Visit [facility] ADULT DENTAL [address] [place] [address] Mariela Barrow Dental plaque (Primary Dx); Normal oral exam from Last 3 Months Social History Tobacco Use Types Packs/Day Years [...] Sign Reading Time Taken Comments Blood Pressure 146/72 04/18/2024 1:02 PM EST Pulse 64 04/15/2023 2:16 PM EST Temperature - - Respiratory Rate - - Oxygen Saturation - - Inhaled Oxygen Concentration - - Weight - - Height - - Body Mass Index - - Plan of Treatment Upcoming Encounters Date Type Department Care Team (Late st Contact Info) Description 10/23/2024 1:00 PM EDT Office Visit [facility] ADULT DENTAL [address] [place] [address] Danial, Mariela [address] [place] [address] Health Maintenance Due Date Last Done Comments CT Colonography 1966 Colonoscopy 1966 Colorectal Cancer Screening 1966 Depression Screening 1966 FIT DNA/Cologuard 1966 FIT 1966 FOBT 1966 HIV Screening 1966 Lipid Panel 1966 SDOH Screening 1966 Sigmoidoscopy 1966 Alcohol/Substance Use Screening 1978 Hepatitis C Screening 1984 Hepatitis B Vaccines (1 of 3 - 19+ 3-dose series) 1985 Pneumococcal Vaccine: 50+ Years (1 of 2 - PCV) 1985 Pap Smear 11/21/1987 Cervical Cancer Screening 1996 HPV/Cotest 1996 Mammogram 2006 Zoster Vaccines (1 of 2) 2016 COVID-19 Vaccine ( season) 2023 02/28/2021, 06/26/2020, 05/29/2020 Dental Oral Exam 10/20/2024 04/18/2024, , 01/23/2021, Additional history exists Dental Prophylaxis 10/20/2024 04/18/2024, 0 10/19/2023, 04/15/2023, Additional history exists Tobacco Screening 04/18/2025 04/18/2024 Dental X-Ray: Bitewings 04/19/2025 04/19/19 25, 04/15/2023, 01/23/2021, Additional history exists DTaP/Tdap/Td Vaccines (2 - Td or Tdap) 11/25/2025 11/26/2015 Dental X-Ray: Full Mouth 04/20/2027 025, 01/23/2021, 07/15/2016, Additional history exists RSV Patients and Patients Aged 60 years or older (1 - 1-dose 75+ series) 2041 Influenza Vaccine Completed 12/28/2023, , 02/11/2022, Additional [...] Procedure Name Priority Date/Time Associated Diagnosis Comments PERIODIC ORAL EVALUATION - ESTABLISHED PATIENT Routine 04/18/2024 1:00 PM EST CASE PRESENTATION, DETAILED AND EXTENSIVE TREATMENT PLANNING Routine 04/18/2024 1:00 PM EST Dental plaque ORAL HYGIENE INSTRUCTIONS Routine 2024 1:00 PM EST Dental plaque INTRAORAL - COMPLETE SERIES OF RADIOGRAPHIC IMAGES Routine 04/18/2024 1:00 PM EST Dental plaque PROPHYLAXIS - ADULT Routine 04/18/2024 1 :00 PM EST Dental plaque from Last 3 Months Insurance [facility] MEDICAID STAND ADULT
--- OUTSIDE RECORDS SUMMARY | 2024-06-14 13:49 | XMS_ITS | Encounter Summary ---
Author Organization [employer] Address [address] [facility] 7t [place] [address] Care Team Providers Care Corrections Corporal Name Role Phone Unavailable Primary Care Provider Unavailabl e Encounter Details Date Type Department Care Team (Latest Contact Info) Description 10/07/2018 Abstract [facility] CONVERSIONS Dental, Provider, DDS Social History [...] Description 10/23/2024 1:00 PM EDT Office Visit [facility] ADULT DENTAL [address] [place] [address] Aidan Barrowaris [address] [place] [address] documented as of this encounter Visit Diagnoses Not on filedocumented in this encounter
--- OUTSIDE RECORDS SUMMARY | 2024-06-14 13:49 | XMS_ITS | Encounter Summary ---
Author Organization [employer] Address [address] [facility] 7t [place] [address] Care Team Providers Care Acoustical Tile Patternmaker Name Role Phone Unavailable Primary Care Provider Unavailabl e Encounter Details Date Type Department Care Team (Latest Contact Info) Description 11/22/2019 Abstract [facility] CONVERSIONS Dental, Provider, DDS Social History Tobacco [...] Description 10/23/2024 1:00 PM EDT Office Visit [facility] ADULT DENTAL [address] [place] [address] Aidan Barrowaris [address] [place] [address] documented as of this encounter Visit Diagnoses Not on filedocumented in this encounter
--- OUTSIDE RECORDS SUMMARY | 2024-06-14 13:49 | XMS_ITS | Encounter Summary ---
Author Organization [facility] Address [address] [place] [address] Care Team Providers Care High School Coordinator Name Role Phone Eri Mukherjee MD Primary Care Provider [phone] Encounter Details Date Type Department Care Team (Late Contact Info) Description 06/14/2024 Telephone [facility] [address] [phone] Chalo Crmaer [place] Social History Tobacco Use Types Packs/Day Years Used Date Smoking Tobacco: Never Smokeless Tobacco: Never Alcohol Use Standard Drinks/Week Comments No 0 (1 standard drink = 0.6 oz pur e alcohol) Comments Unknown Sex and Gender Information Value Date Recorded Sex Assigned at Not on file Legal Sex Female 6:33 AM EST Gender Identity Not on file Sexual Orientation Not on file documented as of this encounter Progress Notes * Chalo Cramer [place] - 06/14/2024 10:15 AM EDT Pt was non compliant with cpap per OV. Pt is going to need a sleep study before receiving new cpap machine. Pt is going to need a new order as well. documented in this encounter Plan of Treatment Upcoming Encounters Date Type Department Care Team (Late Contact Info) Description 06/28/2024 10:00 AM EDT [facility] [address] [phone] Uzair Antonio MD 175 [facility] [address] [place], [place] [phone] documented as of this encounter Visit Diagnoses Not on filedocumented in this encounter Care Teams High School Coordinator Relationship Specialty Start Date End Date Eri Mukherjee MD [address] [place] [address] , [address] Physician Associ D/B/A: [facility] [place] PCP - General Internal Medicine 12/08/13 documented as of this encounter
--- OUTSIDE RECORDS SUMMARY | 2024-06-14 13:49 | XMS_ITS | Encounter Summary ---
Author Organization [employer] Address [address] [facility] 7t [place] [address] Care Team Providers Care Insurance Claim Auditor Name Role Phone Unavailable Primary Care Provider Unavailabl e Encounter Details Date Type Department Care Team (Latest Contact Info) Description 01/23/2021 Abstract [facility] CONVERSIONS Dental, Provider, DDS [...] Description 10/23/2024 1:00 PM EDT Office Visit [facility] ADULT DENTAL [address] [place] [address] Mariela Barrow [address] [place] [address] documented as of this encounter Visit Diagnoses Not on filedocumented in this encounter
--- OUTSIDE RECORDS SUMMARY | 2024-06-14 13:49 | XMS_ITS | Clinical Summary ---
Author Organization [facility] Address [address] [place] [address] Phone Care Team Providers Care Cleaning And Maintenance Worker Name Role Phone Eri Mukherjee MD Primary Care Provider [phone] Allergies Active Allergy Reactions Criticality Noted Date Comments Levofloxacin Dizziness 11/17/2016 Medications losartan (COZAAR) 100 mg tablet Take 1 [...] 1 (one) time each day. Active calcium carbonate-vitami n D3 600 mg-5 mcg (200 unit) per [...] (one) time each day. 3 each 4 024 2024 Active albuterol 2.5 mg /3 mL (0.083 %) nebulizer solution Take 3 mL by nebulization every 4 (four) hours if needed for wheezing or shortness of breath. 300 mL 3 024 2024 Active montelukast (SINGULAIR) 10 mg tabletIndication s:Unspecified asthma, uncomplicated TOME LUIS TABLETA POR VIA ORAL AL ACOSTARSE 90 tablet 1 025 Active Ventolin HFA 90 mcg/actuation inhalerIndicatio ns:Mild persistent asthma, unspecified whether complicated INHALE 2 PUFFS BY MOUTH EVERY 4 (FOUR) HOURS IF NEEDED FOR WHEEZING OR SHORTNESS OF BREATH. 18 each 2 025 Active albuterol HFA (PROAIR HFA ; PROVENTIL HFA ; VENTOLIN HFA) 90 mcg/actuation inhalerIndicatio ns:Mild persistent asthma, unspecified whether complicated Inhale 2 puffs by mouth every 4 (four) hours if needed for wheezing or shortness of breath. 6.7 g 2 024 2024 Discontinued Active Problems Problem Noted Date Diagnosed Date Morbid obesity with BMI of 6 0.0-69.9, adult ([facility] V24, [facility] V28) 04/23/2023 NINI (obstructive sleep apnea) 11/18/2016 Overview (04/23/2023): [facility] Home Sleep Apnea Test: Date 07/20/2018; Wt [...] Allergic rhinitis 11/18/2016 Asthma 11/18/2016 Atrial fibrillation ([facility] V24, [facility] V28) 1 Overview (04/23/2023): Pradaxa Depression 11/17/2016 Arthritis 11/17/2016 Encounters Date Type Department Care Team Description 06/14/2024 Telephone Pulmonolgy - [address] [phone] Chalo Cramer [place] from Last 3 Months Surgical History Surgery Date Site/Laterality Comments CHOLECYSTECTOMY PROCEDURE: HISTORICAL CHOLECYSTECTOMY SECTION PROCEDURE: HISTORICAL ; COMMENT: x 3 Medical History Medical History Date Comments Morbid obesity with BMI of 6 0.0-69.9, adult ([facility] V24, [facility] V28) 11/18/2016 DX:Morbid obesity wit h BMI of 60.0-69.9, adult ([facility]) NINI (obstructive sleep apnea) 11/18/2016 DX :NINI (obstructive sleep apnea) Allergic rhinitis 11/18/2016 DX:Allergic rh initis Arthritis 11/17/2016 DX:Arthritis Asthma 11/18/2016 DX:Asthma Atrial fibrillation ([facility] V24, [facility] V28) 11/17/2016 DX:Atrial fibrillation ([facility]) ; COMMENT: Pradaxa Depression 11/17/2016 DX:Depression Family History [...] on file Sexual Orientation Not on file Obstetrics History Last Filed [...] Care Team (Late st Contact Info) Description 06/28/2024 10:00 AM EDT Office Visit Pulmonolgy - [place] 175 [facility] [address] [place] [phone] Uzair Antonio MD 175 [facility] [address] [place] [address] Health Maintenance Due Date Last Done Comments Breast Cancer Screening 1966 Hepatitis B Vaccines (1 of 3 - 19+ 3-dose series) 1985 Pneumococcal Vaccine: 50+ Years (1 of 2 - PCV) 1985 Pneumococcal Vaccine: Pediatrics (0 to 5 Years) and At-Risk Patients (6 to 64 Years) (1 of 2 - PCV) 1985 Cervical Cancer Screening: Pap Smear 11/21/1987 [...] patient's age to complete this topic Meningococcal B Vaccine Aged Out No l onger eligible based on patient's age to complete [...] Results * Annual BMP Blood Test (02/27/2021) Annual BMP Blood Test Abstracted us Historical Provider HEALTH MAINTENANCE Final Result * (ABNORMAL) Lipid panel (02/27/2021) LDL/HDL Ratio 4 0 - 4 Triglycerides 68 0 - 150 mg/dL Cholesterol 178 0 - 200 mg/dL HDL 51 >=40 mg/dL LDL Cholesterol 114(A) 0 - 100 mg/dL Blood Venous blood specimen / Unknown us Historical Provider LAB BLOOD ORDERABLES [facility] l Result from Last 3 Months or Most Recently Relevant to Health Maintenance Insurance [facility] Care Teams Cleaning And Maintenance Worker Relationship Specialty Start Date End Date Eri Mukherjee MD [address] [place] [address] , [address] Physician Associ D/B/A: [facility] [place] PCP - General Internal Medicine 12/08/13
== END 2024-06-14 13:52 | disposition home or self-care (01) ==
LOC: HO.HGI 12:33
PROVIDERS: PCP Internal Medicine; Visit Provider Nurse Practitioner
DX: K21.9 Gastro-esophageal reflux disease without esophagitis (principal); K59.04 Chronic idiopathic constipation
CPT/HCPCS: 99213

== ENCOUNTER → 2024-06-14 12:33 | Outpatient (BNVA) | payer OTHER, SELFPAY | PROVIDERS: PCP Internal Medicine; Visit Provider Nurse Practitioner | DX: K21.9 Gastro-esophageal reflux disease without esophagitis (principal); K59.04 Chronic idiopathic constipation; E66.01 Morbid (severe) obesity due to excess calories; E78.5 Hyperlipidemia, unspecified; I25.10 Atherosclerotic heart disease of native coronary artery without angina pectoris; I48.0 Paroxysmal atrial fibrillation; G47.33 Obstructive sleep apnea (adult) (pediatric); Z68.44 Body mass index [BMI] 60.0-69.9, adult; Z99.89 Dependence on other enabling machines and devices | CPT/HCPCS: 99212 ==

== ENCOUNTER 2024-06-26 08:37 | Outpatient (REF) | payer OTHER, SELFPAY ==
--- OUTSIDE RECORDS SUMMARY | 2024-06-26 08:41 | XMS_ITS | Encounter Summary ---
Author Organization [facility] Address [address] [place] [address] Care Team Providers Care Tongue Stitcher Name Role Phone Eri Mukherjee MD Primary Care Provider Markie swenson Reason for Visit * Reason Onset Date Comments DME Request 02/23/2017 Encounter Details Date Type Department Care Team Description 02/23/2017 Telephone Pulmonology - [place] 175 [facility] [address] [place] [address] Uzair Antonio MD [address] [place] [address] DME Request Social History Tobacco Use Types Packs/Day Years Used Date Smoking Tobacco: Never Sex Assigned at Date Recorded Not on file Job Start Date Occupation Industry Not on file Not on file Not on file documented as of this encounter Miscellaneous Notes * Telephone Encounter - Uzair Antonio MD - 02/25/2017 5:36 PM EST done * Telephone Encounter - Darya Guerra M.A. - 02/25/2017 12:54 PM EST Can you please put in a CPAP Supply only order and an order for a nebulizer mask for patient? [place] * Telephone Encounter - Vickie Sanchez M.A. - 02/25/2017 12:04 PM EST Patient is complaint with her NINI. Patient was to follow up within 1 yr per allscripts orders from Dr. Antonio. Supplies should be ordered as requested. * Telephone Encounter - Darya Guerra M.A. - 02/25/2017 10:49 AM EST Pt has no showed 2 times and is requested CPAP supplies and a mask for her nebulizer. Please call pt to inform her of what Dr. Antonio advises. Thank you * Telephone Encounter - Darya Guerra M.A. - 02/24/2017 11:24 AM EST Sent to wrong pool with system error. * Telephone Encounter - Rosanne Rangel - 02/23/2017 1:52 PM EST Pts Visitng nurse is calling on behalf of pt for her CPAP Supplies and a Mask for her Nebulizer.Please send order to [facility]. Any questions please call Esther back. . documented in this encounter Plan of Treatment Not on file documented as of this encounter Visit Diagnoses Not on filedocumented in this encounter Care Teams Tongue Stitcher Relationship Specialty Start Date End Date Eri Mukherjee MD PCP - General Internal Medicine 12/08/13 documented as of this encounter
--- OUTSIDE RECORDS SUMMARY | 2024-06-26 08:42 | XMS_ITS | Encounter Summary ---
Author Organization [employer] Address [address] [facility] 7t [place] [address] Care Team Providers Care Ratoprinter Name Role Phone Unavailable Primary Care Provider Unavailabl e Encounter Details Date Type Department Care Team (Latest Contact Info) Description 10/07/2018 Abstract [facility] CONVERSIONS Dental, Provider, DDS Social [...] Description 10/23/2024 1:00 PM EDT Office Visit [facility] ADULT DENTAL [address] [place] [address] Aidan Barrowaris [address] [place] [address] documented as of this encounter Visit Diagnoses Not on filedocumented in this encounter
--- OUTSIDE RECORDS SUMMARY | 2024-06-26 08:42 | XMS_ITS | Clinical Summary ---
Author Organization [facility] Address [address] [place] [address] Phone Care Team Providers Care Nematologist Name Role Phone Eri Mukherjee MD Primary Care Provider [phone] Allergies Active Allergy Reactions Criticality Noted Date [...] obesity with BMI of 6 0.0-69.9, adult ([facility] V24, [facility] [place] V28) 04/23/2023 NINI (obstructive sleep apnea) 11/18/2016 Overview (04/23/2023): [facility] Home Sleep Apnea Test: Date 07/20/2018; [...] Allergic rhinitis 11/18/2016 Asthma 11/18/2016 Atrial fibrillation ([facility] [place] V24, [facility] [place] V28) 1 Overview (04/23/2023): Pradaxa Depression 11/17/2016 Arthritis 11/17/2016 Encounters Date Type Department Care Team Description 06/14/2024 Telephone Pulmonolgy - [address] [address] Chaol Cramer MA from Last 3 Months Surgical History Surgery Date Site/Laterality Comments CHOLECYSTECTOMY PROCEDURE: HISTORICAL CHOLECYSTECTOMY SECTION PROCEDURE: HISTORICAL ; COMMENT: x 3 Medical History Medical History Date Comments Morbid obesity with BMI of 6 0.0-69.9, adult ([facility] [place] V24, [facility] [place] V28) 11/18/2016 DX:Morbid obesity wit h BMI of 60.0-69.9, adult ([facility]) NINI (obstructive sleep apnea) 11/18/2016 DX :NINI (obstructive sleep apnea) Allergic rhinitis 11/18/2016 DX:Allergic rh initis Arthritis 11/17/2016 DX:Arthritis Asthma 11/18/2016 DX:Asthma Atrial fibrillation ([facility] [place] V24, [facility] [place] V28) 11/17/2016 DX:Atrial fibrillation ([facility]) ; COMMENT: Pradaxa Depression 11/17/2016 DX:Depression Family [...] 10:00 AM EDT Office Visit Pulmonolgy - [place] 175 [facility] [address] [place] [phone] Uzair Antonio MD 175 [facility] [address] [place] [address] Health Maintenance Due Date Last Done Comments [...] Most Recently Relevant to Health Maintenance Insurance [facility] [place] [address] Care Teams Nematologist Relationship Specialty Start Date End Date Eri Mukherjee MD [address] [place] [address] , [address] Physician Associ D/B/A: [facility] [place] PCP - General Internal Medicine 12/08/13
--- OUTSIDE RECORDS SUMMARY | 2024-06-26 08:42 | XMS_ITS | Encounter Summary ---
Author Organization [facility] Address [address] [place] [address] Care Team Providers Care Pre Kindergarten Teacher Name Role Phone Eri Mukherjee MD Primary Care Provider Markie swenson Reason for Visit * Reason Comments E-prescribe Rx Request Encounter Details Date Type Department Care Team Description 08/05/2021 Refill Pulmonology - [place] 175 [facility] [address] [place] [address] Uzair Antonio MD [address] [place] [address] E-prescribe Rx Request Social History Tobacco Use Types Packs/Day Years Used Date Smoking Tobacco: Never Smokeless Tobacco: Never Alcohol Use Standard Drinks/Week Comments No 0 (1 standard drink = 0.6 oz pur e alcohol) Sex Assigned at Date Recorded Not on file Job Start Date Occupation Industry Not on file Not on file Not on file documented as of this encounter Miscellaneous Notes * Telephone Encounter - Sonja Jenkinsbam - 08/05/2021 11:39 AM EDT Patient would like script to be: E-PRESCRIBED/FAXED TO PHARMACY WHEN WAS THE PATIENT'S LAST APPOINTMENT IN ADULT MEDICINE? 06/09/21 WHEN WAS THE LAST TIME THE PATIENT SAW THEIR PCP? Same as above Does patient have an upcoming appointment? Yes 10/13/21 (THE MEDICATION REQUESTED IS ON THE MED LIST ABOVE) All of the medications requested were on the CURRENT MEDS list Did you check the Pharmacy information above?: YES Patient wants: 30 -day supply Is this a mail order prescription request ? NO If the refill is from a FAXED refill request what is the RX # listed on the fax? N/A Patients current insurance carrier is: Payor: [employer]FS / Plan: [employer] / Product Type: MEDICAID RISK documented in this encounter Plan of Treatment Not on file documented as of this encounter Visit Diagnoses Diagnosis Moderate asthma, unspecified whether complicated, unspecified whether persistent documented in this encounter Care Teams Pre Kindergarten Teacher Relationship Specialty Start Date End Date Eri Mukherjee MD PCP - General Internal Medicine 12/08/13 documented as of this encounter
--- OUTSIDE RECORDS SUMMARY | 2024-06-26 08:42 | XMS_ITS | Encounter Summary ---
Author Organization [facility] Address [address] [place] [address] Care Team Providers Care Funeral Home Makeup Artist Name Role Phone Eri Mukherjee MD Primary Care Provider Markie swenson Reason for Visit * Reason Comments E-prescribe Rx Request Encounter Details Date Type Department Care Team Description 08/23/2020 Refill Pulmonology - [place] 175 [facility] [address] [place] [address] Uzair Antonio MD [address] [place] [phone] E-prescribe Rx Request Social History Tobacco Use [...] encounter Miscellaneous Notes * Telephone Encounter - Kelsi Velez - 09/04/2020 1:34 PM EDT Pls advise * Telephone Encounter - Eneida Gunderson - 09/04/2020 1:23 PM EDT Demetri 04/12/20 Next 10/11/20 documented in this encounter Plan of Treatment Not on file documented as of this encounter Visit Diagnoses Diagnosis Morbid obesity with BMI of 60.0-69.9, adult (HCC) Moderate asthma, unspecified whether complicated, unspecified whether persistent documented in this encounter Care Teams Funeral Home Makeup Artist Relationship Specialty Start Date End Date Eri Mukherjee MD PCP - General Internal Medicine 12/08/13 documented as of this encounter
--- OUTSIDE RECORDS SUMMARY | 2024-06-26 08:42 | XMS_ITS | Encounter Summary ---
Author Organization [facility] Address [address] [place] [address] Care Team Providers Care Industrial Maintenance Instructor Name Role Phone Eri Mukherjee MD Primary Care Provider Markie swenson Reason for Visit * Reason Comments E-prescribe Rx Request Encounter Details Date Type Department Care Team Description 11/23/2022 Refill Pulmonology - [place] 175 [facility] [address] [place] [address] Uzair Antonio MD [address] [place] [phone] E-prescribe Rx Request Social History Tobacco Use [...] encounter Miscellaneous Notes * Telephone Encounter - Monica Samuel - 11/23/2022 3:54 PM EDT [place] 06/26/22 NOV 12/28/22 documented in this encounter Plan of Treatment Not on file documented as of this encounter Visit Diagnoses Diagnosis Morbid obesity with BMI of 60.0-69.9, adult (HCC) Moderate asthma, unspecified whether complicated, unspecified whether persistent NINI (obstructive sleep apnea) severe JENNI 52 with nocturnal hypoxia Obstructive sleep apnea (adult) (pediatric) documented in this encounter Care Teams Industrial Maintenance Instructor Relationship Specialty Start Date End Date Yaz, Eri Lalo, MD PCP - General Internal Medicine 12/08/13 documented as of this encounter
--- OUTSIDE RECORDS SUMMARY | 2024-06-26 08:42 | XMS_ITS | Encounter Summary ---
Author Organization [facility] Address [address] [place] [address] Care Team Providers Care Water Conservation Specialist Name Role Phone Eri Mukherjee MD Primary Care Provider Markie swenson Reason for Visit * Reason Comments E-prescribe Rx Request Encounter Details Date Type Department Care Team Description 04/19/2023 Refill Pulmonology - [place] [address] [facility] [address] [place] [address] Uzair Antonio MD [address] [place] [phone] E-prescribe Rx Request Social History Tobacco Use [...] encounter Miscellaneous Notes * Telephone Encounter - Ro Andrade - 04/19/2023 10:20 AM EST [place] 12/28/22 NOV 06/30/23 documented in this encounter Plan of Treatment Not on file documented as of this encounter Visit Diagnoses Diagnosis Moderate asthma, unspecified whether complicated, unspecified whether persistent documented in this encounter Care Teams Water Conservation Specialist Relationship Specialty Start Date End Date Eri Mukherjee MD PCP - General Internal Medicine 12/08/13 documented as of this encounter
--- OUTSIDE RECORDS SUMMARY | 2024-06-26 08:42 | XMS_ITS | Encounter Summary ---
Author Organization [employer] Address [address] [facility] 7[address] [place] [address] Care Team Providers Care Wet Process Miller Head Name Role Phone Unavailable Primary Care Provider Unavailabl e Encounter Details Date Type Department Care Team (Latest Contact Info) Description 01/23/2021 Abstract [facility] CONVERSIONS Dental, Provider, DDS Social History [...] Description 10/23/2024 1:00 PM EDT Office Visit [facility] ADULT DENTAL [address] [place] [address] Aidan Barrowaris [address] [place] [address] documented as of this encounter Visit Diagnoses Not on filedocumented in this encounter
--- OUTSIDE RECORDS SUMMARY | 2024-06-26 08:42 | XMS_ITS | Encounter Summary ---
Author Organization [facility] Address [address] [place] [address] Care Team Providers Care Ice Cream Maker Name Role Phone Eri Mukherjee MD Primary Care Provider Markie swenson Encounter Details Date Type Department Care Team Description 08/11/2021 Transfer Records Medical Records [address] [place] [address] Abstract, Provider Social History Tobacco Use Types Packs/Day Years Used Date Smoking Tobacco: Never Smokeless Tobacco: Never Alcohol Use Standard Drinks/Week Comments No 0 (1 standard drink = 0.6 oz pur e alcohol) Sex Assigned at Date Recorded Not on file Job Start Date Occupation Industry Not on file Not on file Not on file documented as of this encounter Plan of Treatment Not on file documented as of this encounter Visit Diagnoses Not on filedocumented in this encounter Care Teams Ice Cream Maker Relationship Specialty Start Date End Date Eri Mukherjee MD PCP - General Internal Medicine 12/08/13 documented as of this encounter
--- OUTSIDE RECORDS SUMMARY | 2024-06-26 08:42 | XMS_ITS | Encounter Summary ---
Author Organization [facility] Address [address] [place] [address] Care Team Providers Care Crown Ceramist Name Role Phone Eri Mukherjee MD Primary Care Provider Markie swenson Reason for Visit * Reason Comments E-prescribe Rx Request Encounter Details Date Type Department Care Team Description 11/01/2019 Refill Pulmonology - [place] [address] [facility] [address] [place] [address] Uzair Antonio MD 175 [place] [phone] E-prescribe Rx Request Social History Tobacco Use [...] encounter Miscellaneous Notes * Telephone Encounter - Lucia Allen - 11/06/2019 2:59 PM EDT TIFFANY - 10/09/2019 NOV - Patient is due for a 6 month follow up around 04/10/2020. Schedule currently unavailable to book appointment. Refills - 1 documented in this encounter Plan of Treatment Not on file documented as of this encounter Visit Diagnoses Diagnosis Morbid obesity with BMI of 60.0-69.9, adult (HCC) documented in this encounter Care Teams Crown Ceramist Relationship Specialty Start Date End Date Eri Mukherjee MD PCP - General Internal Medicine 12/08/13 documented as of this encounter
--- OUTSIDE RECORDS SUMMARY | 2024-06-26 08:42 | XMS_ITS | Encounter Summary ---
Author Organization [facility] Address [address] [place] [address] Care Team Providers Care Spring Repairer Helper Hand Name Role Phone Eri Mukherjee MD Primary Care Provider Markie swenson Reason for Visit * Reason Comments E-prescribe Rx Request Encounter Details Date Type Department Care Team Description 12/17/2020 Refill Pulmonology - [place] 175 [facility] [address] [place] [address] Uzair Antonio MD [address] [place] [phone] E-prescribe Rx Request Social History Tobacco Use Types Packs/Day Years Used Date Smoking Tobacco: Never Smokeless Tobacco: Never Alcohol Use Standard Drinks/Week Comments No 0 (1 standard drink = 0.6 oz pur e alcohol) Sex Assigned at Date Recorded Not on file Job Start Date Occupation Industry Not on file Not on file Not on file COVID-19 Exposure Response Date Recorded In the last month, have you been in contact with someone who was confirmed or suspected to have Coronavirus / COVID-19? No / Unsure 11/26/2020 2:12 PM EDT documented as of this encounter Miscellaneous Notes * Telephone Encounter - Monica Samuel - 12/17/2020 4:07 PM EDT Patient would like script to be: E-PRESCRIBED/FAXED TO PHARMACY WHEN WAS THE PATIENT'S LAST APPOINTMENT IN ADULT MEDICINE? 11/26/20 WHEN WAS THE LAST TIME THE PATIENT SAW THEIR PCP? Same as above Does patient have an upcoming appointment? No, 6 month f/u schedule not open yet. (THE MEDICATION REQUESTED IS ON THE MED [...] N/A Patients current insurance carrier is: [facility] / Plan: [employer] [facility] / Product Type: MEDICAID RISK documented in this encounter Plan of Treatment Not on file documented as of this encounter Visit Diagnoses Diagnosis Morbid obesity with BMI of 60.0-69.9, adult (HCC) documented in this encounter Care Teams Spring Repairer Helper Hand Relationship Specialty Start Date End Date Eri Mukherjee MD PCP - General Internal Medicine 12/08/13 documented as of this encounter
--- OUTSIDE RECORDS SUMMARY | 2024-06-26 08:42 | XMS_ITS | Clinical Summary ---
Author Organization [employer] Address [address] [place] [address] 7t [place] [address] Care Team Providers Care Cello Teacher Name Role Phone Unavailable Primary Care [...] Description 04/18/2024 1:00 PM EST Office Visit [facility] ADULT DENTAL [address] [place] [address] Mariela Barrow Dental plaque (Primary Dx); Normal [...] Description 10/23/2024 1:00 PM EDT Office Visit [facility] ADULT DENTAL [address] [place] [address] Danial, Mariela [address] [place] [address] Health Maintenance Due Date Last Done Comments [...] Tdap) 11/25/2025 11/26/2015 Dental X-Ray: Full Mouth 04/20/20272 025, 01/23/2021, 07/15/2016, Additional history exists RSV [...] Dental plaque from Last 3 Months Insurance [facility] MEDICAID STAND ADULT
--- OUTSIDE RECORDS SUMMARY | 2024-06-26 08:42 | XMS_ITS | Continuity of Care Document ---
Author Organization [facility] Address [address] [place] [address] Phone Care Team Providers Care Churner Name Role Phone PCS, Nurse Unavailable Unavailable [...] Date Provider Providers Copied on Encounter [facility] /[facility], [address] [place] [address], [address], [place] tel:[phone] P [facility] General Medicine No Information PCS Nurse. [address] [place] [address], [id number], [place]. tel:[phone] Nutrition Visit Initial [facility] /[facility], [address] [place] [address], [address], [place] tel:[phone] P [facility] General Medicine No Information PCS Other Non Billable. [address] [place] [address], [id number], [place]. tel:[phone] OFFICE/OUTPAT IENT VISIT, [facility] /[facility], [address] [place] [address], [address], [place] tel:[phone] P M[facility] General Medicine No Information Mismanos Venessa. [address], [place], [place], [id number], [place]. tel:[phone] PREV VISIT, [facility], AGE 40-64 [facility] /[facility], [address] [place] [address], [address], [place] tel:[phone] P [facility] General Medicine No Information Mismanos Venessa. [address], [place], [place], [id number], [place]. tel:[phone] OFFICE/OUTPAT IENT VISIT, [facility] /[facility], [address] [place] [address], [address], [place] tel:[phone] P [facility] General Medicine No Information Mismanos Venessa. [address], [place], [place], [id number], [place]. tel:[phone] OFFICE/OUTPAT IENT VISIT, [facility], [address] [place] [address], [address], [place] tel:[phone] P [facility] General Medicine No Information Mismanos Venessa. [address], [place], [place], [id number], [place]. tel:[phone] OFFICE/OUTPAT IENT VISIT, [facility], [address] [place] [address], [address], [place] tel:[phone] P [facility] General Medicine No Information Mismanos Venessa. [address], [place], [place], [id number], [place]. tel:[phone] [facility] /[facility], [address] [place] [address], [address], [place] tel:[phone] P [facility] Laboratory No Information Jims Venessa. [address], [place], [place], [id number], [place]. tel:[phone] OFFICE/OUTPAT IENT VISIT, [facility] /[facility], [address] [place] [address], [address], [place] tel:[phone] P [facility] General Medicine No Information Jims Venessa. [address], [place], [place], [id number], [place]. tel:[phone] Family History Family Member Type Diagnosis Age [...]
--- OUTSIDE RECORDS SUMMARY | 2024-06-26 08:42 | XMS_ITS | Encounter Summary ---
Author Organization [employer] [facility] Address [address] [place] [address] Care Team Providers Care Mottle Lay Up Operator Name Role Phone Eri Mukherjee MD Primary Care Provider Markie swenson Reason for Visit * Reason Comments E-prescribe Rx Request Encounter Details Date Type Department Care Team Description 08/05/2021 Refill Pulmonology - [place] 175 [facility] [address] [place] [address] Uzair Antonio MD [address] [place] [address] E-prescribe Rx Request Social History [...] Telephone Encounter - Sonja Jenkinsbam - 08/05/2021 8:49 AM EDT Patient would like script to [...] N/A Patients current insurance carrier is: Payor: [employer] FFS / Plan: [employer] / Product Type: MEDICAID RISK documented in this encounter Plan of Treatment Not on file documented as of this encounter Visit Diagnoses Diagnosis Moderate asthma, unspecified whether complicated, unspecified whether persistent documented in this encounter Care Teams Mottle Lay Up Operator Relationship Specialty Start Date End Date Eri Mukherjee MD PCP - General Internal Medicine 12/08/13 documented as of this encounter
--- OUTSIDE RECORDS SUMMARY | 2024-06-26 08:42 | XMS_ITS | Encounter Summary ---
Author Organization [facility] Address [address] [place] [address] Care Team Providers Care Batch Attendant Name Role Phone Eri Mukherjee MD Primary Care Provider Markie swenson Reason for Visit * Reason Comments E-prescribe Rx Request Encounter Details Date Type Department Care Team Description 04/15/2022 Refill Pulmonology - [place] 175 [facility] [address] [place] [address] Uzair Antonio MD [address] [place] [phone] E-prescribe Rx Request Social History Tobacco Use [...] encounter Miscellaneous Notes * Telephone Encounter - Chalo Cramer CMA - 04/16/2022 4:47 PM EST [place] 02/26/22 NOV 06/26/22 * Telephone Encounter - Gloria Henderson - 04/16/2022 9:20 AM EST Patient would like script to be: E-PRESCRIBED/FAXED TO PHARMACY WHEN WAS THE PATIENT'S LAST APPOINTMENT IN ADULT MEDICINE? 02/26/22 WHEN WAS THE LAST TIME THE PATIENT SAW THEIR PCP? Same as above Does patient have an upcoming appointment? Yes 06/26/22 (THE MEDICATION REQUESTED IS ON THE MED [...] N/A Patients current insurance carrier is: Payor: [facility] / Plan: [facility] / Product Type: MEDICAID RISK documented in this encounter Plan of Treatment Not on file documented as of this encounter Visit Diagnoses Diagnosis Morbid obesity with BMI of 60.0-69.9, adult (HCC) documented in this encounter Care Teams Batch Attendant Relationship Specialty Start Date End Date Eri Mukherjee MD PCP - General Internal Medicine 12/08/13 documented as of this encounter
--- OUTSIDE RECORDS SUMMARY | 2024-06-26 08:42 | XMS_ITS | Encounter Summary ---
Author Organization [facility] [employer] [facility] Address [address] [place] [address] Care Team Providers Care Corporate Auditor Name Role Phone Eri Mukherjee MD Primary Care Provider Markie swenson Reason for Visit * Reason Comments E-prescribe Rx Request Encounter Details Date Type Department Care Team Description 11/01/2023 Refill Pulmonology - [place] [address] [facility] [address] [place] [address] Uzair Antonio MD [address] [place] [phone] E-prescribe Rx Request Social History Tobacco Use [...] * Telephone Encounter - Monica Samuel - 11/01/2023 11:06 AM EDT [place] 06/30/23 NOV 12/31/23 documented in this encounter Plan of Treatment Not on file documented as of this encounter Visit Diagnoses Diagnosis Moderate asthma, unspecified whether complicated, unspecified whether persistent documented in this encounter Care Teams Corporate Auditor Relationship Specialty Start Date End Date Eri Mukherjee MD PCP - General Internal Medicine 12/08/13 documented as of this encounter
--- OUTSIDE RECORDS SUMMARY | 2024-06-26 08:42 | XMS_ITS | Encounter Summary ---
Author Organization [employer] Address [address] [facility] [address] [place] [address] Care Team Providers Care Lathe Turner Name Role Phone Unavailable Primary Care Provider Unavailabl e Encounter Details Date Type Department Care Team (Latest Contact Info) Description 11/22/2019 Abstract [facility] CONVERSIONS Dental, Provider, DDS Social [...] Description 10/23/2024 1:00 PM EDT Office Visit [facility] ADULT DENTAL [address] [place] [address] Aidan Barrowaris [address] [place] [address] documented as of this encounter Visit Diagnoses Not on filedocumented in this encounter
--- OUTSIDE RECORDS SUMMARY | 2024-06-26 08:42 | XMS_ITS | Encounter Summary ---
Author Organization [facility] Address [address] [place] [address] Care Team Providers Care Meat Service Team Member Name Role Phone Eri Mukherjee MD Primary Care Provider Markie swenson Reason for Visit * Reason Comments E-prescribe Rx Request Encounter Details Date Type Department Care Team Description 01/14/2023 Refill Pulmonology - [place] [address] [facility] [address] [place] [address] Uzair Antonio MD [address] [place] [phone] E-prescribe Rx Request Social History Tobacco Use [...] Exposure Response Date Recorded In the last 10 days, have yo u been in contact with someone who was confirmed or suspected to have Coronavirus/COVID-19? No / Unsure 12/28/2022 1:48 PM EST documented as of this encounter Miscellaneous Notes * Telephone Encounter - Monica Samuel - 01/15/2023 10:32 AM EST [place] 12/28/22 NOV 06/29/22 documented in this encounter Plan of Treatment Not on file documented as of this encounter Visit Diagnoses Diagnosis Moderate asthma, unspecified whether complicated, unspecified whether persistent documented in this encounter Care Teams Meat Service Team Member Relationship Specialty Start Date End Date Eri Mukherjee MD PCP - General Internal Medicine 12/08/13 documented as of this encounter
--- OUTSIDE RECORDS SUMMARY | 2024-06-26 08:42 | XMS_ITS | Encounter Summary ---
Author Organization [facility] Address [address] [place] [address] Care Team Providers Care Oil Lease Buyer Name Role Phone Eri Mukherjee MD Primary Care Provider Markie swenson Reason for Visit * Reason Comments E-prescribe Rx Request Encounter Details Date Type Department Care Team Description 12/13/2017 Refill Pulmonology - [place] [address] [facility] [address] [place] [address] Uzair Antonio MD [address] [place] [address] E-prescribe Rx Request Social History [...] encounter Miscellaneous Notes * Telephone Encounter - Tony Mcguire - 12/13/2017 2:07 PM EDT Patient would like script to be: E-PRESCRIBED/FAXED TO PHARMACY WHEN WAS THE PATIENT'S LAST APPOINTMENT WITH THE PRESCRIBING PROVIDER? 10/07/17 Does patient have an upcoming appointment? Yes 04/06/18 (THE MEDICATION REQUESTED IS ON THE MED LIST ABOVE) All of the medications requested were on the CURRENT MEDS list Did you check the Pharmacy information above?: YES Patient wants: 90 -day supply Is this a mail order prescription request ? NO Patients current insurance carrier is: [facility] / Plan: [facility] / Product Type: MEDICAID RISK documented in this encounter Plan of Treatment Not on file documented as of this encounter Visit Diagnoses Not on filedocumented in this encounter Care Teams Oil Lease Buyer Relationship Specialty Start Date End Date Eri Mukherjee MD PCP - General Internal Medicine 12/08/13 documented as of this encounter
--- OUTSIDE RECORDS SUMMARY | 2024-06-26 08:43 | XMS_ITS | Encounter Summary ---
Author Organization [facility] [facility] Address [address] [place] [address] Care Team Providers Care Plater Production Name Role Phone Eri Mukherjee MD Primary Care Provider Markie swenson Reason for Visit * Reason Comments E-prescribe Rx Request Encounter Details Date Type Department Care Team Description 05/22/2021 Refill Pulmonology - [place] [address] [facility] [address] [place] [address] Uazir Antonio MD [address] [place] [phone] E-prescribe Rx Request Social History Tobacco Use [...] suspected to have Coronavirus/COVID-19? No / Unsure 05/08/2021 2:46 PM EDT documented as of this encounter Miscellaneous Notes * Telephone Encounter - Sonja Adeline - 05/22/2021 8:31 AM EDT Patient would like script to be: E-PRESCRIBED/FAXED TO PHARMACY WHEN WAS THE PATIENT'S LAST APPOINTMENT IN ADULT MEDICINE?11/26/2020 WHEN WAS THE LAST TIME THE PATIENT SAW THEIR PCP? Same as above Does patient have an upcoming appointment? Yes 06/09/2021 (THE MEDICATION REQUESTED IS ON THE MED [...] N/A Patients current insurance carrier is: Payor: [employer] FFS / Plan: [employer] [facility] / Product Type: MEDICAID RISK documented in this encounter Plan of Treatment Not on file documented as of this encounter Visit Diagnoses Diagnosis NINI (obstructive sleep apnea) severe JENNI 51 with nocturnal hypoxia Obstructive sleep apnea (adult) (pediatric) Moderate asthma, unspecified whether complicated, unspecified whether persistent documented in this encounter Care Teams Plater Production Relationship Specialty Start Date End Date Eri Mukherjee MD PCP - General Internal Medicine 12/08/13 documented as of this encounter
--- OUTSIDE RECORDS SUMMARY | 2024-06-26 08:43 | XMS_ITS | Encounter Summary ---
Author Organization [facility] Address [address] [place] [address] Care Team Providers Care Manager Sales And Marketing Name Role Phone Eri Mukherjee MD Primary Care Provider Markie swenson Reason for Visit * Reason Comments E-prescribe Rx Request Encounter Details Date Type Department Care Team Description 09/05/2019 Refill Pulmonology - [place] [address] [facility] [address] [place] [address] Uzair Antonio MD [address] [place] [address] E-prescribe Rx Request Social History [...] encounter Miscellaneous Notes * Telephone Encounter - Cheyenne Briankristie - 09/05/2019 3:36 PM EDT Patient would like script to be: E-PRESCRIBED/FAXED TO PHARMACY WHEN WAS THE PATIENT'S LAST APPOINTMENT WITH THE PRESCRIBING PROVIDER? 04/04/19 Does patient have an upcoming appointment? Yes 10/09/19 (THE MEDICATION REQUESTED IS ON THE MED LIST ABOVE) All of the medications requested were on the CURRENT MEDS list Did you check the Pharmacy information above?: YES Patient wants: 30 -day supply Is this a mail order prescription request ? NO Patients current insurance carrier is: [facility] / Plan: [facility] / Product Type: MEDICAID RISK documented in this encounter Plan of Treatment Not on file documented as of this encounter Visit Diagnoses Not on filedocumented in this encounter Care Teams Manager Sales And Marketing Relationship Specialty Start Date End Date Eri Mukherjee MD PCP - General Internal Medicine 12/08/13 documented as of this encounter
--- OUTSIDE RECORDS SUMMARY | 2024-06-26 08:43 | XMS_ITS | Encounter Summary ---
Author Organization [facility] Address [address] [place] [address] Care Team Providers Care Risk And Compliance Analytics Director Name Role Phone Eir Mukherjee MD Primary Care Provider Markie swenson Reason for Visit * Reason Onset Date Comments DME Request 09/16/2018 CPAP Encounter Details Date Type Department Care Team Description 09/16/2018 Telephone Pulmonology - [place] [address] [facility] [address] [place] [address] Uzair Antonio MD [address] [place] [address] DME Request (CPAP) Social History Tobacco Use Types Packs/Day Years [...] encounter Miscellaneous Notes * Telephone Encounter - Rose Mary Ordaz - 09/16/2018 1:13 PM EDT Patient calling stating she still has not received her CPAP machine Asking to speak with Alexus Please review and contact patient at number listed documented in this encounter Plan of Treatment Not on file documented as of this encounter Visit Diagnoses Not on filedocumented in this encounter Care Teams Risk And Compliance Analytics Director Relationship Specialty Start Date End Date Eri Mukherjee MD PCP - General Internal Medicine 12/08/13 documented as of this encounter
--- OUTSIDE RECORDS SUMMARY | 2024-06-26 08:43 | XMS_ITS | Encounter Summary ---
Author Organization [facility] Address [address] [place] [address] Care Team Providers Care Systems Programmer Name Role Phone Eri Mukherjee MD Primary Care Provider Markie swenson Reason for Visit * Reason Comments E-prescribe Rx Request Encounter Details Date Type Department Care Team Description 08/03/2018 Refill Pulmonology - [place] [address] [facility] [address] [place] [address] Uzair Antonio MD [address] [place] [address] E-prescribe Rx Request Social History [...] encounter Miscellaneous Notes * Telephone Encounter - Sunshine Simmons - 08/03/2018 1:42 PM EDT Patient would like script to be: E-PRESCRIBED/FAXED TO PHARMACY WHEN WAS THE PATIENT'S LAST APPOINTMENT IN ADULT MEDICINE? 07/05/2018 WHEN WAS THE LAST TIME THE PATIENT SAW THEIR PCP? N/A Does patient have an upcoming appointment? Yes 10/05/2018 (THE MEDICATION REQUESTED IS ON THE MED [...] N/A Patients current insurance carrier is: Payor: [employer] FFS / Plan: [employer] / Product Type: MEDICAID RISK documented in this encounter Plan of Treatment Not on file documented as of this encounter Visit Diagnoses Not on filedocumented in this encounter Care Teams Systems Programmer Relationship Specialty Start Date End Date Eri Mukherjee MD PCP - General Internal Medicine 12/08/13 documented as of this encounter
[2024-06-26 08:48] LABS: MANUAL DIFF FLAG NO
[2024-06-26 09:22] LABS: Basophils Percent Auto 0.5 % (0-2); Eosinophils Absolute Auto 0.1 X10*3/uL (0.0-0.4); Eosinophils Percent Auto 1.5 % (0-4); Hematocrit 39.3 % (37.0-47.0); Hemoglobin 12.9 g/dl (12.0-16.0); Imm Gran Abs Auto 0.02 X10*3/uL (0.00-0.03); Imm Gran Pct Auto 0.3 % (0.0-0.4); Lymphocytes Absolute Auto 3.1 X10*3/uL (1.2-4.9); Lymphocytes Percent Auto 46.4 % (20-40); Mean Corpuscular HGB Conc 32.8 g/dl (31.0-35.0); Mean Corpuscular Volume 91.4 fL (80.0-98.0); Mean Platelet Volume 12.1 fL (9.4-12.3); Monocytes Absolute Auto 0.5 X10*3/uL (0.1-1.2); Neutrophils Absolute Auto 2.9 x10*3/uL (2.0-8.3); Neutrophils Percent Auto 43.3 % (45-73); Platelet Count 199 X10*3/uL (160-400); Red Cell Distribution Width 14.4 % (11.0-16.0); White Blood Count 6.6 X10*3/uL (4.8-10.8)
[2024-06-26 10:10] LABS: Alanine Aminotransferase 18 U/L (0-31); Albumin Level 4.1 g/dL (3.5-5.0); Alkaline Phosphatase 85 U/L (39-117); Anion Gap 13 (12-20); Aspartate Amino Transferase 22 U/L (5-31); Bilirubin Total 0.5 mg/dL (0.0-1.0); Blood Urea Nitrogen 13 mg/dL (9-16); Carbon Dioxide 25 mmol/L (22-29); Chloride 107 mmol/L (96-108); Cholesterol 209 mg/dL (<200); Estimated Glomerular Filt Rate > 60; Glucose Fasting 94 mg/dL (60-99); HDL Cholesterol 50 mg/dL (>40); Iron 71 mcg/dL (30-160); LDL Cholesterol Calculated 140 mg/dL (<100); Percent Iron Saturation 25 % (15-50); Potassium 3.3 mmol/L (3.3-5.1); Sodium 142 mmol/L (135-145); Total Iron Binding Capacity 286 mcg/dL (228-428); Total Protein 7.5 g/dL (6.5-8.0); Triglycerides 98 mg/dL (<150); Unsaturated Iron Binding 215 ug/dL
[2024-06-26 10:39] LABS: Vitamin D 25-OH Total 28.8 ng/mL (>30)
[2024-06-26 10:50] LABS: Folate 10.9 ng/mL (> or = 4.0); Vitamin B12 508 pg/mL (200-900)
== END 2024-06-26 08:38 | disposition home or self-care (01) ==
LOC: HO.LAB 08:37
PROVIDERS: PCP Internal Medicine; Visit Provider Internal Medicine
DX: D64.9 Anemia, unspecified (principal); E66.01 Morbid (severe) obesity due to excess calories; E78.5 Hyperlipidemia, unspecified; E53.8 Deficiency of other specified B group vitamins; E55.9 Vitamin D deficiency, unspecified
CPT/HCPCS: 36415; 80053; 80061; 82306; 82607; 82746; 83540; 85025

== ENCOUNTER 2024-06-29 12:40 | Outpatient (AMB) | payer OTHER, SELFPAY ==
[2024-06-29 12:57] VITALS: BP 152/90; BMI 60.4
--- NOTE | 2024-06-29 12:57 | A.OFFPC_ITS ---
Vital Signs 06/29/24 12:57 Height 4 ft 11 in Weight 299 lb BMI 60.4 BP 152/90 H Blood Pressure Location Lt brachial Position Sitting Intake Visit Reasons: annual exam Intake Note: Patient here for a physical exam Subcontract Manager Required: No Accompanied by: Self / Same As Patient Allergies bupropion Allergy (Severe, Verified 06/29/24 13:05) Palpitations phentermine Allergy (Severe, Verified 06/29/24 13:05) Hypertension levofloxacin [From LEVAQUIN] Allergy (Intermediate, Verified 06/29/24 13:05) DIZZINESS topiramate Allergy (Intermediate, Verified 06/29/24 13:05) palpitations Medication List - Last Reconciled 06/29/24 by Eri Mukherjee MD albuterol sulfate 3 mg inhalation QID PRN atenolol 100 mg PO DAILY blood pressure monitor As directed buspirone 5 mg PO BID calcium carbonate-vitamin D3 500 mg-10 mcg (400 unit) (Calcium 500 With D) 1 tab PO DAILY 90 days cetirizine (All Day Allergy (cetirizine)) 10 mg PO DAILY PRN 90 days esomeprazole magnesium 20 mg PO BID 90 days flecainide 50 mg PO BID fluticasone furoate 50 mcg/actuation (Arnuity Ellipta) 1 inh inhalation Q24H 30 days fluticasone propionate 110 mcg/actuation 2 puffs inhalation BID fluticasone propionate 50 mcg/actuation (Flonase Allergy Relief) 1 spray intranasal DAILY 30 days incontinence pad, liner, disp (Pads For Women) Use 8 pad daily ipratropium bromide 2 sprays intranasal Q8H PRN lidocaine 5% 1 patch topical DAILY linaclotide (Linzess) 72 mcg PO QAM losartan 100 mg PO DAILY omega-3 fatty acids (Fish Oil Concentrate) 1,000 mg PO DAILY omeprazole 40 mg PO BID 90 days rivaroxaban (Xarelto) 20 mg PO BEDTIME rosuvastatin 10 mg PO DAILY 90 days tramadol 50 mg PO DAILY PRN Ventolin HFA 90 mcg/actuation (albuterol sulfate) 1 inh inhalation QID 30 days NS Tobacco use date assessed: 03/22/24 Dental Screening Dental Screen Date: 03/22/24 HPI HPI Comments History of Present Illness Details The patient is a 58-year-old female presenting with an annual physical examination. Her medical history includes controlled hypertension, cataracts recently addressed, and an overweight status. The patient is allergic to specific medications causing side effects such as palpitations and dizziness. She follows routine health screenings including mammography, Pap smears, colonoscopy, and endoscopy as part of her wellness measures. The family medical history signifies a paternal history of colon cancer and maternal cancer of an unspecified type. Has paroxysmal atrial fibrillation follow by cardiology. The patient maintains a tobacco and alcohol-free lifestyle. While her cholesterol levels are moderately elevated, her kidney and liver functions, along with glucose and vital nutrient levels, remain largely within normal limits albeit a slight shortfall in vitamin D levels. Mobility is maintained with assistance due to hip-related discomfort, and further chronic ear and possible allergenic symptoms are managed with current medication. She has super super obese with a BMI of 60.4 and is enroll in weight management which will start in October of this year. - Tetanus vaccine up-to-date - Mammogram completed February 2022 - Pap smear last completed in 2020, cont inues annually - Colonoscopy completed 2021 - Endoscopy completed 2021 - Cholesterol: 209 mg/dL, slightly eleva estella - Vitamin D: 28.8 ng/mL, slightly reduce d, normal is 30 ng/mL [facility] Medical History (Updated 06/29/24 @ 13:20 by Eri Mukherjee MD) Adult general medical exam Encounter for medication monitoring Mild episode of recurrent major depressive disorder BMI 60.0-69.9, adult Upper abdominal pain Asthma exacerbation Hospital discharge follow-up Preoperative cardiovascular examination Morbid obesity Asthma NINI (obstructive sleep apnea) HTN (hypertension) Abnormal nuclear cardiac imaging test Atrial fibrillation with rapid ventricular response DUB (dysfunctional uterine bleeding) Otitis media Postmenopausal bleeding Diarrhea Epigastric pain Dysuria Urge urinary incontinence B12 deficiency Panic attacks Sleep apnea with use of continuous positive airway pressure (CPAP) Arthritis Anxiety Depression Afib Asthma Chronic gastritis Hepatic steatosis Fibromyalgia Surgical History Tubal ligation status H/O colonoscopy History of esophagogastroduodenoscopy (EGD) History of cholecystectomy History of section Family History Father CVA (cerebral vascular accident) Colon cancer CAD (coronary artery disease) Mother Cancer of unknown origin Social History Household Members: None Housing: Apartment Alcohol intake: never Patient Tobacco Use Status: Never used Tobacco e-Cigarette/Vaping Use: Never Used Second Hand Smoke Exposure: No service: No Current occupational status: disabled Cognitive needs: Yes (cane) Hearing needs: No Vision needs: Yes (glasses) Female Reproductive History Menstrual Age of Menarche: 14 Questionnaire Thrive Questionnaire Date Thrive assessed: 03/22/24 ANIL-7 AMB Questionnaire ANIL-7 Date ANIL - 7 assessed: 03/22/24 Source: Developed by Drs. Marc Jordan, Kristine Sams, Salinas Hutchins and colleagues, with an educational deshaun from [employer]. Review of Systems Const All systems reviewed & are unremarkable except as noted in HPI and below ENT Denies change in voice, Denies nasal discharge and Denies sinus pain Card Denies chest pain at rest, Denies chest pain with activity, Denies edema, Denies irregular heart rhythm, Denies claudication, Denies dyspnea, Denies dyspnea on exertion, Denies orthopnea, Denies paroxysmal nocturnal dyspnea and Denies slow heart rate Resp Denies cough, Denies dyspnea and Denies dyspnea on exertion GI Denies abdominal pain, Denies change in bowel habits, Denies excessive flatus, Denies nausea and Denies vomiting Denies urinary incontinence, Denies urinary hesitancy and Denies urinary urgency Musc Denies atrophy, Denies deformity and Denies limited range of motion Skin/Breast Denies bleeding lesions, Denies changing lesions and Denies rash Physical exam (Primary Care) Vital Signs: Last Vital Signs BP 152/90 H 06/29/24 12:57 BMI result Body Mass Index 60.4 BMI Assessment/Plan discussion: High BMI High, discussed plan: lifestyle, weight reduction, dietary and physical activity Tobacco/Smoking Status: Tobacco use Status Tobacco use date assessed 03/22/24 03/22/24 10:37 Patient Tobacco Use Status Never used Tobacco 03/22/24 10:34 e-Cigarette/Vaping Use Never Used 03/22/24 10:34 Thrive Assessment: Date of Thrive Assessment Date Thrive assessed 03/22/24 03/22/24 10:37 HENMT Head: Yes normal to inspection, Yes normocephalic and Yes atraumatic Ears: external ears normal Eyes General: appearance normal, both eyes and all related structures Eyelids: Yes eyelids normal Conjunctivae: conjunctivae normal Neck Neck: Yes normal visual inspection and Yes supple Resp Effort & Inspection: normal respiratory effort Auscultation: clear to auscultation bilaterally Cardio Jugular venous distension: no JVD Rate: regular rate Rhythm: regular rhythm Heart sounds: S1 normal heart sound present and S2 normal heart sound present GI Inspection: Yes normal to inspection Palpation (GI): Soft to palpation and nontender Auscultation: normal bowel sounds Skin General skin exam: no rashes or lesions noted Neuro General: no focal motor deficits Extrem General: Yes full ROM Psych Appearance: grossly normal Coding Level of Care Code Complex EM visit Add On G2211 Diagnoses Adult general medical exam Z00.00 Super-super obese E66.01 Paroxysmal atrial fibrillation I48.0 Time Spent (min) 31 Assessment & Plan Assessment & Plan (1) Adult general medical exam: Code(s): Z00.00 - Encounter for general adult medical examination without abnormal findings Category: Medical (2) Super-super obese: Code(s): E66.01 - Morbid (severe) obesity due to excess calories Category: Medical (3) Paroxysmal atrial fibrillation: Code(s): I48.0 - Paroxysmal atrial fibrillation Category: Medical Plan The patient's hypertension management is effective, so treatment remains unchanged. Allergic reactions to multiple medications will guide future prescriptions. Weight management remains a focus, particularly considering her elevated cholesterol level, with vitamin D supplementation being explored. Continuation of current antihistamine therapy for allergy management is planned. Follow-up with relevant specialists is scheduled to address ongoing care for cataracts, joint issues, and routine screenings. Reinforcement of lifestyle modifications and medication adherence discussed, with close monitoring of cardiovascular risk and overall health maintenance advised. Patient was informed and verbally consented to the use of an ambient scribe for clinic note documentation during this visit. I discussed the patient's diagnoses and management plans thoroughly, ensuring she understands the need to maintain her blood pressure and address her elevated cholesterol with lifestyle modifications. I highlighted the benefits of her current antihistamine (Cetirizine) for allergies while addressing her medication sensitivities. I emphasized the importance of attending her multi-specialty consultations for a comprehensive management approach, with immediate follow-up necessary if symptoms or reactions worsen prior to scheduled appointments. Prospective vitamin D supplementation was considered contingent on further evaluation, with the necessity for continued preventive screenings into the future. Consent for current treatment and planned interventions was obtained, emphasizing the value of ongoing preventative care. Medications: New fluticasone propionate 50 mcg/actuation (Flonase Allergy Relief) administer into each nostril 1 spray intranasal DAILY 30 days 16 grams 1RF Refilled fluticasone furoate 50 mcg/actuation (Arnuity Ellipta) 1 inh inhalation Q24H 30 days 30 ea 6RF Patient Instructions: - Continue current blood pressure management plan. - Avoid known allergens and medications causing reactions. - Follow dietary and lifestyle changes for cholesterol management. - Consider vitamin D supplementation if advised. - Attend follow-up appointments with specialists as scheduled. - Continue taking Cetirizine for allergies. - Seek medical attention if symptoms worsen.
--- OUTSIDE RECORDS SUMMARY | 2024-06-29 13:21 | XMS_ITS | Encounter Summary ---
Author Organization [employer] Address [address] [facility] [address] [place] [address] Care Team Providers Care Assistant Director Of Nursing Name Role Phone Unavailable Primary Care Provider Unavailabl e Encounter Details Date Type Department Care Team (Latest Contact Info) Description 01/23/2021 Abstract [facility] CONVERSIONS Dental, Provider, DDS Social History [...] Description 10/23/2024 1:00 PM EDT Office Visit [facility] ADULT DENTAL [address] [place] [address] Aidan Barrowaris [address] [place] [address] documented as of this encounter Visit Diagnoses Not on filedocumented in this encounter
--- OUTSIDE RECORDS SUMMARY | 2024-06-29 13:21 | XMS_ITS | Encounter Summary ---
Author Organization [facility] Address [address] [place] [address] Care Team Providers Care Development Planner Name Role Phone Eri Mukherjee MD Primary Care Provider Markie swenson Reason for Visit * Reason Onset Date Comments Durable Medical Equipment 05/21/2017 Grey frausto harley [facility] confirmed pr is currently active and being processed for CPAP. Pt confirmed receipt of Nebulizer and supplies from February 2017. Encounter Details Date Type Department Care Team Description 05/21/2017 Telephone Pulmonology - [place] [address] [facility] [address] [place] [address] Uzair Antonio MD [address] [place] [address] Durable Medical Equipment ([facility] at [facility] confirmed pr is currently active and being processed for CPAP. Pt confirmed receipt of Nebulizer and supplies from February 2017.) Social History Tobacco Use Types Packs/Day Years [...] on filedocumented in this encounter Care Teams Development Planner Relationship Specialty Start Date End Date Eri Mukherjee MD PCP - General Internal Medicine 12/08/13 documented as of this encounter
--- OUTSIDE RECORDS SUMMARY | 2024-06-29 13:21 | XMS_ITS | Encounter Summary ---
Author Organization [facility] Address [address] [place] [address] Care Team Providers Care Tombstone Polisher Name Role Phone Eri Mukherjee MD Primary Care Provider Markie swenson Reason for Visit * Reason Comments E-prescribe Rx Request Encounter Details Date Type Department Care Team Description 11/16/2023 Refill Pulmonology - [place] [address] [facility] [address] [place] [address] Uzair Antonio MD 175 [place] [phone] E-prescribe Rx Request Social History Tobacco Use [...] encounter Miscellaneous Notes * Telephone Encounter - Cindy Chau - 11/17/2023 8:19 AM EDT Demetri: 06/30/2023 Nov: 12/31/2023 documented in this encounter Plan of Treatment Not on file documented as of this encounter Visit Diagnoses Diagnosis Moderate asthma, unspecified whether complicated, unspecified whether persistent documented in this encounter Care Teams Tombstone Polisher Relationship Specialty Start Date End Date Eri Mukherjee MD PCP - General Internal Medicine 12/08/13 documented as of this encounter
--- OUTSIDE RECORDS SUMMARY | 2024-06-29 13:21 | XMS_ITS | Encounter Summary ---
Author Organization [employer] Address [address] [facility] 7t [place] [address] Care Team Providers Care Animal Care Service Worker Name Role Phone Unavailable Primary Care Provider Unavailabl e Encounter Details Date Type Department Care Team (Latest Contact Info) Description 10/07/2018 Abstract [facility] CONVERSIONS Dental, Provider, DDS Social History Tobacco [...] Description 10/23/2024 1:00 PM EDT Office Visit [facility] ADULT DENTAL [address] [place] [address] Aidan Barrowaris [address] [place] [address] documented as of this encounter Visit Diagnoses Not on filedocumented in this encounter
--- OUTSIDE RECORDS SUMMARY | 2024-06-29 13:21 | XMS_ITS | Encounter Summary ---
Author Organization [facility] Address [address] [place] [address] Care Team Providers Care Administrative Judge Name Role Phone Eri Mukherjee MD Primary Care Provider Markie swenson Encounter Details Date Type Department Care Team Description 03/14/2020 Living Coach Report Medical Records [address] [place] [address] Eri Mukherjee MD Social History Tobacco Use Types Packs/Day Years [...] on filedocumented in this encounter Care Teams Administrative Judge Relationship Specialty Start Date End Date Eri Mukherjee MD PCP - General Internal Medicine 12/08/13 documented as of this encounter
--- OUTSIDE RECORDS SUMMARY | 2024-06-29 13:21 | XMS_ITS | Encounter Summary ---
Author Organization [facility] Address [address] [place] [address] Care Team Providers Care General Practitioner Name Role Phone Eri Mukherjee MD Primary Care Provider Markie swenson Reason for Visit * Reason Comments E-prescribe Rx Request Encounter Details Date Type Department Care Team Description 08/10/2022 Refill Pulmonology - [place] 175 [facility] [address] [place] [address] Uzair Antonio MD [address] [place] [phone] E-prescribe Rx Request Social History Tobacco Use [...] encounter Miscellaneous Notes * Telephone Encounter - Gloria Henderson - 08/10/2022 12:58 PM EDT TIFFANY:06/26/22 NOV:12/28/22 documented in this encounter Plan of Treatment Not on file documented as of this encounter Visit Diagnoses Diagnosis Moderate asthma, unspecified whether complicated, unspecified whether persistent documented in this encounter Care Teams General Practitioner Relationship Specialty Start Date End Date Eri Mukherjee MD PCP - General Internal Medicine 12/08/13 documented as of this encounter
--- OUTSIDE RECORDS SUMMARY | 2024-06-29 13:21 | XMS_ITS | Encounter Summary ---
Author Organization [facility] Address [address] [place] [address] Care Team Providers Care It Security Project Manager Name Role Phone Eri Mukherjee MD Primary Care Provider Markie swenson Reason for Visit * Reason Comments E-prescribe Rx Request Encounter Details Date Type Department Care Team Description 03/02/2023 Refill Pulmonology - [place] 175 [facility] [address] [place] [address] Uzair Antonio MD [address] [place] [phone] E-prescribe Rx Request Social History Tobacco Use [...] encounter Miscellaneous Notes * Telephone Encounter - Ernestine Ely - 03/03/2023 8:24 AM EST Demetri 12/28/22 Nov 06/30/23 documented in this encounter Plan of Treatment Not on file documented as of this encounter Visit Diagnoses Diagnosis Morbid obesity with BMI of 60.0-69.9, adult (HCC) documented in this encounter Care Teams It Security Project Manager Relationship Specialty Start Date End Date Eri Mukherjee MD PCP - General Internal Medicine 12/08/13 documented as of this encounter
--- OUTSIDE RECORDS SUMMARY | 2024-06-29 13:21 | XMS_ITS | Encounter Summary ---
Author Organization [facility] Address [address] [place] [address] Care Team Providers Care Budget Technician Name Role Phone Eri Mukherjee MD Primary Care Provider Markie swenson Reason for Visit * Reason Comments E-prescribe Rx Request Encounter Details Date Type Department Care Team Description 08/13/2021 Refill Pulmonology - [place] 175 [facility] [address] [place] [address] Uzair Antonio MD [address] [place] [address] E-prescribe Rx Request Social History [...] Miscellaneous Notes * Telephone Encounter - Monica David Lizzie - 08/13/2021 4:09 PM EDT Patient would like script to [...] N/A Patients current insurance carrier is: Payor: [employer] / Plan: [employer] / Product Type: MEDICAID RISK documented in this encounter Plan of Treatment Not on file documented as of this encounter Visit Diagnoses Diagnosis Moderate asthma, unspecified whether complicated, unspecified whether persistent documented in this encounter Care Teams Budget Technician Relationship Specialty Start Date End Date Eri Mukherjee MD PCP - General Internal Medicine 12/08/13 documented as of this encounter
--- OUTSIDE RECORDS SUMMARY | 2024-06-29 13:21 | XMS_ITS | Encounter Summary ---
Author Organization [facility] Address [address] [place] [address] Care Team Providers Care Voltage Tester Name Role Phone Eri Mukherjee MD Primary Care Provider Markie swenson Reason for Visit * Reason Comments E-prescribe Rx Request Encounter Details Date Type Department Care Team Description 11/01/2019 Refill Pulmonology - [place] 175 [facility] [address] [place] [address] Uzair Antonio MD [address] [place] [phone] E-prescribe Rx Request Social History Tobacco Use [...] (HCC) documented in this encounter Care Teams Voltage Tester Relationship Specialty Start Date End Date Eri Mukherjee MD PCP - General Internal Medicine 12/08/13 documented as of this encounter
--- OUTSIDE RECORDS SUMMARY | 2024-06-29 13:21 | XMS_ITS | Encounter Summary ---
Author Organization [facility] Address [address] [place] [address] Care Team Providers Care Proof Technician Helper Name Role Phone Eri Mukherjee MD Primary Care Provider Markie swenson Reason for Visit * Reason Comments E-prescribe Rx Request Encounter Details Date Type Department Care Team Description 10/05/2020 Refill Pulmonology - [place] 175 [facility] [address] [place] [address] Uzair Antonio MD [address] [place] [address] E-prescribe Rx Request Social History [...] * Telephone Encounter - Monica Samuel - 10/09/2020 1:44 PM EDT Patient would like script to be: E-PRESCRIBED/FAXED TO PHARMACY WHEN WAS THE PATIENT'S LAST APPOINTMENT IN ADULT MEDICINE? 04/12/20 WHEN WAS THE LAST TIME THE PATIENT SAW THEIR PCP? Same as above Does patient have an upcoming appointment? Yes 10/11/20 (THE MEDICATION REQUESTED IS ON THE MED [...] N/A Patients current insurance carrier is: Payor: [employer] FFS / Plan: [employer] / Product Type: MEDICAID RISK documented in this encounter Plan of Treatment Not on file documented as of this encounter Visit Diagnoses Diagnosis Moderate asthma, unspecified whether complicated, unspecified whether persistent documented in this encounter Care Teams Proof Technician Helper Relationship Specialty Start Date End Date Eri Mukherjee MD PCP - General Internal Medicine 12/08/13 documented as of this encounter
--- OUTSIDE RECORDS SUMMARY | 2024-06-29 13:21 | XMS_ITS | Encounter Summary ---
Author Organization [facility] Address [address] [place] [address] Care Team Providers Care Behavioral Technician Name Role Phone Eri Mukherjee MD Primary Care Provider Markie swenson Encounter Details Date Type Department Care Team Description 08/11/2021 Transfer Records Medical Records [address] [place] [address] Abstract, Provider Social History Tobacco Use Types [...] on filedocumented in this encounter Care Teams Behavioral Technician Relationship Specialty Start Date End Date Eri Mukherjee MD PCP - General Internal Medicine 12/08/13 documented as of this encounter
--- OUTSIDE RECORDS SUMMARY | 2024-06-29 13:21 | XMS_ITS | Encounter Summary ---
Author Organization [facility] Address [address] [place] [address] Care Team Providers Care Blast Furnace Keeper Name Role Phone Eri Mukherjee MD Primary Care Provider [phone] Reason for Visit * Reason Onset Date Comments DME-replacement order 06/28/2024 Encounter Details Date Type Department Care Team (Late Contact Info) Description 06/28/2024 Telephone [facility] [address] [phone] Gaby Jim MA DME-replacement order Social History Tobacco Use Types Packs/Day Years [...] as of this encounter Progress Notes * Gaby Khan MA - 06/28/2024 11:20 AM EDT Replacement order sent to [facility] documented in this encounter Plan of Treatment Upcoming Encounters Date Type Department Care Team (Late Contact Info) Description 09/28/2024 10:15 AM EDT Office Visit [facility] [address] [address] Uzair Antonio MD 175 [facility] [address] [place] [address] 11/14/2024 1:00 PM EDT Office Visit Bariatric Surgery - [place] 175 [facility] [address] [place] [phone] Dominga Lloyd MD 175 [facility] [address] [place] [address] documented as of this encounter Visit Diagnoses Not on filedocumented in this encounter Care Teams Blast Furnace Keeper Relationship Specialty Start Date End Date Eri Mukherjee MD 2 [facility] , [address] Physician Associ D/B/A: [facility] [place] PCP - General Internal Medicine 12/08/13 documented as of this encounter
--- OUTSIDE RECORDS SUMMARY | 2024-06-29 13:21 | XMS_ITS | Continuity of Care Document ---
Author Organization [facility] Address [address] [place] [address] Phone Care Team Providers Care Airline Radio Operator Name Role Phone PCS, Nurse Unavailable Unavailable [...] Diagnoses Date Provider Providers Copied on Encounter [facility], [address] [place] [address], [address], [place] tel:[phone] P M[facility] General Medicine No Information PCS Nurse. [address] [place] [address], [id number], [place]. tel:[phone] Nutrition Visit Initial [facility], [address] [place] [address], [address], [place] tel:[phone] P [facility] General Medicine No Information PCS Other Non Billable. [address] [place] [address], [id number], [place]. tel:[phone] OFFICE/OUTPAT IENT VISIT, [facility], [address] [place] [address], [address], [place] tel:[phone] P M[facility] General Medicine No Information Mismanos Venessa. [address], [place], [place], [id number], [place]. tel:[phone] PREV VISIT, [facility], AGE 40-64 [facility], [address] [place] [address], [address], [place] tel:[phone] P M[facility] General Medicine No Information Mismanos Venessa. [address], [place], [place], [id number], [place]. tel:[phone] OFFICE/OUTPAT IENT VISIT, [facility], [address] [place] [address], [address], [place] tel:[phone] P [facility] General Medicine No Information Mismanos Venessa. [address], [place], [place], [id number], [place]. tel:[phone] OFFICE/OUTPAT IENT VISIT, [facility], [address] [place] [address], [address], [place] tel:[phone] P [facility] General Medicine No Information Mismanos Venessa. [address], [place], [place], [id number], [place]. tel:[phone] OFFICE/OUTPAT IENT VISIT, [facility], [address] [place] [address], [address], [place] tel:[phone] P [facility] General Medicine No Information Mismanos Venessa. [address], [place], [place], [id number], [place]. tel:[phone] [facility], [address] [place] [address], [address], [place] tel:[phone] P [facility] Laboratory No Information Jims Venessa. [address], [place], [place], [id number], [place]. tel:[phone] OFFICE/OUTPAT IENT VISIT, [facility], [address] [place] [address], [address], [place] tel:[phone] P [facility] General Medicine No Information Jims Venessa. [address], [place], [place], [id number], [place]. tel:[phone] Family History Family Member Type Diagnosis Age [...]
--- OUTSIDE RECORDS SUMMARY | 2024-06-29 13:21 | XMS_ITS | Encounter Summary ---
Author Organization [facility] Address [address] [place] [address] Care Team Providers Care General Medical Practitioner Name Role Phone Eri Mukherjee MD Primary Care Provider Markie swenson Reason for Visit * Reason Comments E-prescribe Rx Request Encounter Details Date Type Department Care Team Description 08/23/2020 Refill Pulmonology - [place] 175 [facility] [address] [place] [address] Uzair Antonio MD [address] [place] [phone] E-prescribe Rx Request Social History Tobacco Use [...] documented in this encounter Care Teams General Medical Practitioner Relationship Specialty Start Date End Date Eri Mukherjee MD PCP - General Internal Medicine 12/08/13 documented as of this encounter
--- OUTSIDE RECORDS SUMMARY | 2024-06-29 13:21 | XMS_ITS | Encounter Summary ---
Author Organization [employer] Address [address] [facility] 7t [place] [address] Care Team Providers Care Knot Bumper Name Role Phone Unavailable Primary Care Provider Unavailabl e Encounter Details Date Type Department Care Team (Latest Contact Info) Description 11/22/2019 Abstract [facility] CONVERSIONS Dental, Provider, DDS Social History [...] Description 10/23/2024 1:00 PM EDT Office Visit [facility] ADULT DENTAL [address] [place] [address] Aidan Barrowaris [address] [place] [address] documented as of this encounter Visit Diagnoses Not on filedocumented in this encounter
--- OUTSIDE RECORDS SUMMARY | 2024-06-29 13:21 | XMS_ITS | Clinical Summary ---
Author Organization [employer] Address [address] [place] [address] 7t [place] [address] Care Team Providers Care Shank Boner Name Role Phone Unavailable Primary Care Provider [...] Office Visit [facility] ADULT DENTAL [address] [place] [address] Mariela Barrow Dental plaque (Primary Dx); Normal [...] 1:00 PM EDT Office Visit [facility] ADULT DENTAL [address] [place] [address] Danial, Mariela [address] [place] [address] Health Maintenance Due Date Last Done Comments [...] Dental plaque from Last 3 Months Insurance [facility] MEDICAID STAND ADULT
--- OUTSIDE RECORDS SUMMARY | 2024-06-29 13:21 | XMS_ITS | Encounter Summary ---
Author Organization [facility] Address [address] [place] [address] Care Team Providers Care Blind Lacer Name Role Phone Eri Mukherjee MD Primary Care Provider Markie swenson Encounter Details Date Type Department Care Team Description 02/25/2017 Orders Only Pulmonology - [place] 175 [facility] [address] [place] [address] Uzair Antonio MD [address] [place] [address] Obstructive sleep apnea syndrome (Primary Dx); Moderate asthma, unspecified whether complicated, unspecified whether persistent Social History Tobacco Use Types Packs/Day Years Used Date Smoking Tobacco: Never Sex Assigned at Date Recorded Not on file Job Start Date Occupation Industry Not on file Not on file Not on file documented as of this encounter Plan of Treatment Not on file documented as of this encounter Procedures Procedure Name Priority Date/Time Associated Diagnosis Comments NEBULIZER SUPPLIES Routine 02/25/2017 5:38 PM EST Moderate asthma, unspecified whether complicated, unspecified whether persistent CPAP SUPPLIES Routine 02/25/2017 5:38 PM EST Obstructive sleep apnea syndrome documented in this encounter Visit Diagnoses Diagnosis Obstructive sleep apnea syndrome- Primary Obstructive sleep apnea (adult) (pediatric) Moderate asthma, unspecified whether complicated, unspecified whether persistent documented in this encounter Care Teams Blind Lacer Relationship Specialty Start Date End Date Eri Mukherjee MD PCP - General Internal Medicine 12/08/13 documented as of this encounter
--- OUTSIDE RECORDS SUMMARY | 2024-06-29 13:21 | XMS_ITS | Encounter Summary ---
Author Organization [facility] Address [address] [place] [address] Care Team Providers Care Budget Clerk Name Role Phone Eri Mukherjee MD Primary Care Provider Markie swenson Reason for Visit * Reason Comments E-prescribe Rx Request Encounter Details Date Type Department Care Team Description 11/23/2022 Refill Pulmonology - [place] 175 [facility] [address] [place] [address] Uzair Antonio MD [address] [place] [phone] E-prescribe Rx Request Social History Tobacco Use [...] (pediatric) documented in this encounter Care Teams Budget Clerk Relationship Specialty Start Date End Date Yaz, Eri Lalo, MD PCP - General Internal Medicine 12/08/13 documented as of this encounter
--- OUTSIDE RECORDS SUMMARY | 2024-06-29 13:21 | XMS_ITS | Clinical Summary ---
Author Organization 175 [facility] Address [address] [place] [address] Phone Care Team Providers Care Clinical Education Academic Coordinator Name Role Phone Eri Mukherjee MD Primary Care Provider [phone] Allergies Active Allergy Reactions Criticality Noted Date [...] breath. 300 mL 3 024 2024 Active Ventolin HFA 90 mcg/actuation inhalerIndicatio ns:Mild [...] breath. 6.7 g 2 024 2024 Discontinued montelukast (SINGULAIR) 10 mg tabletIndication s:Unspecified asthma, uncomplicated TOME LUIS TABLETA POR VIA ORAL AL ACOSTARSE 90 tablet 1 025 2024 Discontinued Active Problems Problem Noted Date Diagnosed Date Morbid obesity with BMI of 6 0.0-69.9, adult ([facility] V24, [facility] V28) 04/23/2023 NINI (obstructive sleep apnea) 11/18/2016 Overview (04/23/2023): [facility] Home Sleep Apnea Test: Date 07/20/2018; [...] Allergic rhinitis 11/18/2016 Asthma 11/18/2016 Atrial fibrillation ([facility] V24, [facility] V28) 1 Overview (04/23/2023): Pradaxa Depression 11/17/2016 Arthritis 11/17/2016 Encounters Date Type Department Care Team Description 06/28/2024 10:00 AM EDT Office Visit Pulmonolgy - [place] [address] [phone] Uzair Antonio MD NINI (obstructive sleep apnea) (Primary Dx); Mild persistent asthma, unspecified whether complicated; Morbid obesity with BMI of 60.0-69.9, adult ([facility] V24, [facility] V28); Mild asthma, unspecified whether complicated, unspecified whether persistent 06/28/2024 Telephone Pulmonolgy - [place] [address] [phone] Gaby Jim [place] DME-replacement order [facility] 175 [facility] 200 [place] [address] Chalo Pittman MA from Last 3 Months Surgical History Surgery Date Site/Laterality Comments CHOLECYSTECTOMY PROCEDURE: HISTORICAL CHOLECYSTECTOMY SECTION PROCEDURE: HISTORICAL ; COMMENT: x 3 Medical History Medical History Date Comments Morbid obesity with BMI of 6 0.0-69.9, adult ([facility] V24, [facility] V28) 11/18/2016 DX:Morbid obesity wit h BMI of 60.0-69.9, adult ([facility]) NINI (obstructive sleep apnea) 11/18/2016 DX :NINI (obstructive sleep apnea) Allergic rhinitis 11/18/2016 DX:Allergic rh initis Arthritis 11/17/2016 DX:Arthritis Asthma 11/18/2016 DX:Asthma Atrial fibrillation ([facility] V24, [facility] V28) 11/17/2016 DX:Atrial fibrillation ([facility]) ; COMMENT: Pradaxa Depression 11/17/2016 DX:Depression Family [...] Tobacco: Never Tobacco Cessation:Counseling Given: Not Answered Alcohol Use Standard Drinks/Week Comments No 0 (1 standard drink = 0.6 oz pur e alcohol) Comments Unknown Sex and Gender Information Value Date Recorded Sex Assigned at Not on file Legal Sex Female 6:33 AM EST Gender Identity Not on file Sexual Orientation Not on file Obstetrics History Last Filed Vital Signs Vital Sign Reading Time Taken Comments Blood Pressure 142/80 06/28/2024 9:58 AM EDT Pulse 67 06/28/2024 9:58 AM EDT Temperature 36.3 ??C (97.3 ??F) 06/28/2024 9:58 AM ED T Respiratory Rate 20 06/28/2024 9:58 AM EDT Oxygen Saturation 99% 06/28/2024 9:58 AM EDT Inhaled Oxygen Concentration - - Weight 137 kg (301 lb 12.8 oz) 06/28/2024 9:58 A M EDT Height 149.9 cm (4' 11 ) 06/28/2024 9:58 AM EDT Body Mass Index 60.96 06/28/2024 9:58 AM EDT Plan of Treatment Upcoming Encounters Date Type Department Care Team (Late st Contact Info) Description 09/28/2024 10:15 AM EDT Office Visit Pulmonolgy - [place] 175 [facility] [address] [place] [phone] Uzair Antonio MD 175 [facility] [address] [place] [address] 11/14/2024 1:00 PM EDT Office Visit Bariatric Surgery - [place] 175 [facility] [address] [place] [phone] Dominga Lloyd MD 175 [facility] [address] [place] [address] Health Maintenance Due Date Last Done Comments [...] 01/24/2022 COVID-19 Vaccine ( season) 2023 02/28/2021, 06/26/2020, 05/29/2020 Hypertension/CHF/CAD Annual BMP Blood Test 12/31/2023 02/27/2021 [...] * Annual BMP Blood Test (02/27/2021) Pathologist [facility] Annual BMP Blood Test Abstracted Historical Provider HEALTH MAINTENANCE Final Result * (ABNORMAL) Lipid panel (02/27/2021) LDL/HDL Ratio 4 0 - 4 Triglycerides 68 0 - 150 mg/dL Cholesterol 178 0 - 200 mg/dL HDL 51 >=40 mg/dL LDL Cholesterol 114(A) 0 - 100 mg/dL Blood Venous blood specimen / Unknown Historical Provider LAB BLOOD ORDERABLES [facility] Result from Last 3 Months or Most Recently Relevant to Health Maintenance Insurance [facility] [place] [address] Care Teams Clinical Education Academic Coordinator Relationship Specialty Start Date End Date Eri Mukherjee MD [address] [place], [place] [address], [address] [facility] Physician Associ D/B/A: [facility] FARRUKH Sparks PCP - General Internal Medicine 12/08/13
--- OUTSIDE RECORDS SUMMARY | 2024-06-29 13:21 | XMS_ITS | Encounter Summary ---
Author Organization [facility] Address [address] [place] [address] Care Team Providers Care Computer Operations Technician Name Role Phone Eri Mukherjee MD Primary Care Provider Markie swenson Reason for Visit * Reason Comments E-prescribe Rx Request Encounter Details Date Type Department Care Team Description 12/17/2020 Refill Pulmonology - [place] [address] [facility] [address] [place] [address] Uzair Antonio MD [address] [place] [id number] E-prescribe Rx Request Social History Tobacco Use [...] N/A Patients current insurance carrier is: [facility] / Plan: [facility] / Product Type: MEDICAID RISK documented in this encounter Plan of Treatment Not on file documented as of this encounter Visit Diagnoses Diagnosis Morbid obesity with BMI of 60.0-69.9, adult (HCC) documented in this encounter Care Teams Computer Operations Technician Relationship Specialty Start Date End Date Eri Mukherjee MD PCP - General Internal Medicine 12/08/13 documented as of this encounter
--- OUTSIDE RECORDS SUMMARY | 2024-06-29 13:21 | XMS_ITS | Encounter Summary ---
Author Organization [facility] Address [address] [place] [address] Care Team Providers Care Utility Systems Repairer Operator Name Role Phone Eir Mukherjee MD Primary Care Provider [phone] Reason for Visit * Reason Comments Asthma Follow up for cough. Encounter Details Date Type Department Care Team ([facility] st Contact Info) Description 06/28/2024 10:00 AM EDT Office Visit Pulmonolgy - [place] [address] [facility] [address] [place] [phone] Uzair Antonio MD [address] [facility] [address] [place] [address] NINI (obstructive sleep apnea) (Primary Dx); Mild persistent asthma, unspecified whether complicated; Morbid obesity with BMI of 60.0-69.9, adult (CMS/HCC V24, [facility]/HCC V28); Mild asthma, unspecified whether complicated, unspecified [...] on file documented as of this encounter Last Filed Vital Signs Vital Sign Reading [...] Mass Index 60.96 06/28/2024 9:58 AM EDT documented in this encounter Progress Notes * Kelle Reyes MA - 06/28/2024 10:00 AM EDTAddended by: KELLE REYES on: 06/28/2024 04:05 PM Modules accepted: Orders * Uzair Antonio MD - 06/28/2024 10:00 AM EDT ADULT PULMONARY CONSULT CHIEF COMPLAINT or REASON FOR CONSULTATION: Asthma (Follow up for cough./) HISTORY OF PRESENT ILLNESS: Christiane Blank is a 58 y.o. years old, female with a history of NINI and asthma. She got a new CPAP machine with settings 6 to 12 cm. Currently has nasal pillow when she was a full face mask before. Best CPAP was 9 cm on titration in the past. The pt is using CPAP via nasal pillows.. She did not get the gastric bypass surgery because she switch doctors. She saw our center and the surgery was canceldue to Afib. No wt lost noted- she is on CPAP for her NINI. The patient is now on Arnuity and as needed albuterol. Her asthma is under excellent control. Her weight has been steadily declining, Wegovywas stopped due to side effects. She will see the weight loss center again soon. I sent her a replac ement CPAP last time but it was not filled due to [facility] saying that she was noncompliant. The patient stated she has been compliant for many many years and cannot sleep without the machine. Her last sleep study was in 2019 ALLERGIES: Allergies Allergen Reactions Levofloxacin Dizziness ACTIVE MEDICATIONS: Outpatient Medications Marked as Taking for the 06/28/24 encounter (Office Visit) with Uzair Antonio MD Medication Sig Dispense Refill acetaminophen (TYLENOL) 500 mg tablet Take 1 tablet (500 mg total) by mouth every 6 (six) hours if needed for mild pain or moderate pain. albuterol 2.5 mg /3 mL (0.083 %) nebulizer solution Take 3 mL by nebulization every 4 (four) hours if needed for wheezing or shortness of breath. 300 mL 3 atenoloL (TENORMIN) 100 mg tablet Take 1 tablet (100 mg total) by mouth 1 (one) time each day. buPROPion XL (WELLBUTRIN XL) 150 mg 24 hr tablet Take 1 tablet (150 mg total) by mouth 1 (one) timeeach day in the morning. C-LAX LAXATIVE, BISACODYL, ORAL Take 1 tablet by mouth 1 (one) time each day. calcium carbonate-vitamin D3 600 mg-5 mcg (200 unit) per tablet Take 1 tablet by mouth 1 (one) timeeach day. cholecalciferol (VITAMIN D-3) 25 mcg (1,000 unit) capsule Take 1 capsule (1,000 Units total) by mouth 1 (one) time each day. flecainide (TAMBOCOR) 50 mg tablet Take 1 tablet (50 mg total) by mouth 2 (two) times a day. fluticasone furoate (Arnuity Ellipta) 100 mcg/actuation blister with device inhaler Inhale 1 puff by mouth 1 (one) time each day. 3 each 4 lidocaine (LIDODERM) 5 % patch Place 1 patch on the skin 1 (one) time each day. Apply for no more than 12 hours in any 24 hour period losartan (COZAAR) 100 mg tablet Take 1 tablet (100 mg total) by mouth 1 (one) time each day. omega-3 acid ethyl esters (LOVAZA) 1 gram capsule Take 1 capsule (1 g total) by mouth 1 (one) time each day. omeprazole (PriLOSEC) [address] capsule Take 1 capsule (20 mg total) by mouth 1 (one) time each day. rivaroxaban (XARELTO) 20 mg tablet Take 1 tablet (20 mg total) by mouth 1 (one) time each day. rosuvastatin (CRESTOR) 10 mg tablet Take 1 tablet (10 mg total) by mouth 1 (one) time each day. traMADoL (ULTRAM) 50 mg tablet Take 1 tablet (50 mg total) by mouth every 6 (six) hours if needed for moderate pain or severe pain. Ventolin HFA 90 mcg/actuation inhaler INHALE 2 PUFFS BY MOUTH EVERY 4 (FOUR) HOURS IF NEEDED FOR WHEEZING OR SHORTNESS OF BREATH. 18 each 2 PROVIDER ATTESTS THAT THE MEDICATION LIST WAS OBTAINED, REVIEWED AND UPDATED. REVIEW OF SYSTEMS: GENERAL: + wt lost ENT: no snoring- on cpap Eye: RESPIRATORY: no cough, wheezing and dyspnea CARDIOVASCULAR: No chest pain, leg swelling or palpitations GI: No abdominal discomfort, MUSCULOSKELETAL: +backpain HEMATOLOGY/LYMPHOLOGY No prolonged bleeding, easy bruisability ENDOCRINE: no DM NEURO: No focal weakness : Psych: no depression PAST MEDICAL HISTORY: Patient Active Problem List Diagnosis Date Noted Morbid obesity with BMI of 60.0-69.9, adult ([facility] V24, [facility] V28) 04/23/2023 NINI (obstructive sleep apnea) 11/18/2016 Allergic rhinitis 11/18/2016 Asthma 11/18/2016 Atrial fibrillation ([facility] V24, [facility] V28) 11/17/2016 Depression 11/17/2016 Arthritis 11/17/2016 Past Surgical History: Procedure Laterality Date SECTION PROCEDURE: HISTORICAL ; COMMENT: x 3 CHOLECYSTECTOMY PROCEDURE: HISTORICAL CHOLECYSTECTOMY FAMILY HISTORY: Family History Problem Relation Name Age of Onset Other (Other: AIDS) Brother Other (Other: AIDS) Brother Breast cancer Maternal Grandmother with Metastasis Diabetes Paternal Grandmother Diabetes Mother Stroke Father Thyroid disease Daughter OCCUPATION OR OCCUPATION EXPOSURE: SOCIAL HISTORY Social History Socioeconomic History Marital status: Single Spouse name: Not on file Number of children: Not on file Years of education: Not on file Highest education level: Not on file Occupational History Not on file Tobacco Use Smoking status: Never Smokeless tobacco: Never Substance and Sexual Activity Alcohol use: No Drug use: No Sexual activity: Not on file Other Topics Concern Not on file Social History Narrative Not on file IMMUNIZATION: Immunization History Administered Date(s) Administered Moderna SARS-CoV-2 COVID-19, mRNA, LNP-S, preservative free 05/29/2020, 02/28/2021 PHYSICAL EXAM: Visit Vitals BP (!) 142/80 (BP Location: Left arm, Patient Position: Sitting, BP Cuff Size: Adult long) Pulse 67 Temp 36.3 ??C (97.3 ??F) (Temporal) Resp 20 Ht 1.499 m (59 ) Wt 137 kg (301 lb 12.8 oz) SpO2 99% BMI 60.96 kg/m?? Smoking Status Never BSA 2.2 m?? APPEARANCE: Alert and in no acute distress. EYES: Conjunctiva and sclera normal. NOSE/SINUS: Nares normal. Septum midline. Mucosa No drainage or sinus tenderness. MOUTH/THROAT: no erythema or exudates. Mallampati class 2 NECK: Neck supple, thyroid symmetric and of normal size. HEART: RRR with normal S1 and S2, no murmurs, no gallops, no JVD appreciated. LUNG: CTA b/l, no wheezing or bronchial bs ABDOMEN: Bowel sounds normoactive, soft, non-tender EXTREMITIES: no clubbing, cyanosis, or edema. LYMPH NODES: No cervical and supra-clavicular lymphadenopathy. NEURO: Awake, alert and oriented x 3, no focalization Derm: no rash DIAGNOSTIC DATA: sleep study CPAP = 9cm 2016 Home sleep study- 06/2018 severe NINI with lowest o2 sat63% CARDIOPULMONARY TEST: Last Pulmonary function Test showed: 2016- fev1= 95%+ RADIOLOGIST IMAGING: ASSESSMENT: ICD-10-CM ICD-9-CM 1. NINI (obstructive sleep apnea) G47.33 327.23 2. Mild persistent asthma, unspecified whether complicated J45.30 493.90 3. Morbid obesity with BMI of 60.0-69.9, adult ([facility] V24, [facility] V28) E66.01 278.01 Z68.44 V85.44 PLAN: I checked her CPAP machine and she is compliant with therapy with benefit. I will resend the CPAP order and discussed with [facility]. It is possible that the machine was not linked up. If she cannot get the machine I will repeat another sleep study at home. Her last sleep study was done when she was 40 pounds heavier but it did show severe NINI. Weight loss will be most beneficial in terms of her asthma and NINI. She will follow-up with the weight loss center. She will continue Arnuity and as needed albuterol - Follow up with Eri Mukherjee MD for the other co-morbilities. - I spend 33 Minutes on this visit. The patient was educated about his problems, where assessment and plan was reviewed and explained, All questions were answered. This includes: Preparing to see the patient, obtaining and/or reviewing separately obtained history, performing a medically appropriate exam, ordering medications, tests, or procedures, documenting clinical information in the electronic health record, and independently interpreting results. RETURN TO THE NEXT VISIT: Based on physical exam, symptomatology, tests requested and baseline pulmonary evaluation/disease, I instructed the patient to come back to see me in 6 mths for reevaluation after the test has been done or earlier if the patient needed. Thanks Eri Mukherjee MD for allowing me to have the opportunity to assist in the care of this patient. documented in this encounter Plan of Treatment Upcoming Encounters Date Type Department Care Team (Late st Contact Info) Description 09/28/2024 10:15 AM EDT Office Visit Pulmonolgy - [place] [address] [phone] Uzair Antonio MD 175 [facility] [address] [place] [address] 11/14/2024 1:00 PM EDT Office Visit Bariatric Surgery - [place] [address] [phone] Dominga Lloyd MD 175 [facility] [address] [place] [address] documented as of this encounter Visit Diagnoses Diagnosis NINI (obstructive sleep apnea)- Primary Obstructive sleep apnea (adult) (pediatric) Mild persistent asthma, unspecified whether complicated Morbid obesity with BMI of 60.0-69.9, adult (CMS/HCC V24, [facility] V28) Mild asthma, unspecified whether complicated, unspecified whether persistent documented in this encounter Discontinued Medications Medication Sig Discontinue Reason Start Date End Da te montelukast (SINGULAIR) 10 mg tabletIndications:Unspec ified asthma, uncomplicated TOME LUIS TABLETA POR VIA ORAL AL ACOSTARSE 05/01/2024 06/28/2024 documented as of this encounter Orders General Supply Count Last Ordered Date First Or dered Date CPAP DME 1 06/28/2024 documented in this encounter Care Teams Utility Systems Repairer Operator Relationship Specialty Start Date End Date Eri Mukherjee MD [address] [place] [address] , [address] [facility] D[facility]A: [facility] FARRUKH Sparks PCP - General Internal Medicine 12/08/13 documented as of this encounter
--- OUTSIDE RECORDS SUMMARY | 2024-06-29 13:22 | XMS_ITS | Encounter Summary ---
Author Organization [facility] Address [address] [place] [address] Care Team Providers Care Certified Alcohol And Drug Counselor Name Role Phone Eri Mukherjee MD Primary Care Provider Markie swenson Reason for Visit * Reason Comments E-prescribe Rx Request Encounter Details Date Type Department Care Team Description 12/13/2017 Refill Pulmonology - [place] [address] [facility] [address] [place] [address] Uzair Antonio MD [address] [place] [address] E-prescribe Rx Request Social History [...] NO Patients current insurance carrier is: Payor: [employer] [facility] / Plan: [facility] / Product Type: MEDICAID RISK documented in this encounter Plan of Treatment Not on file documented as of this encounter Visit Diagnoses Not on filedocumented in this encounter Care Teams Certified Alcohol And Drug Counselor Relationship Specialty Start Date End Date Eri Mukherjee MD PCP - General Internal Medicine 12/08/13 documented as of this encounter
--- OUTSIDE RECORDS SUMMARY | 2024-06-29 13:22 | XMS_ITS | Encounter Summary ---
Author Organization [facility] Address [address] [place] [address] Care Team Providers Care Emissions Inspector Name Role Phone Eri Mukherjee MD Primary Care Provider Markie swenson Reason for Visit * Reason Comments E-prescribe Rx Request Encounter Details Date Type Department Care Team Description 04/15/2022 Refill Pulmonology - [place] [address] [facility] [address] [place] [address] Uzair Antonio MD [address] [place] [phone] E-prescribe Rx Request Social History Tobacco Use [...] N/A Patients current insurance carrier is: Payor: [facility] FFS / Plan: [facility] / Product Type: MEDICAID RISK documented in this encounter Plan of Treatment Not on file documented as of this encounter Visit Diagnoses Diagnosis Morbid obesity with BMI of 60.0-69.9, adult (HCC) documented in this encounter Care Teams Emissions Inspector Relationship Specialty Start Date End Date Eri Mukherjee MD PCP - General Internal Medicine 12/08/13 documented as of this encounter
--- OUTSIDE RECORDS SUMMARY | 2024-06-29 13:22 | XMS_ITS | Encounter Summary ---
Author Organization [facility] Address [address] [place] [address] Care Team Providers Care Latent Print Examiner Name Role Phone Eri Mukherjee MD Primary Care Provider Markie swenson Reason for Visit * Reason Onset Date Comments DME Request 09/16/2018 CPAP Encounter Details Date Type Department Care Team Description 09/16/2018 Telephone Pulmonology - [place] [address] [facility] [address] [place] [address] Uzair Antonio MD [address] [place] [address] DME Request (CPAP) Social History [...] on filedocumented in this encounter Care Teams Latent Print Examiner Relationship Specialty Start Date End Date Eri Mukherjee MD PCP - General Internal Medicine 12/08/13 documented as of this encounter
== END 2024-06-29 13:20 | disposition home or self-care (01) ==
LOC: HO.HMCH 12:40
PROVIDERS: PCP Internal Medicine; Visit Provider Internal Medicine
DX: Z00.00 Encounter for general adult medical examination without abnormal findings (principal); E66.01 Morbid (severe) obesity due to excess calories; I48.0 Paroxysmal atrial fibrillation; Z68.44 Body mass index [BMI] 60.0-69.9, adult

== ENCOUNTER → 2024-06-29 12:40 | Outpatient (BNVA) | payer OTHER, SELFPAY | PROVIDERS: PCP Internal Medicine; Visit Provider Internal Medicine | DX: Z00.00 Encounter for general adult medical examination without abnormal findings (principal); I10 Essential (primary) hypertension; I48.0 Paroxysmal atrial fibrillation; E66.01 Morbid (severe) obesity due to excess calories; Z88.8 Allergy status to other drugs, medicaments and biological substances; Z68.44 Body mass index [BMI] 60.0-69.9, adult | CPT/HCPCS: 99396 ==

== ENCOUNTER 2024-08-08 10:44 | Outpatient (AMB) | payer OTHER, SELFPAY ==
--- NOTE | 2024-08-08 10:48 | A.OFFVIS_ITS ---
Vital Signs 08/08/24 10:59 Height 4 ft 11 in Weight 298 lb 8.094 oz BMI 60.3 BP 142/90 H Blood Pressure Location Rt brachial Position Sitting Pulse 62 Pulse Source Pulse Oximeter Pulse Oximetry (%) 98 Oxygen Delivery Method Room Air Intake Visit Reasons: OA/FMS Intake Note: Patient presents for OA/FMS follow up. Motor Vehicle Emissions Inspector Required: Yes Motor Vehicle Emissions Inspector Language: Weight Inspector Services: Motor Vehicle Emissions Inspector Present Motor Vehicle Emissions Inspector Name: Isreal [id number] Information Interpreted: non-clinical & clinical Allergies bupropion Allergy (Severe, Verified 08/08/24 10:53) Palpitations phentermine Allergy (Severe, Verified 08/08/24 10:53) Hypertension levofloxacin (From LEVAQUIN) Allergy (Intermediate, Verified 08/08/24 10:53) DIZZINESS topiramate Allergy (Intermediate, Verified 08/08/24 10:53) palpitations Medication List - Last Reconciled 08/08/24 by Lexis Frias MD albuterol sulfate 3 mg inhalation QID PRN atenolol 100 mg PO DAILY blood pressure monitor As directed buspirone 5 mg PO BID calcium carbonate-vitamin D3 500 mg-10 mcg (400 unit) (Calcium 500 With D) 1 tab PO DAILY 90 days cetirizine (All Day Allergy (cetirizine)) 10 mg PO DAILY PRN 90 days flecainide 50 mg PO BID fluticasone furoate 50 mcg/actuation (Arnuity Ellipta) 1 inh inhalation Q24H 30 days fluticasone propionate 110 mcg/actuation 2 puffs inhalation BID fluticasone propionate 50 mcg/actuation (Flonase Allergy Relief) 1 spray intranasal DAILY 30 days fluticasone propionate 50 mcg/actuation (Flonase Allergy Relief) 1 spray intranasal DAILY 30 days incontinence pad, liner, disp (Pads For Women) Use 8 pad daily ipratropium bromide 2 sprays intranasal Q8H PRN lidocaine 5% 1 patch topical DAILY linaclotide (Linzess) 72 mcg PO QAM losartan 100 mg PO DAILY omega-3 fatty acids (Fish Oil Concentrate) 1,000 mg PO DAILY omeprazole 40 mg PO BID 90 days rivaroxaban (Xarelto) 20 mg PO BEDTIME rosuvastatin 10 mg PO DAILY 90 days tramadol 50 mg PO DAILY PRN Ventolin HFA 90 mcg/actuation (albuterol sulfate) 1 inh inhalation QID 30 days NS HPI Comments Details: Patient is a 58-year-old female with hypertension, asthma, GERD, hyperlipidemia complicated by coronary artery disease, nonalcoholic fatty liver disease, NINI on CPAP, paroxysmal atrial fibrillation, polyarticular osteoarthritis and fibromyalgia here today for follow up Interval History: Patient last seen 02/15/[address] Tapia. Time she was following up for her polyarticular osteoarthritis and fibromyalgia. Noted that her pains were getting worse overall she had a knee injection and hip injection on the left side from Orthopedics 12/2023. Her tramadol dosage was decreased Today, States that the knee injections no longer help Pain all over her body Rheumatologic History: Fibromyalgia and polyarticular osteoarthritis - gets injections from [facility] Current Rheumatology Medication(s): Tramadol [facility]mg daily prn [facility] Medical History (Updated 06/29/24 @ 13:20 by Eri Mukherjee MD) Adult general medical exam Encounter for medication monitoring Mild episode of recurrent major depressive disorder BMI 60.0-69.9, adult Upper abdominal pain Asthma exacerbation Hospital discharge follow-up Preoperative cardiovascular examination Morbid obesity Asthma NINI (obstructive sleep apnea) HTN (hypertension) Abnormal nuclear cardiac imaging test Atrial fibrillation with rapid ventricular response DUB (dysfunctional uterine bleeding) Otitis media Postmenopausal bleeding Diarrhea Epigastric pain Dysuria Urge urinary incontinence B12 deficiency Panic attacks Sleep apnea with use of continuous positive airway pressure (CPAP) Arthritis Anxiety Depression Afib Asthma Chronic gastritis Hepatic steatosis Fibromyalgia Surgical History Tubal ligation status H/O colonoscopy History of esophagogastroduodenoscopy (EGD) History of cholecystectomy History of section Family History Father CVA (cerebral vascular accident) Colon cancer CAD (coronary artery disease) Mother Cancer of unknown origin Social History Household Members: None Housing: Apartment Alcohol intake: never Patient Tobacco Use Status: Never used Tobacco e-Cigarette/Vaping Use: Never Used Second Hand Smoke Exposure: No service: No Current occupational status: disabled Cognitive needs: Yes (cane) Hearing needs: No Vision needs: Yes (glasses) Female Reproductive History Menstrual Age of Menarche: 14 Review of Systems Const Details: Review of Systems Constitutional: Denies fever, chills, weight loss ENT: Denies vision changes, eye pain or eye redness, dental caries, dry mouth GI: Denies nausea, vomiting, diarrhea, abdominal pain, change in BM Pulm: Denies SOB, SÁNCHEZ, hemoptysis, wheezing Cards: Denies chest pain, palpitations Skin: Denies Raynaud's, rash, nail changes, photosensitivity, HEAD GREASE MAKER: Denies headaches, weakness, paresthesias, recurrent falls MSK: as per HPI All other systems reviewed and are unremarkable except noted above Physical Exam Vital Signs: Last Vital Signs Pulse 62 08/08/24 10:59 BP 142/90 H 08/08/24 10:59 Pulse Ox 98 08/08/24 10:59 Oxygen Delivery Method Room Air 08/08/24 10:59 BMI result Body Mass Index 60.3 Vital signs reviewed Physical Examination CONSTITUITIONAL Patient alert and cooperative. Well appearing and in no apparent painful distress Morbidly obese Uses cane to ambulate HEENT Conjunctiva and sclera clear. No lymphadenopathy. CHEST/RESPIRATORY SYSTEM Normal respiratory effort and able to speak in complete sentences. Clear to auscultation bilaterally. No crackles, rales, rhonchi, wheezes heard. CARDIAC SYSTEM Regular rate and rhythm. S1 and S2 heard no murmurs. Radial pulses intact bilaterally MSK Hands * Right Hand: Able to make a fist. No swelling or tenderness to palpation of these joints. No deformities noted. * Left Hand: Able to make a fist. No swelling or tenderness to palpation of these joints. No deformities noted. * Herbedens nodes noted Wrists * Right Wrist: Full ROM. 70 degrees of wrist flexion, 80 degrees of wrist extension. No swelling or TTP * Left Wrist: Full ROM. 70 degrees of wrist flexion, 80 degrees of wrist ext ension. No swelling or TTP Elbows * Right Elbow: Full ROM. No swelling or TTP. * Left Elbow: Full ROM. No swelling or TTP. * TTP of the lateral epicondyles bilaterally Shoulders * Right shoulder: Full ROM. No swelling noted. No TTP of the AC joint, subacromial bursa or posterior shoulder * Left shoulder: Full ROM. No swelling noted. No TTP of the AC joint, subacromial bursa or posterior shoulder Hip bursa: Tenderness to palpation bilaterally Knees * Decreased ROM bilaterally with TTP to pes anserine bursa. No TTP of the joint line Ankles * Right ankle: Good ankle dorsiflexion and plantar flexion. No swelling. No TTP of the ankle joint * Left ankle: Good ankle dorsiflexion and plantar flexion. No swelling. No TTP o f the ankle joint Feet * Right foot: Negative squeeze test * Left foot: Negative squeeze test Tender points? * Tenderness to palpation of the bilateral trapezius, supraspinatus, anterior costochondral junctions, bilateral suboccipital muscle insertions SKIN No rashes Office Procedures AMB Joint Injection/Aspiration Joint Injection/Aspiration Details: Procedure was explained to the patient and informed consent was obtained. ? Risks associated with the procedure were discussed with the patient including but not limited to bleeding, infection, drug reactions and reactions to the topical anesthetic. Patient made aware of signs to look out for infectious complications. The area of interest was identified and confirmed with patient. ?This was subsequently cleaned with chlorhexidine x3. ? The area was then anesthetized using ethyl chloride spray. 40 mg Kenalog with 1 cc 1% lidocaine was injected without issue. ?Minimal to no bleeding. ?Patient tolerated procedure. Primary Site: right knee Prep: site was prepped using aseptic technique and ethochloride spray was applied Injected: 40 mg of, Kenalog, with 1 mL of and 1% plain lidocaine Approach Used: anterior Procedure: The patient tolerated the procedure well Coding 67068 - Large joint Procedure code (CPT) selection complete AMB Joint Injection/Aspiration Joint Injection/Aspiration Details: Procedure was explained to the patient and informed consent was obtained. ? Risks associated with the procedure were discussed with the patient including but not limited to bleeding, infection, drug reactions and reactions to the topical anesthetic. Patient made aware of signs to look out for infectious complications. The area of interest was identified and confirmed with patient. ?This was subsequently cleaned with chlorhexidine x3. ? The area was then anesthetized using ethyl chloride spray. 40 mg Kenalog with 1 cc 1% lidocaine was injected without issue. ?Minimal to no bleeding. ?Patient tolerated procedure. Primary Site: left knee Prep: site was prepped using aseptic technique and ethochloride spray was applied Injected: 40 mg of, Kenalog, with 1 mL of, 1% plain lidocaine and other Approach Used: anterior Procedure: The patient tolerated the procedure well Coding 95631 - Large joint Procedure code (CPT) selection complete Office Meds lidocaine (PF) 10 mg/mL (1 %) injection solution Performing Provider: Lexis Frias MD Performing Location: [facility] Rheumatology Administered by: Lexis Frias MD on 08/08/24 14:18 Dose Route Admin Location Dispensed Lot Number Expiration Date ND Peer Educator 1 mL Infiltration right pes anserine bursa 2 mL [id number] 04/15/26 6 3323-492-04 [employer] Total Dispensed Waste 2 mL 50 % Kenalog 40 mg/mL suspension for injection Performing Provider: Lexis Frias MD Performing Location: [facility] [place] Rheumatology Administered by: Lexis Frias MD on 08/08/24 14:18 Dose Route Admin Location Dispensed Lot Number Expiration Date ND Peer Educator 40 mg intrabursal right pes anserine bursa 1 mL [id number] 05/16/25 8 [id number] [employer] Total Dispensed Waste 1 mL 0 % lidocaine (PF) 10 mg/mL (1 %) injection solution Performing Provider: Lexis Frias MD Performing Location: [facility] [place] Rheumatology Administered by: Lexis Frias MD on 08/08/24 14:18 Dose Route Admin Location Dispensed Lot Number Expiration Date ND Peer Educator 1 mL Infiltration left pes anserine bursa 2 mL [id number] 04/15/26 63 [phone] [employer] Total Dispensed Waste 2 mL 50 % Kenalog 40 mg/mL suspension for injection Performing Provider: Lexis Frias MD Performing Location: [facility] Rheumatology Administered by: Lexis Frias MD on 08/08/24 14:18 Dose Route Admin Location Dispensed Lot Number Expiration Date [facility] Peer Educator 40 mg intrabursal left pes anserine bursa 1 mL [id number] 05/16/25 81 [phone] [employer] Total Dispensed Waste 1 mL 0 % Results Reviewed Results Reviewed: Laboratory Tests 06/26/24 08:47 WBC 6.6 RBC 4.30 Hgb 12.9 Hct 39.3 Plt Count 199 Sodium 142 Potassium 3.3 Chloride 107 Carbon Dioxide 25 BUN 13 Creatinine 0.71 AST 22 ALT 18 Alkaline Phosphatase 85 25-OH Vitamin D Total 28.8 L Assessment & Plan Assessment & Plan (1) Fibromyalgia: Code(s): M79.7 - Fibromyalgia Category: Medical Plan: #Fibromyalgia Patient is a 58-year-old female with fibromyalgia. Had a long discussion with patient about the diagnosis of fibromyalgia and recommended stretching and light exercise. Patient states that she will start going back to the [facility] and doing aqua therapy. Previously was going to the [facility] for aquatherapy but stopped due to depression. We will start gabapentin and increase her tramadol to twice a day to help with her pain and increase her movement Plan - Gabapentin 100mg at night - Tramadol 50mg bid - RTC 6 months (2) Pes anserinus bursitis of both knees: Code(s): M70.51 - Other bursitis of knee, right knee; M70.52 - Other bursitis of knee, left knee Plan: #Bilateral pes anserine bursitis Patient with bilateral pes anserine bursitis status post injection today. Plan I spent 40 minutes reviewing the record and labs, taking a history, examining the patient, discussing the treatment plan, fibromyalgia counseling ordering diagnostic work up and documenting in the medical record Orders: Orders AMB Joint Injection/Aspiration Today M70.51 - Other bursitis of knee, right knee, M70.52 - Other bursitis of knee, left knee AMB Joint Injection/Aspiration Today M70.51 - Other bursitis of knee, right knee, M70.52 - Other bursitis of knee, left knee Medications: New gabapentin 100 mg PO BEDTIME 90 caps 1RF M79.7 - Fibromyalgia Changed From tramadol 50 mg PO DAILY PRN 30 tabs 5RF pain To tramadol 50 mg PO BID PRN 60 tabs 5RF pain Coding Level of Care Code Est Pt Level 5 (93886) Complex EM visit Add On G2211 Diagnoses Fibromyalgia M79.7 Pes anserinus bursitis of both knees M70.51; M70.52 CPT Codes Coding - 90603 Large joint: 44640 - Large joint ([id number]) Coding - 20665 Large joint: 37212 - Large joint ([id number])
[2024-08-08 10:59] VITALS: BP 142/90; PULSE 62; O2SAT 98; BMI 60.3
--- OUTSIDE RECORDS SUMMARY | 2024-08-08 12:03 | XMS_ITS | Encounter Summary ---
Author Organization [facility] Address [address] [place] [address] Care Team Providers Care Bench Shear Operator Name Role Phone Eri Mukherjee MD Primary Care Provider Markie swenson Reason for Visit * Reason Onset Date Comments Durable Medical Equipment 05/21/2017 Grey frausto harley [facility] [place] [facility] confirmed pr is currently active and being processed for CPAP. Pt confirmed receipt of Nebulizer and supplies from February 2017. Encounter Details Date Type Department Care Team Description 05/21/2017 Telephone Pulmonology - [place] [address] [facility] [address] [place] [address] Uzair Antonio MD [address] [place] [address] Durable Medical Equipment ([facility] at [facility] confirmed pr is currently active and being [...] on filedocumented in this encounter Care Teams Bench Shear Operator Relationship Specialty Start Date End Date Eri Mukherjee MD PCP - General Internal Medicine 12/08/13 documented as of this encounter
== END 2024-08-08 11:39 | disposition home or self-care (01) ==
LOC: HO.RHE 10:45
PROVIDERS: PCP Internal Medicine; Visit Provider Student in an Organized Health Care Education/Training Program
DX: M79.7 Fibromyalgia (principal); M70.51 Other bursitis of knee, right knee; M70.52 Other bursitis of knee, left knee
CPT/HCPCS: 20610; 99215

== ENCOUNTER → 2024-08-08 10:44 | Outpatient (BNVA) | payer OTHER, SELFPAY | PROVIDERS: PCP Internal Medicine; Visit Provider Student in an Organized Health Care Education/Training Program | DX: M79.7 Fibromyalgia (principal); M70.51 Other bursitis of knee, right knee; M70.52 Other bursitis of knee, left knee | CPT/HCPCS: 20610; 99212; J3300 ==

== ENCOUNTER 2024-09-13 10:20 | Outpatient (AMB) | payer OTHER, SELFPAY ==
--- NOTE | 2024-09-13 10:32 | A.OFFVIS_ITS ---
Vital Signs 09/13/24 10:41 Height 4 ft 11 in Weight 294 lb 15.656 oz BMI 59.6 BP 137/79 Blood Pressure Location Lt brachial Position Sitting Pulse 63 Intake Visit Reasons: GERD, CIC Intake Note: Christiane returns to in office follow up of GERD and CIC. CC: Patient reports occassional abd pain, acid reflux, nausea, and constipation alternating with diarrhea. Public Relations Director Required: Yes Public Relations Director Language: Mongolian Accompanied by: Self / Same As Patient Allergies bupropion Allergy (Severe, Verified 09/13/24 10:45) Palpitations phentermine Allergy (Severe, Verified 09/13/24 10:45) Hypertension levofloxacin (From LEVAQUIN) Allergy (Intermediate, Verified 09/13/24 10:45) DIZZINESS topiramate Allergy (Intermediate, Verified 09/13/24 10:45) palpitations HPI HPI GERD, CIC: Details: Assessment & Plan (1) GERD (gastroesophageal reflux disease): Code(s): K21.9 - Gastro-esophageal reflux disease without esophagitis Category: Medical Qualifiers: Esophagitis presence: esophagitis presence not specified Qualified Code(s): K21.9 - Gastro-esophageal reflux disease without esophagitis (2) Chronic idiopathic constipation: Code(s): K59.04 - Chronic idiopathic constipation Category: Medical Plan Mongolian #Dasha Iqbal SHE IS NOW, HOPEFULLY ON OMEPRAZOLE 40 mg twice a day, in the past she was on omeprazole 40 in the morning and 20 of famotidine at night and she continues on Linzess 72 micro g. She was trialed on GLP-1's but they all made her very ill. She stopped them, she will continue to follow with [facility]. I would usually do an EGD but we did want in 2021 that was not terribly informative and she says she has good symptom relief on twice a day 40 mg omeprazole. Also, if they do want to consider bariatric surgery usually the surgeon wants to do an EGD prior to this procedure so I am going to hold off for now. The patient is agreeable with this plan and she feels that for now the symptoms are well controlled. Return office visit in 3 months Medications: New omeprazole 40 mg PO BID 180 caps 1RF 90 days K21.9 - Gastro-esophageal reflux disease without esophagitis Refilled linaclotide (Linzess) 72 mcg PO QAM 30 caps 6RF Discontinued tirzepatide (weight loss) (Zepbound) for 4 weeks Discontinued Reason: Patient no longer taking 2.5 mg (0.5 mL) subcut QWEEK 4 weeks 2 mL 0RF E66.01 - Morbid (severe) obesity due to excess calories, E78.5 - Hyperlipidemia, unspecified, G47.33 - Obstructive sleep apnea (adult) (pediatric), I10 - Essential (primary) hypertension, I25.10 - Atherosclerotic heart disease of [place] coronary artery without angina pectoris, I48.0 - Paroxysmal atrial fibrillation, Z99.89 - Dependence on other enabling machines and devices TODAYS VISIT Mongolian #Deion Live She is doing well on her omeprazole 40mg bid and LInzess 72mcg qd. She tries to avoid high acid foods and red meats that upset her stomach. She is trying to cut back on sweets and is losing weight slowly. Her last colonoscopy was in 2018, and she has a very unclear history of cancer in her mother, who of cancer of uncertain origin. She does not know her fathers history. Given her hx I suggest Cologuard screening, and after seeing the video she is agreeable. ROV 8 weeks. [facility] Medical History Adult general medical exam Encounter for medication monitoring Mild episode of recurrent major depressive disorder BMI 60.0-69.9, adult Upper abdominal pain Asthma exacerbation Hospital discharge follow-up Preoperative cardiovascular examination Morbid obesity Asthma NINI (obstructive sleep apnea) HTN (hypertension) Abnormal nuclear cardiac imaging test Atrial fibrillation with rapid ventricular response DUB (dysfunctional uterine bleeding) Otitis media Postmenopausal bleeding Diarrhea Epigastric pain Dysuria Urge urinary incontinence B12 deficiency Panic attacks Sleep apnea with use of continuous positive airway pressure (CPAP) Arthritis Anxiety Depression Afib Asthma Chronic gastritis Hepatic steatosis Fibromyalgia Surgical History Tubal ligation status H/O colonoscopy History of esophagogastroduodenoscopy (EGD) History of cholecystectomy History of section Family History Father CVA (cerebral vascular accident) Colon cancer CAD (coronary artery disease) Mother Cancer of unknown origin Social History Household Members: None Housing: Apartment Alcohol intake: never Patient Tobacco Use Status: Never used Tobacco e-Cigarette/Vaping Use: Never Used Second Hand Smoke Exposure: No service: No Current occupational status: disabled Cognitive needs: Yes (cane) Hearing needs: No Vision needs: Yes (glasses) Female Reproductive History Menstrual Age of Menarche: 14 Review of Systems Const Denies fatigue, Denies fever(s), Denies night sweats, Denies poor appetite and Reports weight loss Eyes Details: GLASSES Reports requires corrective lenses ENT Reports Normal hearing present, Denies dental pain, Denies dysphagia, Denies hearing loss, Denies mouth pain, Denies odynophagia, Denies throat swelling, Denies tongue swelling and Reports other (Dentition adequate) Card Reports no additional complaints Resp Reports no additional complaints GI Details: Denies abdominal pain, Denies melena, Denies bloating, Denies hematochezia, Reports constipation, Denies GI cramping, Denies dysphagia, Denies excessive flatus, Denies early satiety, Reports dyspepsia, Reports heartburn, Denies diarrhea, Denies nausea, Denies odynophagia, Denies vomiting and Denies hematemesis Skin/Breast Denies pruritus, Denies lesions, Denies rash and Denies jaundice Neuro Reports Normal hearing present and Denies Abnormal speech present Endo Denies fatigue Aller/Immun Denies throat swelling and Denies tongue swelling Physical Exam Vital Signs: Last Vital Signs Pulse 63 09/13/24 10:41 BP 137/79 09/13/24 10:41 BMI result Body Mass Index 59.6 Const General: cooperative, no acute distress, well developed and well groomed Nutritional Appearance: well nourished and obese Orientation/consciousness: oriented to person, oriented to place and oriented to time Limitations: language barrier and ambulation with cane HEENT Head: Yes normocephalic and Yes atraumatic Eyes General: appearance normal, both eyes and all related structures Pupils: Equal, round and reactive pupils present Neck Neck: Yes normal visual inspection and Yes no lymphadenopathy Thyroid: Thyroid normal Resp Effort & Inspection: normal respiratory effort and able to speak in complete sentences Auscultation: clear to auscultation bilaterally Cardio Rate: regular rate Rhythm: regular rhythm Heart sounds: Normal, physiologic split S2 sound present Peripheral pulses: radial pulses present and posterior tibial pulses present GI Inspection: No distended, Yes Abdominal panniculus present and Yes obesity Palpation (GI): Soft to palpation, nontender, no guarding, not rigid and No hepatosplenomegaly present Percussion: Yes normal to percussion Auscultation: normal bowel sounds Rectal Exam - Female: deferred Skin General skin exam: no rashes or lesions noted, turgor normal, skin not dry, no jaundice, No spider nevi and no striae Rashes: no rashes Nails: normal Neuro General: oriented to person, oriented to place and oriented to time Cranial nerves: Yes Equal, round and reactive pupils present and Yes Normal hearing present Speech: No Abnormal speech present Extrem General: Yes normal to inspection, No clubbing, No cyanosis and No edema Psych Appearance: grossly normal and well kempt Mental Status: mental status grossly normal Speech and movement: Normal speech and movement present Affect: normal affect Attitude: cooperative Thought process: Normal thought process present and not confabulating Thought content: Normal thought content present Insight: Good insight present (Psych) Judgement: Good judgement present (Psych) Assessment & Plan Assessment & Plan (1) Chronic idiopathic constipation: Code(s): K59.04 - Chronic idiopathic constipation Category: Medical (2) GERD (gastroesophageal reflux disease): Code(s): K21.9 - Gastro-esophageal reflux disease without esophagitis Category: Medical Qualifiers: Esophagitis presence: esophagitis presence not specified Qualified Code(s): K21.9 - Gastro-esophageal reflux disease without esophagitis (3) Encounter for colorectal cancer screening using Cologuard test: Code(s): Z12.11 - Encounter for screening for malignant neoplasm of colon; Z12.12 - Encounter for screening for malignant neoplasm of rectum Category: Medical Plan Mongolian #Deion Live She is doing well on her omeprazole 40mg bid and LInzess 72mcg qd. She tries to avoid high acid foods and red meats that upset her stomach. She is trying to cut back on sweets and is losing weight slowly. Her last colonoscopy was in 2018, and she has a very unclear history of cancer in her mother, who of cancer of uncertain origin. She does not know her fathers history. All of her prior colonoscopies have been negative for polyps. Given her hx I suggest Cologuard screening, and after seeing the video she is agreeable. ROV 8 weeks. Medications: Refilled linaclotide (Linzess) 72 mcg PO QAM 30 caps 6RF omeprazole 40 mg PO BID 180 caps 1RF 90 days K21.9 - Gastro-esophageal reflux disease without esophagitis Coding Level of Care Code Est Pt Level 4 (52583) Diagnoses Chronic idiopathic constipation K59.04 Gastroesophageal reflux disease, unspecified whether esophagitis present K21.9 Esophagitis presence: esophagitis presence not specified Encounter for colorectal cancer screening using Cologuard test Z12.11; Z12.12 Time Spent (min) 36
[2024-09-13 10:41] VITALS: BP 137/79; PULSE 63; BMI 59.6
--- OUTSIDE RECORDS SUMMARY | 2024-09-13 11:11 | XMS_ITS | Clinical Summary ---
Author Organization [employer] Address [address] [place] [address] 7t [place] [address] Care Team Providers Care Conservation Policy Analyst Name Role Phone Unavailable Primary Care [...] Localized gingival recession 04/15/2023 Dental plaque 04/15/2023 Social History Tobacco Use Types Packs/Day [...] Description 10/23/2024 1:00 PM EDT Office Visit [facility] ADULT DENTAL [address] [place] [address] Mariela Barrow [address] [place] [address] Health Maintenance Due Date Last Done Comments CT Colonography 1966 Colonoscopy 1966 Colorectal Cancer Screening 1966 Depression Screening 1966 FIT DNA/Cologuard 1966 FIT 1966 FOBT 1966 HIV Screening 1966 Lipid Panel 1966 SDOH Screening 1966 Sigmoidoscopy 1966 Disability Screening 1966 Alcohol/Substance Use Screening 1978 Hepatitis C Screening 1984 Hepatitis B Vaccines (1 of 3 - 19+ 3-dose series) 1985 Pneumococcal Vaccine: 50+ Years (1 of 2 - PCV) 1985 Pap Smear 11/21/1987 Cervical Cancer Screening 1996 HPV/Cotest 1996 Mammogram 2006 Zoster Vaccines (1 of 2) 2016 COVID-19 Vaccine ( season) 2023 02/28/2021, 06/26/2020, 05/29/2020 Influenza Vaccine (#1) 2024 , 02/24/2023, 02/11/2022, Additional history exists Dental Oral Exam 10/20/2024 04/18/2024, , 01/23/2021, [...] Associated Diagnosis Comments PROPHYLAXIS - ADULT Routine 04/18/2024 1 :00 PM EST Dental plaque INTRAORAL - COMPLETE SERIES OF RADIOGRAPHIC IMAGES Routine 04/18/2024 1:00 PM EST Dental plaque PERIODIC ORAL EVALUATION - ESTABLISHED PATIENT Routine 04/18/2024 1:00 PM EST from Last 3 Months or Most Recently Relevant to Health Maintenance Insurance [facility] MEDICAID STAND ADULT
--- OUTSIDE RECORDS SUMMARY | 2024-09-13 11:11 | XMS_ITS | Clinical Summary ---
Author Organization 175 [facility] Address [address] [place] [address] Phone Care Team Providers Care Brewery Pumper Name Role Phone Eri Mukherjee MD Primary Care Provider [phone] Allergies Active Allergy Reactions Criticality Noted Date [...] 1 (one) time each day. Active calcium carbonate-vitam in D3 600 mg-5 mcg (200 unit) per [...] (one) time each day. 3 each 4 4 12/31/19 25 Active albuterol 2.5 mg /3 mL (0.083 %) nebulizer solution Take 3 mL by nebulization every 4 (four) hours if needed for wheezing or shortness of breath. 300 mL 3 4 12/31/19 25 Active Ventolin HFA 90 mcg/actuation inhalerIndicati ons:Mild persistent asthma, unspecified whether complicated INHALE 2 PUFFS BY MOUTH EVERY 4 (FOUR) HOURS IF NEEDED FOR WHEEZING OR SHORTNESS OF BREATH. 18 each 2 5 Active Active Problems Problem Noted Date Diagnosed Date Morbid obesity with BMI of 6 0.0-69.9, adult ([facility] V24, [facility] V28) 04/23/2023 NINI (obstructive sleep apnea) 11/18/2016 Overview (04/23/2023): [facility] Home Sleep Apnea Test: Date 07/20/2018; [...] Allergic rhinitis 11/18/2016 Asthma 11/18/2016 Atrial fibrillation ([facility] V24, [facility] V28) 1 Overview (04/23/2023): Pradaxa Depression 11/17/2016 Arthritis 11/17/2016 Encounters Date Type Department Care Team Description 06/28/2024 10:00 AM EDT Office Visit Pulmonolgy - [address] [phone] Uzair Antonio MD NINI (obstructive sleep apnea) (Primary Dx); Mild persistent asthma, unspecified whether complicated; Morbid obesity with BMI of 60.0-69.9, adult ([facility] V24, [facility] V28); Mild asthma, unspecified whether complicated, unspecified whether persistent 06/28/2024 Telephone Pulmonolgy [facility] [address] [phone] Gaby Jim MA DME-replacement order [facility] [address] [phone] Chalo Cramer MA from Last 3 Months Surgical History Surgery Date Site/Laterality Comments CHOLECYSTECTOMY PROCEDURE: HISTORICAL CHOLECYSTECTOMY SECTION PROCEDURE: HISTORICAL ; COMMENT: x 3 Medical History Medical History Date Comments Morbid obesity with BMI of 6 0.0-69.9, adult ([facility] V24, [facility] V28) 11/18/2016 DX:Morbid obesity wit h BMI of 60.0-69.9, adult ([facility]) NINI (obstructive sleep apnea) 11/18/2016 DX :NINI (obstructive sleep apnea) Allergic rhinitis 11/18/2016 DX:Allergic rh initis Arthritis 11/17/2016 DX:Arthritis Asthma 11/18/2016 DX:Asthma Atrial fibrillation (CMS/HCC V24, CMS/HCC V28) 11/17/2016 DX:Atrial fibrillation ([facility]) ; COMMENT: Pradaxa Depression 11/17/2016 [...] 67 06/28/2024 9:58 AM EDT Temperature 36.3 C (97.3 F) 06/28/2024 9:58 AM EDT Respiratory Rate 20 06/28/2024 9:58 AM EDT [...] 10:15 AM EDT Office Visit Pulmonolgy - [place] [facility] [address] [place] [phone] Uzair Antonio MD 175 [facility] [address] [place] [address] 11/14/2024 1:00 PM EDT Office Visit Bariatric Surgery - [place] 175 [facility] [address] [place] [phone] Dominga Lloyd MD 175 [facility] [address] [place] [address] Health Maintenance Due Date Last Done Comments Breast Cancer Screening 1966 Hepatitis B Vaccines (1 of 3 - 19+ 3-dose series) 1985 Pneumococcal Vaccine: 50+ Years (1 of 2 - PCV) 1985 Cervical Cancer Screening: Pap Smear 11/21/1987 Zoster Vaccines (1 of 2) 2016 Colorectal Cancer Screening: Colonoscopy 01/24/2022 HIV Screening 01/24/2022 Hepatitis C Screening 01/24/2022 Social Influencers of Health Screening 01/24/2022 COVID-19 Vaccine ( season) 2023 02/28/2021, 06/26/2020, 05/29/2020 Hypertension/CHF/CAD Annual BMP Blood Test 12/31/2023 02/27/2021 Depression Screening 02/16/2024 Influenza Vaccine (#1) 2024 , 02/24/2023, 02/11/2022, Additional history exists DTaP,Tdap,and Td Vaccines (2 - Td or Tdap) 11/25/2025 11/26/2015 Cholesterol Screening (Lipid Panel) 02/27/2026 02/27/2021 HIB Vaccines Aged Out No longer eligi [...] Test (02/27/2021) Annual BMP Blood Test Abstracted Historical Provider [...] Most Recently Relevant to Health Maintenance Insurance [facility] Care Teams Brewery Pumper Relationship Specialty Start Date End Date Eri Mukherjee MD [address] [place] [address] , [facility] [address] [facility] Physician Associ D/B/A: [facility] [place] PCP - General Internal Medicine 12/08/13
== END 2024-09-13 11:32 | disposition home or self-care (01) ==
LOC: HO.HGI 10:21
PROVIDERS: PCP Internal Medicine; Visit Provider Nurse Practitioner
DX: K59.04 Chronic idiopathic constipation (principal); K21.9 Gastro-esophageal reflux disease without esophagitis
CPT/HCPCS: 99214

== ENCOUNTER → 2024-09-13 10:20 | Outpatient (BNVA) | payer OTHER, SELFPAY | PROVIDERS: PCP Internal Medicine; Visit Provider Nurse Practitioner | DX: Z01.818 Encounter for other preprocedural examination (principal); K21.9 Gastro-esophageal reflux disease without esophagitis; K59.04 Chronic idiopathic constipation | CPT/HCPCS: 99212 ==

== ENCOUNTER 2024-10-10 15:30 | Outpatient (AMB) | payer OTHER, SELFPAY ==
--- OUTSIDE RECORDS SUMMARY | 2011-10-15 04:23 | XMS_ITS | Continuity of Care Document ---
Author Organization [facility] Address [address] [place] [phone] Phone Care Team Providers Care Sap Data Analyst Name Role Phone PCS, Nurse Unavailable Unavailable Medications Medication Instructions Dosage Effective Dates (start - stop) Status Comments diclofenac sodium 75 mg Tab, Delayed Release take 1 tablet (75MG) by oral route 2 times every day 75 MG - Active aspirin 325 mg Tab take 1 tablet (325MG ) by oral route every day 325 MG - Active Procedures Procedure Date Nutrition Visit Initial OFFICE/OUTPATIENT VISIT, EST PREV VISIT, EST, AGE 40-64 SPECIMEN HANDLING OFFICE/OUTPATIENT VISIT, EST OFFICE/OUTPATIENT VISIT, EST OFFICE/OUTPATIENT VISIT, EST SPECIMEN HANDLING OFFICE/OUTPATIENT VISIT, EST As per patient privacy policy some of the clinical information may not be visible. Advance Directives Directive Yes / No Effective Date File Name No Information Encounters Encounter Description Practice Location Reason(s) For Visit Diagnoses Date Provider Providers Copied on Encounter [facility] /[facility], [address] [place] [address], [id number], [place] tel:[phone] [facility] General Medicine No Information PCS Nurse. [address] [place] [address], [id number], [place]. tel:[phone] Nutrition Visit Initial [facility] /[facility], [address] [place] [address], [id number], [place] tel:[phone] [facility] General Medicine No Information PCS Other Non Billable. [address] [place] [address], [id number], [place]. tel:[phone] OFFICE/OUTPAT IENT VISIT, [facility] /[facility], [address] [place] [address], [id number], [place] tel:[phone] P [facility] General Medicine No Information Mismanos Venessa. [address], [place], [place], [id number], [place]. tel:[phone] PREV VISIT, [facility], AGE 40-64 [facility] /[facility], [address] [place] [address], [id number], [place] tel:[phone] [facility] General Medicine No Information Mismanos Venessa. [address], [place], [place], [id number], [place]. tel:[phone] OFFICE/OUTPAT IENT VISIT, [facility] /[facility], [address] [place] [address], [id number], [place] tel:[phone] [facility] General Medicine No Information Mismanos Venessa. [address], [place], [place], [id number], [place]. tel:[phone] OFFICE/OUTPAT IENT VISIT, [facility], [address] [place] [address], [id number], [place] tel:[phone] [facility] General Medicine No Information Mismanos Venessa. [address], [place], [place], [id number], [place]. tel:[phone] OFFICE/OUTPAT IENT VISIT, [facility], [address] [place] [address], [id number], [place] tel:[phone] [facility] General Medicine No Information Mismanos Venessa. [address], [place], [place], [id number], [place]. tel:[phone] [facility] /[facility], [address] [place] [address], [id number], [place] tel:[phone] P [facility] Laboratory No Information Jims Venessa. [address], [place], [place], [id number], [place]. tel:[phone] OFFICE/OUTPAT IENT VISIT, [facility] /[facility], [address] [place] [address], [id number], [place] tel:[phone] P [facility] Medicine No Information Jims Venessa. [address], [place], [place], [id number], [place]. tel:[phone] Family History Family Member Type Diagnosis Age At Onset No Information Payers Payer name Insurance type Covered democrat ID Authoriza tion(s) No Information Social History Type Description Quantity Date Captured Comments Sex Female Smoking Status No Information Chief Complaint And Reason For Visit No Information History Of Present Illness Encounter Date Complaint History Of Prese nt Illness No Information Instructions Date Instruction Additional Infor mation No Information Assessments Type Assessment Date No Information Patient Care Teams Name Effective Dates (start - stop) Status Members No Information
--- NOTE | 2024-10-10 15:57 | A.OFFVIS_ITS ---
Vital Signs 10/10/24 16:02 Height 4 ft 11 in Weight 294 lb BMI 59.4 BP 128/68 Intake Visit Reasons: annual/DO NOT RS Bilingual Spanish Inbound Sales Required: Yes Bilingual Spanish Inbound Sales Language: Research Professional Services: Bilingual Spanish Inbound Sales Present (andreas) Pets Salesperson: Pets Salesperson Present (andreas) Accompanied by: Self / Same As Patient Allergies bupropion Allergy (Severe, Verified 10/10/24 16:03) Palpitations phentermine Allergy (Severe, Verified 10/10/24 16:03) Hypertension levofloxacin (From LEVAQUIN) Allergy (Intermediate, Verified 10/10/24 16:03) DIZZINESS topiramate Allergy (Intermediate, Verified 10/10/24 16:03) palpitations HPI Comments Details: Presenting for annual exam. No complaints. Last Pap/HPV was in 01/05 Last Mammogram was BI-RADS 1 in 03/11 [facility] Medical History Adult general medical exam Encounter for medication monitoring Mild episode of recurrent major depressive disorder BMI 60.0-69.9, adult Upper abdominal pain Asthma exacerbation Hospital discharge follow-up Preoperative cardiovascular examination Morbid obesity Asthma NINI (obstructive sleep apnea) HTN (hypertension) Abnormal nuclear cardiac imaging test Atrial fibrillation with rapid ventricular response DUB (dysfunctional uterine bleeding) Otitis media Postmenopausal bleeding Diarrhea Epigastric pain Dysuria Urge urinary incontinence B12 deficiency Panic attacks Sleep apnea with use of continuous positive airway pressure (CPAP) Arthritis Anxiety Depression Afib Asthma Chronic gastritis Hepatic steatosis Fibromyalgia Surgical History Tubal ligation status H/O colonoscopy History of esophagogastroduodenoscopy (EGD) History of cholecystectomy History of section Family History Father CVA (cerebral vascular accident) Colon cancer CAD (coronary artery disease) Mother Cancer of unknown origin Social History Household Members: None Housing: Apartment Alcohol intake: never Patient Tobacco Use Status: Never used Tobacco e-Cigarette/Vaping Use: Never Used Second Hand Smoke Exposure: No service: No Current occupational status: disabled Cognitive needs: Yes (cane) Hearing needs: No Vision needs: Yes (glasses) Female Reproductive History Menstrual Age of Menarche: 14 History of abnormal pap smear: No (last pap 12/24/20) Date of Mammogram: 02/24/24 (benign) History of abnormal mammogram: No Review of Systems Const All systems reviewed & are unremarkable except as noted in HPI and below Card Reports as per HPI Resp Reports as per HPI GI Reports as per HPI and Reports no additional complaints Reports as per HPI Physical Exam Vital Signs: Last Vital Signs BP 128/68 10/10/24 16:02 BMI result Body Mass Index 59.4 Const General: cooperative, healthy appearing and comfortable Chest Chest palpation & inspection: normal inspection of the chest and normal palpation of entire chest wall Breast/axilla inspection: normal inspection of the breasts and normal inspection of the axillae Breast/axilla palpation: normal palpation of the breasts, normal palpation of the axillae and no axillary lymphadenopathy Resp Effort & Inspection: normal respiratory effort Auscultation: clear to auscultation bilaterally Percussion: percussion normal Cardio Palpation: normal PMI Rate: regular rate Rhythm: regular rhythm Heart sounds: no murmurs and no rubs Peripheral pulses: Peripheral pulses 2+ throughout GI Inspection: Yes normal to inspection Palpation (GI): Soft to palpation, nontender, no guarding, not rigid and No hepatosplenomegaly present Percussion: Yes normal to percussion Auscultation: normal bowel sounds Rectal Exam - Female: deferred General: Yes bladder normal to palpation External Female Exam: No lesion Speculum Exam - Vagina: normal appearance of the vagina, normal palpation, normal vaginal discharge and not erythematous Speculum Exam - Cervix: normal appearance of the cervix and normal palpation Bimanual exam- vagina & uterus: normal bimanual exam, normal palpation, uterine size normal, bladder normal to palpation, consistency normal and normal palpation Bimanual Exam- Adnexa, other: normal adnexae, no masses and no tenderness Assessment & Plan Assessment & Plan (1) Well woman exam: Code(s): Z01.419 - Encounter for gynecological examination (general) (routine) without abnormal findings Category: Medical Plan: Co testing at indicated this year. Counseled the patient about the recommended dietary allowance of 1200 mg of Calcium & 600 IU of vitamin D. Instructions given the patient to schedule next screening Mammogram in 03/11. The patient stated that according to GI she was recommended to have Cologuard for colon cancer screening as an alternative to screening colonoscopy. The patient was instructed to perform monthly self-breast exams and schedule annual exam in a year. All questions answered and the patient verbalized understanding. Coding Level of Care Code Est Pt Prev Care 40-64y(46101) Diagnoses Well woman exam Z01.419
[2024-10-10 16:02] VITALS: BP 128/68; BMI 59.4
--- OUTSIDE RECORDS SUMMARY | 2024-10-10 16:25 | XMS_ITS | Clinical Summary ---
Author Organization 175 [facility] Address [address] [place] [address] Phone Care Team Providers Care Turret Lathe Machinist Name Role Phone Eri Mukherjee MD Primary Care Provider [phone] Allergies Active Allergy Reactions Criticality Noted Date [...] omeprazole (PriLOSEC) [address] capsule Take 2 capsules (40 mg total) by mouth 1 (one) [...] OF BREATH. 18 each 2 5 Active fluticasone propionate (FLONASE) 50 mcg/actuation nasal spray Administer 1 spray into each nostril 1 (one) time each day. Shake gently. Before first use, prime pump. After use, clean tip and replace cap. 16 g 11 5 09/29/19 26 Active Active Problems Problem Noted Date Diagnosed Date Morbid obesity with BMI of 6 0.0-69.9, adult ([facility] V24, [facility] V28) 04/23/2023 NINI (obstructive sleep apnea) 11/18/2016 Overview (04/23/2023): [facility] Home Sleep Apnea Test: Date 07/20/2018; [...] Allergic rhinitis 11/18/2016 Asthma 11/18/2016 Atrial fibrillation ([facility] V24, [facility] V28) 1 Overview (04/23/2023): Pradaxa Depression 11/17/2016 Arthritis 11/17/2016 Encounters Date Type Department Care Team Description 09/28/2024 10:15 AM EDT Office Visit Pulmonolgy - [address] [place] [address] Uazir Antonio MD Morbid obesity with BMI of 60.0-69.9, adult ([facility] V24, [facility] V28) (Primary Dx); NINI (obstructive sleep apnea); Mild persistent asthma, unspecified whether complicated from Last 3 Months Surgical History Surgery Date Site/Laterality Comments CHOLECYSTECTOMY PROCEDURE: HISTORICAL CHOLECYSTECTOMY SECTION PROCEDURE: HISTORICAL ; COMMENT: x 3 Medical History Medical History Date Comments Morbid obesity with BMI of 6 0.0-69.9, adult ([facility] V24, [facility] V28) 11/18/2016 DX:Morbid obesity wit h BMI of 60.0-69.9, adult ([facility]) NINI (obstructive sleep apnea) 11/18/2016 DX :NINI (obstructive sleep apnea) Allergic rhinitis 11/18/2016 DX:Allergic rh initis Arthritis 11/17/2016 DX:Arthritis Asthma 11/18/2016 DX:Asthma Atrial fibrillation ([facility] V24, [facility] V28) 11/17/2016 DX:Atrial fibrillation (HCC) ; COMMENT: Pradaxa Depression 11/17/2016 DX:Depression Family [...] Sign Reading Time Taken Comments Blood Pressure 122/84 09/28/2024 10:40 AM EDT Pulse 67 09/28/2024 10:40 AM EDT Temperature 36.3 C (97.4 F) 09/28/2024 10:40 AM EDT Respiratory Rate 20 09/28/2024 10:40 AM EDT Oxygen Saturation 96% 09/28/2024 10:40 AM EDT Inhaled Oxygen Concentration - - Weight 135 kg (297 lb 9.6 oz) 09/28/2024 10:40 A M EDT Height 149.9 cm (4' 11 ) 09/28/2024 10:40 AM EDT Body Mass Index 60.11 09/28/2024 10:40 AM EDT Plan of Treatment Upcoming Encounters Date Type Department Care Team (Late st Contact Info) Description 11/14/2024 1:00 PM EDT Office Visit Bariatric Surgery - [place] [address] [facility] [address] [place] [phone] Dominga Lloyd MD [address] [place] [address] 03/30/2025 1:15 PM EST Office Visit Pulmonolgy - [place] [address] [place] [phone] Uzair Antonio MD [address] [place] [address] Health Maintenance Due Date Last Done Comments [...] Depression Screening 02/16/2024 Influenza Vaccine (#1) 2024 4, 02/24/2023, 02/11/2022, Additional history exists DTaP,Tdap,and Td [...] Most Recently Relevant to Health Maintenance Insurance [facility] Care Teams Turret Lathe Machinist Relationship Specialty Start Date End Date Eri Mukherjee MD [address] [place] [address] , [address] [facility] Physician Associ D/B/A: [facility] [place] PCP - General Internal Medicine 12/08/13
--- OUTSIDE RECORDS SUMMARY | 2024-10-10 16:25 | XMS_ITS | Encounter Summary ---
Author Organization [employer] Address [address] [facility] 7t [place] [address] Care Team Providers Care Glass Cutter Helper Name Role Phone Unavailable Primary Care Provider Unavailabl e Encounter Details Date Type Department Care Team (Latest Contact Info) Description 10/07/2018 Abstract [facility] CONVERSIONS Dental, Provider, DDS Social History [...] Description 10/23/2024 1:00 PM EDT Office Visit [facility] ADULT DENTAL [address] [place] [address] Aidan Barrowaris [address] [place] [address] documented as of this encounter Visit Diagnoses Not on filedocumented in this encounter
--- OUTSIDE RECORDS SUMMARY | 2024-10-10 16:25 | XMS_ITS | Encounter Summary ---
Author Organization [employer] Address [address] [facility] 7t [place] [address] Care Team Providers Care Foot Press Operator Name Role Phone Unavailable Primary Care Provider [...] Description 10/23/2024 1:00 PM EDT Office Visit [facility] ADULT DENTAL [address] [place] [address] Aidan Barrowaris [address] [place] [address] documented as of this encounter Visit Diagnoses Not on filedocumented in this encounter
--- OUTSIDE RECORDS SUMMARY | 2024-10-10 16:25 | XMS_ITS | Encounter Summary ---
Author Organization [employer] Address [address] [facility] 7t [place] [address] Care Team Providers Care Deputy Juvenile Officer Name Role Phone Unavailable Primary Care Provider Unavailabl e Encounter Details Date Type Department Care Team (Latest Contact Info) Description 01/23/2021 Abstract [facility] ADULT [facility] [address] [place] [address] Aidan Barrowaris [address] [place] [address] documented as of this encounter Visit Diagnoses Not on filedocumented in this encounter
--- OUTSIDE RECORDS SUMMARY | 2024-10-10 16:25 | XMS_ITS | Clinical Summary ---
Author Organization [employer] Address [address] [place] [address] 7t [place] [address] Care Team Providers Care Family Preservation Caseworker Name Role Phone Unavailable Primary Care Provider [...] Description 10/23/2024 1:00 PM EDT Office Visit [facility] ADULT DENTAL [address] [place] [address] Mariela Barrow [address] [place] [address] Health Maintenance Due Date Last Done Comments [...] Most Recently Relevant to Health Maintenance Insurance [facility] MEDICA[facility] STAND ADULT
== END 2024-10-10 16:19 | disposition home or self-care (01) ==
LOC: HO.HWS 15:30
PROVIDERS: PCP Internal Medicine; Visit Provider Obstetrics & Gynecology
DX: Z01.419 Encounter for gynecological examination (general) (routine) without abnormal findings (principal)
CPT/HCPCS: 99396; 99459

== ENCOUNTER → 2024-10-10 15:30 | Outpatient (BNVA) | payer OTHER, SELFPAY | PROVIDERS: PCP Internal Medicine; Visit Provider Obstetrics & Gynecology | DX: Z01.419 Encounter for gynecological examination (general) (routine) without abnormal findings (principal) | CPT/HCPCS: 99396 ==

== ENCOUNTER 2024-10-24 09:45 | Outpatient (AMB) | payer OTHER, SELFPAY ==
--- OUTSIDE RECORDS SUMMARY | 2011-10-15 04:23 | XMS_ITS | Continuity of Care Document ---
Author Organization [facility] Address [address] [place] [phone] Phone Care Team Providers Care Maintenance Leader Name Role Phone PCS, Nurse Unavailable Unavailable [...] Diagnoses Date Provider Providers Copied on Encounter [facility] /[facility], [address] [place] [address], [id number], [place] tel:[phone] [facility] General Medicine No Information PCS Nurse. [address] [place] [address], [id number], [place]. tel:[phone] Nutrition Visit Initial [facility] /[facility], [address] [place] [address], [id number], [place] tel:[phone] [facility] General Medicine No Information PCS Other Non Billable. [address] [place] [address], [id number], [place]. tel:[phone] OFFICE/OUTPAT IENT VISIT, [facility] /[facility], [address] [place] [address], [id number], [place] tel:[phone] P [facility] General Medicine No Information Mismanos Venessa. [address], [place], [place], [id number], [place]. tel:[phone] PREV VISIT, [facility], AGE 40-64 [facility] /[facility], [address] [place] [address], [address], [place] tel:[phone] [facility] General Medicine No Information Mismanos Venessa. [address], [place], [place], [id number], [place]. tel:[phone] OFFICE/OUTPAT IENT VISIT, [facility] /[facility], [address] [place] [address], [address], [place] tel:[phone] [facility] General Medicine No Information Mismanos Venessa. [address], [place], [place], [id number], [place]. tel:[phone] OFFICE/OUTPAT IENT VISIT, [facility], [address] [place] [address], [address], [place] tel:[phone] P [facility] General Medicine No Information Mismanos Venessa. [address], [place], [place], [id number], [place]. tel:[phone] OFFICE/OUTPAT IENT VISIT, [facility], [address] [place] [address], [address], [place] tel:[phone] P [facility] General Medicine No Information Mismanos Venessa. [address], [place], [place], [id number], [place]. tel:[phone] [facility] /[facility], [address] [place] [address], [address], [place] tel:[phone] P [facility] Laboratory No Information Mismanos Venessa. [address], [place], [place], [id number], [place]. tel:[phone] OFFICE/OUTPAT IENT VISIT, [facility] /[facility], [address] [place] [address], [address], [place] tel:[phone] P [facility] General Medicine No Information Sofianos Venessa. [address], [place], [place], [id number], [place]. tel:[phone] Family History Family Member Type Diagnosis Age At Onset No Information Payers Payer name Insurance type Covered democrat ID Authoriza tion(s) No Information Social History Type Description Quantity Date Captured Comments Sex Female Smoking Status No Information Sexual Orientation Straight or heterosexual Oct Chief Complaint And Reason For Visit No Information History Of Present Illness Encounter Date Complaint History Of Prese nt Illness No Information Instructions Date Instruction Additional Infor mation No Information Assessments Type Assessment Date No Information Patient Care Teams Name Effective Dates (start - stop) Status Members No Information
--- OUTSIDE RECORDS SUMMARY | 2024-10-23 13:00 | XMS_ITS | Encounter Summary ---
Author Organization [employer] Address [address] [facility] [address] [place] [address] Care Team Providers Care Bulk Plant Operator Name Role Phone Unavailable Primary Care Provider Unavailabl e Reason for Visit * Reason Comments Routine Cleaning Encounter Details Date Type Department Care Team ([facility] st Contact Info) Description 10/23/2024 1:00 PM EDT Office Visit [facility] ADULT DENTAL [address] [place] [address] Mariela Barrow [address] [place] [address] Localized gingival recession (Primary Dx); Dental calculus; Normal oral exam Social History Tobacco Use Types Packs/Day Years Used Date Smoking Tobacco: Never Smokeless Tobacco: Never Comments Unknown Sex and Gender Information Value Date Recorded Sex Assigned at Female 12/15/2021 10:20 AM EDT Legal Sex Female 10:20 AM EDT Gender Identity Female 12/15/2021 10:20 AM EDT Sexual Orientation Straight 12/15/2021 10 :20 AM EDT documented as of this encounter Last Filed Vital Signs Vital Sign Reading Time Taken Comments Blood Pressure 128/74 10/23/2024 12:53 PM EDT Pulse - - Temperature - - Respiratory Rate - - Oxygen Saturation - - Inhaled Oxygen Concentration - - Weight - - Height - - Body Mass Index - - documented in this encounter Progress Notes * Mariela Barrow - 10/23/2024 1:00 PM EDT Patient ID: Christiane Blank is a 58 y.o. female. Time Out: Timeout Date: 10/23/24, Timeout Time: 1255 (Prophy) Location: [facility] Tooth: Maxilla and Mandible Procedure: Prophylaxis Verified the above with patient, assistant prosecuting attorney, and provider. Confirmed via patient's chart, intraorally and by radiographs. Pre Fabricator: not applicable Medical Hx: Vitals: Blood pressure 128/74. Medications, Med Hx reviewed with patient and updated in chart. Treatment Provided Dental procedures in this visit D1110 - PROPHYLAXIS - ADULT (Completed) Service provider: Mariela Tripathi provider: John Nuñez DDS D9450 - CASE PRESENTATION, DETAILED AND EXTENSIVE TREATMENT PLANNING (Completed) Service provider: Mariela Barrow Billmanjinder provider: John Nuñez DDS D1330 - ORAL HYGIENE INSTRUCTIONS (Completed) Service provider: Mariela Tripathi provider: John Nuñez DDS Instruments Used: Ultrasonic Scalers and Prophy angle Fluoride: N/A Oral Cancer Screening: No lesions Head/Neck Exam: No Lesions Calculus: None Plaque: trace Stain: trace Bleeding: None Gingiva: Recession- localized and pink OH: Good Perio Chart: not due yet PT's C/C: Pt thinks the the amalgam restorations of #[address] Nuñez did exam and determine restorationist is fine, just dark and somewhat rough. Oral hygiene instructions provided to patient including brushing technique and flossing. Recommendations: Palmyra two times daily, modified llanos technique, Floss daily, Electric toothbrush, Soft bristle toothbrush, Palmyra Tongue, Anti-sensitivity toothpaste Recall Frequency: 6 mo NV: 6 months prophy, periodic exam, x-rays, perio chart. Hygienist: Mariela Barrow RDH * John Nuñez DDS - 10/23/2024 1:00 PM EDT Dental procedures in this visit D1110 - PROPHYLAXIS - ADULT (Completed) Service provider: Mariela Tripathi provider: John Nuñez DDS D9450 - CASE PRESENTATION, DETAILED AND EXTENSIVE TREATMENT PLANNING (Completed) Service provider: Mariela Barrow Billmanjinder provider: John Nuñez DDS D1330 - ORAL HYGIENE INSTRUCTIONS (Completed) Service provider: Mariela Tripathi provider: John Nuñez DDS D0120 - PERIODIC ORAL EVALUATION - ESTABLISHED PATIENT (Completed) Service provider: John Nuñez DDS Billing provider: John Nuñez DDS Patient ID: Christiane Blank is a 58 y.o. female. Time Out: Timeout Date: 10/23/24, Timeout Time: 1255 (Prophy) Location: [facility] Tooth: Maxilla and Mandible Procedure: Exam and Prophylaxis Verified the above with patient, assistant prosecuting attorney, and provider. Confirmed via patient's chart, intraorally and by radiographs. Pre Fabricator: not applicable Chief Complaint Patient presents with Routine Cleaning Medical Hx: Vitals: Blood pressure 128/74. Medical History[1] Medications: Encounter Medications[2] Objective HPI Asymptomatic Head and Neck Exam: Lymph Nodes, Lips, Palate, Buccal Mucosa, Floor of Mouth, Tongue, Tonsils, Alveolar Ridges, Oropharynx, Salivary Ducts, and Vestibules normal appearance Details: Skin NSF OCS: negative Dental Exam As charted T # 12 existing amalgam normal coloration, asymptomatic . Only sensation pt has the impression thatsomething was fractured, after examining, showed normal result Reference tooth chart for additional findings. Oral Cancer Risk: Low Risk Oral Hygiene Instructions: Palmyra two times daily, modified llanos technique, Floss daily, Electric toothbrush, Soft bristle toothbrush, Palmyra Tongue Caries Risk Assessment: Low- no risk factor Assessment/Plan PANCHO Prophy Recall Patient tolerated procedure well, all questions answered and expressed understanding. Dismissed in good condition. NV: 6 mos recall Bottle Selector: Mariela Barrow RDH Dentist: John Nuñez DDS [1] Past Medical History: Diagnosis Date Asthma Atrial fibrillation ([facility]) GERD (gastroesophageal reflux disease) High cholesterol Hypertension [2] Outpatient Encounter Medications as of 10/23/2024 Medication Sig Dispense Refill acetaminophen (Tylenol) 500 MG tablet Take 500 mg by mouth. albuterol (2.5 MG/3ML) 0.083% nebulizer solution INHALE 1 VIAL VIA NEBULIZER EVERY 4 HOURS NEEDED WHEEZING FOR UP TO 30 DAYS Arnuity Ellipta 50 MCG/ACT inhaler INHALE 1 PUFF BY MOUTH EVERY 24 HOURS FOR 30 DAYS atenolol (Tenormin) 100 MG tablet TOME LUIS TABLETA TODOS LOS D bisacodyl (Dulcolax) 5 MG EC tablet Take 1 tablet by mouth at bed time. buPROPion XL (Wellbutrin XL) 150 MG 24 hr tablet Take 150 mg by mouth in the morning. Calcium Carb-Cholecalciferol (RA Calcium Plus Vitamin D) 600-5 MG-MCG tablet Take by mouth. famotidine (Pepcid) 40 MG tablet TOME LUIS TABLETA TODOS LOS D AL ACOSTARSE flecainide (Tambocor) 50 MG tablet TOME LUIS TABLETA (50 MG) ORALLY 2 TIMES A DAY fluticasone (Flonase) 50 MCG/ACT nasal spray SPRAY 1 SPRAY INTRANASALLY INTO EACH NOSTRIL DAILY FOR30 DAYS gabapentin (Neurontin) 100 MG capsule TOME 1 C PSULA POR V A ORAL TODOS LOS D AL ACOSTARSE lidocaine (Lidoderm) 5 % patch APPLY 1 PATCH TOPICALLY A DIARIO Linzess 72 MCG capsule TOME 1 C PSULA POR V A ORAL CADA MA HENRY losartan (Cozaar) 100 MG tablet TOME LUIS TABLETA TODOS LOS D montelukast (Singulair) 10 MG tablet TOME LUIS TABLETA POR V A ORAL AL ACOSTARSE omega-3 (Fish Oil) 1000 MG capsule Take by mouth. omeprazole (PriLOSEC) [address] capsule TOME LUIS C PSULA TODOS LOS D rosuvastatin (Crestor) 10 MG tablet TOME 1 TABLETA POR V A ORAL TODOS LOS D Spacer/Aero-Holding Chambers (OptiChamber Consuelo) [facility] USE SEG N LO INDICADO WITH INHALER traMADol (Ultram) 50 MG tablet TAKE 1 TABLET ORALLY DAILY NEEDED FOR PAIN Ventolin HFA 108 (90 Base) MCG/ACT inhaler INHALE DANDO DOS SOPLIDOS POR VIA ORAL CADA CUATRO HORASCUANDO SEA NECESARIO FOR WHEEZE Xarelto 20 MG tablet TOME LUIS TABLETA TODOS LOS D CON ALIMENTO AT 5PM No facility-administered encounter medications on file as of 10/23/2024. documented in this encounter Plan of Treatment Upcoming Encounters Date Type Department Care Team (Late st Contact Info) Description 04/23/2025 2:00 PM EDT Office Visit [facility] ADULT D[facility] [address] [place] [address] Mariela Barrow [address] [place] [address] Scheduled Orders Name Type Priority Associated Diagnoses Orde r Schedule PERIODIC ORAL EVALUATION - ESTABLISHED PATIENT Dental Routine 1 Occurren russell starting 10/23/2024 BITEWINGS - 4 RADIOGRAPHIC IMAGES Dental Routine 1 Occurrence s starting 10/23/2024 INTRAORAL - PERIAPICAL FIRST RADIOGRAPHIC IMAGE Dental Routine 1 Occur rences starting 10/23/2024 INTRAORAL - PERIAPICAL EACH ADDITIONAL RADIOGRAPHIC IMAGE Dental Routine 1 Occurrences starting 10/23/2024 PROPHYLAXIS - ADULT Dental Routine 1 Occ urrences starting 10/23/2024 ORAL HYGIENE INSTRUCTIONS Dental Routine 1 Occurrences starting 10/23/2024 CASE PRESENTATION, DETAILED AND EXTENSIVE TREATMENT PLANNING Dental Routine 1 Occurrences starting 10/23/2024 documented as of this encounter Procedures Procedure Name Priority Date/Time Associated Diagnosis Comments PROPHYLAXIS - ADULT Routine 10/23/2024 1 :00 PM EDT Localized gingival recession Dental calculus PERIODIC ORAL EVALUATION - ESTABLISHED PATIENT Routine 10/23/2024 1:00 PM EDT ORAL HYGIENE INSTRUCTIONS Routine 10/23/2024 1:00 PM EDT Localized gingival recession Dental calculus CASE PRESENTATION, DETAILED AND EXTENSIVE TREATMENT PLANNING Routine 10/23/2024 1:00 PM EDT Localized gingival recession Dental calculus documented in this encounter Visit Diagnoses Diagnosis Localized gingival recession- Primary Gingival recession, localized Dental calculus Accretions on teeth Normal oral exam documented in this encounter
--- NOTE | 2024-10-24 09:52 | MHC.PC.OV ---
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 The patient reports experiencing suprapubic pain, which she describes as being located in the area above the pubic bone. She also reports urinary frequency, noting that she urinates frequently and sometimes experiences discomfort during urination. The patient has a history of uterine fibroids, which were noted during a recent gynecological examination. She also reports an abscess in the vaginal area, for which she is currently receiving antibiotic treatment with Bactrim for five days. The patient has a history of depression, with a PHQ-9 score of 7, indicating mild depression. She mentions that she is under the care of a psychiatrist and is receiving medication for her condition, although she is unsure of the specific medications. The patient also has a history of sleep apnea, for which she has undergone testing. She has super super obese with a BMI of 59.6 and I will prescribe Zepbound to lose weight. She also has hypertension and atrial fibrillation well controlled with medications. On chronic anticoagulation but denies any active bleeding. PENDING SALE TO [facility] Medical History Adult general medical exam Encounter for medication monitoring Mild episode of recurrent major depressive disorder BMI 60.0-69.9, adult Upper abdominal pain Asthma exacerbation Hospital discharge follow-up Preoperative cardiovascular examination Morbid obesity Asthma NINI (obstructive sleep apnea) HTN (hypertension) Abnormal nuclear cardiac imaging test Atrial fibrillation with rapid ventricular response DUB (dysfunctional uterine bleeding) Otitis media Postmenopausal bleeding Diarrhea Epigastric pain Dysuria Urge urinary incontinence B12 deficiency Panic attacks Sleep apnea with use of continuous positive airway pressure (CPAP) Arthritis Anxiety Depression Afib Asthma Chronic gastritis Hepatic steatosis Fibromyalgia Surgical History Tubal ligation status H/O colonoscopy History of esophagogastroduodenoscopy (EGD) History of cholecystectomy History of section Family History Father CVA (cerebral vascular accident) Colon cancer CAD (coronary artery disease) Mother Cancer of unknown origin Social History Household Members: None Housing: Apartment Alcohol intake: never Patient Tobacco Use Status: Never used Tobacco e-Cigarette/Vaping Use: Never Used Second Hand Smoke Exposure: No service: No Current occupational status: disabled Cognitive needs: Yes (cane) Hearing needs: No Vision needs: Yes (glasses) Female Reproductive History Menstrual Age of Menarche: 14 Questionnaire PHQ-9 Over the last 2 weeks, how often have you been bothered by any of the following problems? 1. Little interest or pleasure in doing things: several days 2. Feeling down, depressed, or hopeless: several days 3. Trouble falling or staying asleep, or sleeping too much: several days 4. Feeling tired or having little energy: several days 5. Poor appetite or overeating: several days 6. Feeling bad about yourself - or that you are a failure or have let yourself or your family down: several days 7. Trouble concentrating on things, such as reading the newspaper or watching television: several days 8. Moving or speaking so slowly that other people could have noticed. Or the opposite - being so fidgety or restless that you have been moving around a lot more than usual: not at all 9. Thoughts that you would be better off or of hurting yourself in some way: not at all Total score: 7 Depression Screening Interpretation: Positive Depression Screening Follow-up: Existing condition, In treatment, Community Mental Health Worker F/U and Follow-up Visit Requested Depression Screening Done: Yes 67382 - PHQ-9 Billing: Yes Source: Developed by Drs. Marc Jordan, Kristine Sams, Salinas Hutchins and colleagues, with an educational deshaun from [employer]. Thrive Questionnaire Date Thrive assessed: 10/24/24 I am a: Patient What is your living situation today?: I have a steady place to live Within the past 12 months, did the food you bought not last and you didn't have the money to get more?: Never true Within the past 12 months, did you worry whether your food would run out before you got money to buy more?: Never true Do you have trouble paying for medicines?: No Do you have trouble getting transportation to medical appointments?: No Do you have trouble paying your heating and electricity bill?: No Do you have trouble taking care of your child, family member or friend?: No Do you have trouble with day-to-day activities such as bathing, preparing meals, shopping, managing finances, etc.?: No Are you currently unemployed and looking for a job?: No Are you interested in more education?: No Please select the resources that you would like help with: None Currently or been in a relationship where the following occur: No concerns reported THRIVE Score: 0 AUDIT C Alcohol Use Questionnaire (AUDIT-C) 1. How often do you have a drink containing alcohol?: Never Total Score: 0 Score Reviewed/Action Taken: No ANIL-7 AMB Questionnaire ANIL-7 Date ANIL - 7 assessed: 10/24/24 Feeling nervous, anxious, or on edge: 1 = Several days Not being able to stop or control worryin = Not at all Worrying too much about different things: 1 = Several days Trouble relaxin = Not at all Being so restless that it is hard to sit still: 0 = Not at all Becoming easily annoyed or irritable: 1 = Several days Feeling afraid as if something awful might happen: 1 = Several days Total ANIL-7 score (0-4 normal; 5-9 mild; 10-14 moderate; 15-21 severe): 4 Source: Developed by Drs. Marc Jordan, Salinas Cobb and colleagues, with an educational deshaun from [employer]. ANIL-7 Assessment Billing ANIL-7 Assessment Tool: ANIL-7 Assessment 24453 Review of Systems Const All systems reviewed & are unremarkable except as noted in HPI and below Card Denies chest pain at rest, Denies chest pain with activity, Denies edema, Denies irregular heart rhythm, Denies claudication, Denies dyspnea, Denies dyspnea on exertion, Denies orthopnea, Denies paroxysmal nocturnal dyspnea and Denies slow heart rate Resp Denies cough, Denies dyspnea and Denies dyspnea on exertion GI Denies abdominal pain, Denies change in bowel habits, Denies excessive flatus, Denies nausea and Denies vomiting Denies urinary incontinence, Denies urinary hesitancy and Denies urinary urgency Musc Denies atrophy, Denies deformity and Denies limited range of motion Skin/Breast Denies bleeding lesions, Denies changing lesions and Denies rash Physical exam (Primary Care) Vital Signs: Last Vital Signs Pulse 63 10/24/24 10:04 Resp 18 10/24/24 10:04 BP 130/72 10/24/24 10:04 Pulse Ox 97 10/24/24 10:04 Oxygen Delivery Method Room Air 10/24/24 10:04 BMI result Body Mass Index 59.6 BMI Assessment/Plan discussion: High BMI High, discussed plan: lifestyle, weight reduction, dietary and physical activity Tobacco/Smoking Status: Tobacco use Status Tobacco use date assessed 10/24/24 10/24/24 10:14 Patient Tobacco Use Status Never used Tobacco 10/24/24 09:53 e-Cigarette/Vaping Use Never Used 10/24/24 09:53 PHQ-9: PHQ-9 Score PHQ-9: Total score 7 10/24/24 10:47 Depression Screening Interpretation: Positive Depression Screening Follow-up: Existing condition, In treatment, Community Mental Health Worker F/U and Follow-up Visit Requested Thrive Assessment: Date of Thrive Assessment Date Thrive assessed 10/24/24 10/24/24 10:14 Currently or been in a relationship where the following occur: No concerns reported Const Limitations: ambulation with cane Resp Effort & Inspection: normal respiratory effort Auscultation: clear to auscultation bilaterally Cardio Jugular venous distension: no JVD Rate: regular rate Rhythm: regular rhythm Heart sounds: S1 normal heart sound present and S2 normal heart sound present GI Inspection: Yes normal to inspection Palpation (GI): Soft to palpation and nontender Auscultation: normal bowel sounds Extrem General: Yes full ROM Results AMB Urinalysis, Automated UA Leukoctes 0 Sagar/uL Last Edit by Lucy Ramesh MA on 10/24/24 10:51 UA Nitrite Negative Last Edit by Lucy Ramesh MA on 10/24/24 10:51 UA Urobilinogen 0 mg/dL Last Edit by Lucy Ramesh MA on 10/24/24 10:51 UA Protein 0 mg/dL Last Edit by Lucy Ramesh MA on 10/24/24 10:51 UA pH 6.0 Last Edit by Lucy Ramesh MA on 10/24/24 10:51 UA Blood 0 Raul/uL Last Edit by Lucy Ramesh MA on 10/24/24 10:51 UA Specific [place] 0 Last Edit by Lucy Ramesh MA on 10/24/24 10:51 UA Ketone Negative Last Edit by Lucy Ramesh MA on 10/24/24 10:51 UA Bilirubin 0 mg/dL Last Edit by Lucy Ramesh MA on 10/24/24 10:51 UA Glucose 0 mg/dL Last Edit by Lucy Ramesh MA on 10/24/24 10:51 Results Reviewed Results Reviewed: Laboratory Last Values Urine pH (Auto) 6.0 10/24/24 10:47 Specific [place] (Auto) 0 10/24/24 10:47 Urine Protein (Auto) 0 mg/dL 10/24/24 10:47 Glucose (UA)(Auto) 0 mg/dL 10/24/24 10:47 Urine Ketones (Auto) Negative 10/24/24 10:47 Urine Blood (Auto) 0 Raul/uL 10/24/24 10:47 Urine Nitrite (Auto) Negative 10/24/24 10:47 Urine Bilirubin (Auto) 0 mg/dL 10/24/24 10:47 Urine Urobilinogen (Auto) 0 mg/dL 10/24/24 10:47 Leukocyte Esterase (Auto) 0 Sagar/uL 10/24/24 10:47 Coding Level of Care Code Est Pt Level 4 (09375) Complex EM visit Add On G2211 Diagnoses Abscess L02.91 Primary hypertension I10 Hypertension type: primary hypertension Paroxysmal atrial fibrillation I48.0 Super-super obese E66.01 NINI on CPAP G47.33; Z99.89 Additional Codes ANIL-7 Assessment Billing - ANIL-7 Assessment Tool: NAIL-7 Assessment 05510 ([id number]) PHQ-9 - 27497 - PHQ-9 Billing: Yes ([id number]) Time Spent (min) 21 Assessment & Plan Assessment & Plan (1) Abscess: Code(s): L02.91 - Cutaneous abscess, unspecified Category: Medical (2) HTN (hypertension): Code(s): I10 - Essential (primary) hypertension Category: Medical Qualifiers: Hypertension type: primary hypertension Qualified Code(s): I10 - Essential (primary) hypertension (3) Paroxysmal atrial fibrillation: Code(s): I48.0 - Paroxysmal atrial fibrillation Category: Medical (4) Super-super obese: Code(s): E66.01 - Morbid (severe) obesity due to excess calories Category: Medical (5) NINI on CPAP: Code(s): G47.33 - Obstructive sleep apnea (adult) (pediatric); Z99.89 - Dependence on other enabling machines and devices Category: Medical Plan Plan Patient was informed and verbally consented to the use of an ambient scribe for clinic note documentation during this visit. 1. Frequency of micturition R35.0 The patient reports urinary frequency, noting that she urinates frequently and sometimes experiences discomfort during urination. 2. Cutaneous abscess, unspecified L02.91 The patient reports an abscess in the vaginal area, for which she is currently receiving antibiotic treatment with Bactrim for five days. 3. Major depressive disorder, recurrent, mild F33.0 HCC 59 The patient has a history of depression, with a PHQ-9 score of 7, indicating mild depression. She mentions that she is under the care of a psychiatrist and is receiving medication for her condition, although she is unsure of the specific medications. 4. Sleep apnea, unspecified G47.30 The patient also has a history of sleep apnea, for which she has undergone testing. 5. Morbid (severe) obesity due to excess calories E66.01 HCC 22 Start Zepbound. Do diet and exercise to reach BMI goal less than 30. 6. Paroxysmal atrial fibrillation I48.0 HCC 96 Continue flecainide and Doacs. Orders: Orders AMB Urinalysis Automated Today Z13.9 - Encounter for screening, unspecified Medications: New sulfamethoxazole-trimethoprim 800-160 mg (Bactrim DS) 1 tab PO BID 10 tabs 0RF 5 days tirzepatide (weight loss) (Zepbound) for 4 weeks 2.5 mg (0.5 mL) subcut QWEEK 2 mL 0RF 4 weeks E66.01 - Morbid (severe) obesity due to excess calories, G47.33 - Obstructive sleep apnea (adult) (pediatric), I48.0 - Paroxysmal atrial fibrillation, Z99.89 - Dependence on other enabling machines and devices
[2024-10-24 10:04] VITALS: BP 130/72; PULSE 63; RESP 18; O2SAT 97; BMI 59.6
--- OUTSIDE RECORDS SUMMARY | 2024-10-24 11:25 | XMS_ITS | Encounter Summary ---
Author Organization [employer] Address [address] [facility] [address] [place] [address] Care Team Providers Care Government Affairs Researcher Name Role Phone Unavailable Primary Care Provider Unavailabl e Encounter Details Date Type Department Care Team (Latest Contact Info) Description 01/23/2021 Abstract [facility] CONVERSIONS Dental, Provider, DDS Social History [...] Description 04/23/2025 2:00 PM EDT Office Visit [facility] ADULT DENTAL [address] [place] [address] Aidan Barrowaris [address] [place] [address] documented as of this encounter Visit Diagnoses Not on filedocumented in this encounter
--- OUTSIDE RECORDS SUMMARY | 2024-10-24 11:25 | XMS_ITS | Encounter Summary ---
Author Organization [employer] Address [address] [facility] [address] [place] [address] Care Team Providers Care Sap Security Consultant Name Role Phone Unavailable Primary Care Provider Unavailabl e Encounter Details Date Type Department Care Team (Latest Contact Info) Description 11/22/2019 Abstract [facility] CONVERSIONS Dental, Provider, DDS Social History [...] Description 04/23/2025 2:00 PM EDT Office Visit [facility] ADULT DENTAL [address] [place] [address] Aidan Barrowaris [address] [place] [address] documented as of this encounter Visit Diagnoses Not on filedocumented in this encounter
--- OUTSIDE RECORDS SUMMARY | 2024-10-24 11:25 | XMS_ITS | Encounter Summary ---
Author Organization [employer] Address [address] [facility] [address] [place] [address] Care Team Providers Care Senior Training Specialist Name Role Phone Unavailable Primary Care Provider Unavailabl e Encounter Details Date Type Department Care Team (Latest Contact Info) Description 10/07/2018 Abstract [facility] CONVERSIONS Dental, Provider, DDS Social History [...] PM EDT Office Visit [facility] ADULT DENTAL [address] [place] [address] Aidan Barrowaris [address] [place] [address] documented as of this encounter Visit Diagnoses Not on filedocumented in this encounter
--- OUTSIDE RECORDS SUMMARY | 2024-10-24 11:25 | XMS_ITS | Clinical Summary ---
Author Organization [employer] Address [address] [place] [address] 7[address] [place] [address] Care Team Providers Care Restaurant Shift Leader Name Role Phone Unavailable Primary Care Provider [...] Active losartan (Cozaar) 100 MG tablet TOME LUSI TABLETA TODOS LOS D Active montelukast (Singulair) [...] 24 HOURS FOR 30 DAYS 4 Active gabapentin (Neurontin) 100 MG capsule TOME 1 C PSULA POR V A ORAL TODOS LOS D AL ACOSTARSE 5 Active Active Problems Problem Noted Date Diagnosed Date Normal oral exam 04/18/2024 Missing teeth, acquired 04/15/2023 Localized gingival recession 04/15/2023 Dental calculus 04/15/2023 Encounters Date Type Department Care Team Description 10/23/2024 1:00 PM EDT Office Visit [facility] [address] [place] [address] Mariela Barrow Localized gingival recession (Primary Dx); Dental calculus; Normal oral exam from Last 3 Months [...] Pressure 128/74 10/23/2024 12:53 PM EDT Pulse 64 04/15/2023 2:16 PM EST Temperature - - Respiratory Rate - - Oxygen Saturation - - Inhaled Oxygen Concentration - - Weight - - Height - - Body Mass Index - - Plan of Treatment Upcoming Encounters Date Type Department Care Team (Late st Contact Info) Description 04/23/2025 2:00 PM EDT Office Visit [facility] [address] [place] [address] Danial, Mariela [address] [place] [address] Health Maintenance Due Date Last Done Comments [...] of 2) 2016 COVID-19 Vaccine ( season) 2024 02/28/2021, 06/26/2020, 05/29/2020 Influenza Vaccine (#1) 2024 , 02/24/2023, 02/11/2022, Additional history exists Dental X-Ray: Bitewings 04/19/2025 04/19/19 25, 04/15/2023, 01/23/2021, Additional history exists Dental Oral Exam 04/23/2025 10/23/2024, 05/2024, 04/15/2023, Additional history exists Dental Prophylaxis 04/23/2025 10/23/2024, 0 04/18/2024, 10/19/2023, Additional history exists Tobacco Screening 10/23/2025 10/23/2024 DTaP/Tdap/Td Vaccines (2 - Td or Tdap) [...] PM EDT Localized gingival recession Dental calculus PROPHYLAXIS - ADULT Routine 10/23/2024 1 :00 PM EDT Localized gingival recession Dental calculus INTRAORAL - COMPLETE SERIES OF RADIOGRAPHIC IMAGES Routine 04/18/2024 1:00 PM EST Dental plaque from Last 3 Months or Most Recently Relevant to Health Maintenance Insurance [facility] [employer] ST[place] ADULT
== END 2024-10-24 10:43 | disposition home or self-care (01) ==
LOC: HO.HMCH 09:46
PROVIDERS: PCP Internal Medicine; Visit Provider Internal Medicine
DX: I10 Essential (primary) hypertension (principal); I48.0 Paroxysmal atrial fibrillation; E66.01 Morbid (severe) obesity due to excess calories; Z68.43 Body mass index [BMI] 50.0-59.9, adult; L02.91 Cutaneous abscess, unspecified; G47.33 Obstructive sleep apnea (adult) (pediatric); Z99.89 Dependence on other enabling machines and devices; Z13.9 Encounter for screening, unspecified

== ENCOUNTER → 2024-10-24 09:45 | Outpatient (BNVA) | payer OTHER, SELFPAY | PROVIDERS: PCP Internal Medicine; Visit Provider Internal Medicine | DX: I48.0 Paroxysmal atrial fibrillation (principal); R10.9 Unspecified abdominal pain; D25.9 Leiomyoma of uterus, unspecified; E66.09 Other obesity due to excess calories; I10 Essential (primary) hypertension; L02.91 Cutaneous abscess, unspecified; G47.33 Obstructive sleep apnea (adult) (pediatric); R35.0 Frequency of micturition; F33.0 Major depressive disorder, recurrent, mild; G47.30 Sleep apnea, unspecified; Z68.43 Body mass index [BMI] 50.0-59.9, adult; Z99.89 Dependence on other enabling machines and devices | CPT/HCPCS: 81003; 96127; 99212 ==

== ENCOUNTER 2024-11-15 10:37 | Outpatient (AMB) | payer OTHER, SELFPAY ==
--- OUTSIDE RECORDS SUMMARY | 2024-11-14 13:00 | XMS_ITS | Encounter Summary ---
Author Organization [facility] Address [address] [place] [address] Care Team Providers Care Tool Crib Attendant Name Role Phone Eri Mukherjee MD Primary Care Provider [phone] Reason for Referral * Imaging (Routine) - Pending Review Specialty Diagnoses / Procedures Referred By George quezada Referred To Contact Radiology Diagnoses Class 3 severe obesity due to excess calories with serious comorbidity and body mass index (BMI) of 50.0 to 59.9 in adult (CMS/HCC V24, CMS/HCC V28) Gastroesophageal reflux disease, unspecified whether esophagitis present Procedures XR UGI w Small Bowel Series Dominga Lloyd MD [address] [place] [address] Phone: tel: fax: [facility] Referral ID Status Reason Start Date Expiration Date V isits Requested Visits Authorized [id number] Pending Review 11/14/2024 11/14/2025 1 1 Reason for Visit * Reason Comments Follow-up Last seen 2023 Encounter Details Date Type Department Care Team (Late st Contact Info) Description 11/14/2024 1:00 PM EDT Office Visit Bariatric Surgery - [address] [place] [address] Dominga Lloyd MD [address] [place] [address] Class 3 severe obesity due to excess calories with serious comorbidity and body mass index (BMI) of 50.0 to 59.9 in adult ([facility] V24, [facility] V28) (Primary Dx); Gastroesophageal reflux disease, unspecified whether esophagitis present Social History Tobacco Use Types Packs/Day Years [...] Sign Reading Time Taken Comments Blood Pressure 187/77 11/14/2024 1:16 PM EDT Pulse 59 11/14/2024 1:16 PM EDT Temperature 36.6 C (97.8 F) 11/14/2024 1:16 PM EDT Respiratory Rate - - Oxygen Saturation - - Inhaled Oxygen Concentration - - Weight 134 kg (296 lb) 11/14/2024 1:16 PM EDT Height 149.9 cm (4' 11 ) 11/14/2024 1:16 PM EDT Body Mass Index 59.78 11/14/2024 1:16 PM EDT documented in this encounter Plan of Treatment Upcoming Encounters Date Type Department Care Team (Late st Contact Info) Description 03/30/2025 1:15 PM EST Office Visit Pulmonology - [place] 175 [facility] [address] [place] [address] Uzair Antonio MD 175 [facility] [address] [place] [address] 05/01/2025 1:15 PM EDT Office Visit Bariatric Surgery - [place] 175 [facility] [address] [place] [address] Dominga Lloyd MD [address] [place] [phone] Scheduled Orders Name Type Priority Associated Diagnoses Orde r Schedule XR UGI w Small Bowel Series Imaging Routine Class 3 severe obesity due to excess calories with serious comorbidity and body mass index (BMI) of 50.0 to 59.9 in adult ([facility] V24, [facility] V28) Gastroesophageal reflux disease, unspecified whether esophagitis present Expected: 11/14/2024, Expires: 11/14/2025 documented as of this encounter Visit Diagnoses Diagnosis Class 3 severe obesity due to excess calories with serious comorbidity and body mass index (BMI) of 50.0 to 59.9 in adult ([facility] V24, [facility] V28)- Primary Gastroesophageal reflux disease, unspecified whether esophagitis present documented in this encounter Care Teams Tool Crib Attendant Relationship Specialty Start Date End Date Eri Mukherjee MD [facility] , [address] Physician Associ D/B/A: [facility] FARRUKH Sparks PCP - General Internal Medicine 12/08/13 documented as of this encounter
[2024-11-15 10:49] VITALS: BP 162/80; PULSE 68; RESP 18; TEMP 36.1; O2SAT 94; BMI 59.8
--- NOTE | 2024-11-15 10:49 | A.OFFPC_ITS ---
Vital Signs 11/15/24 10:49 11/15/24 11:34 Height 4 ft 11 in Weight 296 lb BMI 59.8 BP 162/80 H 170/70 H Blood Pressure Location Lt brachial Lt brachial Position Sitting Sitting Respiration 18 Pulse 68 Pulse Source Pulse Oximeter Temp 96.9 F Temp Source Temporal Artery Scan Pulse Oximetry (%) 94 Oxygen Delivery Method Room Air Intake Visit Reasons: bp Legal Associate Required: No Accompanied by: Self / Same As Patient Allergies bupropion Allergy (Severe, Verified 11/15/24 11:30) Palpitations phentermine Allergy (Severe, Verified 11/15/24 11:30) Hypertension levofloxacin (From LEVAQUIN) Allergy (Intermediate, Verified 11/15/24 11:30) DIZZINESS topiramate Allergy (Intermediate, Verified 11/15/24 11:30) palpitations Medication List - Last Reconciled 11/15/24 by Eri Mukherjee MD albuterol sulfate 3 mg inhalation QID PRN atenolol 100 mg PO DAILY blood pressure monitor As directed buspirone 5 mg PO BID calcium carbonate-vitamin D3 500 mg-10 mcg (400 unit) (Calcium 500 With D) 1 tab PO DAILY 90 days cetirizine (All Day Allergy (cetirizine)) 10 mg PO DAILY PRN 90 days flecainide 50 mg PO BID fluticasone furoate 50 mcg/actuation (Arnuity Ellipta) 1 inh inhalation Q24H 30 days fluticasone propionate 110 mcg/actuation 2 puffs inhalation BID fluticasone propionate 50 mcg/actuation (Flonase Allergy Relief) 1 spray intrana clint DAILY 30 days fluticasone propionate 50 mcg/actuation (Flonase Allergy Relief) 1 spray intranasal DAILY 30 days gabapentin 100 mg PO BEDTIME incontinence pad, liner, disp (Pads For Women) Use 8 pad daily ipratropium bromide 2 sprays intranasal Q8H PRN lidocaine 5% 1 patch topical DAILY linaclotide (Linzess) 72 mcg PO QAM losartan 100 mg PO DAILY omega-3 fatty acids (Fish Oil Concentrate) 1,000 mg PO DAILY omeprazole 40 mg PO BID 90 days rivaroxaban (Xarelto) 20 mg PO BEDTIME rosuvastatin 10 mg PO DAILY 90 days sulfamethoxazole-trimethoprim 800-160 mg (Bactrim DS) 1 tab PO BID 5 days tirzepatide (weight loss) (Zepbound) 2.5 mg (0.5 mL) subcut QWEEK 4 weeks tramadol 50 mg PO BID PRN Ventolin HFA 90 mcg/actuation (albuterol sulfate) 1 inh inhalation QID 30 days NS Tobacco use date assessed: 11/15/24 Dental Screening Dental Screen Date: 11/15/24 Did you have a dental visit in the last 12 months?: Yes Did you have a dental problem in the last 6 months where you did not have access to dental care?: No Was dental information given to patient?: Patient has dentist HPI HPI Comments History of Present Illness Details The patient is a 58-year-old female presenting with hypertension management. She reports a recent blood pressure reading of 180 mmHg, accompanied by headaches and tension in the forehead. The patient is currently on losartan and atenolol, with a consideration to adjust the atenolol dosage to twice daily if necessary. BP will be recheck in 3 weeks by nurse navigator. On low dose statin for hyperlipidemia and on chronic acticoagulation for atrial fibrillation which is follow by cardiology. She is super super obese with BMI of 59.8 and was advise diet and exercise. The patient also experiences anxiety, for which she is prescribed buspirone. She reports stress and difficulty sleeping, which may be contributing to her anxiety symptoms. Also has some depression. Additionally, the patient has a history of constipation, managed with linzess. She is also taking gabapentin for pain management. The patient reports insomnia, stating she has not been sleeping well recently. [facility] Medical History (Updated 11/15/24 @ 12:01 by Eri Mukherjee MD) Adult general medical exam Encounter for medication monitoring Mild episode of recurrent major depressive disorder BMI 60.0-69.9, adult Upper abdominal pain Asthma exacerbation Hospital discharge follow-up Preoperative cardiovascular examination Morbid obesity Asthma NINI (obstructive sleep apnea) HTN (hypertension) Abnormal nuclear cardiac imaging test Atrial fibrillation with rapid ventricular response DUB (dysfunctional uterine bleeding) Otitis media Postmenopausal bleeding Diarrhea Epigastric pain Dysuria Urge urinary incontinence B12 deficiency Panic attacks Sleep apnea with use of continuous positive airway pressure (CPAP) Arthritis Anxiety Depression Afib Asthma Chronic gastritis Hepatic steatosis Fibromyalgia Surgical History Tubal ligation status H/O colonoscopy History of esophagogastroduodenoscopy (EGD) History of cholecystectomy History of section Family History Father CVA (cerebral vascular accident) Colon cancer CAD (coronary artery disease) Mother Cancer of unknown origin Social History Household Members: None Housing: Apartment Alcohol intake: never Patient Tobacco Use Status: Never used Tobacco e-Cigarette/Vaping Use: Never Used Second Hand Smoke Exposure: No service: No Current occupational status: disabled Cognitive needs: Yes (cane) Hearing needs: No Vision needs: Yes (glasses) Female Reproductive History Menstrual Age of Menarche: 14 Questionnaire Thrive Questionnaire Date Thrive assessed: 10/24/24 I am a: Patient What is your living situation today?: I have a steady place to live Within the past 12 months, did the food you bought not last and you didn't have the money to get more?: Never true Within the past 12 months, did you worry whether your food would run out before you got money to buy more?: Never true Do you have trouble paying for medicines?: No Do you have trouble getting transportation to medical appointments?: No Do you have trouble paying your heating and electricity bill?: No Do you have trouble taking care of your child, family member or friend?: No Do you have trouble with day-to-day activities such as bathing, preparing meals, shopping, managing finances, etc.?: No Are you currently unemployed and looking for a job?: No Are you interested in more education?: No Please select the resources that you would like help with: None Currently or been in a relationship where the following occur: No concerns reported THRIVE Score: 0 ANIL-7 AMB Questionnaire ANIL-7 Date ANIL - 7 assessed: 10/24/24 Source: Developed by Drs. Marc Jordan, Kristine Sams, Salinas Hutchins and colleagues, with an educational deshaun from [employer]. Review of Systems Const All systems reviewed & are unremarkable except as noted in HPI and below Card Denies chest pain at rest, Denies chest pain with activity, Denies edema, Denies irregular heart rhythm, Denies claudication, Denies dyspnea, Denies dyspnea on exertion, Denies orthopnea, Denies paroxysmal nocturnal dyspnea and Denies slow heart rate Resp Denies cough, Denies dyspnea and Denies dyspnea on exertion GI Denies abdominal pain, Denies change in bowel habits, Denies excessive flatus, Denies nausea and Denies vomiting Physical exam (Primary Care) Vital Signs: Last Vital Signs Temp 96.9 F 11/15/24 10:49 Pulse 68 11/15/24 10:49 Resp 18 11/15/24 10:49 BP 162/80 H 11/15/24 10:49 Pulse Ox 94 11/15/24 10:49 Oxygen Delivery Method Room Air 11/15/24 10:49 BMI result Body Mass Index 59.8 BMI Assessment/Plan discussion: High BMI High, discussed plan: lifestyle, weight reduction, dietary and physical activity Tobacco/Smoking Status: Tobacco use Status Tobacco use date assessed 11/15/24 11/15/24 11:14 Patient Tobacco Use Status Never used Tobacco 11/15/24 10:50 e-Cigarette/Vaping Use Never Used 11/15/24 10:50 Thrive Assessment: Date of Thrive Assessment Date Thrive assessed 10/24/24 11/15/24 10:50 Currently or been in a relationship where the following occur: No concerns reported Resp Effort & Inspection: normal respiratory effort Auscultation: clear to auscultation bilaterally Cardio Jugular venous distension: no JVD Rate: regular rate Rhythm: regular rhythm Heart sounds: S1 normal heart sound present and S2 normal heart sound present Extrem General: Yes full ROM Coding Level of Care Code Est Pt Level 4 (32268) Complex EM visit Add On G2211 Diagnoses Paroxysmal atrial fibrillation I48.0 Primary hypertension I10 Hypertension type: primary hypertension Super-super obese E66.01 Chronic idiopathic constipation K59.04 Dyslipidemia E78.5 Anxiety F41.9 Time Spent (min) 22 Assessment & Plan Assessment & Plan (1) Paroxysmal atrial fibrillation: Code(s): I48.0 - Paroxysmal atrial fibrillation Category: Medical (2) HTN (hypertension): Code(s): I10 - Essential (primary) hypertension Category: Medical Qualifiers: Hypertension type: primary hypertension Qualified Code(s): I10 - Essential (primary) hypertension (3) Super-super obese: Code(s): E66.01 - Morbid (severe) obesity due to excess calories Category: Medical (4) Chronic idiopathic constipation: Code(s): K59.04 - Chronic idiopathic constipation Category: Medical (5) Dyslipidemia: Code(s): E78.5 - Hyperlipidemia, unspecified Category: Medical (6) Anxiety: Code(s): F41.9 - Anxiety disorder, unspecified Category: Medical Plan Plan Patient was informed and verbally consented to the use of an ambient scribe for clinic note documentation during this visit. 1. Hypertension The patient is advised to monitor blood pressure regularly and consider adjusting atenolol dosage to twice daily if hypertension persists. Follow-up in three weeks to reassess blood pressure control and medication efficacy. 2. Anxiety Continue buspirone for anxiety management and address contributing factors such as stress and insomnia. 3. Constipation Continue current management with linseeds for constipation relief. 4. Insomnia Address insomnia by evaluating sleep hygiene and potential contributing factors such as anxiety and stress. 5. Super-super obese Start diet and exercise. 6. Atrial fibrillation Continue DOACs and flecainide. Orders: Orders Vitamin D 25-OH Total 4 Months E55.9 - Vitamin D deficiency, unspecified Lipid Panel 4 Months E78.5 - Hyperlipidemia, unspecified Comprehensive [place]. Panel Fast 4 Months I48.0 - Paroxysmal atrial fibrillation Medications: Changed From atenolol 100 mg PO DAILY 90 tabs 3RF To atenolol 100 mg PO DAILY 90 tabs 3RF 90 days
[2024-11-15 11:34] VITALS: BP 170/70
--- OUTSIDE RECORDS SUMMARY | 2024-11-15 12:12 | XMS_ITS | Encounter Summary ---
Author Organization [facility] Address [address] [place] [address] Care Team Providers Care Label Pinker Name Role Phone Eri Mukherjee MD Primary Care Provider Reason for Visit * Reason Onset Date Comments Results 11/14/2024 Encounter Details Date Type Department Care Team (Late st Contact Info) Description 11/14/2024 Telephone Pulmonology - [place] 175 [facility] [address] [place] [phone] Uzair Antonio MD 175 [facility] [address] [place] [address] Social History Tobacco Use Types Packs/Day Years [...] Progress Notes * Chalo Cramer MA - 11/15/2024 11:09 AM EDT Order and notes emailed to OV. * Monica Samuel - 11/14/2024 4:13 PM EDT Patient is needing CPAP order to be sent to [facility]. As her old CPAP is 5 years old. Please advice. * Uzair Antonio MD - 11/14/2024 3:39 PM EDT Lmom- still has angie- moderate now c/w severe before the wt lost. I recommend that she conitnues hercpap * Chalo Cramer MA - 11/14/2024 2:53 PM EDT Please call pt with sleep study results. * Monica Samuel - 11/14/2024 1:49 PM EDT Patient came in office looking for sleep study result on chart done on 10/12/2024. Please advice. documented in this encounter Plan of Treatment Upcoming Encounters Date Type Department Care Team (Late st Contact Info) Description 03/30/2025 1:15 PM EST Office Visit Pulmonology - [place] [address] [facility] [address] [place] [phone] Uzair Antonio MD [address] [facility] [address] [place] [address] 05/01/2025 1:15 PM EDT Office Visit Bariatric Surgery - [place] [address] [facility] [address] [place] [phone] Dominga Lloyd MD [address] [place] [phone] documented as of this encounter Visit Diagnoses Not on filedocumented in this encounter Care Teams Label Pinker Relationship Specialty Start Date End Date Eri Mukherjee MD [address] [place] [address] , [address] Physician Associ D/B/A: [facility] FARRUKH Sparks PCP - General Internal Medicine 12/08/13 documented as of this encounter
--- OUTSIDE RECORDS SUMMARY | 2024-11-15 12:12 | XMS_ITS | Clinical Summary ---
Author Organization [employer] Address [address] [place] [address] [address] [place] [address] Care Team Providers Care Otc Clerk Name Role Phone Unavailable Primary Care [...] 1:00 PM EDT Office Visit [facility] [address] [place] [address] Mariela Barrow Localized gingival recession (Primary Dx); [...] Description 04/23/2025 2:00 PM EDT Office Visit [facility] [address] [place] [address] Danial, Mariela [address] [place] [address] Health Maintenance Due Date Last Done Comments [...]
--- OUTSIDE RECORDS SUMMARY | 2024-11-15 12:12 | XMS_ITS | Encounter Summary ---
Author Organization [employer] Address [address] [facility] 7t [place] [address] Care Team Providers Care Curriculum Assistant Principal Name Role Phone Unavailable Primary Care Provider Unavailabl e Encounter Details Date Type Department Care Team (Latest Contact Info) Description 01/23/2021 Abstract [facility] CONVERSIONS Dental, Provider, DDS Social [...] Description 04/23/2025 2:00 PM EDT Office Visit [facility] ADULT DENTAL [address] [place] [address] Aidan Barrowaris [address] [place] [address] documented as of this encounter Visit Diagnoses Not on filedocumented in this encounter
--- OUTSIDE RECORDS SUMMARY | 2024-11-15 12:12 | XMS_ITS | Encounter Summary ---
Author Organization [employer] Address [address] [facility] [address]t [place] [address] Care Team Providers Care Solar Sales Energy Advisor Name Role Phone Unavailable Primary Care Provider Unavailabl e Encounter Details Date Type Department Care Team (Latest Contact Info) Description 11/22/2019 Abstract [facility] CONVERSIONS Dental, Provider, DDS Social [...] Description 04/23/2025 2:00 PM EDT Office Visit [facility]ULT [facility] [address] [place] [address] Aidan Barrowaris [address] [place] [address] documented as of this encounter Visit Diagnoses Not on filedocumented in this encounter
--- OUTSIDE RECORDS SUMMARY | 2024-11-15 12:12 | XMS_ITS | Clinical Summary ---
Author Organization [facility] Address [address] [place] [address] Phone Care Team Providers Care Nursing Officer Name Role Phone Eri Mukherjee MD Primary Care Provider [phone] Allergies Active Allergy Reactions Criticality Noted Date [...] Active Problems Problem Noted Date Diagnosed Date Obesity with serious comorbidity 11/14/2024 Morbid obesity with BMI of 6 0.0-69.9, adult (CMS/HCC V24, CMS/[facility] V28) 04/23/2023 NINI (obstructive sleep apnea) 11/18/2016 Overview (04/23/2023): [facility] Home Sleep Apnea Test: Date 07/20/2018; [...] Allergic rhinitis 11/18/2016 Asthma 11/18/2016 Atrial fibrillation ([facility] [place]24, [place] [id number]) 1 Overview (04/23/2023): Pradaxa Depression 11/17/2016 Arthritis 11/17/2016 Encounters Date Type Department Care Team Description 11/14/2024 1:00 PM EDT Office Visit Bariatric Surgery [address] [place] [phone] Dominga Lloyd MD Class 3 severe obesity due to excess calories with serious comorbidity and body mass index (BMI) of 50.0 to 59.9 in adult ([facility] V24, [facility] V28) (Primary Dx); Gastroesophageal reflux disease, unspecified whether esophagitis present 11/14/2024 Telephone Pulmonology - [place] [address] [facility] [address] [place] [phone] Uzair Antonio MD 09/28/2024 10:15 AM EDT Office Visit Pulmonology [address] [place] [phone] Uzair Antonio MD Morbid obesity with BMI of 60.0-69.9, adult ([facility] V24, [facility] V28) (Primary Dx); NINI (obstructive sleep apnea); Mild persistent asthma, unspecified whether complicated from Last 3 Months Surgical History Surgery Date Site/Laterality Comments CHOLECYSTECTOMY PROCEDURE: HISTORICAL CHOLECYSTECTOMY SECTION PROCEDURE: HISTORICAL ; COMMENT: x 3 Medical History Medical History Date Comments Morbid obesity with BMI of 6 0.0-69.9, adult ([facility] V24, [facility] V28) 11/18/2016 DX:Morbid obesity wit h BMI of 60.0-69.9, adult ([facility]) NINI (obstructive sleep apnea) 11/18/2016 DX :NINI (obstructive sleep apnea) Allergic rhinitis 11/18/2016 DX:Allergic rh initis Arthritis 11/17/2016 DX:Arthritis Asthma 11/18/2016 DX:Asthma Atrial fibrillation ([facility] V24, [facility] V28) 11/17/2016 DX:Atrial fibrillation ([facility]) ; COMMENT: Pradaxa Depression 11/17/2016 DX:Depression Family [...] F) 11/14/2024 1:16 PM EDT Respiratory Rate 20 09/28/2024 10:40 AM EDT Oxygen Saturation 96% 09/28/2024 10:40 AM EDT Inhaled Oxygen Concentration - - Weight 134 kg (296 lb) 11/14/2024 1:16 PM EDT Height 149.9 cm (4' 11 ) 11/14/2024 1:16 PM EDT Body Mass Index 59.78 11/14/2024 1:16 PM EDT Plan of Treatment Upcoming Encounters Date Type Department Care Team (Late st Contact Info) Description 03/30/2025 1:15 PM EST Office Visit Pulmonology - [place] [address] [facility] [address] [place] [phone] Uzair Antonio MD [address] [facility] [address] [place] [address] 05/01/2025 1:15 PM EDT Office Visit Bariatric Surgery - [place] [address] [facility] [address] [place] [phone] Dominga Lloyd MD [address] [place] [phone] Health Maintenance Due Date Last Done Comments Breast Cancer Screening 1966 Colorectal Cancer Screening: Colonoscopy 1966 Hepatitis B Vaccines (1 of 3 - 19+ 3-dose series) 1985 Pneumococcal Vaccine: 50+ Years (1 of 2 - PCV) 1985 Cervical Cancer Screening: Pap Smear 11/21/1987 Zoster Vaccines (1 of 2) 2016 HIV Screening 01/24/2022 Hepatitis C Screening 01/24/2022 Social Influencers of Health Screening 01/24/2022 Hypertension/CHF/CAD Annual BMP Blood Test 12/31/2023 02/27/2021 Depression Screening 02/16/2024 COVID-19 Vaccine ( season) 2024 02/28/2021, 06/26/2020, 05/29/2020 Influenza Vaccine (#1) 2024 , 02/24/2023, 02/11/2022, Additional history exists DTaP,Tdap,and Td Vaccines (2 - Td or Tdap) 11/25/2025 11/26/2015 Cholesterol Screening (Lipid Panel) 02/27/2026 02/27/2021 RSV Immunization Adult Patients (1 - 1-dose 75+ series) 2041 HIB [...] Procedure Name Priority Date/Time Associated Diagnosis Comments HOME SLEEP TEST Routine 10/09/2024 2:03 PM EDT ANNUAL BMP BLOOD TEST Routine 02/27/2021 LIPID PANEL Routine 02/27/2021 from Last 3 Months or Most Recently Relevant to Health Maintenance Results * Home sleep test (10/09/2024 2:03 PM EDT) [facility] Provider SLEEP [facility]ENTER ORDERABLES F inal Result * Annual BMP Blood Test (02/27/2021) Pathologist [facility] Annual BMP Blood Test Abstracted [facility] Provider HEALTH MAINTENANCE Final Result * (ABNORMAL) [...] Most Recently Relevant to Health Maintenance Insurance [facility] [employer] Care Teams Nursing Officer Relationship Specialty Start Date End Date Eri Mukherjee MD [address] [place] [address] , [address] [facility] D/B/A: [facility] FARRUKH Sparks PCP - General Internal Medicine 12/08/13
--- OUTSIDE RECORDS SUMMARY | 2024-11-15 12:13 | XMS_ITS | Encounter Summary ---
Author Organization [employer] Address [address] [facility] [address] [place] [address] Care Team Providers Care Teletype Clerk Name Role Phone Unavailable Primary Care Provider Unavailabl e Encounter Details Date Type Department Care Team (Latest Contact Info) Description 10/07/2018 Abstract [facility] CONVERSIONS Dental, Provider, DDS Social History [...] Description 04/23/2025 2:00 PM EDT Office Visit [facility] ADULT [facility]ENT[facility] [address] [place] [address] Aidan Barrowaris [address] [place] [address] documented as of this encounter Visit Diagnoses Not on filedocumented in this encounter
== END 2024-11-15 11:51 | disposition home or self-care (01) ==
LOC: HO.HMCH 10:38
PROVIDERS: PCP Internal Medicine; Visit Provider Internal Medicine
DX: I48.0 Paroxysmal atrial fibrillation (principal); E66.01 Morbid (severe) obesity due to excess calories; Z68.43 Body mass index [BMI] 50.0-59.9, adult; I10 Essential (primary) hypertension; K59.04 Chronic idiopathic constipation; E78.5 Hyperlipidemia, unspecified; F41.9 Anxiety disorder, unspecified

== ENCOUNTER → 2024-11-15 10:37 | Outpatient (BNVA) | payer OTHER, SELFPAY | PROVIDERS: PCP Internal Medicine; Visit Provider Internal Medicine | DX: I10 Essential (primary) hypertension (principal); E78.5 Hyperlipidemia, unspecified; E66.09 Other obesity due to excess calories; F41.9 Anxiety disorder, unspecified; G47.00 Insomnia, unspecified; I48.0 Paroxysmal atrial fibrillation; E66.01 Morbid (severe) obesity due to excess calories; K59.04 Chronic idiopathic constipation; E55.9 Vitamin D deficiency, unspecified; Z68.43 Body mass index [BMI] 50.0-59.9, adult; Z79.899 Other long term (current) drug therapy | CPT/HCPCS: 99212 ==

== ENCOUNTER → 2024-12-01 09:45 | Outpatient (BNVA) | payer OTHER, SELFPAY | PROVIDERS: PCP Internal Medicine | DX: I10 Essential (primary) hypertension (principal) | CPT/HCPCS: 99211 ==

== ENCOUNTER → 2024-12-22 10:22 | Outpatient (BNVA) | payer OTHER, SELFPAY | PROVIDERS: PCP Internal Medicine | DX: Z01.30 Encounter for examination of blood pressure without abnormal findings (principal) | CPT/HCPCS: 99211 ==

== ENCOUNTER 2025-01-01 10:40 | Outpatient (AMB) | payer OTHER, SELFPAY ==
--- NOTE | 2025-01-01 10:41 | MHC.OFFVIS ---
Vital Signs 01/01/25 10:44 Height 4 ft 11 in Weight 288 lb 12.889 oz BMI 58.3 BP 130/84 Blood Pressure Location Lt brachial Position Sitting Pulse 60 Intake Visit Reasons: 1 yr f/up Intake Note: 1 year follow-up with ekg c/o sob Corporate Quality Manager Required: Yes Corporate Quality Manager Name: voyce Allergies bupropion Allergy (Severe, Verified 11/15/24 11:30) Palpitations phentermine Allergy (Severe, Verified 11/15/24 11:30) Hypertension levofloxacin (From LEVAQUIN) Allergy (Intermediate, Verified 11/15/24 11:30) DIZZINESS topiramate Allergy (Intermediate, Verified 11/15/24 11:30) palpitations Medication List - Last Reconciled 01/01/25 by Suleman Rosales MD albuterol sulfate 3 mg inhalation QID PRN amlodipine 2.5 mg PO DAILY 90 days atenolol 100 mg PO DAILY 90 days blood pressure monitor As directed buspirone 5 mg PO BID calcium carbonate-vitamin D3 500 mg-10 mcg (400 unit) (Calcium 500 With D) 1 tab PO DAILY 90 days cetirizine (All Day Allergy (cetirizine)) 10 mg PO DAILY PRN 90 days flecainide 50 mg PO BID fluticasone furoate 50 mcg/actuation (Arnuity Ellipta) 1 inh inhalation Q24H 30 days fluticasone propionate 110 mcg/actuation 2 puffs inhalation BID fluticasone propionate 50 mcg/actuation (Flonase Allergy Relief) 1 spray intranasal DAILY 30 days fluticasone propionate 50 mcg/actuation (Flonase Allergy Relief) 1 spray intranasal DAILY 30 days gabapentin 100 mg PO BEDTIME incontinence pad, liner, disp (Pads For Women) Use 8 pad daily ipratropium bromide 2 sprays intranasal Q8H PRN lidocaine 5% 1 patch topical DAILY linaclotide (Linzess) 72 mcg PO QAM losartan 100 mg PO DAILY omega-3 fatty acids (Fish Oil Concentrate) 1,000 mg PO DAILY omeprazole 40 mg PO BID 90 days rivaroxaban (Xarelto) 20 mg PO BEDTIME rosuvastatin 10 mg PO DAILY 90 days tramadol 50 mg PO BID PRN Ventolin HFA 90 mcg/actuation (albuterol sulfate) 1 inh inhalation QID 30 days NS HPI Comments Details: Christiane comes for follow-up. History was obtained with help of graduate teacher education over the telephone. Patient has no symptoms of atrial fibrillation. Overall she says she has been doing well from that perspective. She has had no prolonged palpitation irregular heartbeat. She said in the last year since I saw her a blood pressure is elevated and this was managed through your office and the blood pressure is not doing well. She is currently following with bariatric clinic at [facility] he has not had much luck with weight loss. Patient denies any heart failure symptoms. Denies any exertional chest pain. [facility] Medical History Adult general medical exam Encounter for medication monitoring Mild episode of recurrent major depressive disorder BMI 60.0-69.9, adult Upper abdominal pain Asthma exacerbation Hospital discharge follow-up Preoperative cardiovascular examination Morbid obesity Asthma NINI (obstructive sleep apnea) HTN (hypertension) Abnormal nuclear cardiac imaging test Atrial fibrillation with rapid ventricular response DUB (dysfunctional uterine bleeding) Otitis media Postmenopausal bleeding Diarrhea Epigastric pain Dysuria Urge urinary incontinence B12 deficiency Panic attacks Sleep apnea with use of continuous positive airway pressure (CPAP) Arthritis Anxiety Depression Afib Asthma Chronic gastritis Hepatic steatosis Fibromyalgia Surgical History Tubal ligation status H/O colonoscopy History of esophagogastroduodenoscopy (EGD) History of cholecystectomy History of section Family History Father CVA (cerebral vascular accident) Colon cancer CAD (coronary artery disease) Mother Cancer of unknown origin Social History Household Members: None Housing: Apartment Alcohol intake: never Patient Tobacco Use Status: Never used Tobacco e-Cigarette/Vaping Use: Never Used Second Hand Smoke Exposure: No service: No Current occupational status: disabled Cognitive needs: Yes (cane) Hearing needs: No Vision needs: Yes (glasses) Female Reproductive History Menstrual Age of Menarche: 14 Review of Systems Const Denies chills, Denies fatigue, Denies fever(s), Denies frequent falls, Denies weakness, Denies weight gain and Denies weight loss ENT Denies dizziness Card Denies chest pain, Denies leg edema, Denies lightheadedness, Denies palpitations, Denies dyspnea, Denies dyspnea on exertion, Denies orthopnea and Denies other (loss of consciousness) Resp Denies cough, Denies dyspnea and Denies dyspnea on exertion GI Denies hematochezia and Denies change in stool character Musc Denies abnormal gait, Denies muscle weakness, Denies numbness, Denies radiating pain into limb and Denies tingling Neuro Denies abnormal gait, Denies dizziness, Denies frequent falls, Denies numbness, Denies tingling and Denies weakness Endo Denies fatigue and Denies palpitations Physical Exam Vital Signs: Last Vital Signs Pulse 60 01/01/25 10:44 BP 130/84 01/01/25 10:44 BMI result Body Mass Index 58.3 Const General: cooperative, comfortable and no acute distress Nutritional Appearance: obese morbidly obese Orientation/consciousness: patient oriented x3 Neck Neck: Yes trachea midline, Yes supple and Yes no JVD Chest Chest palpation & inspection: normal inspection of the chest Resp Effort & Inspection: normal respiratory effort Auscultation: clear to auscultation bilaterally and diminished lung sounds Cardio Jugular venous distension: no JVD Rate: regular rate Rhythm: regular rhythm Heart sounds: S1 normal heart sound present and S2 normal heart sound present GI Inspection: Yes Abdominal panniculus present and Yes obesity Auscultation: normal bowel sounds Skin General skin exam: no rashes or lesions noted Neuro General: patient oriented x3 Extrem General: Yes no clubbing, cyanosis or edema Office Procedures EKG Details: EKGs shows normal sinus rhythm with nonspecific ST-T changes [id number], Complete Assessment & Plan Assessment & Plan (1) Paroxysmal atrial fibrillation: Code(s): I48.0 - Paroxysmal atrial fibrillation Category: Medical Plan: Highly symptomatic paroxysmal atrial fibrillation doing well with rhythm control approach. She has and has done well with flecainide therapy. Continue the same and continue rhythm control approach. Continue concomitant AV ridge blocking agent to reduce risk of rapid atrial flutter. Continue full oral anticoagulation, currently on Xarelto 20 mg daily. Continue aggressive risk factor modification including aggressive weight loss program. Continue CPAP treatment. Continue aggressive blood pressure control which is currently well optimized. (2) HTN (hypertension): Code(s): I10 - Essential (primary) hypertension Category: Medical Qualifiers: Hypertension type: primary hypertension Qualified Code(s): I10 - Essential (primary) hypertension Plan: Hypertension which is currently well optimized. Advised to monitor blood pressure at home maintain a log. With current addition of amlodipine therapy blood pressure appears to be doing well. 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 Low-salt diet was discussed. Continue CPAP therapy. Importance of aggressive weight loss program discussed. I think she would benefit from GLP 1 antagonist therapy. Will follow up in the clinic in 6 months for EKG in 1 year with me. Orders: Orders CA echo transthorac w con 1 Year I48.0 - Paroxysmal atrial fibrillation Coding Level of Care Code Est Pt Level 4 (37102) Complex EM visit Add On G2211 Diagnoses Paroxysmal atrial fibrillation I48.0 Primary hypertension I10 Hypertension type: primary hypertension CPT Codes EKG - CPT: [id number], Complete ([id number])
[2025-01-01 10:44] VITALS: BP 130/84; PULSE 60; BMI 58.3
== END 2025-01-01 11:13 | disposition home or self-care (01) ==
LOC: HO.HCS 10:40
PROVIDERS: PCP Internal Medicine; Visit Provider Internal Medicine Cardiovascular Disease
DX: I48.0 Paroxysmal atrial fibrillation (principal); I10 Essential (primary) hypertension
CPT/HCPCS: 93010; 99214

== ENCOUNTER → 2025-01-01 10:40 | Outpatient (BNVA) | payer OTHER, SELFPAY | PROVIDERS: PCP Internal Medicine; Visit Provider Internal Medicine Cardiovascular Disease | DX: I10 Essential (primary) hypertension (principal); I48.0 Paroxysmal atrial fibrillation | CPT/HCPCS: 93005; 99212 ==

== ENCOUNTER → 2025-01-25 12:15 | Outpatient (BNVA) | payer OTHER, SELFPAY | PROVIDERS: PCP Internal Medicine | DX: Z01.30 Encounter for examination of blood pressure without abnormal findings (principal) | CPT/HCPCS: 99211 ==